=== PATIENT | female | born 1950 | race Caucasian/White ===

== ENCOUNTER 2022-05-30 14:46 | Emergency (ER) | payer MEDICARE, SELFPAY ==
--- NOTE | ~2022-05-30 | CT_ITS ---
EXAMINATION: CTA chest DATE: 05/30/2022 16:32 INDICATION: Chest pain radiating to the back. Epigastric pain, nausea and vomiting. TECHNIQUE: Computed tomographic angiography (CTA) of the chest was performed without and with 100 mL Omnipaque-350 intravenous contrast. Volume-rendered 3D-reconstructions of the aorta and large arterie s were constructed by the technologist on a separate workstation. Automated exposure control and iter ative reconstruction technique were employed. The dose-length product was 719.97 mGy-cm. COMPARISON: None. FINDINGS: Mild dependent atelectasis in the bilateral lower lobes along with additional left basilar atelectasi s at the left lower lobe and lingula. No pneumonia, pulmonary edema, pleural effusion or pneumothorax . Heart size is normal. No pericardial effusion. Minimal atherosclerotic calcifications at the origin s of the coronary arteries. Additional atherosclerotic calcification without hemodynamically signific ant stenosis at the aortic arch. Thoracic aorta is normal in caliber with no dissection. No pathologi carly enlarged thoracic lymphadenopathy. Diffuse hepatic steatosis. There is slight increased attenua tion along the gallbladder fossa which could represent either focal fatty sparing or hyperemia such a s in the setting of acute cholecystitis. There is a prominent calcified gallstone within the partiall y visualized gallbladder. There is suggestion of some mild stranding in the fat along the fundus of t he gallbladder again raising some suspicion for acute appendicitis. There are few small low-attenuati on cysts at the visualized upper pole of the left kidney. Moderate thoracic spondylosis. IMPRESSION: 1. No aortic aneurysm, dissection or other acute cardiopulmonary disease. 2. Cholelithiasis with suggestion of mild pericholecystic fat stranding and possible hyperemia along the gallbladder fossa which raises some suspicion for acute cholecystitis. Correlate for Stahl sign and if equivocal could consider HIDA scan for further evaluation. Reviewed, dictated and finalized at location A. IMPRESSION: 1. No aortic aneurysm, dissection or other acute cardiopulmonary disease. 2. Cholelithiasis with suggestion of mild pericholecystic fat stranding and pos sible hyperemia along the gallbladder fossa which raises some suspicion for acu te cholecystitis. Correlate for Stahl sign and if equivocal could consider HID A scan for further evaluation.
--- NOTE | 2022-05-30 15:04 | ECG_ITS ---
Measurements Intervals [place] Rate: 56 P: 60 LA: 150 QRS: -7 QRSD: 90 T: 34 QT: 363 QTc: 352 Interpretive Statements SINUS BRADYCARDIA WITH MARKED SINUS ARRHYTHMIA CONSIDER INFERIOR INFARCT, AGE INDETERMINATE BASELINE ARTIFACT- I, II, III, AVR, AVL, AVF, V4-V6 ABNORMAL ECG NO PREVIOUS ECG AVAILABLE FOR COMPARISON Electronically Signed On 05-30-2022 16:52:30 CDT by Angus Bermeo D.O.
[2022-05-30 15:13] VITALS: BP 172/80; PULSE 73; RESP 20; TEMP 36.7; O2SAT 97
[2022-05-30 15:31] LABS: Hematocrit 49.1 % (35.0-42.0); Hemoglobin 16.1 g/dL (11.7-13.8); Mean Corpuscular HGB Conc 32.8 g/dL (32.0-36.0); Mean Corpuscular Hemoglobin 30.1 pg (27.0-31.0); Mean Corpuscular Volume 91.9 fL (78.0-102.0); Mean Platelet Volume 11.9 fl (9.2-11.8); Platelet Count Result 274 K/mm3 (150-420); Red Blood Count 5.34 M/mm3 (4.20-5.40); Red Cell Distribution Width 13.7 % (11.6-14.4); White Blood Count 12.5 K/mm3 (4.8-10.8)
--- NOTE | 2022-05-30 15:35 | ED.GENADULT ---
HPI - General Adult General Chief complaint: Nausea/Vomiting/Diarrhea Stated complaint: vomiting, chest and back pain History of Present Illness HPI narrative: Flory is a 72F with a PMH of HTN, HLD and chronic back pain that presented to the ED with back and chest pain. It started with an aching pain in her upper back but now it is a ripping pain from her upper back to her left chest with nausea, a few episodes of non-bloody vomiting, and is lightheaded. She has not passed out. There is no hematemesis, diarrhea or abdominal pain. Related Data Home Medications Medication Instructions Recorded Confirmed amlodipine 10 mg tablet 10 mg PO DAILY 05/30/22 05/30/22 metoprolol tartrate 50 mg tablet 50 mg PO DAILY 05/30/22 05/30/22 oxybutynin chloride 5 mg tablet 5 mg PO DAILY 05/30/22 05/30/22 rosuvastatin 20 mg tablet 20 mg PO DAILY 05/30/22 05/30/22 Allergies Allergy/AdvReac Type Severity Reaction Status Date / Time No Known Allergies Allergy Verified 05/30/22 15:05 Review of Systems Review of Systems: ROS unobtainable: Yes unobtainable due to medical condition [facility] Past Medical History Medical History (Updated 05/31/22 @ 08:16 by Henry Woodson DO) Hyperlipidemia Hypertension Overactive bladder Surgical History Surgical History (Updated 05/30/22 @ 22:59 by Grace Jefferson PA-C) History of hysterectomy Family History Family History (Updated 05/30/22 @ 23:00 by Grace Jefferson PA-C) Father Heart disease Other Brain cancer Mother No problems noted. Social History Social History (Updated 05/30/22 @ 23:01 by Grace Jefferson PA-C) Social History: Surrogate medical decision maker: Joce Khoury, spouse. Code status: Full code. Smoking status: Never smoker Alcohol intake: current Alcohol use details: Social alcohol use in moderation. Substance use: never Substance use type: does not use Additional living arrangements comments: The patient lives with her in [place]. Additional occupation/education comments: Retired. She is very involved in local [employer] including the [employer]. Spiritual care concerns: No Exam Const: General: alert; No confusion Other: In mild to moderate distress. HENMT: Head: normal to inspection Other: atrauamtic Eyes: Conjunctivae: conjunctivae normal Pupils: Equal, round and reactive pupils present Neck: Neck: normal visual inspection Chest: Chest palpation & inspection: normal inspection of the chest Resp: Other: Increased respiratory effort but lungs clear to auscultation bilaterally. Cardio: Rate: regular rate Rhythm: regular rhythm Other: No murmur GI: Other: Not tender to palpation Skin: General skin exam: normal color Neuro: General: patient oriented x3, moves all extremities and no meningeal signs Extrem: General: normal to inspection Psych: Mental Status: mental status grossly normal Course Course Emergency Course: Flory was evaluated. Ordered EKG, labs and CT as well as morphine for pain EXAMINATION: CTA chest DATE: 05/30/2022 16:32 INDICATION: Chest pain radiating to the back. Epigastric pain, nausea and vomiting. TECHNIQUE: Computed tomographic angiography (CTA) of the chest was performed without and with 100 mL Omnipaque-350 intravenous contrast. Volume-rendered 3D-reconstructions of the aorta and large arteries were constructed by the technologist on a separate workstation. Automated exposure control and iterative reconstruction technique were employed. The dose-length product was 719.97 mGy-cm. COMPARISON: None. FINDINGS: Mild dependent atelectasis in the bilateral lower lobes along with additional left basilar atelectasis at the left lower lobe and lingula. No pneumonia, pulmonary edema, pleural effusion or pneumothorax. Heart size is normal. No pericardial effusion. Minimal atherosclerotic calcifications at the origins of the coronary arteries.
[2022-05-30 15:42] LABS: Basophils Absolute Auto 0.08 K/mm3 (0.00-0.10); Basophils Percent Auto 0.6 % (0.0-1.0); Eosinophils Absolute Auto 0.08 K/mm3 (0.02-0.50); Eosinophils Percent Auto 0.6 % (1.0-6.0); Hematocrit 48.8 % (35.0-42.0); Hemoglobin 16.3 g/dL (11.7-13.8); Immature Granulocyte Absolute 0.07 K/mm3 (0.00-0.00); Immature Granulocyte Percent A 0.6 % (0.0-0.0); Lymphocytes Absolute Auto 2.09 K/mm3 (1.10-4.50); Mean Corpuscular HGB Conc 33.4 g/dL (32.0-36.0); Mean Corpuscular Hemoglobin 30.7 pg (27.0-31.0); Mean Corpuscular Volume 91.9 fL (78.0-102.0); Mean Platelet Volume 11.9 fl (9.2-11.8); Monocytes Absolute Auto 0.48 K/mm3 (0.10-0.90); Monocytes Percent Auto 3.9 % (2.0-11.0); Neutrophils Absolute Auto 9.5 K/mm3 (1.7-7.2); Neutrophils Percent Auto 77.3 % (50.0-70.0); Platelet Count Result 272 K/mm3 (150-420); Red Blood Count 5.31 M/mm3 (4.20-5.40); Red Cell Distribution Width 13.9 % (11.6-14.4); White Blood Count 12.3 K/mm3 (4.8-10.8)
[2022-05-30 15:55] LABS: Lipase 216 U/L (73-393)
[2022-05-30 15:57] LABS: Alanine Aminotransferase 32 U/L (14-59); Albumin Level 4.3 g/dL (3.4-5.0); Alkaline Phosphatase 90 U/L (46-116); Anion Gap 9 mmol/L (8-16); Aspartate Amino Transferase 24 U/L (15-37); Bilirubin,Total 0.4 mg/dL (0.00-1.00); Blood Urea Nitrogen 17 mg/dL (7-18); Calcium 10.2 mg/dL (8.5-10.1); Carbon Dioxide 29 mmol/L (21-32); Chloride 99 mmol/L (98-108); Estimated CRCL calculation 69 ml/min; Estimated Glomerular Filt Rate > 60; Glucose 193 mg/dL (70-99); Osmolality Calculated 290 mOsm/kg (285-295); Potassium 3.7 mmol/L (3.5-5.1); Sodium 137 mmol/L (136-145); Total Protein 8.1 g/dL (6.4-8.2); Troponin I 11.9 ng/L (0.00-60.4)
[2022-05-30 15:58] LABS: NT Pro B Type Natriuretic Pept 93 pg/mL (0-125)
[2022-05-30] MEDS: ONDANSETRON INJ 4 MG/2 ML VIAL IV PUSH ×2 (16:01→17:40)
[2022-05-30] MEDS: MORPHINE SULFATE (*CRX) 4 MG/ML INJ IV PUSH ×2 (16:02→17:40)
[2022-05-30 16:14] LABS: Prothrombin Time 10.5 Seconds (9.50-12.10)
--- NOTE | 2022-05-30 17:19 | PC.NURSE ---
Pt assisted to restroom via wheelchair. PCT reports that pt started vomiting again. ERP aware. Will give second dose of zofran.
== END 2022-05-30 18:49 | disposition short-term general hospital (02) ==
PROVIDERS: Emergency Provider Family Medicine; PCP Nurse Practitioner Family
DX: K81.9 Cholecystitis, unspecified (principal); E78.5 Hyperlipidemia, unspecified; I10 Essential (primary) hypertension
CPT/HCPCS: 36415; 71275; 80053; 83690; 83880; 84484; 85025; 85027; 85610; 93005; 96365; 96375; 96376; 99285; J2270; J2405; J2543; Q9967

== ENCOUNTER 2022-05-30 20:35 | Inpatient (IN) | payer MEDICARE, SELFPAY ==
--- NOTE | ~2022-05-30 | XR_ITS ---
EXAMINATION: XR cholangiogram surg 1st inj DATE: 05/31/2022 15:25 INDICATION: Intraoperative evaluation during laparoscopic cholecystectomy TECHNIQUE: Multiple fluoroscopic images of the right upper quadrant were obtained during intraoperati ve cholangiography. A total of 110 fluoroscopic images were obtained during procedure performed by Dr Danny Connelly . Radiologist was not present for the procedure or imaging. The amount of fluoroscopy time used during this procedure was 0.3 minutes. COMPARISON: None. FINDINGS: Cannulation of the cystic duct demonstrates filling of a mildly dilated common bile duct wh ich tapers smoothly distally with no intraluminal filling defects or stricture. Contrast extends int o the duodenum and central intrahepatic biliary tree which appears normal, also without evident filli ng defects or strictures. IMPRESSION: 1. No filling defects or strictures within the mildly dilated common bile duct or contrast opacified central biliary tree. Reviewed, dictated and finalized at location A.
--- NOTE | ~2022-05-30 | US_ITS ---
US abdomen limited INDICATION: Abnormal CT. PROCEDURE: Realtime right upper abdominal ultrasound. COMPARISON: No prior studies for comparison. FINDINGS: The pancreas is normal without focal mass or pancreatic ductal dilation. Liver echotexture is increased, consistent with fatty infiltration. There is normal directional flow in the portal vein. There are gallstones with gallbladder wall thickening and pericholecystic fluid. Common bile duct me asures 8.5 mm. No sonographic Stahl's sign, although patient is on pain medications. IMPRESSION: 1: Cholelithiasis with gallbladder wall thickening, pericholecystic fluid and biliary dilatation. Fin dings compatible with acute cholecystitis. 2: Hepatic steatosis. Reviewed, dictated and finalized at location B. IMPRESSION: 1: Cholelithiasis with gallbladder wall thickening, pericholecystic fluid and b iliary dilatation. Findings compatible with acute cholecystitis. 2: Hepatic steatosis.
--- NOTE | 2022-05-30 19:37 | PC.NURSE ---
This patient, Flory Khoury, was admitted to [facility] Surg Room 330-01 on 05/30/22 @ 1925. Patient/family oriented to hospital policies and general routines including ID bracelet, bed and alarms, visiting hours, pain management, procedures, bathroom and other care routines, personal items, smoking policy, room service/diet, and visiting hours. Information on how to activate the Rapid Response Team has been discussed. Patient/Family are encouraged to report perceived risks to care and to ask questions if they do not understand what they are told or what they should do.
--- NOTE | 2022-05-30 21:30 | PM.IMHP ---
H&P: HPI History of Present Illness Date/Time: 05/30/22 21:30 Chief Complaint: Cholecystitis. Narrative: This is a very pleasant 72-year-old female with hypertension and hyperlipidemia who is being directly admitted to the medical floor from the emergency department at the [facility] for cholecystitis. she felt fine when she got up this morning and not long after eating sausage patties and eggs for breakfast she developed an aching pain in the chest (she points more so to the epigastrium) radiating through to the back which intensified quite quickly to a ripping pain. She also had nausea and several episodes of nonbloody, nonbilious emesis after the pain began. A CTA of the chest was done immediately on arrival to the ED to rule out dissection. no acute cardiopulmonary disease, aortic aneurysm, or dissection was noted however cholelithiasis with suggestions of mild pericholecystic fat stranding and Other findings which raise suspicion for acute cholecystitis. her WBC count was elevated 12.3 with unremarkable LFTs. With further questioning she admits that she has had similar, intermittent symptoms over the years which seemed to be related to food. She has never been evaluated for this pain before today as it had never been this severe. At the time my evaluation she continues to have the pain and nausea as well as dry heaves. Review of Systems Review of Systems: Twelve systems were reviewed. She was a bit lightheaded when the pain was severe earlier. No syncope or near syncope. She denies exertional chest pain shortness of breath. No history of cardiac disease. She denies diarrhea and in fact she is typically constipated And usually has a bowel movement 1 time a week despite taking stool softeners. Except as documented, all other systems were reviewed and are negative. [facility] Past Medical History Medical History (Updated 05/30/22 @ 23:08 by Grace Jefferson PA-C) Hyperlipidemia Hypertension Overactive bladder Surgical History Surgical History (Updated 05/30/22 @ 22:59 by Grace Jefferson PA-C) History of hysterectomy Family History Family History (Updated 05/30/22 @ 23:00 by Grace Jefferson PA-C) Father Heart disease Other Brain cancer Mother No problems noted. Social History Social History (Updated 05/30/22 @ 23:01 by Grace Jefferson PA-C) Social History: Surrogate medical decision maker: Joce Khoury, spouse. Code status: Full code. Smoking status: Never smoker Alcohol intake: current Alcohol use details: Social alcohol use in moderation. Substance use: never Substance use type: does not use Additional living arrangements comments: The patient lives with her in [place]. Additional occupation/education comments: Retired. She is very involved in local [employer] including the [employer]. Spiritual care concerns: No Meds Home Medications and Allergies Home Medications Medication Instructions Recorded Confirmed Type amlodipine 10 mg tablet 10 mg PO DAILY 05/30/22 05/30/22 History metoprolol tartrate 50 mg tablet 50 mg PO DAILY 05/30/22 05/30/22 History oxybutynin chloride 5 mg tablet 5 mg PO DAILY 05/30/22 05/30/22 History rosuvastatin 20 mg tablet 20 mg PO DAILY 05/30/22 05/30/22 History Allergies Allergy/AdvReac Type Severity Reaction Status Date / Time No Known Allergies Allergy Verified 05/30/22 15:05 Vital Signs Vital Signs - 24 hr 05/30/22 20:00 Oxygen Delivery Room Air Exam Narrative: General: Moderately ill-appearing female lying in the semi-Vicente position in bed. She has frequent dry heaves. Weight: 92 kilograms. BMI: 36.5. HEENT: PERRL, EOMI. Sclera anicteric. Tacky mucous membranes. Neck: Supple. Respiratory: Lungs are clear to auscultation bilaterally. Cardiovascular: Regular rate and rhythm with S1-S2. 2/6 systolic murmur heard at the upper sternal border. Gastrointestinal
[2022-05-30] MEDS: SODIUM CHLORIDE 0.9% IV 1,000 ML 100 ML IV CONT (21:42)
[2022-05-30] MEDS: MORPHINE SULFATE (*CRX) 2 MG/ML INJ IV PUSH (21:43)
[2022-05-30 21:46] VITALS: BMI 36.5
[2022-05-30 22:00] VITALS: BP 156/103; PULSE 80; RESP 15; TEMP 36.6; O2SAT 96
--- NOTE | 2022-05-30 22:01 | ADMGEN ---
This patient, Flory Khoury, was admitted to [facility] Surg Room 330-01. Patient/family oriented to hospital policies and general routines including ID bracelet, bed and alarms, visiting hours, pain management, procedures, bathroom and other care routines, personal items, smoking policy, room service/diet, and visiting hours. Information on how to activate the Rapid Response Team has been discussed. Patient/Family are encouraged to report perceived risks to care and to ask questions if they do not understand what they are told or what they should do.
[2022-05-30] MEDS: ONDANSETRON INJ 4 MG/2 ML VIAL IV PUSH (22:10)
[2022-05-31] VITALS (14 sets, daily range): BP systolic 104–152; BP diastolic 48–79; PULSE 69–82; RESP 14–26; TEMP 36.3–37; O2SAT 92–99; BMI 36.5
--- NOTE | 2022-05-31 | ECHO_ITS ---
Patient Info Name: Flory Khoury Age: 72 years : 1950 Gender: Female Ht: 62 in Wt: 202 lbs BSA: 2.05 m2 HR: 82 bpm BP: 118 / 61 mmHg Heart Rhythm: Sinus Rhythm Technical Quality: Fair Exam Date: 05/31/2022 10:00 AM Exam Location: [facility] Patient Status: Inpatient Admit Date: 05/30/2022 Staff Ordering Physician: Grace Jefferson PA-C Estate Planner: Kym Marquez RDCS Attending Provider: Ildefonso Stovall MD Referring Physician: Li COLE; Exam Type: CA echo dop color flow w con Study Info Indications R01.1 - Cardiac murmur, unspecified Complete two-dimensional, color flow and Doppler transthoracic echocardiogram is performed with contrast to opacify the left ventricle and to improve the deliniation of the left ventricle endocardial borders. Contrast/Agitated Saline Contrast/Ag. Saline: Definity Amount: 3.00 ml Administered By: Kym Marquez RDCS Existing IV Access: Yes IV Access Condition: patent with no signs of infiltration Summary 1. Left ventricular chamber dimension is normal. 2. Definity contrast administered improved wall motion interpretation. 3. Left ventricular systolic function is normal, estimated at 60-65%. 4. The left ventricular diastolic function is grade I diastolic dysfunction. 5. E/e' 18 is elevated. 6. Left atrial chamber dimension is mildly enlarged. 7. There is trace mitral valve regurgitation. 8. There is trace tricuspid valve regurgitation. 9. No pulmonary hypertension, estimated pulmonary arterial systolic pressure is 24 mmHg. Left Ventricle E/e' 18 is elevated. Definity contrast administered improved wall motion interpretation. Left ventricular chamber dimension is normal. Left ventricular systolic function is normal, estimated at 60-65%. The left ventricular diastolic function is grade I diastolic dysfunction. Right Ventricle Right ventricular systolic function is normal and with normal TAPSE 2.5 cm. Right ventricular chamber dimension is normal. Left Atria Left atrial chamber dimension is mildly enlarged. Right Atria Right atrial chamber dimension is normal. Aortic Valve The aortic valve is trileaflet. There is no aortic valve stenosis. There is no aortic valve regurgitation. Pulmonic Valve There is no pulmonic regurgitation. Mitral Valve There is no mitral valve stenosis. There is trace mitral valve regurgitation. Tricuspid Valve There is trace tricuspid valve regurgitation. No pulmonary hypertension, estimated pulmonary arterial systolic pressure is 24 mmHg. Pericardium/Pleural There is no pericardial effusion. Inferior Vena Cava Normal inferior vena cava with >50% collapse upon inspiration consistent with normal right atrial pressure, 5 mmHg. Aorta The aortic root size at the sinus of Valsalva is normal. Left Ventricular Outflow Tract Name Value Normal LVOT 2D LVOT Diameter 1.98 cm LVOT Doppler LVOT Peak Gradient 6 mmHg LVOT Mean Gradient 3 mmHg LVOT VTI 20.97
[2022-05-31] MEDS: MORPHINE SULFATE (*CRX) 2 MG/ML INJ IV PUSH ×2 (02:41→23:13)
[2022-05-31] MEDS: HYDROcodone/acetaminophen (*CRX) 5-325 MG TABLET 1 TAB PO (05:27)
[2022-05-31 05:56] LABS: Hematocrit 43.3 % (37.0-47.0); Hemoglobin 14.2 g/dL (12.0-15.0); Mean Corpuscular HGB Conc 32.8 g/dl (32-36); Mean Corpuscular Hemoglobin 30.3 pg (26-34); Mean Corpuscular Volume 92.3 fl (80-100); Mean Platelet Volume 11.8 fl (7.4-10.4); Platelet Count Result 254 k/mm3 (150-375); Red Blood Count 4.69 M/mm3 (4.2-5.4); Red Cell Distribution Width 14.3 % (11.5-14.5); White Blood Count 20.1 K/mm3 (4.5-10.0)
[2022-05-31 06:33] LABS: Alanine Aminotransferase 48 U/L (6-35); Albumin Level 3.7 g/dL (3.5-5.1); Alkaline Phosphatase 94 U/L (38-126); Anion Gap 10 mmol/L (8-16); Aspartate Amino Transferase 51 U/L (14-36); Bilirubin,Total 0.7 mg/dL (0.2-1.3); Blood Urea Nitrogen 15 mg/dL (7-17); Calcium 8.9 mg/dL (8.4-10.2); Carbon Dioxide 26 mmol/L (22-30); Chloride 102 mmol/L (98-107); Estimated CRCL calculation 77 ml/min; Estimated Glomerular Filt Rate > 60; Glucose 150 mg/dL (65-110); Magnesium 1.8 mg/dL (1.6-2.3); Potassium 3.2 mmol/L (3.4-5.0); Sodium 138 mmol/L (137-145)
[2022-05-31 07:25] LABS: Hemoglobin A1C 7.2 % (<5.7)
[2022-05-31] MEDS: SODIUM CHLORIDE 0.9% IV 1,000 ML 100 ML IV CONT (09:12)
[2022-05-31 09:52] LABS: Hepatitis B Surface Antigen Negative (Negative)
[2022-05-31 09:57] LABS: HAV RESULT Negative (Negative); Hepatitis B Core IgM Result Negative (Negative)
--- NOTE | 2022-05-31 10:00 | PM.IMPN ---
Progress Note: A&P Assessment and Plan (1) Acute cholecystitis: Code(s): K81.0 - Acute cholecystitis Status: Acute Assessment and Plan: CTA indicated cholelithiasis with suggestion of mild pericholecystic fat stranding and possible hyperemia along with the gallbladder fossa which raises suspicion for acute cholecystitis Abdominal ultrasound: cholelithiasis with gallbladder wall thickening, pericholecystic fluid and biliary dilatation GS consulted thank you WBC elevated at 2.1 AST/ALT 51/48 NPO for now Zofran for nausea Possible surgical intervention for today IV fluids NS 100ml/hr for (2) Dehydration: Code(s): E86.0 - Dehydration Status: Acute Assessment and Plan: Possible dehydration due to nausea and vomiting IV fluids Renal function is normal continue to trend labs (3) Hyperglycemia: Code(s): R73.9 - Hyperglycemia, unspecified Status: Acute Assessment and Plan: Glucose is 150 A1c 7.2 Does not appear to be on any medications Finishing Department Supervisor and senior health educator consult ISS Accu Chek Q6H while NPO Trend glucose Adjust therapy as indicated (4) Hypertension: Code(s): I10 - Essential (primary) hypertension Status: Acute Assessment and Plan: BP 118/61 Continue home amlodipine and metoprolol Trend BP adjust therapy as indicated (5) Hyperlipidemia: Code(s): E78.5 - Hyperlipidemia, unspecified Status: Acute Assessment and Plan: LFT slightly elevated hold statin for now (6) Heart murmur: Code(s): R01.1 - Cardiac murmur, unspecified Status: Acute Assessment and Plan: no history to suggest current issues denies syncope, presyncope, exertional chest pain, shortness of breath, orthopnea, etc. EKG did not show acute findings but possible old inferior infarct. echocardiogram ordered Will need some out patient follow up (7) Transaminitis: Code(s): R74.01 - Elevation of levels of liver transaminase levels Status: Acute Assessment and Plan: AST/ALT elevated at 51/48 Hep panel negative Ultrasound does not indicate liver evolvement Continue to trend labs Adjust therapy as indicated Time Spent With Patient Time with patient: Greater than 35 minutes Subjective Date/time seen: 05/31/22 1000 Interval history: 05/31/22 1000 patient is a bit nervous this morning. It seems that she thinks she might thinking that this might be her liver. Reinforce that this was not a liver issue is more of a gallbladder issue. She has not had any vomiting this morning however she has been nauseated. She denies any chest pain, shortness of breath, diarrhea. She also stated that she had chills yesterday however today she is hot and has a fan. For breakfast yesterday she had 2 sausage patties and in a egg. Discussed with her more detail about the plan. It also appears that surgery is going to try to fit her in today. On a side note patient stated that all of her pain started in her epigastric area and radiated to her back between her shoulder blades. Currently her pain is in the right upper quadrant and is reproducible with Palpation. WBCs elevated at 20.1 continue current Zosyn. 05/30/22? 21:30 This is a very pleasant 72-year-old female with hypertension and hyperlipidemia who is being directly admitted to the medical floor from the emergency department at the [facility] for cholecystitis. she felt fine when she got up this morning and not long after eating sausage patties and eggs for breakfast she developed an aching pain in the chest (she points more so to the epigastrium) radiating through to the back which intensified quite quickly to a ripping pain. She also had nausea and several episodes of nonbloody, nonbilious emesis after the pain began. A CTA of the
--- NOTE | 2022-05-31 10:00 | P.PNIM_ITS ---
Progress Note: A&P Assessment and Plan (1) Acute cholecystitis: Code(s): K81.0 - Acute cholecystitis Status: Acute Assessment and Plan: * CTA indicated cholelithiasis with suggestion of mild pericholecystic fat stranding and possible hyperemia along with the gallbladder fossa which raises suspicion for acute cholecystitis * Abdominal ultrasound: cholelithiasis with gallbladder wall thickening, pericholecystic fluid and biliary dilatation * GS consulted thank you * WBC elevated at 2.1 * AST/ALT 51/48 * NPO for now * Zofran for nausea * Possible surgical intervention for today * IV fluids NS 100ml/hr for (2) Dehydration: Code(s): E86.0 - Dehydration Status: Acute Assessment and Plan: * Possible dehydration due to nausea and vomiting * IV fluids * Renal function is normal * continue to trend labs (3) Hyperglycemia: Code(s): R73.9 - Hyperglycemia, unspecified Status: Acute Assessment and Plan: * Glucose is 150 * A1c 7.2 * Does not appear to be on any medications * Weight Reducing Technician and chemical educator consult * ISS * Accu Chek Q6H while NPO * Trend glucose * Adjust therapy as indicated (4) Hypertension: Code(s): I10 - Essential (primary) hypertension Status: Acute Assessment and Plan: * BP 118/61 * Continue home amlodipine and metoprolol * Trend BP * adjust therapy as indicated (5) Hyperlipidemia: Code(s): E78.5 - Hyperlipidemia, unspecified Status: Acute Assessment and Plan: * LFT slightly elevated * hold statin for now (6) Heart murmur: Code(s): R01.1 - Cardiac murmur, unspecified Status: Acute Assessment and Plan: * no history to suggest current issues * denies syncope, presyncope, exertional chest pain, shortness of breath, orthopnea, etc. * EKG did not show acute findings but possible old inferior infarct. * echocardiogram ordered * Will need some out patient follow up (7) Transaminitis: Code(s): R74.01 - Elevation of levels of liver transaminase levels Status: Acute Assessment and Plan: * AST/ALT elevated at 51/48 * Hep panel negative * Ultrasound does not indicate liver evolvement * Continue to trend labs * Adjust therapy as indicated Time Spent With Patient Time with patient: Greater than 35 minutes Subjective Date/time seen: 05/31/22 1000 Interval history: 05/31/22 1000 patient is a bit nervous this morning. It seems that she thinks she might thinking that this might be her liver. Reinforce that this was not a liver issu e is more of a gallbladder issue. She has not had any vomiting this morning however she has been nauseated. She denies any chest pain, shortness of breath, diarrhea. She also stated that she had chills yesterday however today she is hot and has a fan. For breakfast yesterday she had 2 sausage patties and in a egg. Discussed with her more detail about the plan. It also appears that surgery is going to try to fit her in today. On a side note patient stated that all of her pain started in her epigastric area and radiated to her back between her shoulder blades. Currently her pain is in the right upper quadrant and is reproducible with Palpation. WBCs elevated at 20.1 continue current Zosyn. 05/30/22? 21:30
[2022-05-31 10:12] LABS: Hepatitis C Virus Antibody Negative (Negative)
[2022-05-31] MEDS: PERFLUTREN LIPID MICROSPHERES 1.5 ML VIAL DILUTED TO 10 ML TOTAL VOLUME IV PUSH (10:23)
--- NOTE | 2022-05-31 10:23 | IVDEFINITY ---
Prior to administration of IV Definity the patient was educated on the risks and benefits of the imaging enhancing agent including potential adverse side effects. The patient verbalized understanding. Allergies were verified. No exclusion criteria were identified and at least one of the following inclusion criteria were met: 1) physician request, 2) patient technically difficult to image (per the [place] [employer] guidelines of two or more segments not discernable within the apical view), or 3) questionable left ventricular function. ?
--- NOTE | 2022-05-31 10:34 | PM.CNGS ---
Assessment and Plan Assessment and plan (1) Acute cholecystitis: Code(s): K81.0 - Acute cholecystitis Status: Acute Assessment and Plan: CTA and RUQ US suggesting acute calculous cholecystitis. WBC up to 20,000 today. Given her history, she likely has acute and chronic cholecystitis. She is still having epigastric and RUQ abdominal pain this morning. Discussed treatment options with the patient. We would recommend proceeding with a laparoscopic cholecystectomy, possible open, with IOC by Dr. Connelly under general anesthesia. Description of the procedure, risks, benefits, alternatives, and expected recovery were discussed in detail. She agrees to proceed. Will keep her NPO and continue IV fluids, IV antibiotics, and analgesics as needed. (2) Transaminitis: Code(s): R74.01 - Elevation of levels of liver transaminase levels Status: Acute Assessment and Plan: AST and ALT slightly elevated, but total bilirubin and alk phos normal. RUQ US showed dilatation of the common bile duct. Will plan for IOC during surgery to evaluate for common duct stone. Discussed this with patient and that she would need GI consultation post-op if found to have a filling defect in the common duct during surgery. (3) Heart murmur: Code(s): R01.1 - Cardiac murmur, unspecified Status: Acute Assessment and Plan: Echo pending this morning, will monitor for results. (4) HTN (hypertension): Code(s): I10 - Essential (primary) hypertension Status: Acute (5) Obesity (BMI 30-39.9): Code(s): E66.9 - Obesity, unspecified Status: Acute (6) Hyperlipidemia: Code(s): E78.5 - Hyperlipidemia, unspecified Status: Acute (7) Hyperglycemia: Code(s): R73.9 - Hyperglycemia, unspecified Status: Acute Assessment and Plan: Glucose 193 on admission. No known history of diabetes. Hgb A1C checked and 7.2, consistent with diabetes mellitus. Management per primary service, will need f/u with PCP. She was scheduled to have an appointment with her PCP on and will plan on following up closely after admission. Plan I have discussed the patient's case and plan of care with Dr. Connelly. Thank you for allowing us to see the patient in consultation and we will continue to follow along with you. History of Present Illness Consult details Consult date: 05/31/22 Reason for consult: other (Acute cholecystitis) Requesting physician: Grace Jefferson PA-C Narrative: This is a 72-year-old woman with a history of hypertension and hyperlipidemia, who presented to [facility] yesterday with complaints of epigastric abdominal pain and vomiting x1 day. She had eaten sausage and eggs for breakfast, and shortly after noticed an onset of mid upper back pain. She began vomiting and developed substernal chest pain and epigastric abdominal pain. She reports this as chest pain but is pointing to the epigastric area. The pain continued to intensify and she had multiple episodes of emesis. She then presented to the ER for evaluation. CTA of the chest showed cholelithiasis with suggestion of mild pericholecystic fat stranding and possible hyperemia along the gallbladder fossa, suspicious for acute cholecystitis. Labs showed a white blood cell count of 12,500, normal LFTs, and normal lipase. Glucose was 193. Troponin negative. EKG with sinus bradycardia with marked sinus arrhythmia and possible inferior infarct. She was directly transferred to [facility] for surgical evaluation of acute cholecystitis. Labs this morning with WBC up to 20,000 and AST and ALT were slightly elevated. Total bilirubin and alk phos remained normal. She was started on IV Zosyn. RUQ US ordered this morning and showed cholelithiasis with gallbladder wall thickening, pericholecystic fluid, and biliary dilatation, suggesting acute cholecystitis. Our service has been consulted and she is now seen on the medical floor. Her epiga
[2022-05-31] MEDS: ACETAMINOPHEN 325 MG TABLET 650 MG PO (11:25)
[2022-05-31] MEDS: METOPROLOL TARTRATE 50 MG TAB PO (11:25)
--- NOTE | 2022-05-31 11:52 | PC.NURSE ---
To OR per bed @ 1130. Spouse and daughter at bedside. Patient's wedding ring & band locked in safe.
[2022-05-31 12:50] LABS: Glucose Point of Care 174 mg/dl (65-105)
[2022-05-31] MEDS: LACTATED RINGERS 1,000 ML 30 ML IV CONT ×2 (13:00→15:53)
--- NOTE | 2022-05-31 13:15 | WPDHPUPDATE1 ---
History and Physical Update Update Date/Time: 05/31/22 13:15 History and Physical has been reviewed, including an updated exam of the patient. There are NO changes in the patient's condition. Risks, benefits, and alternatives have been discussed and questions answered. Patient agrees to proceed with procedure.
--- NOTE | 2022-05-31 13:24 | WPDANESEPPF ---
Anes - Initial Pre Proc Eval Procedure: Operation Date: 05/31/22 13:30 Proposed Procedures p Laparoscopic Cholecystectomy with Intraoperative Cholangiogram, Possible Open - Homer Connelly DO Date/Time: 05/31/22 13:24 Surgeon: Ildefonso Stovall MD Pre Op Diagnosis: cholecystitis Patient Data Age: 72 Gender: F Height: 1.59 m Weight: 92 kg Last Vital Signs Temp 36.4 C 05/31/22 12:45 Pulse 73 05/31/22 12:45 Resp 14 05/31/22 12:45 BP 132/51 L 05/31/22 12:45 Pulse Ox 94 05/31/22 12:45 O2 Del Method Room Air 05/31/22 12:45 Allergies Allergy/AdvReac Type Severity Reaction Status Date / Time No Known Allergies Allergy Verified 05/31/22 11:23 Home Medications Medication Instructions Recorded Confirmed Type amlodipine 10 mg tablet 10 mg PO DAILY 05/30/22 05/30/22 History metoprolol tartrate 50 mg tablet 50 mg PO DAILY 05/30/22 05/30/22 History oxybutynin chloride 5 mg tablet 5 mg PO DAILY 05/30/22 05/30/22 History rosuvastatin 20 mg tablet 20 mg PO DAILY 05/30/22 05/30/22 History Laboratory Tests 05/31/22 05/31/22 05/31/22 05:34 05:36 05:36 WBC 20.1 K/mm3 H K/mm3 (4.5-10.0) RBC 4.69 M/mm3 M/mm3 (4.2-5.4) Hgb 14.2 g/dL g/dL (12.0-15.0) Hct 43.3 % % (37.0-47.0) MCV 92.3 fl fl (80-100) MCH 30.3 pg pg (26-34) MCHC 32.8 g/dl g/dl (32-36) RDW 14.3 % % (11.5-14.5) Plt Count 254 k/mm3 k/mm3 (150-375) MPV 11.8 fl H fl (7.4-10.4) Sodium Potassium Chloride Carbon Dioxide Anion Gap BUN Creatinine Estim Creat Clear Calc Estimated GFR Glucose POC Capillary Glucose Hemoglobin A1c 7.2 % H % (<5.7) Calcium Magnesium Total Bilirubin AST ALT Alkaline Phosphatase Total Protein Albumin Hepatitis A IgM Ab Negative (Negative) Hep Bs Antigen Negative (Negative) Hep B Core IgM Ab Negative (Negative) Hepatitis C Ab Screen Negative (Negative) Blood Type Antibody Screen 05/31/22 05/31/22 05/31/22 05:36 10:52 12:48 WBC RBC Hgb Hct MCV MCH MCHC RDW Plt Count MPV Sodium 138 mmol/L mmol/L (137-145) Potassium 3.2 mmol/L L mmol/L (3.4-5.0) Chloride 102 mmol/L mmol/L (98-107) Carbon Dioxide 26 mmol/L mmol/L (22-30) Anion Gap 10 mmol/L mmol/L (8-16) BUN 15 mg/dL mg/dL (7-17) Creatinine 0.60 mg/dL L mg/dL (0.7-1.0) Estim Creat Clear Calc 77 ml/min ml/min Estimated GFR > 60 (59 - ) Glucose 150 mg/dL H mg/dL (65-110) POC Capillary Glucose 174 mg/dl H mg/dl (65-105) Hemoglobin A1c Calcium 8.9 mg/dL mg/dL (8.4-10.2) Magnesium 1.8 mg/dL mg/dL (1.6-2.3) Total Bilirubin 0.7 mg/dL mg/dL (0.2-1.3) AST 51 U/L H U/L (14-36) ALT 48 U/L H U/L (6-35) Alkaline Phosphatase 94 U/L U/L (38-126) Total Protein 6.0 g/dL L g/dL (6.3-8.2) Albumin 3.7 g/dL g/dL (3.5-5.1) Hepatitis A IgM Ab Hep Bs Antigen Hep B Core IgM Ab Hepatitis C Ab Screen Blood Type A Negative Antibody Screen Negative Other studies: Admit Date: ? ? 05/30/2022 Staff Ordering Physician: ? ? Grace Jefferson PA-C Surveying Technician: ? ? Kym Marquez RDCS Attending Provider: ? ? Ildefonso Stovall MD Referring Physician: ? ? Li COLE; Exam Type: ? ? CA echo dop color fl
[2022-05-31] MEDS: BUPIVACAINE/EPINEPHRINE 0.25% 50 ML VIAL INFILTRATE (14:21)
--- NOTE | 2022-05-31 15:41 | W.PM.PROC2 ---
Procedure Note - Detailed Date of Procedure 05/31/22 Pre-op Diagnosis Acute calculous cholecystitis, incarcerated umbilical hernia Post-op Diagnosis Same Procedure Performed Laparoscopic Cholecystectomy with intraoperative cholangiogram Surgeon Homer Connelly, DO Anesthesia General and Local (0.5% bupivacaine) Indications This is a 72-year-old woman who presented to [facility] yesterday with complaints of abdominal pain that started yesterday morning. She was continuing to have constant severe pain therefore decided to go to the emergency department. She has had pains like this every several weeks for the past 2 years. She has not gotten this evaluated before. In the emergency department she was worked up for chest pain but most of her pain seemed to be more epigastric. CT angiogram of her chest showed no evidence of PE or aortic dissection. It did however show gallbladder wall thickening and cholelithiasis. She was then transferred to [facility] for further treatment. A gallbladder ultrasound was obtained this morning and this showed evidence of acute calculous cholecystitis and dilated common bile duct. Her AST and ALT were only mildly elevated but bilirubin was normal. Discussions were made with the patient about treatment options and decision was made to proceed with laparoscopic cholecystectomy with intraoperative cholangiogram, possible open. Findings Laparoscopic cholecystectomy with cholangiogram was performed. Upon entering the abdomen laparoscopically there were severe adhesions up around the right lobe of the liver. The gallbladder was not even able to be identified at 1st and there was omentum covering the entire area. With careful dissection I was able to eventually identify the body of the gallbladder. The gallbladder was very tense and dilated and difficult to grasp. I attempted to aspirate the gallbladder but only was able to aspirate about 5 mL of clear white fluid. Dissection was very difficult due to the significant pericholecystic adhesions. Eventually I was able to identify the neck of the gallbladder and this was then traced to the cystic duct. Intraoperative cholangiogram was obtained using Omnipaque contrast and fluoroscopy. There was no evidence of filling defects within the common bile duct and contrast was visualized entering into the duodenum. The images were sent to the radiologist for interpretation. The gallbladder was removed and sent to the lab for pathology. There was significant bleeding from the adhesiolysis and dissection of the gallbladder off of the liver bed. Total blood loss was 150 mL which is about 10 times more than a normal straight for laparoscopic cholecystectomy. The gallbladder was opened after it was removed and there were 2 large stones within the gallbladder. The gallbladder was sent to the lab for pathology. I then irrigated the gallbladder fossa with 1 L of sterile saline. The decision was made to place a 19 round Alvaro drain into the gallbladder fossa to monitor for any bleeding infection. Patient was also noted to have an incarcerated umbilical hernia containing omentum. This was left alone due to the emergent need for the cholecystectomy. Description of Procedure Procedure as well as risks, benefits, and alternatives were discussed with patient. Written consent was obtained and placed in chart prior to procedure. The patient was brought back to surgical suite. Patient was placed in supine position on operating table. Time-out was done to confirm patient and procedure. Patient was then intubated by the anesthesia department. Abdomen was prepped and draped in sterile fashion using chlorhexidine prep. 0.5% bupivacaine with epinephrine was infiltrated at each site of incision. A 5 millimeter incision was made near the umbilicus, and a 5 millimeter Optiview trocar was advanced through the abdominal layers under direct visualization. Once inside the abdominal ca
[2022-05-31 16:13] LABS: Glucose Point of Care 186 mg/dl (65-105)
[2022-05-31] MEDS: fentaNYL CITRATE INJ (*CRX) 100 MCG/2 ML VIAL 25 MCG IV PUSH ×4 (16:20→16:52)
[2022-05-31] MEDS: ONDANSETRON INJ 4 MG/2 ML VIAL IV PUSH ×2 (16:23→23:10)
--- NOTE | 2022-05-31 17:22 | PC.NURSE ---
Patient return from OR per bed around 1715. Spouse at bedside. Wedding ring & band returned.
[2022-05-31] MEDS: HYDROcodone/acetaminophen (*CRX) 10-325 MG TABLET 1 TAB PO (20:53)
[2022-05-31] MEDS: OXYBUTYNIN CHLORIDE 5 MG TABLET PO (20:53)
[2022-05-31 21:47] LABS: Glucose Point of Care 204 mg/dl (65-105)
[2022-06-01 02:50] VITALS: BP 103/38; PULSE 85; RESP 18; TEMP 36.3; O2SAT 90
[2022-06-01 06:00] VITALS: BP 151/57; PULSE 89; RESP 18; TEMP 36.6; O2SAT 90
[2022-06-01 06:13] VITALS: BP 151/57; PULSE 89; RESP 18; TEMP 36.6; O2SAT 90
[2022-06-01 06:14] LABS: Basophils Percent Auto 0.1 % (0.2-1.2); Hematocrit 37.2 % (37.0-47.0); Hemoglobin 11.8 g/dL (12.0-15.0); Immature Granulocyte Absolute 0.07 K/mm3 (0.00-0.031); Immature Granulocyte Percent A 0.4 % (0-0.5); Lymphocytes Absolute Auto 1.08 K/mm3 (0.9-3.2); Lymphocytes Percent Auto 6.7 % (18.3-44.2); Mean Corpuscular HGB Conc 31.7 g/dl (32-36); Mean Corpuscular Hemoglobin 30.9 pg (26-34); Mean Corpuscular Volume 97.4 fl (80-100); Mean Platelet Volume 12.1 fl (7.4-10.4); Monocytes Percent Auto 6.1 % (2.6-8.5); Neutrophils Absolute Auto 13.9 K/mm3 (1.3-6.7); Neutrophils Percent Auto 86.7 % (45.5-73.1); Platelet Count Result 230 k/mm3 (150-375); Red Blood Count 3.82 M/mm3 (4.2-5.4); Red Cell Distribution Width 15.3 % (11.5-14.5); White Blood Count 16.1 K/mm3 (4.5-10.0)
[2022-06-01 06:20] LABS: Alanine Aminotransferase 44 U/L (6-35); Albumin Level 3.4 g/dL (3.5-5.1); Alkaline Phosphatase 74 U/L (38-126); Anion Gap 12 mmol/L (8-16); Aspartate Amino Transferase 40 U/L (14-36); Bilirubin,Total 0.7 mg/dL (0.2-1.3); Blood Urea Nitrogen 17 mg/dL (7-17); Calcium 8.3 mg/dL (8.4-10.2); Carbon Dioxide 27 mmol/L (22-30); Chloride 101 mmol/L (98-107); Estimated CRCL calculation 59 ml/min; Estimated Glomerular Filt Rate > 60; Glucose 224 mg/dL (65-110); Magnesium 1.9 mg/dL (1.6-2.3); Potassium 3.4 mmol/L (3.4-5.0); Sodium 140 mmol/L (137-145)
[2022-06-01 08:00] VITALS: BP 140/56; PULSE 88; RESP 28; TEMP 36.3; O2SAT 93
[2022-06-01] MEDS: ONDANSETRON INJ 4 MG/2 ML VIAL IV PUSH ×3 (08:40→23:49)
[2022-06-01] MEDS: ENOXAPARIN 40 MG/0.4 ML SYRINGE SUB-Q (08:40)
[2022-06-01] MEDS: HYDROcodone/acetaminophen (*CRX) 5-325 MG TABLET 1 TAB PO (08:40)
[2022-06-01] MEDS: amLODIPine BESYLATE 5 MG TABLET 10 MG PO (08:41)
[2022-06-01] MEDS: METOPROLOL TARTRATE 50 MG TAB PO (08:41)
[2022-06-01 08:42] LABS: Glucose Point of Care 191 mg/dl (65-105)
--- NOTE | 2022-06-01 09:09 | WPDANESPN ---
Anes - Prog Note Post-Op Date/Time: 06/01/22 09:09 Cardiovascular status: normal Respiratory status: normal Airway patency: baseline Mental status: baseline Post-Op hydration status: normal Vital Signs: Last Vital Signs Temp 97.4 F L 06/01/22 08:00 Pulse 88 06/01/22 08:00 Resp 28 H 06/01/22 08:00 BP 140/56 L 06/01/22 08:00 Pulse Ox 93 06/01/22 08:00 O2 Del Method Room Air 05/31/22 20:00 O2 Flow Rate 2 05/31/22 17:00 Pain Score (VAS): 0/10 I/O: Intake & Output 05/31/22 06/01/22 06/01/22 23:59 07:59 15:59 Intake Total 300 410 Output Total 150 240 30 Balance 150 170 -30 Laboratory Tests 06/01/22 05:39 06/01/22 05:39 05/31/22 05/31/22 05/31/22 05:34 10:52 12:48 WBC RBC Hgb Hct MCV MCH MCHC RDW Plt Count MPV Immature Gran % (Auto) Neut % (Auto) Lymph % (Auto) [place] % (Auto) Eos % (Auto) Baso % (Auto) Lymph # (Auto) [place] # (Auto) Eos # (Auto) Baso # (Auto) Abs Immat Gran (auto) Absolute Neuts (auto) Absolute Nucleated RBC Nucleated RBC % Sodium Potassium Chloride Carbon Dioxide Anion Gap BUN Creatinine Estim Creat Clear Calc Estimated GFR Glucose POC Capillary Glucose 174 H Calcium Magnesium Total Bilirubin AST ALT Alkaline Phosphatase Total Protein Albumin Hepatitis A IgM Ab Negative Hep Bs Antigen Negative Hep B Core IgM Ab Negative Hepatitis C Ab Screen Negative Blood Type A Negative Antibody Screen Negative 05/31/22 05/31/22 06/01/22 16:11 20:49 05:39 WBC 16.1 H RBC 3.82 L Hgb 11.8 L Hct 37.2 MCV 97.4 D MCH 30.9 MCHC 31.7 L RDW 15.3 H Plt Count 230 MPV 12.1 H Immature Gran % (Auto) 0.4 Neut % (Auto) 86.7 H Lymph % (Auto) 6.7 L [place] % (Auto) 6.1 Eos % (Auto) 0.0 Baso % (Auto) 0.1 L Lymph # (Auto) 1.08 [place] # (Auto) 1.0 H Eos # (Auto) 0.0 Baso # (Auto) 0.0 Abs Immat Gran (auto) 0.07 H Absolute Neuts (auto) 13.9 H Absolute Nucleated RBC 0.0 Nucleated RBC % 0.0 Sodium Potassium Chloride Carbon Dioxide Anion Gap BUN Creatinine Estim Creat Clear Calc Estimated GFR Glucose POC Capillary Glucose 186 H 204 H Calcium Magnesium Total Bilirubin AST ALT Alkaline Phosphatase Total Protein Albumin Hepatitis A IgM Ab Hep Bs Antigen Hep B Core IgM Ab Hepatitis C Ab Screen Blood Type Antibody Screen 06/01/22 06/01/22 05:39 08:39 WBC RBC Hgb Hct MCV MCH MCHC RDW Plt Count MPV Immature Gran % (Auto) Neut % (Auto) Lymph % (Auto) [place] % (Auto) Eos % (Auto) Baso % (Auto) Lymph # (Auto) [place] # (Auto) Eos # (Auto) Baso # (Auto) Abs Immat Gran (auto) Absolute Neuts (auto) Absolute Nucleated RBC Nucleated RBC % Sodium 140 Potassium 3.4 Chloride 101 Carbon Dioxide 27 Anion Gap 12 BUN 17 Creatinine 0.80 Estim Creat Clear Calc 59 Estimated GFR > 60 Glucose 224 H POC Capillary Glucose 191 H Calcium 8.3 L Magnesium 1.9 Total Bilirubin 0.7 AST 40 H ALT 44 H Alkaline Phosphatase 74 Total Protein 6.0 L Albumin 3.4 L Hepatitis A IgM Ab Hep Bs Antigen Hep B Core IgM Ab Hepatitis C Ab Screen Blood Type Antibody Screen Post-procedural complaints: none Patient Feedback: Patient satisfied with anesthetic care.
[2022-06-01 11:33] LABS: Glucose Point of Care 187 mg/dl (65-105)
[2022-06-01] MEDS: HYDROcodone/acetaminophen (*CRX) 10-325 MG TABLET 1 TAB PO ×2 (12:38→20:39)
--- NOTE | 2022-06-01 13:05 | PM.PNGS ---
Progress Note: A&P Assessment and Plan (1) Acute cholecystitis: Code(s): K81.0 - Acute cholecystitis Status: Acute Assessment and Plan: POD#1 lap elise and doing fair. Her surgery was difficult with a significant amount of inflammation, adhesions, and more blood loss than typical with a lap elise. She is doing well this morning. Will advance her diet to full liquids. Encouraged increasing activity and try sitting in the chair today. Continue to monitor MARTHA drain. Repeat labs tomorrow. May be able to discharge tomorrow if she continues to improve. (2) Transaminitis: Code(s): R74.01 - Elevation of levels of liver transaminase levels Status: Acute Assessment and Plan: LFTs down slightly. IOC showed no filling defects. Continue to monitor. (3) Heart murmur: Code(s): R01.1 - Cardiac murmur, unspecified Status: Acute (4) HTN (hypertension): Code(s): I10 - Essential (primary) hypertension Status: Acute (5) Obesity (BMI 30-39.9): Code(s): E66.9 - Obesity, unspecified Status: Acute (6) Hyperlipidemia: Code(s): E78.5 - Hyperlipidemia, unspecified Status: Acute (7) Hyperglycemia: Code(s): R73.9 - Hyperglycemia, unspecified Status: Acute Plan I have discussed the patient's case and plan of care with Dr. Connelly. Subjective Subjective Date/Time Seen: 06/01/22 11:05 Post Op day: 1 (lap elise) Patient reports: tolerating liquids well, no flatus, no bowel movement and afebrile Interval history: Patient seen and examined. She reports having incisional pain today, but this is being controlled with [place] this morning. She is tolerating clear liquids. No nausea or vomiting. She has gotten up to the commode, but is currently laying in bed. Has not ambulated much. No other complaints at this time. MARTHA drain with 70 cc output overnight. Review of Systems Review of Systems: All systems reviewed & are unremarkable except as noted in HPI and below Exam Const: General: comfortable, no acute distress and awake Orientation/consciousness: patient oriented x3 Resp: Effort & Inspection: normal respiratory effort Auscultation: clear to auscultation bilaterally Cardio: Rate: regular rate Rhythm: regular rhythm GI: Inspection: non-distended and incision (incisions dry and intact, min ecchymosis near epigastric and periumb. inc.) GI Palp: Yes Soft to palpation, Yes Tenderness to palpation present (GI) (incisional), No Guarding due to palpation present (GI) and Yes Hernia present (umbilical hernia) Auscultation: normal bowel sounds Extrem: General: no calf tenderness and no edema Psych: Mental Status: mental status grossly normal Insight: Good insight present (Psych) Objective Data Vital Signs Vital Signs: Vital Signs - 24 hr 05/31/22 15:53 05/31/22 16:05 05/31/22 16:20 Temperature 98.6 F Pulse Rate 69 72 75 Respiratory Rate 26 H 20 20 Blood Pressure 131/62 128/65 146/69 H Pulse Oximetry 99 95 94 Oxygen Delivery Simple Face Mask Nasal Cannula Nasal Cannula Oxygen Flow Rate 8 2 2 05/31/22 16:35 05/31/22 16:50 05/31/22 17:00 Temperature Pulse Rate 71 74 78 Respiratory Rate 20 20 20 Blood Pressure 140/63 136/79 134/72 Pulse Oximetry 95 96 97 Oxygen Delivery Nasal Cannula Room Air Nasal Cannula Oxygen Flow Rate 2 2 05/31/22 17:20 05/31/22 17:50 05/31/22 21:55 Temperature 98.5 F 98.5 F 97.4 F L Pulse Rate 79 75 74 Respiratory Rate 14 16 18 Blood Pressure 152/78 H 140/66 129/48 L Pulse Oximetry 96 94 92 Oxygen Delivery Oxygen Flow Rate 05/31/22 21:56 05/31/22 20:00 06/01/22 02:50 Temperature 97.4 F L 97.3 F L Pulse Rate 74 85 Respiratory Rate 18 18 Blood Pressure 129/48 L 103/38 L Pulse Oximetry 92 90 Oxygen Delivery Room Air Oxygen Flow Rate 06/01/22 06:00 06/01/22 06:13 06/01/22 08:00 Temperature 97.8 F 97.8 F 97.4 F L Pulse Rate 89 89 88 Respiratory Rate 18
[2022-06-01 13:23] VITALS: BP 117/48; PULSE 68; RESP 18; TEMP 36.8; O2SAT 91
--- NOTE | 2022-06-01 15:48 | P.PNIM_ITS ---
Progress Note: A&P Assessment and Plan (1) Acute cholecystitis: Code(s): K81.0 - Acute cholecystitis Status: Acute Assessment and Plan: * CTA indicated cholelithiasis with suggestion of mild pericholecystic fat stranding and possible hyperemia along with the gallbladder fossa which raises suspicion for acute cholecystitis * Abdominal ultrasound: cholelithiasis with gallbladder wall thickening, pericholecystic fluid and biliary dilatation * general surgery consulted and appreciate recommendations * Patient is postop day 1 lap choly with cholangiogram. Patient is noted to have a difficult surgery with EBL 150 and significant gallbladder inflammation and adhesions. * Cholangiogram negative * management per General surgery - patient is on clear liquid diet, pain control, IV fluids per surgery * Continue MARTHA drain and monitor output * Zofran for nausea * patient is continued on Zosyn 3.375 mg IV q.6 hours, antibiotic day 2 (2) Dehydration: Code(s): E86.0 - Dehydration Status: Acute Assessment and Plan: * dehydration due to nausea and vomiting * continue IV fluids as above * monitor Renal function, which is stable (3) Hypertension: Qualifiers: Hypertension type: primary hypertension Qualified Code(s): I10 - Essential (primary) hypertension Code(s): I10 - Essential (primary) hypertension Status: Chronic Assessment and Plan: chronic, stable, Continue home amlodipine and metoprolol * Trend BP * adjust therapy as indicated (4) Hyperlipidemia: Qualifiers: Hyperlipidemia type: mixed hyperlipidemia Qualified Code(s): E78.2 - Mixed hyperlipidemia Code(s): E78.5 - Hyperlipidemia, unspecified Status: Chronic Assessment and Plan: chronic, stable * LFT slightly elevated secondary hepatic steatosis * holding statin for now (5) Heart murmur: Code(s): R01.1 - Cardiac murmur, unspecified Status: Acute Assessment and Plan: * no history to suggest current issues, denies syncope, presyncope, exertional chest pain, shortness of breath, orthopnea, etc. * EKG did not show acute findings but possible old inferior infarct. * echocardiogram shows normal left ventricular systolic function, EF 60-65%, grade 1 diastolic dysfunction, trace MR, trace TR * continue to monitor outpatient * optimize BP control (6) Transaminitis: Code(s): R74.01 - Elevation of levels of liver transaminase levels Status: Chronic Assessment and Plan: likely chronic as demonstrated by ultrasound findings of hepatic steatosis * AST/ALT elevated at 40/44, alk-phos 74, T bili 0.7 * Hep panel negative * Ultrasound right upper quadrant demonstrates hepatic steatosis/ non alcoholic fatty liver disease. * Recommend weight loss and continue monitoring labs * avoid hepatotoxic medications and alcohol ingestion (7) Type 2 diabetes mellitus: Qualifiers: Diabetes mellitus custodial insulin use: without custodial use Diabetes mellitus complication status: without complication Qualified Code(s): E11.9 - Type 2 diabetes mellitus without complications Code(s): E11.9 - Type 2 diabetes mellitus without complications Status: Acute Assessment and Plan: new diagnosis, patient noted to have hyperglycemia upon admission with random glucose 193, fasting glucose 150 this admission * A1c 7
--- NOTE | 2022-06-01 15:48 | PM.IMPN ---
Progress Note: A&P Assessment and Plan (1) Acute cholecystitis: Code(s): K81.0 - Acute cholecystitis Status: Acute Assessment and Plan: CTA indicated cholelithiasis with suggestion of mild pericholecystic fat stranding and possible hyperemia along with the gallbladder fossa which raises suspicion for acute cholecystitis Abdominal ultrasound: cholelithiasis with gallbladder wall thickening, pericholecystic fluid and biliary dilatation general surgery consulted and appreciate recommendations Patient is postop day 1 lap choly with cholangiogram. Patient is noted to have a difficult surgery with EBL 150 and significant gallbladder inflammation and adhesions. Cholangiogram negative management per General surgery - patient is on clear liquid diet, pain control, IV fluids per surgery Continue MARTHA drain and monitor output Zofran for nausea patient is continued on Zosyn 3.375 mg IV q.6 hours, antibiotic day 2 (2) Dehydration: Code(s): E86.0 - Dehydration Status: Acute Assessment and Plan: dehydration due to nausea and vomiting continue IV fluids as above monitor Renal function, which is stable (3) Hypertension: Qualifiers: Hypertension type: primary hypertension Qualified Code(s): I10 - Essential (primary) hypertension Code(s): I10 - Essential (primary) hypertension Status: Chronic Assessment and Plan: chronic, stable, Continue home amlodipine and metoprolol Trend BP adjust therapy as indicated (4) Hyperlipidemia: Qualifiers: Hyperlipidemia type: mixed hyperlipidemia Qualified Code(s): E78.2 - Mixed hyperlipidemia Code(s): E78.5 - Hyperlipidemia, unspecified Status: Chronic Assessment and Plan: chronic, stable LFT slightly elevated secondary hepatic steatosis holding statin for now (5) Heart murmur: Code(s): R01.1 - Cardiac murmur, unspecified Status: Acute Assessment and Plan: no history to suggest current issues, denies syncope, presyncope, exertional chest pain, shortness of breath, orthopnea, etc. EKG did not show acute findings but possible old inferior infarct. echocardiogram shows normal left ventricular systolic function, EF 60-65%, grade 1 diastolic dysfunction, trace MR, trace TR continue to monitor outpatient optimize BP control (6) Transaminitis: Code(s): R74.01 - Elevation of levels of liver transaminase levels Status: Chronic Assessment and Plan: likely chronic as demonstrated by ultrasound findings of hepatic steatosis AST/ALT elevated at 40/44, alk-phos 74, T bili 0.7 Hep panel negative Ultrasound right upper quadrant demonstrates hepatic steatosis/ non alcoholic fatty liver disease. Recommend weight loss and continue monitoring labs avoid hepatotoxic medications and alcohol ingestion (7) Type 2 diabetes mellitus: Qualifiers: Diabetes mellitus nursing home insulin use: without comparison shopper use Diabetes mellitus complication status: without complication Qualified Code(s): E11.9 - Type 2 diabetes mellitus without complications Code(s): E11.9 - Type 2 diabetes mellitus without complications Status: Acute Assessment and Plan: new diagnosis, patient noted to have hyperglycemia upon admission with random glucose 193, fasting glucose 150 this admission A1c 7.2% Will place certified diabetes educator consult for agitation prior to discharge Plan to discharge patient on metformin with follow-up with PCP outpatient [place]-Dejon a.cDanny HS with aspart sliding scale meal correction and hypoglycemic protocol Plan code status: Full code Disposition: Plans to discharge home when medically stable Time Spent With Patient Time with patient: 15 - 25 minutes Subjective Date/time seen: 06/01/22 15:48 Interval history: patient found lying in the bed. She
[2022-06-01 16:01] LABS: Glucose Point of Care 167 mg/dl (65-105)
[2022-06-01] MEDS: ACETAMINOPHEN 325 MG TABLET 650 MG PO (17:37)
[2022-06-01] MEDS: SENNA/DOCUSATE SODIUM TABLET 1 TAB PO (20:39)
[2022-06-01] MEDS: OXYBUTYNIN CHLORIDE 5 MG TABLET PO (20:39)
[2022-06-01 21:14] LABS: Glucose Point of Care 154 mg/dl (65-105)
[2022-06-01 22:00] VITALS: BP 121/62; PULSE 60; RESP 16; TEMP 37; O2SAT 93
[2022-06-02] MEDS: HYDROcodone/acetaminophen (*CRX) 5-325 MG TABLET 1 TAB PO ×2 (05:08→20:45)
[2022-06-02] MEDS: ONDANSETRON INJ 4 MG/2 ML VIAL IV PUSH ×3 (05:38→20:47)
[2022-06-02 06:00] VITALS: BP 122/64; PULSE 60; RESP 16; TEMP 36.9; O2SAT 94
[2022-06-02 06:06] LABS: Hematocrit 33.4 % (37.0-47.0); Hemoglobin 10.6 g/dL (12.0-15.0); Mean Corpuscular HGB Conc 31.7 g/dl (32-36); Mean Corpuscular Hemoglobin 30.5 pg (26-34); Mean Corpuscular Volume 96.3 fl (80-100); Mean Platelet Volume 12.2 fl (7.4-10.4); Platelet Count Result 170 k/mm3 (150-375); Red Blood Count 3.47 M/mm3 (4.2-5.4); Red Cell Distribution Width 14.8 % (11.5-14.5); White Blood Count 12.3 K/mm3 (4.5-10.0)
[2022-06-02 06:18] LABS: Alanine Aminotransferase 36 U/L (6-35); Albumin Level 3.4 g/dL (3.5-5.1); Alkaline Phosphatase 138 U/L (38-126); Anion Gap 11 mmol/L (8-16); Aspartate Amino Transferase 31 U/L (14-36); Bilirubin,Total 0.8 mg/dL (0.2-1.3); Blood Urea Nitrogen 20 mg/dL (7-17); Calcium 8.5 mg/dL (8.4-10.2); Carbon Dioxide 30 mmol/L (22-30); Chloride 100 mmol/L (98-107); Estimated CRCL calculation 67 ml/min; Estimated Glomerular Filt Rate > 60; Glucose 152 mg/dL (65-110); Potassium 3.5 mmol/L (3.4-5.0); Sodium 141 mmol/L (137-145)
[2022-06-02 07:30] LABS: Glucose Point of Care 182 mg/dl (65-105)
[2022-06-02 08:26] VITALS: PULSE 68
[2022-06-02] MEDS: METOPROLOL TARTRATE 50 MG TAB PO (08:26)
[2022-06-02] MEDS: amLODIPine BESYLATE 5 MG TABLET 10 MG PO (08:26)
[2022-06-02] MEDS: ACETAMINOPHEN 325 MG TABLET 650 MG PO (08:33)
--- NOTE | 2022-06-02 10:01 | P.PNIM_ITS ---
Progress Note: A&P Assessment and Plan (1) Acute cholecystitis: Code(s): K81.0 - Acute cholecystitis Status: Acute Assessment and Plan: * CTA indicated cholelithiasis with suggestion of mild pericholecystic fat stranding and possible hyperemia along with the gallbladder fossa which raises suspicion for acute cholecystitis * Abdominal ultrasound: cholelithiasis with gallbladder wall thickening, pericholecystic fluid and biliary dilatation * general surgery consulted and appreciate recommendations * Patient is postop day 1 lap choly with cholangiogram. Patient is noted to have a difficult surgery with EBL 150 and significant gallbladder inflammation and adhesions. * Cholangiogram negative * management per General surgery - patient is on clear liquid diet, pain control, IV fluids per surgery * Continue MARTHA drain and monitor output * Zofran for nausea * 06/01/22 patient is continued on Zosyn 3.375 mg IV q.6 hours, antibiotic day 2 * 06/02/22 WBC trending down. Transition to PO ciprofloxacin 500 mg PO BID and metronidazole 500 mg TID x 5-10 days. One of two blood cultures with gram positive cocci growth, likely contaminated. Will repeat CBC and await culture organism ID and sensitivities. 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 owner operator truck driver insulin use: without intermodal owner operator truck driver use Qualified Code(s): E11.9 - Type 2 diabetes mellitus without complications Code(s): E11.9 - Type 2 diabetes mellitus without complications Status: Acute Assessment and Plan: new diagnosis, patient noted to have hyperglycemia upon admission with random glucose 193, fasting glucose 150 this admission * A1c 7.2% * Consult software educator consult for education prior to discharge * Plan to discharge patient on metformin with follow-up with PCP outpatient; can start 06/03/22 which is 72 hours after IV contrast. * Accu-Cheks a.c. HS with aspart sliding scale meal correction and hypoglycemic protocol * Patient was notified of elevated a1c and new diabetes diagnosis. Discussed lifestyle modifications and medications. (4) Hepatic steatosis: Code(s): K76.0 - Fatty (change of) liver, not elsewhere classified Status: Chronic Assessment and Plan: Patient noted to have elevated LFTs on admission, may be acute secondary to acute cholecystitis, but is most likely chronic as ultrasound shows findings of hepatic steatosis * AST/ALT trending down * Hep panel negative * avoid hepatotoxic medications and alcohol ingestion * Discussed with the patient and recommended weight loss through diet and exercise. (5) Hypertension: Qualifiers: Hypertension type: primary hypertension Qualified Code(s): I10 - Essential (primary) hypertension Code(s): I10 - Essential (primary) hypertension Status: Chronic Assessment and Plan: chronic, stable, Continue home amlodipine and metoprolol * Trend BP * adjust therapy as indicated (6) Hyperlipidemia: Qualifiers: Hyperlipidemia type: mixed hyperlipidemia Qualified Code(s): E78.2 - Mixed hyperlipidemia Code(s): E78.5 - Hyperlipidemia, unspecified Status: Chronic Assessment and Plan: chronic, stable * LFT s
--- NOTE | 2022-06-02 10:01 | PM.IMPN ---
Progress Note: A&P Assessment and Plan (1) Acute cholecystitis: Code(s): K81.0 - Acute cholecystitis Status: Acute Assessment and Plan: CTA indicated cholelithiasis with suggestion of mild pericholecystic fat stranding and possible hyperemia along with the gallbladder fossa which raises suspicion for acute cholecystitis Abdominal ultrasound: cholelithiasis with gallbladder wall thickening, pericholecystic fluid and biliary dilatation general surgery consulted and appreciate recommendations Patient is postop day 1 lap choly with cholangiogram. Patient is noted to have a difficult surgery with EBL 150 and significant gallbladder inflammation and adhesions. Cholangiogram negative management per General surgery - patient is on clear liquid diet, pain control, IV fluids per surgery Continue MARTHA drain and monitor output Zofran for nausea 06/01/22 patient is continued on Zosyn 3.375 mg IV q.6 hours, antibiotic day 2 06/02/22 WBC trending down. Transition to PO ciprofloxacin 500 mg PO BID and metronidazole 500 mg TID x 5-10 days. One of two blood cultures with gram positive cocci growth, likely contaminated. Will repeat CBC and await culture organism ID and sensitivities. (2) Dehydration: Code(s): E86.0 - Dehydration Status: Acute Assessment and Plan: dehydration due to nausea and vomiting continue IV fluids as above monitor Renal function stable (3) Type 2 diabetes mellitus: Qualifiers: Diabetes mellitus complication status: without complication Diabetes mellitus snf insulin use: without terminal press operator use Qualified Code(s): E11.9 - Type 2 diabetes mellitus without complications Code(s): E11.9 - Type 2 diabetes mellitus without complications Status: Acute Assessment and Plan: new diagnosis, patient noted to have hyperglycemia upon admission with random glucose 193, fasting glucose 150 this admission A1c 7.2% Consult adult educator consult for education prior to discharge Plan to discharge patient on metformin with follow-up with PCP outpatient; can start 06/03/22 which is 72 hours after IV contrast. Accu-Cheks a.c. HS with aspart sliding scale meal correction and hypoglycemic protocol Patient was notified of elevated a1c and new diabetes diagnosis. Discussed lifestyle modifications and medications. (4) Hepatic steatosis: Code(s): K76.0 - Fatty (change of) liver, not elsewhere classified Status: Chronic Assessment and Plan: Patient noted to have elevated LFTs on admission, may be acute secondary to acute cholecystitis, but is most likely chronic as ultrasound shows findings of hepatic steatosis AST/ALT trending down Hep panel negative avoid hepatotoxic medications and alcohol ingestion Discussed with the patient and recommended weight loss through diet and exercise. (5) Hypertension: Qualifiers: Hypertension type: primary hypertension Qualified Code(s): I10 - Essential (primary) hypertension Code(s): I10 - Essential (primary) hypertension Status: Chronic Assessment and Plan: chronic, stable, Continue home amlodipine and metoprolol Trend BP adjust therapy as indicated (6) Hyperlipidemia: Qualifiers: Hyperlipidemia type: mixed hyperlipidemia Qualified Code(s): E78.2 - Mixed hyperlipidemia Code(s): E78.5 - Hyperlipidemia, unspecified Status: Chronic Assessment and Plan: chronic, stable LFT slightly elevated likely secondary hepatic steatosis holding statin for now (7) Heart murmur: Code(s): R01.1 - Cardiac murmur, unspecified Status: Acute Assessment and Plan: no history to suggest current issues, denies syncope, presyncope, exertional chest pain, shortness of breath, orthopnea, etc. EKG did not show acute findings but possible old inferior infarct. echocardiogram shows normal left ventricular
[2022-06-02 11:23] LABS: Glucose Point of Care 165 mg/dl (65-105)
--- NOTE | 2022-06-02 12:10 | PM.PNGS ---
Progress Note: A&P Assessment and Plan (1) Acute cholecystitis: Code(s): K81.0 - Acute cholecystitis Status: Acute Assessment and Plan: Continues to slowly improve. Will advance to a low fat diet. Remove MARTHA drain today. Increase activity, will order PT/OT to evaluate the patient. 1/2 blood cx showing gram positive cocci, likely contaminate, await final results. Repeat labs tomorrow. (2) Transaminitis: Code(s): R74.01 - Elevation of levels of liver transaminase levels Status: Chronic Assessment and Plan: LFTs trending down. IOC showed no filling defects. Continue to monitor. (3) Type 2 diabetes mellitus: Qualifiers: Diabetes mellitus assisted insulin use: without termite exterminator use Diabetes mellitus complication status: without complication Qualified Code(s): E11.9 - Type 2 diabetes mellitus without complications Code(s): E11.9 - Type 2 diabetes mellitus without complications Status: Acute Assessment and Plan: New diagnosis. museum educator consulted. Management per primary service. (4) HTN (hypertension): Code(s): I10 - Essential (primary) hypertension Status: Acute (5) Obesity (BMI 30-39.9): Code(s): E66.9 - Obesity, unspecified Status: Acute Plan I have discussed the patient's case and plan of care with Dr. Duran. Subjective Subjective Date/Time Seen: 06/02/22 10:10 Post Op day: 2 (Laparoscopic cholecystectomy) Patient reports: voiding w/o difficulty, no flatus, no bowel movement and afebrile Interval history: Patient seen and examined with family at the bedside. She is still complaining of pain in the right upper quadrant, but feels it is mostly in the location of the MARTHA drain. She is requesting to have this removed. She feels very uncomfortable with the MARTHA drain and overall feels fatigued. She has not been getting up much and has only walked into the bathroom a few times during the day. She has not been sitting in the chair or ambulating in the halls yet. She is tolerating full liquids. Review of Systems Review of Systems: All systems reviewed & are unremarkable except as noted in HPI and below Exam Const: General: no acute distress and alert Orientation/consciousness: patient oriented x3 GI: Inspection: non-distended, incision (Abdominal incisions clean and dry, glue intact.) and other (MARTHA drain with serosanguineous output) GI Palp: Yes Soft to palpation and Yes Tenderness to palpation present (GI) (incisional) Auscultation: normal bowel sounds Neuro: General: moves all extremities and no focal motor deficits Extrem: General: no calf tenderness and no edema Psych: Mental Status: mental status grossly normal Insight: Good insight present (Psych) Objective Data Vital Signs Vital Signs: Vital Signs - 24 hr 06/01/22 13:23 06/01/22 20:00 06/01/22 22:00 Temperature 98.3 F 98.6 F Pulse Rate 68 60 Respiratory Rate 18 16 Blood Pressure 117/48 L 121/62 Pulse Oximetry 91 93 Oxygen Delivery Room Air 06/02/22 06:00 06/02/22 08:26 06/02/22 08:35 Temperature 98.5 F Pulse Rate 60 68 Respiratory Rate 16 Blood Pressure 122/64 Pulse Oximetry 94 Oxygen Delivery Room Air Intake/Output Intake/Output: Intake & Output 05/30/22 05/31/22 06/01/22 06/02/22 23:59 23:59 23:59 23:59 Intake Total 50 1400 1960 250 Output Total 750 515 465 Balance 50 650 1445 -215 Meds/Results Medications: Active Medications Generic Name Dose Route Start Last Admin Trade Name Freq PRN Reason Stop Dose Admin Acetaminophen 650 mg 05/30/22 21:17 06/02/22 08:33 Acetaminophen 325 Mg Tablet PO 650 mg Q4H PRN Administration Mild Pain (1-3) or Fever Hydrocodone Bitart/Acetaminophen 1 tab 05/31/22 17:05 06/02/22 05:08 Hydrocodone/Acetaminophen (*Crx) 5-325 Mg Tablet PO 1 tab Q4H PRN Administration Pain Rated 4-6 Hydrocodone Bitart/Acetaminophen 1 tab 09
[2022-06-02 13:45] VITALS: BP 120/52; PULSE 61; RESP 18; TEMP 36.6; O2SAT 90
[2022-06-02 16:53] LABS: Glucose Point of Care 144 mg/dl (65-105)
[2022-06-02] MEDS: metroNIDAZOLE 250 MG TABLET 500 MG PO ×2 (17:36→20:45)
[2022-06-02] MEDS: CIPROFLOXACIN 500 MG TAB PO (20:45)
[2022-06-02] MEDS: OXYBUTYNIN CHLORIDE 5 MG TABLET PO (20:46)
[2022-06-02] MEDS: SENNA/DOCUSATE SODIUM TABLET 1 TAB PO (20:46)
[2022-06-02 20:54] LABS: Glucose Point of Care 142 mg/dl (65-105)
[2022-06-02 21:53] VITALS: BP 132/57; PULSE 77; RESP 18; TEMP 36.4; O2SAT 90
[2022-06-03] MEDS: HYDROcodone/acetaminophen (*CRX) 5-325 MG TABLET 1 TAB PO (03:23)
[2022-06-03] MEDS: metroNIDAZOLE 250 MG TABLET 500 MG PO ×2 (05:11→13:36)
[2022-06-03] MEDS: ACETAMINOPHEN 325 MG TABLET 650 MG PO (05:20)
[2022-06-03] MEDS: ONDANSETRON INJ 4 MG/2 ML VIAL IV PUSH ×2 (05:23→11:39)
[2022-06-03 06:00] VITALS: BP 110/73; PULSE 67; RESP 18; TEMP 36.2; O2SAT 94
[2022-06-03 07:10] LABS: Basophils Absolute Auto 0.1 K/mm3 (0.0-0.1); Basophils Percent Auto 0.6 % (0.2-1.2); Eosinophils Absolute Auto 0.2 K/mm3 (0-0.3); Eosinophils Percent Auto 1.9 % (0-4.4); Hematocrit 32.7 % (37.0-47.0); Hemoglobin 10.3 g/dL (12.0-15.0); Immature Granulocyte Absolute 0.05 K/mm3 (0.00-0.031); Immature Granulocyte Percent A 0.5 % (0-0.5); Lymphocytes Absolute Auto 1.48 K/mm3 (0.9-3.2); Lymphocytes Percent Auto 14.7 % (18.3-44.2); Mean Corpuscular HGB Conc 31.5 g/dl (32-36); Mean Corpuscular Hemoglobin 29.8 pg (26-34); Mean Corpuscular Volume 94.5 fl (80-100); Mean Platelet Volume 12.6 fl (7.4-10.4); Monocytes Absolute Auto 0.7 K/mm3 (0.1-0.6); Monocytes Percent Auto 7.1 % (2.6-8.5); Neutrophils Absolute Auto 7.6 K/mm3 (1.3-6.7); Neutrophils Percent Auto 75.2 % (45.5-73.1); Platelet Count Result 178 k/mm3 (150-375); Red Blood Count 3.46 M/mm3 (4.2-5.4); Red Cell Distribution Width 14.6 % (11.5-14.5); White Blood Count 10.1 K/mm3 (4.5-10.0)
[2022-06-03 07:20] LABS: Alanine Aminotransferase 28 U/L (6-35); Albumin Level 3.2 g/dL (3.5-5.1); Alkaline Phosphatase 147 U/L (38-126); Anion Gap 10 mmol/L (8-16); Aspartate Amino Transferase 22 U/L (14-36); Bilirubin,Total 0.6 mg/dL (0.2-1.3); Blood Urea Nitrogen 13 mg/dL (7-17); Calcium 8.4 mg/dL (8.4-10.2); Carbon Dioxide 31 mmol/L (22-30); Chloride 99 mmol/L (98-107); Estimated CRCL calculation 77 ml/min; Estimated Glomerular Filt Rate > 60; Glucose 144 mg/dL (65-110); Potassium 3.1 mmol/L (3.4-5.0); Sodium 140 mmol/L (137-145)
[2022-06-03 07:42] LABS: Glucose Point of Care 130 mg/dl (65-105)
[2022-06-03 08:16] VITALS: PULSE 68
[2022-06-03] MEDS: amLODIPine BESYLATE 5 MG TABLET 10 MG PO (08:16)
[2022-06-03] MEDS: CIPROFLOXACIN 500 MG TAB PO (08:16)
[2022-06-03] MEDS: METOPROLOL TARTRATE 50 MG TAB PO (08:16)
[2022-06-03] MEDS: HYDROcodone/acetaminophen (*CRX) 10-325 MG TABLET 1 TAB PO (08:18)
[2022-06-03] MEDS: POTASSIUM CHLORIDE 20 MEQ PACKET (FOR LIQUID) 40 MEQ PO (10:12)
[2022-06-03 10:46] LABS: Magnesium 2.1 mg/dL (1.6-2.3)
--- NOTE | 2022-06-03 11:16 | PM.PNGS ---
Progress Note: A&P Assessment and Plan (1) Acute cholecystitis: Code(s): K81.0 - Acute cholecystitis Status: Acute Assessment and Plan: doing well, ok to dc home, no further abx needed from surgical standpoint, f/u in [address] Connelly Subjective Subjective Date/Time Seen: 06/03/22 11:16 feels much better, no acute issues, pedro diet Review of Systems Review of Systems: All systems reviewed & are unremarkable except as noted in HPI and below Exam Const: General: cooperative, comfortable and no acute distress Resp: Auscultation: clear to auscultation bilaterally Cardio: Rate: regular rate Rhythm: regular rhythm GI: Inspection: normal to inspection, non-distended and incision GI Palp: Yes abdominal tenderness, Yes Soft to palpation, Yes Tenderness to palpation present (GI), No Guarding due to palpation present (GI) and No Rigid due to palpation Objective Data Vital Signs Vital Signs: Vital Signs - 24 hr 06/02/22 13:45 06/02/22 20:00 06/02/22 21:53 Temperature 36.6 C 36.4 C L Pulse Rate 61 77 Respiratory Rate 18 18 Blood Pressure 120/52 L 132/57 L Pulse Oximetry 90 90 Oxygen Delivery Room Air 06/03/22 06:00 06/03/22 08:14 06/03/22 08:16 Temperature 36.2 C L Pulse Rate 67 68 Respiratory Rate 18 Blood Pressure 110/73 Pulse Oximetry 94 Oxygen Delivery Room Air 06/03/22 08:25 Temperature Pulse Rate Respiratory Rate Blood Pressure Pulse Oximetry Oxygen Delivery Room Air Intake/Output Intake/Output: Intake & Output 05/31/22 06/01/22 06/02/22 06/03/22 23:59 23:59 23:59 23:59 Intake Total 1400 1960 1090 650 Output Total 750 515 480 200 Balance 650 1445 610 450 Meds/Results Medications: Active Medications Generic Name Dose Route Start Last Admin Trade Name Freq PRN Reason Stop Dose Admin Acetaminophen 650 mg 05/30/22 21:17 06/03/22 05:20 Acetaminophen 325 Mg Tablet PO 650 mg Q4H PRN Administration Mild Pain (1-3) or Fever Hydrocodone Bitart/Acetaminophen 1 tab 05/31/22 17:05 06/03/22 03:23 Hydrocodone/Acetaminophen (*Crx) 5-325 Mg Tablet PO 1 tab Q4H PRN Administration Pain Rated 4-6 Hydrocodone Bitart/Acetaminophen 1 tab 05/31/22 17:05 06/03/22 08:18 Hydrocodone/Acetaminophen (*Crx) 10-325 Mg Tablet PO 1 tab Q6H PRN Administration Pain Rated 7-10 Amlodipine Besylate 10 mg 05/31/22 09:00 06/03/22 08:16 Amlodipine Besylate 5 Mg Tablet PO 10 mg DAILY ANSELMO Administration Ciprofloxacin 500 mg 06/02/22 21:00 06/03/22 08:16 Ciprofloxacin 500 Mg Tab PO 500 mg Q12HR ANSELMO Administration Dextrose 12.5 gm 05/31/22 08:41 Dextrose 50% 25 Gm/50 Ml Syringe IV PUSH PRN PRN Hypoglycemia Protocol Enoxaparin Sodium 40 mg 06/01/22 09:00 06/03/22 08:20 Enoxaparin 40 Mg/0.4 Ml Syringe SUB-Q Not Given DAILY ANSELMO Glucagon 1 mg 05/31/22 08:41 Glucagon For Inj 1 Mg Vial IM PRN PRN Hypoglycemia Protocol Glucose 15 gm 05/31/22 08:41 Glucose Oral Gel 15 Gm Of Glucse In 37.5 Gm Tube PO PRN PRN Hypoglycemia Protocol Dextrose 1,000 mls @ 100 mls/hr 05/31/22 08:41 Dextrose 5% 1,000 Ml IVPB PRN PRN Hypoglycemia Protocol Insulin Aspart 2 - 5 units 05/31/22 12:00 06/03/22 08:15 Insulin Aspart (*Bkc) 100 Units/Ml SUB-Q Not Given TIDWM [facility] Protocol Metoprolol Tartrate 50 mg 05/31/22 09:00 06/03/22 08:16 Metoprolol Tartrate 50 Mg Tab PO 50 mg DAILY ANSELMO Administration Metronidazole 500 mg 06/02/22 14:00 06/03/22 05:11 Metronidazole 250 Mg Tablet PO 500 mg Q8HR ANSELMO Administration Morphine Sulfate 2 mg 05/31/22 17:05 05/31/22 23:13 Morphine Sulfate (*Crx) 2 Mg/Ml Inj IV PUSH 2 mg Q2H PRN Administration Pain Rated 4-6 Morphine Sulfate 4 mg 05/31/22 17:05 Morphine Sulfate (*Crx) 4 Mg/Ml Inj IV PUSH Q2H PRN Pain Rated 7-10 Ondansetron HCl
[2022-06-03 11:18] LABS: Glucose Point of Care 151 mg/dl (65-105)
--- NOTE | 2022-06-03 12:19 | PCOTNOTE ---
Attempted to see patient this pm, however patient refused stating, I get to go home today. Pt had no concerns as pertains to OT prior to discharge.
--- NOTE | 2022-06-03 13:27 | P.DS_ITS ---
DS: Admitting Diagnosis Discharge Date 06/03/2022 1331 Admitting Diagnosis Acute cholecystitis: Dehydration: Hyperglycemia: Hypertension, chronic? Hyperlipidemia, chronic? Heart murmur,?unspecified DS: Discharge Diagnosis Discharge Diagnosis (1) Acute cholecystitis: Code(s): K81.0 - Acute cholecystitis Status: Acute Assessment and Plan: * CTA indicated cholelithiasis with suggestion of mild pericholecystic fat stranding and possible hyperemia along with the gallbladder fossa which raises suspicion for acute cholecystitis * Abdominal ultrasound: cholelithiasis with gallbladder wall thickening, pericholecystic fluid and biliary dilatation * general surgery consulted and appreciate recommendations * Patient is postop day 1 lap choly with cholangiogram. Patient is noted to have a difficult surgery with EBL 150 and significant gallbladder inflammation and adhesions. * Cholangiogram negative * management per General surgery - patient is on clear liquid diet, pain control, IV fluids per surgery * Continue MARTHA drain and monitor output * Zofran for nausea * 06/01/22 patient is continued on Zosyn 3.375 mg IV q.6 hours, antibiotic day 2 * 06/02/22 WBC trending down. Transition to PO ciprofloxacin 500 mg PO BID and metronidazole 500 mg TID x 5-10 days. One of two blood cultures with gram positive cocci growth, likely contaminated. Will repeat CBC and await culture organism ID and sensitivities. 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 mellitus retirement insulin use: without technician chemical cleaning use Qualified Code(s): E11.9 - Type 2 diabetes mellitus without complications Code(s): E11.9 - Type 2 diabetes mellitus without complications Status: Acute Assessment and Plan: new diagnosis, patient noted to have hyperglycemia upon admission with random glucose 193, fasting glucose 150 this admission * A1c 7.2% * Consult coding educator consult for education prior to discharge * Plan to discharge patient on metformin with follow-up with PCP outpatient; can start 06/03/22 which is 72 hours after IV contrast. * Accu-Cheks a.c. HS with aspart sliding scale meal correction and hypoglycemic protocol * Patient was notified of elevated a1c and new diabetes diagnosis. Discussed lifestyle modifications and medications. (4) Hepatic steatosis: Code(s): K76.0 - Fatty (change of) liver, not elsewhere classified Status: Chronic Assessment and Plan: Patient noted to have elevated LFTs on admission, may be acute secondary to acute cholecystitis, but is most likely chronic as ultrasound shows findings of hepatic steatosis * AST/ALT trending down * Hep panel negative * avoid hepatotoxic medications and alcohol ingestion * Discussed with the patient and recommended weight loss through diet and exercise. (5) Hypertension: Qualifiers: Hypertension type: primary hypertension Qualified Code(s): I10 - Essential (primary) hypertension Code(s): I10 - Essential (primary) hypertension Status: Chronic Assessment and Plan: chronic, stable, Continue home amlodipine and metoprolol * Trend BP * adjust therapy as indicated (6) Hyperlipidemia:
--- NOTE | 2022-06-03 13:27 | PM.DS ---
DS: Admitting Diagnosis Discharge Date 06/03/2022 1331 Admitting Diagnosis Acute cholecystitis: Dehydration: Hyperglycemia: Hypertension, chronic? Hyperlipidemia, chronic? Heart murmur,?unspecified DS: Discharge Diagnosis Discharge Diagnosis (1) Acute cholecystitis: Code(s): K81.0 - Acute cholecystitis Status: Acute Assessment and Plan: CTA indicated cholelithiasis with suggestion of mild pericholecystic fat stranding and possible hyperemia along with the gallbladder fossa which raises suspicion for acute cholecystitis Abdominal ultrasound: cholelithiasis with gallbladder wall thickening, pericholecystic fluid and biliary dilatation general surgery consulted and appreciate recommendations Patient is postop day 1 lap choly with cholangiogram. Patient is noted to have a difficult surgery with EBL 150 and significant gallbladder inflammation and adhesions. Cholangiogram negative management per General surgery - patient is on clear liquid diet, pain control, IV fluids per surgery Continue MARTHA drain and monitor output Zofran for nausea 06/01/22 patient is continued on Zosyn 3.375 mg IV q.6 hours, antibiotic day 2 06/02/22 WBC trending down. Transition to PO ciprofloxacin 500 mg PO BID and metronidazole 500 mg TID x 5-10 days. One of two blood cultures with gram positive cocci growth, likely contaminated. Will repeat CBC and await culture organism ID and sensitivities. (2) Dehydration: Code(s): E86.0 - Dehydration Status: Acute Assessment and Plan: dehydration due to nausea and vomiting continue IV fluids as above monitor Renal function stable (3) Type 2 diabetes mellitus: Qualifiers: Diabetes mellitus complication status: without complication Diabetes mellitus exterminator termite insulin use: without mcc use Qualified Code(s): E11.9 - Type 2 diabetes mellitus without complications Code(s): E11.9 - Type 2 diabetes mellitus without complications Status: Acute Assessment and Plan: new diagnosis, patient noted to have hyperglycemia upon admission with random glucose 193, fasting glucose 150 this admission A1c 7.2% Consult development educator consult for education prior to discharge Plan to discharge patient on metformin with follow-up with PCP outpatient; can start 06/03/22 which is 72 hours after IV contrast. Accu-Cheks a.c. HS with aspart sliding scale meal correction and hypoglycemic protocol Patient was notified of elevated a1c and new diabetes diagnosis. Discussed lifestyle modifications and medications. (4) Hepatic steatosis: Code(s): K76.0 - Fatty (change of) liver, not elsewhere classified Status: Chronic Assessment and Plan: Patient noted to have elevated LFTs on admission, may be acute secondary to acute cholecystitis, but is most likely chronic as ultrasound shows findings of hepatic steatosis AST/ALT trending down Hep panel negative avoid hepatotoxic medications and alcohol ingestion Discussed with the patient and recommended weight loss through diet and exercise. (5) Hypertension: Qualifiers: Hypertension type: primary hypertension Qualified Code(s): I10 - Essential (primary) hypertension Code(s): I10 - Essential (primary) hypertension Status: Chronic Assessment and Plan: chronic, stable, Continue home amlodipine and metoprolol Trend BP adjust therapy as indicated (6) Hyperlipidemia: Qualifiers: Hyperlipidemia type: mixed hyperlipidemia Qualified Code(s): E78.2 - Mixed hyperlipidemia Code(s): E78.5 - Hyperlipidemia, unspecified Status: Chronic Assessment and Plan: chronic, stable LFT slightly elevated likely secondary hepatic steatosis holding statin for now (7) Heart murmur: Code(s): R01.1 - Cardiac murmur, unspecified Status: Acute Assessment and Plan: no history to suggest cur
[2022-06-03 13:34] VITALS: BP 130/60; PULSE 61; RESP 16; TEMP 36.6; O2SAT 93
== END 2022-06-03 14:05 | disposition home or self-care (01) | DRG 419 ==
PROVIDERS: Nurse Practitioner; Nurse Practitioner Family; Physician Assistant; Surgery; Admitting Provider Chiropractor; PCP Nurse Practitioner Family; Visit Provider Nurse Practitioner Family
PROC: 0FT44ZZ Resection of Gallbladder, Percutaneous Endoscopic Approach (ICD-10-PCS; CPT 47562; principal; 2022-05-31 13:30)
DX: K80.12 Calculus of gallbladder with acute and chronic cholecystitis without obstruction (principal); K66.0 Peritoneal adhesions (postprocedural) (postinfection); I10 Essential (primary) hypertension; E86.0 Dehydration; E11.9 Type 2 diabetes mellitus without complications; E78.5 Hyperlipidemia, unspecified; K76.0 Fatty (change of) liver, not elsewhere classified; N32.81 Overactive bladder; R01.1 Cardiac murmur, unspecified; K82.8 Other specified diseases of gallbladder
CPT/HCPCS: 36415; 74300; 76705; 80053; 80074; 82948; 83036; 83735; 85025; 85027; 86850; 86900; 86901; 87040; 87077; 88304; 97161; 97165; A9270; C8929; J0330; J1650; J2270; J2405; J2543; J2704; J2710; J3010; J7030; J7120; Q9957

== ENCOUNTER 2022-06-10 10:57 | Outpatient (CLI) | payer MEDICARE, SELFPAY ==
[2022-06-10 11:08] LABS: Hematocrit 39.4 % (35.0-42.0); Hemoglobin 12.3 g/dL (11.7-13.8); Mean Corpuscular HGB Conc 31.2 g/dL (32.0-36.0); Mean Corpuscular Hemoglobin 29.6 pg (27.0-31.0); Mean Corpuscular Volume 94.9 fL (78.0-102.0); Mean Platelet Volume 11.3 fl (9.2-11.8); Platelet Count Result 428 K/mm3 (150-420); Red Blood Count 4.15 M/mm3 (4.20-5.40)
[2022-06-10 11:57] LABS: Alanine Aminotransferase 17 U/L (14-59); Albumin Level 3.2 g/dL (3.4-5.0); Alkaline Phosphatase 137 U/L (46-116); Anion Gap 7 mmol/L (8-16); Aspartate Amino Transferase 18 U/L (15-37); Bilirubin,Total 0.6 mg/dL (0.00-1.00); Blood Urea Nitrogen 13 mg/dL (7-18); Calcium 9.4 mg/dL (8.5-10.1); Carbon Dioxide 30 mmol/L (21-32); Chloride 105 mmol/L (98-108); Estimated Glomerular Filt Rate > 60; Glucose 152 mg/dL (70-99); Osmolality Calculated 297 mOsm/kg (285-295); Sodium 142 mmol/L (136-145); Total Protein 6.7 g/dL (6.4-8.2)
== END 2022-06-10 10:58 | disposition home or self-care (01) ==
LOC: CHSLAB 10:59
PROVIDERS: PCP Family Medicine; Visit Provider Family Medicine
DX: K81.0 Acute cholecystitis (principal); E11.9 Type 2 diabetes mellitus without complications
CPT/HCPCS: 36415; 80053; 85027

== ENCOUNTER 2024-07-19 15:28 | Outpatient (CLI) | payer MEDICARE, SELFPAY ==
[2024-07-19 15:58] LABS: Basophils Absolute Auto 0.08 K/mm3 (0.00-0.10); Basophils Percent Auto 1.2 % (0.0-1.0); Eosinophils Absolute Auto 0.15 K/mm3 (0.02-0.50); Eosinophils Percent Auto 2.2 % (1.0-6.0); Hematocrit 44.5 % (35.0-42.0); Hemoglobin 15.2 g/dL (11.7-13.8); Immature Granulocyte Absolute 0.02 K/mm3 (0.00-0.00); Immature Granulocyte Percent A 0.3 % (0.0-0.0); Immature Platelet Fraction Pct 8.7 % (1.0-7.0); Lymphocytes Absolute Auto 1.97 K/mm3 (1.10-4.50); Lymphocytes Percent Auto 28.6 % (18.0-42.0); Mean Corpuscular HGB Conc 34.2 g/dL (32-36); Mean Corpuscular Hemoglobin 31.8 pg (27.0-31.0); Mean Corpuscular Volume 93.1 fL (78.0-102.0); Monocytes Absolute Auto 0.58 K/mm3 (0.10-0.90); Monocytes Percent Auto 8.4 % (2.0-11.0); Neutrophils Absolute Auto 4.09 K/mm3 (1.70-7.20); Neutrophils Percent Auto 59.3 % (50.0-70.0); Platelet Count Result 195 K/mm3 (150-420); Red Blood Count 4.78 M/mm3 (4.20-5.40); Red Cell Distribution Width 18.2 % (11.6-14.4); White Blood Count 6.9 K/mm3 (4.8-10.8)
[2024-07-19 16:00] LABS: Bilirubin Urine 2+ (Negative); Blood Urine Trace-intact (Negative); Glucose Urine UA 3+ (Negative); Ketones Urine Trace (Negative); Leukocyte Esterase Ur Trace LEU/UL (Negative); Nitrate Urine Negative (Negative); Protein Urine 1+ (Negative); Specific Grav Ur 1.025 (1.010-1.020)
[2024-07-19 16:07] LABS: Add Urine Microscopic? YES; Color Urine Dark Orange (Yellow); Hemoglobin A1C 11.2 % (<5.7)
[2024-07-19 16:08] LABS: Appearance Urine Cloudy (Clear); Bacteria Urine 2+ /hpf; RBC Urine 0-2 /hpf (0-2); Squamous Epithelial Cell Urine Few /hpf (Few); WBC Clumps Urine Present /hpf; WBC Urine 16-20 /hpf (0-3)
[2024-07-19 16:13] LABS: Alanine Aminotransferase 762 U/L (14-59); Albumin Level 2.7 g/dL (3.4-5.0); Alkaline Phosphatase 320 U/L (46-116); Anion Gap 9 mmol/L (4-12); Aspartate Amino Transferase 660 U/L (15-37); Bilirubin,Total 3.2 mg/dL (0.00-1.00); Blood Urea Nitrogen 12 mg/dL (7-18); Calcium 9.8 mg/dL (8.5-10.1); Carbon Dioxide 27 mmol/L (21-32); Chloride 98 mmol/L (98-108); Cholesterol 183 mg/dL (0-200); Estimated Glomerular Filt Rate > 60; HDL Direct 14 mg/dL (40-60); LDL Cholesterol Calculated 137 mg/dL (<130); Magnesium 1.7 mg/dL (1.8-2.4); Osmolality Calculated 295 mOsm/kg (285-295); Potassium 4.3 mmol/L (3.5-5.1); Sodium 134 mmol/L (136-145); Total Protein 8.6 g/dL (6.4-8.2); Triglycerides 161 mg/dL (0-150)
[2024-07-19 16:16] LABS: Glucose 414 mg/dL (70-99)
[2024-07-19 16:45] LABS: Thyroid Stimulating Hormone Reflex 3.23 u/IU/mL (0.36-3.74)
[2024-07-20 10:54] LABS: Vitamin D 25 Hydroxy 46 ng/mL (30-100)
== END 2024-07-19 15:29 | disposition home or self-care (01) ==
PROVIDERS: PCP Nurse Practitioner Family; Visit Provider Nurse Practitioner Family
DX: R53.83 Other fatigue (principal); R32 Unspecified urinary incontinence; E11.9 Type 2 diabetes mellitus without complications; E66.9 Obesity, unspecified; I10 Essential (primary) hypertension; Z68.30 Body mass index [BMI] 30.0-30.9, adult
CPT/HCPCS: 36415; 80053; 80061; 81001; 82306; 83036; 83735; 84443; 85025; 85055; 87086

== ENCOUNTER 2024-07-19 16:24 | Emergency (ER) | payer OTHER, SELFPAY ==
--- NOTE | ~2024-07-19 | CT_ITS ---
CLINICAL INDICATION: Elevated liver enzymes COMPARISON: Reference is made to an ultrasound examination of the abdomen dated 05/31/2022 prior to ch olecystectomy. TECHNIQUE: Multiple contiguous axial images of the abdomen and pelvis were performed following the ad ministration of with 100 mL Omnipaque-350 intravenous contrast The dose-length product (DLP) was 727.13 mGy-cm. Automated exposure control and iterative reconstruction technique were employed. FINDINGS/OBSERVATIONS: Visualized lower thorax: The bilateral lung bases are clear. The heart is within the upper limits of normal for size, without pericardial effusion. Small hiatal hernia is present. Liver: A well-circumscribed 13 mm focus of decreased attenuation is identified within segment 2 of the liver , unchanged from 2021 and likely a cyst. Within the caudal-most portion of the liver adjacent to the ascending colon is a rim-enhancing fluid collection measuring 6.6 x 7.3 x 7.2 cm (anterior to posterior x medial to lateral x cranial to cauda l dimension). This focus was not present on any of the prior examinations from 2021. Gallbladder and biliary system: The gallbladder is surgically absent. Pancreas: The pancreas enhances homogeneously without ductal dilatation. Spleen: The spleen enhances homogeneously and is not enlarged measuring 8 cm in longitudinal dimension. Kidneys: Scattered subcentimeter foci of decreased attenuation within the bilateral kidneys, too small to killian acterize on the current study. A single larger focus of solid attenuation is identified within the upper pole of the left kidney, me asuring 15 mm on today's study compared with 10 mm in 2021. The bilateral kidneys otherwise enhance symmetrically without hydronephrosis or renal calculi. Adrenal glands: Unremarkable. Gastrointestinal tract: Fecal stasis within the colon Appendix: The air-filled appendix is of normal caliber (axial series, images 90 through 110) Vasculature: Unremarkable. No aneurysmal dilatation or significant stenosis. Lymph nodes: No pathologically enlarged or morphologically suspicious lymph nodes within the retroperitoneum or at the root of the mesentery. Pelvic structures: The bladder is decompressed, and otherwise unremarkable. The uterus is either atrophic or surgically absent. Body wall and musculoskeletal: Fat and fluid containing left lower quadrant ventral hernia. This contains a bulky calcification suzette g its medialmost border and measures 4.6 x 8.2 x 8.0 cm (anterior to posterior x medial to lateral x cranial to caudal dimension). Significant degenerative disease is identified within the lumbosacral spine, with osteophyte formatio n, disc space narrowing, endplate changes and vacuum phenomena. IMPRESSION: Rim-enhancing fluid collection which appears associated with the gallbladder fossa, and extends cauda lly and laterally from the base of the liver. Ultrasound may be performed for further characterizatio n. Indeterminate focus within the upper pole of the left kidney for which focused ultrasound is suggeste d for further characterization. Reviewed, dictated and finalized at location A. RESPIRATORY IMPRESSION: Rim-enhancing fluid collection which appears associated with the gallbladder fo ssa, and extends caudally and laterally from the base of the liver. Ultrasound may be performed for further characterization. Indeterminate focus within the upper pole of the left kidney for which focused ultrasound is suggested for further characterization.
[2024-07-19 16:24] VITALS: BP 164/82; PULSE 88; RESP 20; TEMP 36.7; O2SAT 97
--- NOTE | 2024-07-19 16:38 | ED_ITS ---
HPI - General Adult General Chief complaint: Recheck/Abnormal Lab/Rx Stated complaint: abnormal labs Source: patient and family Mode of arrival: ambulatory Limitations: no limitations History of Present Illness HPI narrative: 74 years old white female came to the ED by private car complaining of feeling tired and weak for over 2 months, increased urination and thirst feeling most of the time. History of hysterectomy secondary to endometriosis and cholecystectomy, hypertension, hyperlipidemia, patient does not smoke or drink or use drugs. Related Data Home Medications Medication Instructions Recorded Confirmed Citracal Calcium 2 cap PO DAILY 07/19/24 Lactobacillus acidophilus 25 cell PO DAILY 07/19/24 million cell capsule Natrol JuiceFestiv Daily Fruit PO DAILY 07/19/24 Natrol JuiceFestiv Daily Veggie PO DAILY 07/19/24 URO Bladder Support PO DAILY 07/19/24 biotin 10,000 mcg capsule mcg PO DAILY 07/19/24 docusate sodium 100 mg capsule 100 mg PO DAILY PRN Constipation 07/19/24 07/19/24 (Stool Softener) ferrous sulfate 143 mg (45 mg 143 mg PO DAILY 07/19/24 07/19/24 iron) tablet,extended release (Slow Release Iron) glucosamine chondroitin 3 cap PO DAILY 07/19/24 magnesium glycinate mg PO DAILY 07/19/24 mecobalamin (vitamin B12) 1,000 1,000 mcg PO DAILY 07/19/24 mcg chewable tablet senna leaf extract 8.7 mg chewable mg PO DAILY 07/19/24 tablet (Senokot) Allergies Allergy/AdvReac Type Severity Reaction Status Date / Time No Known Allergies Allergy Verified 07/19/24 14:06 Review of Systems Review of Systems: All systems reviewed & are unremarkable except as noted in HPI and below PMFSH Past Medical History Medical History Acute cholecystitis Hyperlipidemia Hypertension Nausea & vomiting Overactive bladder Surgical History Surgical History History of hysterectomy total abdominal hysterectomy Hx laparoscopic cholecystectomy 05/31/22 Family History Family History Father Heart disease Other Brain cancer Mother No problems noted. Social History Social History Social History: Surrogate medical decision maker: Joce Khoury, spouse. Code status: Full code. Smoking status: Never smoker Alcohol intake: current Alcohol use details: Social alcohol use in moderation. Substance use: never Substance use type: does not use Living arrangements: with family Additional living arrangements comments: The patient lives with her in [place]. Occupation/Education: retired Additional occupation/education comments: Retired. She is very involved in local [employer] including the [employer]. Spiritual care concerns: No Exam Narrative: General appearance: Well-developed, well-nourished Skin: Normal color Head: Normocephalic, nontraumatic Eyes: Clear conjunctiva ENT: Oropharynx normal, ears normal, nose normal Neck: Supple, nontender Chest and respiratory: Airway patent, no respiratory distress, no accessory muscle use Heart: Regular rate/rhythm Abdomen: Soft, nontender, no organomegaly, quiet bowel sounds Vascular: Normal peripheral pulses, normal capillary refill. Musculoskeletal: Normal range of motion, nontender back Neurologic: Alert and oriented ?3, CARPENTRY SUPERVISOR is normal as tested, no gross motor deficit Course Vital Signs Vital signs: Vital Signs Temperature 36.7 C 07/19/24 16:24 Pulse Rate 88 07/19/24 16:24 Respiratory Rate 20 07/19/24 16:24 Blood Pressure 164/82 H 07/19/24 16:24 Pulse Oximetry 97 07/19/24 16:24 Oxygen Delivery Room Air 07/19/24 16:24 Temperature 36.7 C 07/19/24 16:24 Pulse Rate 74 07/19/24 18:15 Respiratory Rate 18 07/19/24 18:15 Blood Pressure 148/88 H 07/19/24 18:15 Pulse Oximetry 95 07/19/24 18:15 Oxygen Delivery Room Air 07/19/24 18:15 Medical Decision Making MDM Narrative Medical decision making narrative: patient came to the ED by private car with general weakness and tiredness for over 2 months Vital signs showing blood pressure 164/82 Physical exam showing Scleral icterus Differential diagnosis urinary tract infection, pneumonia, electrolyte imbalance, dehydration, viral infection, biliary ductal obstruction, pancreatic mass, liver mass. Blood workup today include CBC, CMP , lactic acid, blood culture showed WBC of 6.9, sodium of 134, glucose 414, hemoglobin A1c 1.2, magnesium of 1.7, total protein 3.2, AST 660, ALT 762, alkaline phosphatase 320 urinalysis showed evidence of infection, Zosyn started CT abdomen and pelvis with IV contrast showed fluid collection at the gallbladder fossa. Ultrasound may be performed for further characterization, indeterminate focus within the upper pole of the left kidney for which focused ultrasound is suggested for further characterization. The CT scan finding likely causing blockage in bile flow. Further evaluation include right upper quadrant ultrasound, left kidney ultrasound, possible MRCP, GI consult, surgical consult is recommended. Patient was accepted for transfer to [facility], Dr. Fisher Differential Diagnosis Differential Diagnosis: as above Medical Records Medical records reviewed: Yes I reviewed the external patient's medical records. Vital Signs Vital Signs: Vital Signs Temperature 36.7 C 07/19/24 16:24 Pulse Rate 88 07/19/24 16:24 Respiratory Rate 20 07/19/24 16:24 Blood Pressure 164/82 H 07/19/24 16:24 Pulse Oximetry 97 07/19/24 16:24 Oxygen Delivery Room Air 07/19/24 16:24 Temperature 36.7 C 07/19/24 16:24 Pulse Rate 74 07/19/24 18:15 Respiratory Rate 18 07/19/24 18:15 Blood Pressure 148/88 H 07/19/24 18:15 Pulse Oximetry 95 07/19/24 18:15 Oxygen Delivery Room Air 07/19/24 18:15 Lab Data Labs: Lab Results 07/19/24 07/19/24 07/19/24 Range/Units 16:38 16:44 17:04 PT 12.6 H (9.50-12.1) Seconds INR 1.2 APTT 29.3 (23.9-30.70) Sec POC Capillary Glucose (65-105) mg/dl Lactic Acid 1.2 (0.4-2.0) mmol/L Phosphorus 3.3 (2.6-4.7) mg/dL Magnesium 1.7 L (1.8-2.4) mg/dL Troponin I 4.5 (0.00-60.4) ng/L Lipase 34 (16-77) U/L Beta-Hydroxybutyrate/Acetoacetate Pending 07/19/24 07/19/24 07/19/24 Range/Units 17:27 18:20 19:27 PT (9.50-12.1) Seconds INR APTT (23.9-30.70) Sec POC Capillary Glucose 389 H 318 H 256 H (65-105) mg/dl Lactic Acid (0.4-2.0) mmol/L Phosphorus (2.6-4.7) mg/dL Magnesium (1.8-2.4) mg/dL Troponin I (0.00-60.4) ng/L Lipase (16-77) U/L Beta-Hydroxybutyrate/Acetoacetate 07/19/24 07/19/24 Range/Units 20:27 21:43 PT (9.50-12.1) Seconds INR APTT (23.9-30.70) Sec POC Capillary Glucose 239 H 309 H (65-105) mg/dl Lactic Acid (0.4-2.0) mmol/L Phosphorus (2.6-4.7) mg/dL Magnesium (1.8-2.4) mg/dL Troponin I (0.00-60.4) ng/L Lipase (16-77) U/L Beta-Hydroxybutyrate/Acetoacetate ABG Data ABG results: 07/19/24 18:01 Puncture Site Right radial ABG pH 7.43 ABG pCO2 32.7 L ABG pO2 75.8 ABG PO2/FiO2 Ratio Not Reportable ABG HCO3 21.1 L ABG O2 Saturation 95.7 ABG O2 Content 18.4 ABG Base Excess -2.4 L A-a Gradient Not Reportable Oxyhemoglobin 94.8 O2 Delivery Device Room air O2 Liters/Min Not Reportable Imaging Data Radiologist's impression: Impressions Abdomen/Pelvis CT 07/19/24 17:23 IMPRESSION: Rim-enhancing fluid collection which appears associated with the gallbladder fossa, and extends caudally and laterally from the base of the liver. Ultrasound may be performed for further characterization. Indeterminate focus within the upper pole of the left kidney for which focused ultrasound is suggested for further characterization. ECG Data EKG #1: Attestation: I personally reviewed and interpreted this ECG as follows: ECG completion date: 07/19/24 Interpretation: normal sinus rhythm at 80 beats per minute, low QRS voltage in precordial leads, anterolateral myocardial infarction, of indeterminate age, baseline artifact abnormal EKG Critical Care Time Critical Care Time Critical Care Time: Yes Total Critical Care Time: 30 Discharge Plan Discharge Clinical Impression: Acute hyperglycemia, Hyperbilirubinemia, Urinary tract infection, Elevated liver enzymes Patient Disposition: Acute Care Hospital Condition: Stable Prescriptions: No Action amlodipine 10 mg tablet See Rx Instructions .ROUTE .COMPLEX Qty: 90 3RF Dose Instruction: TAKE 1 TABLET BY MOUTH DAILY Rx Instructions: TAKE 1 TABLET BY MOUTH DAILY oxybutynin chloride 15 mg tablet extended release 24hr 15 mg PO DAILY Qty: 90 2RF biotin 10,000 mcg capsule PO DAILY Senokot 8.7 mg tablet,chewable PO DAILY docusate sodium [Stool Softener] 100 mg capsule 100 mg PO DAILY PRN (Reason: Constipation) Slow Release Iron 143 mg (45 mg iron) tablet extended release 143 mg PO DAILY Lactobacillus acidophilus 25 million cell capsule PO DAILY mecobalamin (vitamin B12) 1,000 mcg tablet,chewable 1,000 mcg PO DAILY magnesium glycinate 118 mg magnesium capsule PO DAILY glucosamine chondroitin 2,100 mg capsule 3 cap PO DAILY Citracal Calcium 1,200 mg capsule 2 cap PO DAILY URO Bladder Support capsule PO DAILY Natrol JuiceFestiv Daily Veggie capsule PO DAILY Natrol JuiceFestiv Daily Fruit capsule PO DAILY rosuvastatin 20 mg tablet See Rx Instructions .ROUTE .COMPLEX Qty: 90 3RF Dose Instruction: TAKE 1 TABLET BY MOUTH DAILY Rx Instructions: TAKE 1 TABLET BY MOUTH DAILY metoprolol tartrate 50 mg tablet See Rx Instructions .ROUTE .COMPLEX Qty: 90 3RF Dose Instruction: TAKE 1 TABLET BY MOUTH DAILY Rx Instructions: TAKE 1 TABLET BY MOUTH DAILY Follow-up/Referrals: Betzy Garibay APRN [Primary Care Provider] -
--- NOTE | 2024-07-19 16:38 | ECG_ITS ---
Test Date: 2024-07-19 17:00:53 Measurements Intervals [place] Rate: 80 P: 45 HI: 166 QRS: -19 QRSD: 80 T: -11 QT: 354 QTc: 409 Interpretive Statements SINUS RHYTHM LOW QRS VOLTAGE IN PRECORDIAL LEADS ANTEROSEPTAL MYOCARDIAL INFARCTION , OF INDETERMINATE AGE BASELINE ARTIFACT- II, III, AVR, AVL, AVF, V1, V4-V6 ABNORMAL ECG No previous ECG available for comparison Electronically Signed On 07-19-2024 19:00:47 GLAZE MAKER by Angus Bermeo D.O.
[2024-07-19 17:13] LABS: Magnesium 1.7 mg/dL (1.8-2.4); Phosphorus 3.3 mg/dL (2.6-4.7)
[2024-07-19 17:17] LABS: Lipase 34 U/L (16-77); Troponin I 4.5 ng/L (0.00-60.4)
[2024-07-19] MEDS: SODIUM CHLORIDE 0.9% IV 1,000 ML 999 ML IV CONT ×2 (17:23)
[2024-07-19 17:24] LABS: INR 1.2; Partial Thromboplastin Time 29.3 Sec (23.9-30.70); Prothrombin Time 12.6 Seconds (9.50-12.1)
[2024-07-19 17:27] LABS: Lactic Acid Reflex 1.2 mmol/L (0.4-2.0)
[2024-07-19 17:34] LABS: Glucose Point of Care 389 mg/dl (65-105)
[2024-07-19 17:47] VITALS: PULSE 76; RESP 18; O2SAT 95
[2024-07-19 18:00] VITALS: O2SAT 99
[2024-07-19 18:03] LABS: Base Excess ABG -2.4 mmol/L (0-2); HCO3 ABG 21.1 mmol/L (23-29); Oxygen Content ABG 18.4 %vol (16.0-22.0); Oxygen Saturation ABG 95.7 % (95-97); Oxyhemoglobin 94.8 % (94-100); PCO2 ABG 32.7 mmHg (35-45); PO2 ABG 75.8 mmHg (75-85); pH ABG 7.43 (7.35-7.45)
[2024-07-19 18:04] LABS: Site Drawn RIGHT RADIAL
[2024-07-19 18:05] LABS: Device ROOM AIR; Modified Allen's Test Pass
[2024-07-19 18:15] VITALS: BP 148/88; PULSE 74; RESP 18; O2SAT 95
[2024-07-19] MEDS: PIPERACILLN/TAZ 3.375GM/NS50ML 3.375 GM/50 ML BAG IVPB (18:44)
[2024-07-19] MEDS: INSULIN HUMAN REGULAR (*BKC) 1,000 UNITS/10 ML VIAL 4 UNITS IV PUSH ×2 (18:45→22:17)
--- NOTE | 2024-07-19 19:18 | PC.NURSE ---
report to shannon vogt
[2024-07-19 19:19] LABS: Glucose Point of Care 318 mg/dl (65-105)
--- NOTE | 2024-07-19 19:20 | PC.NURSE ---
blood sugar 319 1824
[2024-07-19 19:30] LABS: Glucose Point of Care 256 mg/dl (65-105)
[2024-07-19 20:29] LABS: Glucose Point of Care 239 mg/dl (65-105)
--- NOTE | 2024-07-19 20:32 | PC.NURSE ---
given turkey sandwhich and clear soda. advised family of looking for bed aqssignment
[2024-07-19 21:49] LABS: Glucose Point of Care 309 mg/dl (65-105)
--- NOTE | 2024-07-19 22:11 | PC.NURSE ---
patient sitting up in chiar for comfort. patient and informed of acceptence to [facility]. to go home for night. transfer papers signed
[2024-07-19 22:30] VITALS: BP 132/74; PULSE 86; RESP 18; TEMP 36.8; O2SAT 96
--- NOTE | 2024-07-19 23:07 | PC.NURSE ---
updated pt on room assingment and EMS being called. voiced understanding
[2024-07-20 02:22] LABS: Glucose Point of Care 287 mg/dl (65-105)
== END 2024-07-19 23:38 | disposition short-term general hospital (02) ==
PROVIDERS: Emergency Provider Emergency Medicine; PCP Nurse Practitioner Family
DX: R73.9 Hyperglycemia, unspecified (principal); N39.0 Urinary tract infection, site not specified; E80.6 Other disorders of bilirubin metabolism; R74.01 Elevation of levels of liver transaminase levels; I10 Essential (primary) hypertension; E78.5 Hyperlipidemia, unspecified; Z79.899 Other long term (current) drug therapy; Z90.710 Acquired absence of both cervix and uterus
CPT/HCPCS: 36415; 36600; 74177; 82010; 82805; 82948; 83605; 83690; 83735; 84100; 84484; 85018; 85610; 85730; 87040; 93005; 96361; 96365; 96375; 96376; 99285; J1815; J2543; J7030; Q9967

== ENCOUNTER 2024-07-19 22:10 | Inpatient (IN) | payer MEDICARE, SELFPAY ==
--- NOTE | ~2024-07-19 | US_ITS ---
EXAMINATION: US guide abscess drainage DATE: 07/20/2024 13:40 INDICATION: Right upper quadrant abdominal abscess. TECHNIQUE: The procedure and its risks, benefits, and alternatives were discussed with the patient. P otential risks discussed included bleeding and infection. The skin was prepped and draped in sterile fashion. 1% lidocaine was used for local anesthesia. Under ultrasound guidance, a 5 Fr catheter with trochar was advanced into the fluid collection in the right upper quadrant. Fluid was aspirated. The catheter was removed, and a dressing was applied. There were no immediate complications. FINDINGS: Ultrasound images demonstrate ascites and the catheter within the fluid. IMPRESSION: 1. Successful ultrasound-guided right upper quadrant abdominal abscess drainage yielding 200 mL of a mber-colored fluid. Reviewed, dictated and finalized at location A. LT OPERATOR IMPRESSION: 1. Successful ultrasound-guided right upper quadrant abdominal abscess drainag e yielding 200 mL of jacquie-colored fluid.
--- NOTE | ~2024-07-19 | US_ITS ---
EXAMINATION: US abdomen limited DATE: 07/20/2024 08:58 INDICATION: Right upper quadrant fluid collection. TECHNIQUE: Multiple grayscale and Doppler ultrasound images of the abdomen were obtained. COMPARISON: Chest CT 05/30/2022, CT abdomen and pelvis 07/19/2024 FINDINGS: The visualized portions of the head and body of the pancreas are normal. The liver is shabana l without focal lesion. There is normal flow in main portal vein. The gallbladder is absent. The comm on duct is normal and measures 8 mm. There is a 9.8 x 4.2 x 7.6 cm cyst in the gallbladder fossa. IMPRESSION: 1. 9.8 cm cyst in the gallbladder fossa. The differential diagnosis includes biloma, abscess, and per itoneal inclusion cyst. Consider hepatobiliary scintigraphy. Reviewed, dictated and finalized at location A. RPLANT OPERATOR IMPRESSION: 1. 9.8 cm cyst in the gallbladder fossa. The differential diagnosis includes bi alaina, abscess, and peritoneal inclusion cyst. Consider hepatobiliary scintigrap hy.
--- NOTE | ~2024-07-19 | US_ITS ---
EXAMINATION: US renal BI DATE: 07/20/2024 08:58 INDICATION: Left kidney mass. TECHNIQUE: Multiple ultrasound grayscale images of the kidneys were obtained. COMPARISON: CT abdomen and pelvis 07/19/2024 FINDINGS: The right kidney measures 11.1 x 5.7 x 5.2 cm. The left kidney measures 13.2 x 6.1 x 5.1 cm. The kidn eys demonstrate normal parenchymal echogenicity. There is a 3.0 cm cyst in left kidney upper pole. Th ere is no hydronephrosis. The bladder is normal. IMPRESSION: 1. Benign cyst in left kidney upper pole. Reviewed, dictated and finalized at location A. ER COUNSELOR
--- NOTE | ~2024-07-19 | NM_ITS ---
Nuclear Medicine Procedure: Hepatobiliary Scan CLINICAL HISTORY: Assess for bile leak. Status post prior cholecystectomy. Interpretation: Following intravenous administration of 5.038 mCi. of technetium 99m Choletec, serial images obtained reveal prompt concentration by the liver which is normal in size and without any foc al abnormalities. There is normal excretion from the liver, with prompt visualization of small bowel . Impression: Status post cholecystectomy, otherwise normal HIDA scan. No evidence of bile leak. Reviewed, dictated and finalized at location M. RVISOR COMPUTER OPERATIONS Impression: Status post cholecystectomy, otherwise normal HIDA scan. No evidence of bile le ak.
--- NOTE | ~2024-07-19 | US_ITS ---
EXAMINATION: US biopsy liver DATE: 07/23/2024 16:16 INDICATION: Suspected autoimmune hepatitis TECHNIQUE: The procedure including the risks and benefits was discussed with the patient. Risks discu ssed included bleeding and infection. The patient understood the risks and agreed to proceed. The sk in overlying the left hepatic lobe was prepped and draped in usual sterile fashion. Anesthetic was a dministered with 1% lidocaine subcutaneously. An 18 gauge core biopsy needle was advanced under cont inuous ultrasound observation to the lesion of interest. 3 core biopsy specimens were obtained. The needle was removed and the entry site was cleaned and dressed. Post procedure ultrasound demonstrat ed no hemorrhage. FINDINGS: Ultrasound images demonstrate biopsy needle advanced into the lateral segment of the left h epatic lobe. IMPRESSION: 1. Successful Ultrasound-guided random liver biopsy. Reviewed, dictated and finalized at location B. DRYER MAINTAINER
[2024-07-20 00:33] VITALS: BMI 31.5
[2024-07-20] MEDS: INSULIN GLARGINE (*BKC) 100 UNITS/ML 10 UNITS SUB-Q (01:01)
--- NOTE | 2024-07-20 01:05 | P.HP_ITS ---
H&P: HPI History of Present Illness Date/Time: 07/20/24 00:45 Chief Complaint: Elevated LFTs. Narrative: This is a 74-year-old female with type 2 diabetes mellitus, hypertension, and hyperlipidemia who is being directly admitted to the medical floor from the emergency department at the [facility] for evaluation of transaminitis. The patient provides the following history. She has not been feeling well for nearly 2 months with generalized weakness, increasing fatigue, polyuria, and polydipsia. She saw the nurse practitioner at her doctor's office today, had lab work drawn, and was referred to the ED after she was found to have elevated liver enzymes (total bilirubin 3.2, AST 660, ALT 762, alkaline phosphatase 320). CT of the abdomen and pelvis showed a rim enhancing fluid collection which appears to be associated with the gallbladder fossa measuring 4.6 x 8.2 x 8.0 cm. She was given a dose of Zosyn and transfer was initiated to [facility] for GI and surgery consultations. At the time my evaluation she is resting comfortably and has no complaints. With further questioning she reports that she has lost about 20 lb in the last couple of months but states that she has cut back on the amount of food that she is eating and her soda intake. More recently she has had polyuria and polydipsia and today her glucose was found to be over 400. She tells me that she is not a diabetic however 2 years ago when she was hospitalized with cholecystitis she was found to have an A1c of 7.2% and was discharged home on metformin with reports to follow-up with her primary care provider for new onset diagnosis of diabetes. She is otherwise feeling okay and denies fever, chills, sweats, abdominal pain, nausea, vomiting, diarrhea, and dysuria. She has not noticed a change in the color or consistency of her stools and denies jaundice and pruritus. Review of Systems Review of Systems: 12 systems were reviewed and are negativ e except for as per HPI. [facility] Past Medical History Medical History Hyperlipidemia Hypertension Overactive bladder Type 2 diabetes mellitus Surgical History Surgical History History of laparoscopic cholecystectomy (05/31/22) History of total abdominal hysterectomy Family History Family History Father Heart disease Other Brain cancer Mother No problems noted. Social History Social History Social History: Surrogate medical decision maker: Joce Khoury, spouse. Code status: Full code. Smoking status: Never smoker Alcohol intake: current Drinks per week: 1 Alcohol use details: Social alcohol use in moderation. Substance use: never Substance use type: does not use Do You Feel Safe in your Home?: Yes Lack of Transportation: No Lack of Food: Never True Current Housing: I Have Housing Concerned About Future Housing: No Difficulty Paying Gas/Electric Bills: No Difficulty Paying for Meds: No Currently Unemployed: No Education: High School Diploma/GED Difficulty w/ Childcare or Family Care: No Living arrangements: with family Additional living arrangements comments: The patient lives with her in [place]. Occupation/Education: retired Additional occupation/education comments: Retired. She is very involved in local [employer] including the [employer]. Spiritual care concerns: Yes (Mormon) Meds Home Medications and Allergies Home Medications Medication Instructions Recorded Confirmed Type Citracal Calcium 2 cap PO DAILY 07/19/24 07/20/24 History Lactobacillus acidophilus 25 25,000,000 cell PO DAILY 07/19/24 07/20/24 History million cell capsule biotin 10,000 mcg capsule 10,000 mcg PO DAILY 07/19/24 07/20/24 History ferrous sulfate 143 mg (45 mg 143 mg PO DAILY 07/19/24 07/20/24 History iron) tablet,extended release (Slow Release Iron) glucosamine chondroitin 3 cap PO DAILY 07/19/24 07/20/24 History magnesium glycinate 118 mg PO DAILY 07/19/24 07/20/24 History mecobalamin (vitamin B12) 1,000 1,000 mcg PO DAILY 07/19/24 07/20/24 History mcg chewable tablet oxybutynin chloride 15 mg 15 mg PO DAILY #90 tabs 07/19/24 07/20/24 Rx tablet,extended release 24 hr senna leaf extract 8.7 mg chewable 8.7 mg PO DAILY PRN Constipation 07/19/24 07/20/24 History tablet (Senokot) acetaminophen 325 mg capsule 1,000 mg PO Q8H PRN Pain 07/20/24 07/20/24 History amlodipine 10 mg tablet 10 mg PO DAILY 07/20/24 07/20/24 History ibuprofen 200 mg tablet 400 mg PO Q6H PRN Pain 07/20/24 07/20/24 History metoprolol tartrate 50 mg tablet 50 mg PO DAILY 07/20/24 07/20/24 History rosuvastatin 20 mg tablet 20 mg PO DAILY 07/20/24 07/20/24 History Allergies Allergy/AdvReac Type Severity Reaction Status Date / Time No Known Allergies Allergy Verified 07/19/24 14:06 Exam Narrative: General: Nontoxic-appearing female sitting up acute distress. Weight: 78.2 kg. BMI: 31.5. HEENT: PERRL, EOMI. Sclera anicteric. Oral mucosa moist. Neck: Supple. Respiratory: Lungs are clear to auscultation bilaterally. Cardiovascular: Regular rate and rhythm with S1-S2. Gastrointestinal: Abdomen is soft, nontender, and nondistended with positive bowel sounds. Skin: Warm and dry. Extremities: No cyanosis, clubbing, or edema. Radial and pedal pulses intact. Neurological: Alert. Cranial nerves 2-12 are grossly intact. No gross focal deficits to casual conversation. Psychiatric: Pleasant and cooperative with normal mood and affect. Judgment and insight intact. H&P: Results Labs Labs: 07/19/24 07/19/24 07/19/24 Range/Units 16:38 16:44 17:04 PT 12.6 H (9.50-12.1) Seconds INR 1.2 APTT 29.3 (23.9-30.70) Sec POC Capillary Glucose (65-105) mg/dl Lactic Acid 1.2 (0.4-2.0) mmol/L Phosphorus 3.3 (2.6-4.7) mg/dL Magnesium 1.7 L (1.8-2.4) mg/dL Troponin I 4.5 (0.00-60.4) ng/L Lipase 34 (16-77) U/L Beta-Hydroxybutyrate/Acetoacetate Pending 07/19/24 07/19/24 07/19/24 Range/Units 17:27 18:20 19:27 PT (9.50-12.1) Seconds INR APTT (23.9-30.70) Sec POC Capillary Glucose 389 H 318 H 256 H (65-105) mg/dl Lactic Acid (0.4-2.0) mmol/L Phosphorus (2.6-4.7) mg/dL Magnesium (1.8-2.4) mg/dL Troponin I (0.00-60.4) ng/L Lipase (16-77) U/L Beta-Hydroxybutyrate/Acetoacetate 07/19/24 07/19/24 Range/Units 20:27 21:43 PT (9.50-12.1) Seconds INR APTT (23.9-30.70) Sec POC Capillary Glucose 239 H 309 H (65-105) mg/dl Lactic Acid (0.4-2.0) mmol/L Phosphorus (2.6-4.7) mg/dL Magnesium (1.8-2.4) mg/dL Troponin I (0.00-60.4) ng/L Lipase (16-77) U/L Beta-Hydroxybutyrate/Acetoacetate Imaging CT scan - abdomen: Radiologist's impression: 1. Rim-enhancing fluid collection which appears associated with the gallbladder fossa, and extends caudally and laterally from the base of the liver. 2. Indeterminate focus within the upper pole of the left kidney for which focused ultrasound is suggested for further characterization. Assessment and Plan Assessment and plan (1) Transaminitis: Code(s): R74.01 - Elevation of levels of liver transaminase levels Status: Chronic (2) Intraabdominal fluid collection: Code(s): R18.8 - Other ascites Status: Acute (3) Abnormal finding of kidney: Code(s): R39.9 - Unspecified symptoms and signs involving the genitourinary system Status: Acute (4) Type 2 diabetes mellitus with hyperglycemia: Code(s): E11.65 - Type 2 diabetes mellitus with hyperglycemia Status: Acute (5) Hypertension: Qualifiers: Hypertension type: primary hypertension Qualified Code(s): I10 - Essential (primary) hypertension Code(s): I10 - Essential (primary) hypertension Status: Chronic (6) Hyperlipidemia: Qualifiers: Hyperlipidemia type: mixed hyperlipidemia Qualified Code(s): E78.2 - Mixed hyperlipidemia Code(s): E78.5 - Hyperlipidemia, unspecified Status: Chronic (7) Overactive bladder: Code(s): N32.81 - Overactive bladder Status: Acute Plan The patient presented to the outside facility for evaluation after she was found to have elevated LFTs on labs today as detailed in HPI. Labs, imaging, EKG, and all reports were personally reviewed. Etiology of the transaminitis is not entirely clear but may very well be related to a fluid collection near the gallbladder fossa. For now we will continue with empiric Zosyn. Surgery and GI specialists have been consulted for their opinion. Right upper quadrant ultrasound has been ordered to further assess. Renal ultrasound ordered as well to assess left upper pole changes on CT. Her diabetes is very poorly controlled an A1c of 11.2% today. Start long-acting insulin. Initiate sliding scale insulin, Accu-Cheks, and hypoglycemic protocol. Dietitian and educator senior clinical consulted. Vital signs were reviewed and they are stable. Her home medications will be reviewed and resumed as appropriate. Findings and treatment plan were discussed with the patient. Questions were solicited and answered to satisfaction. The patient's medical management will be taken over by the hospitalist team in a.m. Quality VTE Prophylaxis VTE prophylaxis: mechanical ordered If No VTE Prophylaxis Answer both mechanical and pharmacologic: Reason no pharmacologic proph: medical contraindication (may need procedure) Hospitalist MIPS Advance Care Plan I have confirmed that the patient's Advanced Care Plan is present, code status is documented, or surrogate decision maker is listed in patient medical record.: Yes Medication Reconciliation I have utilized all available resources to obtain, update and review the patients current medications (includes all prescriptions, OTC, herbals, cannabis, and nutritional supplements).: Yes
[2024-07-20] MEDS: PIPERACILLN/TAZ 3.375GM/NS50ML 3.375 GM/50 ML BAG IVPB ×4 (01:07→18:55)
[2024-07-20 01:21] VITALS: BP 173/78; PULSE 78; RESP 20; TEMP 36.7; O2SAT 98
[2024-07-20 05:48] LABS: Basophils Absolute Auto 0.1 K/mm3 (0.0-0.1); Basophils Percent Auto 1.4 % (0.2-1.2); Eosinophils Absolute Auto 0.2 K/mm3 (0-0.3); Eosinophils Percent Auto 3.2 % (0-4.4); Hematocrit 42.5 % (37.0-47.0); Hemoglobin 14.1 g/dL (12.0-15.0); Immature Granulocyte Absolute 0.02 K/mm3 (0.00-0.031); Immature Granulocyte Percent A 0.4 % (0-0.5); Lymphocytes Absolute Auto 1.37 K/mm3 (0.9-3.2); Lymphocytes Percent Auto 27.1 % (18.3-44.2); Mean Corpuscular HGB Conc 33.2 g/dl (32-36); Mean Corpuscular Hemoglobin 31.8 pg (26-34); Mean Corpuscular Volume 95.7 fl (80-100); Monocytes Absolute Auto 0.5 K/mm3 (0.1-0.6); Monocytes Percent Auto 8.9 % (2.6-8.5); Platelet Count Result 159 k/mm3 (150-375); Red Blood Count 4.44 M/mm3 (4.2-5.4); Red Cell Distribution Width 18.7 % (11.5-14.5); White Blood Count 5.1 K/mm3 (4.5-10.0)
[2024-07-20 05:58] LABS: INR 1.3; Partial Thromboplastin Time 29.8 Seconds (22.3-36.8); Prothrombin Time 16.7 Seconds (11.1-14.7)
[2024-07-20 06:00] LABS: Acetaminophen < 10 ug/mL (10-30)
[2024-07-20 06:02] LABS: Alanine Aminotransferase 685 U/L (6-35); Albumin Level 3.3 g/dL (3.5-5.1); Alkaline Phosphatase 295 U/L (38-126); Anion Gap 10 mmol/L (4-12); Bilirubin,Total 3.3 mg/dL (0.2-1.3); Blood Urea Nitrogen 9 mg/dL (7-17); CRP 1.4 mg/dL (<1.0); Calcium 8.7 mg/dL (8.4-10.2); Carbon Dioxide 25 mmol/L (22-30); Chloride 102 mmol/L (98-107); Estimated CRCL calculation 97 ml/min; Estimated Glomerular Filt Rate > 60; Glucose 290 mg/dL (65-110); Magnesium 1.7 mg/dL (1.6-2.3); Potassium 3.6 mmol/L (3.4-5.0); Sodium 137 mmol/L (137-145)
[2024-07-20 06:18] LABS: Procalcitonin 0.5 ng/mL
[2024-07-20 06:25] LABS: Aspartate Amino Transferase 760 U/L (14-36)
[2024-07-20 06:31] LABS: Hepatitis B Surface Antigen Negative (Negative)
[2024-07-20 06:36] LABS: HAV RESULT Negative (Negative); Hepatitis B Core IgM Result Negative (Negative)
[2024-07-20 06:48] LABS: Hepatitis C Virus Antibody Negative (Negative)
[2024-07-20 09:09] LABS: Glucose Point of Care 277 mg/dl (65-105)
--- NOTE | 2024-07-20 10:40 | PC.NURSE ---
Consulted bathhouse attendant and left a message for this pt.
--- NOTE | 2024-07-20 11:20 | P.CONGI_ITS ---
Assessment and Plan Assessment and plan (1) Intraabdominal fluid collection: Code(s): R18.8 - Other ascites Status: Acute (2) Elevated alkaline phosphatase level: Code(s): R74.8 - Abnormal levels of other serum enzymes Status: Acute (3) Elevated alanine aminotransferase (ALT) level: Code(s): R74.01 - Elevation of levels of liver transaminase levels Status: Acute Assessment and Plan: The significant elevations in AST and ALT, combined with moderate increases in alkaline phosphatase and bilirubin (3.2), are concerning. Additionally, the abnormal albumin level raises further concern. While there's no evidence of biliary obstruction, the findings suggest a potential intrahepatic issue. Differential diagnoses include autoimmune hepatitis, overlap syndrome with primary biliary cholangitis, or occult viral hepatitis B or C. Further inve stigation is necessary to pinpoint the underlying cause. The incidentally found fluid collection should be evaluated. An abdominal ultrasound with potential percutaneous fluid sampling is recommended. A Doppler ultrasound may also be beneficial to assess for portal hypertension and vessel patency. Plan HBsAg, anti HCV, ZEE, anti actin antibody, AMA, quantitative immunoglobulins will be obtained. Right upper quadrant sonogram with Doppler study. GI Consult Note Consult date/time: 07/20/24 11:20 Reason for consult: Elevated liver function tests. HPI: Flory Khoury is a 74 year old female with a significant past medical history for uncomplicated cholecystectomy for gallstones in 2021, intraoperative cholangiogram showing no stones in the common bile duct. She has been recently diagnosed as diabetic and was in her usual state of health until approximately 3 months ago when she started complaining of extreme fatigue, unable to complete her usual daily tasks. Her primary care physician obtained routine laboratory tests and transaminases, bilirubin and alkaline phosphatase were found to be significantly elevated in the 600, 700 range for transaminases and alkaline phosphatase is about twice the upper limit of normal. There is also mild elevation of bilirubin. She denies abdominal pain, fever, chills, increased abdominal girth, lower extremity edema or altered mental status. Of note, there is also a well-defined fluid collection in the area of the gallbladder fossa. There is no history of viral hepatitis, and she denies alcohol abuse or illicit drugs. She is taking her usual medication and some vitamin supplements but no recent NSAIDs, antibiotics or herbal products. Review of Systems Review of Systems: All systems reviewed & are unremarkable except as noted in HPI and below PMFSH Past Medical History Medical History Hyperlipidemia Hypertension Overactive bladder Type 2 diabetes mellitus Surgical History Surgical History History of laparoscopic cholecystectomy (05/31/22) History of total abdominal hysterectomy Family History Family History Father Heart disease Other Brain cancer Mother No problems noted. Social History Social History Social History: Surrogate medical decision maker: Joce Khoury, spouse. Code status: Full code. Smoking status: Never smoker Alcohol intake: current Drinks per week: 1 Alcohol use details: Social alcohol use in moderation. Substance use: never Substance use type: does not use Do You Feel Safe in your Home?: Yes Lack of Transportation: No Lack of Food: Never True Current Housing: I Have Housing Concerned About Future Housing: No Difficulty Paying Gas/Electric Bills: No Difficulty Paying for Meds: No Currently Unemployed: No Education: High School Diploma/GED Difficulty w/ Childcare or Family Care: No Living arrangements: with family Additional living arrangements comments: The patient lives with her in [place]. Occupation/Education: retired Additional occupation/education comments: Retired. She is very involved in local [employer] including the [employer]. Spiritual care concerns: Yes (Pentecostalism) Meds Home Medications and Allergies Home Medications Medication Instructions Recorded Confirmed Type Citracal Calcium 2 cap PO DAILY 07/19/24 07/20/24 History Lactobacillus acidophilus 25 25,000,000 cell PO DAILY 07/19/24 07/20/24 History million cell capsule biotin 10,000 mcg capsule 10,000 mcg PO DAILY 07/19/24 07/20/24 History ferrous sulfate 143 mg (45 mg 143 mg PO DAILY 07/19/24 07/20/24 History iron) tablet,extended release (Slow Release Iron) glucosamine chondroitin 3 cap PO DAILY 07/19/24 07/20/24 History magnesium glycinate 118 mg PO DAILY 07/19/24 07/20/24 History mecobalamin (vitamin B12) 1,000 1,000 mcg PO DAILY 07/19/24 07/20/24 History mcg chewable tablet oxybutynin chloride 15 mg 15 mg PO DAILY #90 tabs 07/19/24 07/20/24 Rx tablet,extended release 24 hr senna leaf extract 8.7 mg chewable 8.7 mg PO DAILY PRN Constipation 07/19/24 07/20/24 History tablet (Senokot) acetaminophen 325 mg capsule 1,000 mg PO Q8H PRN Pain 07/20/24 07/20/24 History amlodipine 10 mg tablet 10 mg PO DAILY 07/20/24 07/20/24 History ibuprofen 200 mg tablet 400 mg PO Q6H PRN Pain 07/20/24 07/20/24 History metoprolol tartrate 50 mg tablet 50 mg PO DAILY 07/20/24 07/20/24 History rosuvastatin 20 mg tablet 20 mg PO DAILY 07/20/24 07/20/24 History Allergies Allergy/AdvReac Type Severity Reaction Status Date / Time No Known Allergies Allergy Verified 07/19/24 14:06 Vital Signs Vital Signs - 24 hr 07/20/24 01:29 07/20/24 01:21 07/20/24 08:00 Temperature 98.1 F Pulse Rate 78 Respiratory Rate 20 Blood Pressure 173/78 H Pulse Oximetry 98 Oxygen Delivery Room Air Room Air Exam Const: General: comfortable and no acute distress Eyes: Sclera: sclerae normal Resp: Effort & Inspection: normal respiratory effort Auscultation: clear to auscultation bilaterally Cardio: Rate: regular rate Rhythm: regular rhythm GI: Inspection: non-distended GI Palp: Yes Soft to palpation, No Tenderness to palpation present (GI) and No Guarding due to palpation present (GI) Other: no hepatomegaly Skin: General skin exam: normal color Extrem: General: no edema and no pedal edema Psych: Mental Status: mental status grossly normal Results Labs 07/20/24 05:39 07/20/24 05:39 Labs: Short CBC 07/20/24 Range/Units 05:39 WBC 5.1 (4.5-10.0) K/mm3 Hgb 14.1 D (12.0-15.0) g/dL Hct 42.5 (37.0-47.0) % Plt Count 159 (150-375) k/mm3 BMP 07/20/24 05:39 Sodium 137 Potassium 3.6 Chloride 102 Carbon Dioxide 25 BUN 9 Creatinine 0.40 L Glucose 290 H Calcium 8.7 Liver Function 07/20/24 Range/Units 05:39 Total Bilirubin 3.3 H (0.2-1.3) mg/dL AST 760 H (14-36) U/L ALT 685 H (6-35) U/L Alkaline Phosphatase 295 H (38-126) U/L Albumin 3.3 L (3.5-5.1) g/dL
[2024-07-20 12:01] LABS: Glucose Point of Care 269 mg/dl (65-105)
[2024-07-20 12:14] LABS: Immunoglobulin A 423 mg/dL (70-400); Immunoglobulin M 159 mg/dL (40-230)
[2024-07-20 12:23] LABS: Immunoglobulin G 3031 mg/dL (700-1600)
[2024-07-20 14:01] LABS: Hepatitis B Surface Anti Res Negative
[2024-07-20 14:09] LABS: Source Peritoneal Fluid Peritoneal Fluid
[2024-07-20 14:10] LABS: Appearance Peritoneal Fluid Clear (Clear); Color Peritoneal Fluid Yellow (Colorless)
[2024-07-20 14:15] LABS: Nucleated Cells Peritoneal Flu 477 /uL (0-500); RBC Peritoneal Fluid < 2000 /uL (0-10000)
[2024-07-20 14:16] LABS: Lymphocytes Peritoneal Fluid 76 %; Macrophages Peritoneal Fluid 5 %; Mesothelial Cells Peritoneal Fluid 12 %; Monocytes Peritoneal Fluid 4 %; Neutrophils Peritoneal Fluid 3 % (0-25)
--- NOTE | 2024-07-20 14:27 | P.CONGS_ITS ---
Assessment and Plan Assessment and plan (1) Intraabdominal fluid collection: Code(s): R18.8 - Other ascites Status: Acute Assessment and Plan: This may have been a chronic collection. After the aspiration, it seems unlikely to be a biloma or an abscess. Peritoneal inclusion cyst seems most likely especially considering there were extensive adhesions at the time of surgery and, in this setting, an inclusion cyst is likely. HIDA scan has been ordered but has not yet been done today. Patient can go ahead with diabetic diet and my estimation. The fluid collection seems to be more of a imaging abnormality, incidentally found and not symptomatic. If HIDA scan is negative for a bile leak, other causes of the abnormal liver enzymes will need to be evaluated. I think her Zosyn can be discontinued. (2) Abnormal LFTs: Code(s): R79.89 - Other specified abnormal findings of blood chemistry Status: Acute Assessment and Plan: I spoke with Dr. Roe, information services consultant, who is also seeing the patient. He thinks these may be elevated due to an autoimmune hepatitis. (3) Type 2 diabetes mellitus with hyperglycemia: Qualifiers: Diabetes mellitus buttermaker continuous churn insulin use: without buttermaker continuous churn use Qualified Code(s): E11.65 - Type 2 diabetes mellitus with hyperglycemia Code(s): E11.65 - Type 2 diabetes mellitus with hyperglycemia Status: Acute Assessment and Plan: New onset diabetic. Management per hospitalist and outpatient care. History of Present Illness Consult details Consult date: 07/20/24 Reason for consult: other (Right upper quadrant fluid collection) Requesting physician: Grace Jefferson PA-C Narrative: Patient is a 74-year-old woman who came to the emergency room yesterday with a 2 month history of being tired weak with increased urination and very thirsty. Not surprisingly, she was found to be in new onset diabetic with blood sugar of 414 and hemoglobin A1c of over 12. During the routine testing, it was noted that her liver enzymes were elevated. She had a CT scan and this showed a fluid collection in the gallbladder fossa and right colic gutter. Ultrasound was then done and showed a 9.8 cm cyst in the gallbladder fossa. This collection was aspirated under ultrasound guidance and 200 cc were extracted of clear yellow fluid. Patient is seen in consultation regarding this fluid collection. She had a laparoscopic cholecystectomy in May of 2022. After reading the operative report, this was a very difficult cholecystectomy with a lot of gallbladder inflammation and many adhesions around the gallbladder. An intraoperative cholangiogram was done during the surgery which showed no bile duct stones. Pathology on the gallbladder showed chronic cholecystitis with cholelithiasis. Patient denies any abdominal pain or specifically any right upper quadrant abdominal pain. She feels the same after the ultrasound-guided aspiration of this fluid collection. There was no pain there before and is none present now. She is hungry a would like to eat. Review of Systems Review of Systems: All systems reviewed & are unremarkable except as noted in HPI and below (HPI) [facility] Past Medical History Medical History Hyperlipidemia Hypertension Overactive bladder Type 2 diabetes mellitus Surgical History Surgical History History of laparoscopic cholecystectomy (05/31/22) History of total abdominal hysterectomy Family History Family History Father Heart disease Other Brain cancer Mother No problems noted. Social History Social History Social History: Surrogate medical decision maker: Joce Khoury, spouse. Code status: Full code. Smoking status: Never smoker Alcohol intake: current Drinks per week: 1 Alcohol use details: Social alcohol use in moderation. Substance use: never Substance use type: does not use Do You Feel Safe in your Home?: Yes Lack of Transportation: No Lack of Food: Never True Current Housing: I Have Housing Concerned About Future Housing: No Difficulty Paying Gas/Electric Bills: No Difficulty Paying for Meds: No Currently Unemployed: No Education: High School Diploma/GED Difficulty w/ Childcare or Family Care: No Living arrangements: with family Additional living arrangements comments: The patient lives with her in [place]. Occupation/Education: retired Additional occupation/education comments: Retired. She is very involved in local charities including the [employer]. Spiritual care concerns: Yes (Yazdanism) Meds Home Medications and Allergies Home Medications Medication Instructions Recorded Confirmed Type Citracal Calcium 2 cap PO DAILY 07/19/24 07/20/24 History Lactobacillus acidophilus 25 25,000,000 cell PO DAILY 07/19/24 07/20/24 History million cell capsule biotin 10,000 mcg capsule 10,000 mcg PO DAILY 07/19/24 07/20/24 History ferrous sulfate 143 mg (45 mg 143 mg PO DAILY 07/19/24 07/20/24 History iron) tablet,extended release (Slow Release Iron) glucosamine chondroitin 3 cap PO DAILY 07/19/24 07/20/24 History magnesium glycinate 118 mg PO DAILY 07/19/24 07/20/24 History mecobalamin (vitamin B12) 1,000 1,000 mcg PO DAILY 07/19/24 07/20/24 History mcg chewable tablet oxybutynin chloride 15 mg 15 mg PO DAILY #90 tabs 07/19/24 07/20/24 Rx tablet,extended release 24 hr senna leaf extract 8.7 mg chewable 8.7 mg PO DAILY PRN Constipation 07/19/24 07/20/24 History tablet (Senokot) acetaminophen 325 mg capsule 1,000 mg PO Q8H PRN Pain 07/20/24 07/20/24 History amlodipine 10 mg tablet 10 mg PO DAILY 07/20/24 07/20/24 History ibuprofen 200 mg tablet 400 mg PO Q6H PRN Pain 07/20/24 07/20/24 History metoprolol tartrate 50 mg tablet 50 mg PO DAILY 07/20/24 07/20/24 History rosuvastatin 20 mg tablet 20 mg PO DAILY 07/20/24 07/20/24 History Allergies Allergy/AdvReac Type Severity Reaction Status Date / Time No Known Allergies Allergy Verified 07/19/24 14:06 Vital Signs Vital Signs - 24 hr 07/20/24 01:29 07/20/24 01:21 07/20/24 08:00 Temperature 36.7 C Pulse Rate 78 Respiratory Rate 20 Blood Pressure 173/78 H Pulse Oximetry 98 Oxygen Delivery Room Air Room Air Exam Const: General: comfortable, no acute distress, alert and awake HENMT: Head: normocephalic and atraumatic Mouth: Yes Normal oral and palat al mucosa present Eyes: Conjunctivae: conjunctivae normal Pupils: Equal, round and reactive pupils present EOM: EOMs intact bilaterally Neck: Neck: normal visual inspection, no lymphadenopathy and nontender Resp: Effort & Inspection: normal respiratory effort Auscultation: clear to auscultation bilaterally Cardio: Rate: regular rate Rhythm: regular rhythm Heart sounds: no gallops, no murmurs and no rubs GI: Inspection: normal to inspection, no abdominal wall ecchymosis, non- distended and no visible herniation GI Palp: Yes Soft to palpation, No Tenderness to palpation present (GI), No Hepatomegaly present, No Splenomegaly present, No Hernia present and No Palpable mass present Skin: General skin exam: jaundice (Slightly jaundiced) Lesions: no lesions Rashes: no rashes Neuro: General: no focal motor deficits and CN's II-XI intact bilaterally Cranial nerves: Yes Equal, round and reactive pupils present, Yes Bilaterally intact EOM present, Yes facial symmetry and Yes Midline tongue present Speech: normal speech Motor exam (neuro): 5/5 motor strength present throughout and Motor abnormalities not present Extrem: General: no clubbing, cyanosis or edema and edema Psych: Affect: normal affect Thought process: Normal thought process present Insight: Good insight present (Psych) Results Labs 07/20/24 05:39 07/20/24 05:39 Labs: Abnormal lab results 07/20/24 07/20/24 07/20/24 Range/Units 05:36 05:39 09:00 RDW 18.7 H (11.5-14.5) % MPV 13.0 H (7.4-10.4) fl [place] % (Auto) 8.9 H (2.6-8.5) % Baso % (Auto) 1.4 H (0.2-1.2) % PT 16.7 H (11.1-14.7) Seconds Creatinine 0.40 L (0.7-1.0) mg/dL Glucose 290 H (65-110) mg/dL POC Capillary Glucose 277 H (65-105) mg/dl Total Bilirubin 3.3 H (0.2-1.3) mg/dL AST 760 H (14-36) U/L ALT 685 H (6-35) U/L Alkaline Phosphatase 295 H (38-126) U/L C-Reactive Protein 1.4 H (<1.0) mg/dL Albumin 3.3 L (3.5-5.1) g/dL Acetaminophen < 10 L (10-30) ug/mL IgG 3031 H (700-1600) mg/dL IgA 423 H (70-400) mg/dL 07/20/24 Range/Units 11:59 RDW (11.5-14.5) % MPV (7.4-10.4) fl [place] % (Auto) (2.6-8.5) % Baso % (Auto) (0.2-1.2) % PT (11.1-14.7) Seconds Creatinine (0.7-1.0) mg/dL Glucose (65-110) mg/dL POC Capillary Glucose 269 H (65-105) mg/dl Total Bilirubin (0.2-1.3) mg/dL AST (14-36) U/L ALT (6-35) U/L Alkaline Phosphatase (38-126) U/L C-Reactive Protein (<1.0) mg/dL Albumin (3.5-5.1) g/dL Acetaminophen (10-30) ug/mL IgG (700-1600) mg/dL IgA (70-400) mg/dL Diabetes panel 07/20/24 Range/Units 05:39 Sodium 137 (137-145) mmol/L Potassium 3.6 (3.4-5.0) mmol/L Chloride 102 (98-107) mmol/L Carbon Dioxide 25 (22-30) mmol/L BUN 9 (7-17) mg/dL Creatinine 0.40 L (0.7-1.0) mg/dL Glucose 290 H (65-110) mg/dL Calcium 8.7 (8.4-10.2) mg/dL AST 760 H (14-36) U/L ALT 685 H (6-35) U/L Alkaline Phosphatase 295 H (38-126) U/L Total Protein 8.0 (6.3-8.2) g/dL Albumin 3.3 L (3.5-5.1) g/dL Calcium panel 07/20/24 Range/Units 05:39 Calcium 8.7 (8.4-10.2) mg/dL Albumin 3.3 L (3.5-5.1) g/dL Pituitary panel 07/20/24 Range/Units 05:39 Sodium 137 (137-145) mmol/L Potassium 3.6 (3.4-5.0) mmol/L Chloride 102 (98-107) mmol/L Carbon Dioxide 25 (22-30) mmol/L BUN 9 (7-17) mg/dL Creatinine 0.40 L (0.7-1.0) mg/dL Glucose 290 H (65-110) mg/dL Calcium 8.7 (8.4-10.2) mg/dL Adrenal panel 07/20/24 Range/Units 05:39 Sodium 137 (137-145) mmol/L Potassium 3.6 (3.4-5.0) mmol/L Chloride 102 (98-107) mmol/L Carbon Dioxide 25 (22-30) mmol/L BUN 9 (7-17) mg/dL Creatinine 0.40 L (0.7-1.0) mg/dL Glucose 290 H (65-110) mg/dL Calcium 8.7 (8.4-10.2) mg/dL Total Bilirubin 3.3 H (0.2-1.3) mg/dL AST 760 H (14-36) U/L ALT 685 H (6-35) U/L Alkaline Phosphatase 295 H (38-126) U/L Total Protein 8.0 (6.3-8.2) g/dL Albumin 3.3 L (3.5-5.1) g/dL All other labs normal.
--- NOTE | 2024-07-20 14:45 | PC.NURSE ---
Yury from [place] contacted regarding STAT HIDA scan ordered per Dr. Guerrero. Given hx of cholecystectomy 05/[address] Guerrero is requesting scan to check for bile leaking. Yury states he will be in to do the scan later this afternoon and that the patient can have pain meds as needed and it is not needed to be PO. FER Oneil made aware.
--- NOTE | 2024-07-20 15:17 | P.PNIM_ITS ---
Progress Note: A&P Assessment and Plan (1) Transaminitis: Code(s): R74.01 - Elevation of levels of liver transaminase levels Status: Chronic Assessment and Plan: * Liver enzymes show an AST of 760, ALT 685, alk-phos 295, total bilirubin 3.3 * Likely secondary to to intra-abdominal abscess * Continue to trend * CT of the abdomen pelvis showed a rim enhancing fluid collection which appears associated with the gallbladder fossa and extends call Sangeeta and laterally from the base of the liver * GI general surgery consulted (2) Intraabdominal fluid collection: Code(s): R18.8 - Other ascites Status: Acute Assessment and Plan: * CT of the abdomen pelvis showed a rim enhancing fluid collection which appears associated with the gallbladder fossa and extends call Sangeeta and laterally from the base of the liver * GI suggesting ultrasound guided abscess drainage right upper quadrant abdominal ultrasound * Ultrasound-guided right upper quadrant abdominal abscess drainage evening 200 mL of jacquie colored fluid * Peritoneal fluid was sent for culture and is pending * Peritoneal fluid labs were all within normal limits * CRP 1.4 * NM HIDA scan ordered * Procalcitonin 0.5 * Continue Zosyn * Will add Flagyl (3) Abnormal finding of kidney: Code(s): R39.9 - Unspecified symptoms and signs involving the genitourinary system Status: Acute Assessment and Plan: * CT shown an indeterminate focus within the upper pole of the left kidney requiring ultrasound for further evaluation * Renal ultrasound shown benign cyst in the left kidney upper pole (4) Type 2 diabetes mellitus with hyperglycemia: Qualifiers: Diabetes mellitus supervisor intermediates insulin use: without prison use Qualified Code(s): E11.65 - Type 2 diabetes mellitus with hyperglycemia Code(s): E11.65 - Type 2 diabetes mellitus with hyperglycemia Status: Acute Assessment and Plan: * Blood sugars ranging 269-309 * Hgb A1C 11.2 * Accu checks AC/HS * High-dose SSI ordered * Lantus 18 units ordered for bedtime * hypoglycemic protocol in place * Diabetic diet ordered * childbirth educator consulted * Dietitian consulted (5) Hypertension: Qualifiers: Hypertension type: primary hypertension Qualified Code(s): I10 - Essential (primary) hypertension Code(s): I10 - Essential (primary) hypertension Status: Chronic Assessment and Plan: * Blood pressure ranging 125/78 to 173/78 * Continue amlodipine and metoprolol (6) Hyperlipidemia: Qualifiers: Hyperlipidemia type: mixed hyperlipidemia Qualified Code(s): E78.2 - Mixed hyperlipidemia Code(s): E78.5 - Hyperlipidemia, unspecified Status: Chronic Assessment and Plan: * Continue rosuvastatin Time Spent With Patient Time with patient: 25 - 35 minutes Subjective Date/time seen: 07/20/24 15:17 Interval history: Interval history: This is a 74-year-old female who presented to the hospital on 07/20/2024 as a direct admit from [facility] for evaluation of transaminitis. Workup in the hospital included an abdomen/pelvis CT which was done on [facility] and showed a rim enhancing fluid collection which appears associated with the gallbladder fossa and extends caudally and laterally from the base of the liver, indeterminate focus within the upper pole of the left kidney was also suggested for an ultrasound for further evaluation. Renal ultrasound shown benign cyst in the left kidney upper pole. Abdomen ultrasound shows a 9.8 cm cyst in the gallbladder fossa with concerns for either of them biloma, abscess, peritoneal inclusion cyst. Initial labs showed a normal white blood cell count of 5.1, blood sugar ranging 269-290, total bili 3.3, AST 760, ALT 685, alk phos 295, C reactive protein 1.4, procalcitonin 0.5. Blood and urine cultures were obtained and are pending. EKG showed normal sinus rhythm with a rate of 80, QTC 409. Patient was started on Zosyn. GI and General surgery were consulted. Subjective: Patient denies any fever, chills, nausea, vomiting, diarrhea, abdominal pain, chest pain, shortness a breath. Labs and imaging reviewed. Review of Systems Review of Systems: All systems reviewed & are unremarkable except as noted in HPI and below Constitutional: Constitutional: Reports as per HPI and Reports no additional constitutional complaints Eyes: Eyes: Reports as per HPI and Reports no additional eye complaints ENT: Reports system reviewed and no additional complaints, except as documented and Reports as per HPI Cardiovascular: Cardiovascular: Reports as per HPI and Reports no additional cardiovascular complaints Respiratory: Respiratory: Reports as per HPI and Reports no additional respiratory complaints Gastrointestinal: Gastrointestinal: Reports as per HPI and Reports no additional gastrointestinal complaints Genitourinary: Genitourinary: Reports no additional female genitourinary complaints and Reports as per HPI Musculoskeletal: Musculoskeletal: Reports no additional musculoskeletal complaints and Reports as per HPI Integumentary/Breasts: Skin/Breast: Reports system reviewed and no additional complaints, except as docu and Reports as per HPI Neurologic: Reports system reviewed and no additional complaints, except as documented and Reports as per HPI Psychiatric: Psychiatric: Reports no additional psychiatric complaints and Reports as per HPI Exam Narrative: General: In no acute distress, well nourished Head: atraumatic, no encephalopathy Eyes: EOMI, PERRLA, sclera clear ENT: moist mucous membranes, nasal passages clear Neck: supple, no JVD, no adenopathy, trachea midline Cardiac: Normal S1 and S2. No murmur, gallops or friction rubs, peripheral pulses intact. Respiratory: Lungs clear to auscultation, no adventitious lung sounds, currently on room Gastrointestinal: soft, non-distended, non-tender, normoactive bowel sounds. : voiding without difficulty. Extremities: moves all extremities well, no edema, good ROM, strength 5/5 Skin: clean, dry, intact. No wounds or lesions. Neuro: Alert and oriented x4, cranial nerves intact, no neuro deficits. Psych: normal mood, normal affect, interactive Objective Data Vital Signs Vital Signs: Vital Signs - 24 hr 07/20/24 01:29 07/20/24 01:21 07/20/24 08:00 Temperature 98.1 F Pulse Rate 78 Respiratory Rate 20 Blood Pressure 173/78 H Pulse Oximetry 98 Oxygen Delivery Room Air Room Air Intake/Output Intake/Output: Intake & Output 07/17/24 07/18/24 07/19/24 07/20/24 23:59 23:59 23:59 23:59 Intake Total 150 Output Total 1000 Balance -850 Meds/Results Medications: Active Medications Generic Name Dose Route Start Last Admin Trade Name Freq PRN Reason Stop Dose Admin Dextrose 12.5 gm 07/20/24 00:19 Dextrose 50% 25 Gm/50 Ml Syringe IV PUSH PRN PRN Hypoglycemia Protocol Glucagon 1 mg 07/20/24 00:19 Glucagon For Inj 1 Mg Vial IM PRN PRN Hypoglycemia Protocol Glucose 15 gm 07/20/24 00:19 Glucose Oral Gel 15 Gm Of Glucse In 37.5 Gm Tube PO PRN PRN Hypoglycemia Protocol Dextrose 1,000 mls @ 100 mls/hr 07/20/24 00:19 Dextrose 5% 1,000 Ml IVPB PRN PRN Hypoglycemia Protocol Piperacillin/Tazobactam/Dextrose 3.375 gm in 50 mls @ 100 mls/hr 07/20/24 00:55 07/20/24 14:14 Zosyn 3.375 Gm/Ns 50 Ml IVPB Infused Q6HR ANSELMO Infusion Insulin Aspart 3 - 6 units 07/20/24 08:00 07/20/24 13:44 Insulin Aspart (*Bkc) 100 Units/Ml SUB-Q Not Given TIDWM ANSELMO Protocol Insulin Aspart 1 - 3 units 07/20/24 21:00 Insulin Aspart (*Bkc) 100 Units/Ml SUB-Q HS ANSELMO Protocol Insulin Glargine 10 units 07/20/24 00:30 07/20/24 01:01 Insulin Glargine (*Bkc) 100 Units/Ml SUB-Q 10 units HS ANSELMO Administration Radiology Results: ITS Impressions Renal Ultrasound 07/20/24 09:01 IMPRESSION: 1. Benign cyst in left kidney upper pole. Abdomen Ultrasound 07/20/24 09:04 IMPRESSION: 1. 9.8 cm cyst in the gallbladder fossa. The differential diagnosis includes biloma, abscess, and peritoneal inclusion cyst. Consider hepatobiliary scintigraphy. Abscess Drainage Ultrasound 07/20/24 13:41 IMPRESSION: 1. Successful ultrasound-guided right upper quadrant abdominal abscess drainage yielding 200 mL of jacquie-colored fluid. Labs Labs: Laboratory Results - last 24 hr 07/20/24 07/20/24 07/20/24 05:36 05:36 05:39 WBC 5.1 RBC 4.44 Hgb 14.1 D Hct 42.5 MCV 95.7 MCH 31.8 MCHC 33.2 RDW 18.7 H Plt Count 159 MPV 13.0 H Immature Gran % (Auto) 0.4 Neut % (Auto) 59.0 Lymph % (Auto) 27.1 [place] % (Auto) 8.9 H Eos % (Auto) 3.2 Baso % (Auto) 1.4 H Lymph # (Auto) 1.37 [place] # (Auto) 0.5 Eos # (Auto) 0.2 Baso # (Auto) 0.1 Abs Immat Gran (auto) 0.02 Absolute Neuts (auto) 3.0 Absolute Nucleated RBC 0.000 Nucleated RBC % 0.0 PT 16.7 H INR 1.3 APTT 29.8 Sodium 137 Potassium 3.6 Chloride 102 Carbon Dioxide 25 Anion Gap 10 BUN 9 Creatinine 0.40 L Estim Creat Clear Calc 97 Estimated GFR > 60 Glucose 290 H POC Capillary Glucose Calcium 8.7 Magnesium 1.7 Total Bilirubin 3.3 H AST 760 H ALT 685 H Alkaline Phosphatase 295 H C-Reactive Protein 1.4 H Total Protein 8.0 Albumin 3.3 L Procalcitonin 0.5 Peritoneal Source Peritoneal Color Peritoneal Appearance Peritoneal RBC Periton Nuc Cells Periton Neutrophils Periton Lymphocytes Peritoneal Monocytes Periton Mesothelial Periton Macrophages Acetaminophen < 10 L IgG 3031 H IgA 423 H IgM 159 Hepatitis A IgM Ab Negative Hep Bs Antigen Cancelled Negative Hep Bs Antibody Negative Hep B Core IgM Ab Cancelled Cancelled Negative Hepatitis C Ab Screen Negative 07/20/24 07/20/24 07/20/24 09:00 11:59 13:10 WBC RBC Hgb Hct MCV MCH MCHC RDW Plt Count MPV Immature Gran % (Auto) Neut % (Auto) Lymph % (Auto) [place] % (Auto) Eos % (Auto) Baso % (Auto) Lymph # (Auto) [place] # (Auto) Eos # (Auto) Baso # (Auto) Abs Immat Gran (auto) Absolute Neuts (auto) Absolute Nucleated RBC Nucleated RBC % PT INR APTT Sodium Potassium Chloride Carbon Dioxide Anion Gap BUN Creatinine Estim Creat Clear Calc Estimated GFR Glucose POC Capillary Glucose 277 H 269 H Calcium Magnesium Total Bilirubin AST ALT Alkaline Phosphatase C-Reactive Protein Total Protein Albumin Procalcitonin Peritoneal Source Peritoneal fluid Peritoneal Color Yellow Peritoneal Appearance Clear Peritoneal RBC < 2000 Periton Nuc Cells 477 [place] Neutrophils 3 [place] Lymphocytes 76 Peritoneal Monocytes 4 [place] Mesothelial 12 [place] Macrophages 5 Acetaminophen IgG IgA IgM Hepatitis A IgM Ab Hep Bs Antigen Hep Bs Antibody Hep B Core IgM Ab Hepatitis C Ab Screen Quality VTE Prophylaxis VTE prophylaxis: mechanical ordered
[2024-07-20 15:41] VITALS: BP 170/80; PULSE 81; RESP 18; TEMP 36.8; O2SAT 98
[2024-07-20 18:21] VITALS: PULSE 100
[2024-07-20] MEDS: METOPROLOL TARTRATE 50 MG TAB PO (18:21)
[2024-07-20] MEDS: amLODIPine BESYLATE 10 MG TABLET PO (18:21)
[2024-07-20] MEDS: INSULIN ASPART (*BKC) 100 UNITS/ML SUB-Q ×2 (18:22→21:07)
[2024-07-20 18:34] LABS: Glucose Point of Care 280 mg/dl (65-105)
[2024-07-20] MEDS: INSULIN GLARGINE (*BKC) 100 UNITS/ML 18 UNITS SUB-Q (21:06)
[2024-07-20] MEDS: metroNIDAZOLE 500 MG TABLET PO (21:13)
[2024-07-20 21:27] VITALS: BP 152/77; PULSE 61; RESP 18; TEMP 36.7; O2SAT 96
[2024-07-21] MEDS: PIPERACILLN/TAZ 3.375GM/NS50ML 3.375 GM/50 ML BAG IVPB ×3 (00:11→12:53)
[2024-07-21] MEDS: metroNIDAZOLE 500 MG TABLET PO ×2 (05:23→13:18)
[2024-07-21 05:47] LABS: Hematocrit 42.4 % (37.0-47.0); Hemoglobin 14.3 g/dL (12.0-15.0); Mean Corpuscular HGB Conc 33.7 g/dl (32-36); Mean Corpuscular Hemoglobin 32.1 pg (26-34); Mean Corpuscular Volume 95.1 fl (80-100); Mean Platelet Volume 12.5 fl (7.4-10.4); Platelet Count Result 138 k/mm3 (150-375); Red Blood Count 4.46 M/mm3 (4.2-5.4); Red Cell Distribution Width 18.6 % (11.5-14.5); White Blood Count 5.2 K/mm3 (4.5-10.0)
[2024-07-21 05:58] LABS: Alanine Aminotransferase 730 U/L (6-35); Albumin Level 3.2 g/dL (3.5-5.1); Alkaline Phosphatase 292 U/L (38-126); Anion Gap 7 mmol/L (4-12); Bilirubin,Total 3.5 mg/dL (0.2-1.3); Blood Urea Nitrogen 9 mg/dL (7-17); Calcium 8.8 mg/dL (8.4-10.2); Carbon Dioxide 27 mmol/L (22-30); Chloride 104 mmol/L (98-107); Estimated CRCL calculation 80 ml/min; Estimated Glomerular Filt Rate > 60; Glucose 256 mg/dL (65-110); Potassium 3.7 mmol/L (3.4-5.0); Sodium 138 mmol/L (137-145)
[2024-07-21 06:00] VITALS: BP 160/66; PULSE 66; RESP 18; TEMP 36.6; O2SAT 96
[2024-07-21 06:03] LABS: Aspartate Amino Transferase 811 U/L (14-36)
[2024-07-21 06:24] LABS: Glucose Point of Care 354 mg/dl (65-105)
[2024-07-21 08:22] LABS: Glucose Point of Care 260 mg/dl (65-105)
[2024-07-21] MEDS: amLODIPine BESYLATE 10 MG TABLET PO (09:24)
[2024-07-21] MEDS: oxyBUTYnin CHLORIDE XL 5 MG TAB.ER.24 15 MG PO (09:24)
[2024-07-21 09:25] VITALS: PULSE 72
[2024-07-21] MEDS: METOPROLOL TARTRATE 50 MG TAB PO (09:25)
[2024-07-21] MEDS: ROSUVASTATIN 20 MG TABLET PO (09:25)
[2024-07-21] MEDS: INSULIN ASPART (*BKC) 100 UNITS/ML SUB-Q ×4 (09:32→23:34)
--- NOTE | 2024-07-21 10:29 | WPDGIPROGNO ---
Progress Note: A&P Assessment and Plan (1) Abnormal LFTs: Code(s): R79.89 - Other specified abnormal findings of blood chemistry Status: Acute Assessment and Plan: This patient has markedly elevated liver transaminases which is very suspicious for autoimmune hepatitis. Hepatitis B and C have been ruled out and autoimmune markers, ZEE, anti smooth muscle antibody and AMA are pending. However, her IgG level is above 3000, very suggestive of autoimmune hepatitis. Therefore, I will wait for the autoimmune markers, and will arrange for a percutaneous liver biopsy to be done sometime this week, probably Monday. Patient is aware and a thorough explanation about the procedure, therapy and prognosis were provided to the patient and her this morning. Plan CBC, CMP, INR and TPMT levels for tomorrow Subjective Date/time seen: 07/21/24 10:29 Interval history: The patient's fluid collection in the gallbladder fossa was tapped yesterday, showing a clear yellowish liquid, not consistent with abscess. She is currently asymptomatic except for her chronic tiredness. Exam Narrative: General: In no acute distress, well nourished Head: atraumatic, no encephalopathy Eyes: EOMI, PERRLA, sclera clear ENT: moist mucous membranes, nasal passages clear Neck: supple, no JVD, no adenopathy, trachea midline Cardiac: Normal S1 and S2. No murmur, gallops or friction rubs, peripheral pulses intact. Respiratory: Lungs clear to auscultation, no adventitious lung sounds, currently on room Gastrointestinal: soft, non-distended, non-tender, normoactive bowel sounds. : voiding without difficulty. Extremities: moves all extremities well, no edema, good ROM, strength 5/5 Skin: clean, dry, intact. No wounds or lesions. Neuro: Alert and oriented x4, cranial nerves intact, no neuro deficits. Psych: normal mood, normal affect, interactive Objective Data Vital Signs Vital Signs: Vital Signs - 24 hr 07/20/24 15:41 07/20/24 18:21 07/20/24 21:27 Temperature 98.2 F 98.1 F Pulse Rate 81 100 61 Respiratory Rate 18 18 Blood Pressure 170/80 H 152/77 H Pulse Oximetry 98 96 07/21/24 06:00 07/21/24 09:25 Temperature 97.8 F Pulse Rate 66 72 Respiratory Rate 18 Blood Pressure 160/66 H Pulse Oximetry 96 Intake/Output Intake/Output: Intake & Output 07/18/24 07/19/24 07/20/24 07/21/24 23:59 23:59 23:59 23:59 Intake Total 640 400 Output Total 1000 1900 Balance -360 -1500 Meds/Results Medications: Active Medications Generic Name Dose Route Start Last Admin Trade Name Freq PRN Reason Stop Dose Admin Amlodipine Besylate 10 mg 07/20/24 15:40 07/21/24 09:24 Amlodipine Besylate 10 Mg Tablet PO 10 mg DAILY ANSELMO Administration Dextrose 12.5 gm 07/20/24 00:19 Dextrose 50% 25 Gm/50 Ml Syringe IV PUSH PRN PRN Hypoglycemia Protocol Glucagon 1 mg 07/20/24 00:19 Glucagon For Inj 1 Mg Vial IM PRN PRN Hypoglycemia Protocol Glucose 15 gm 07/20/24 00:19 Glucose Oral Gel 15 Gm Of Glucse In 37.5 Gm Tube PO PRN PRN Hypoglycemia Protocol Dextrose 1,000 mls @ 100 mls/hr 07/20/24 00:19 Dextrose 5% 1,000 Ml IVPB PRN PRN Hypoglycemia Protocol Piperacillin/Tazobactam/Dextrose 3.375 gm in 50 mls @ 100 mls/hr 07/20/24 00:55 07/21/24 05:53 Zosyn 3.375 Gm/Ns 50 Ml IVPB Infused Q6HR ANSELMO Infusion Insulin Aspart 4 - 8 units 07/20/24 17:00 07/21/24 09:32 Insulin Aspart (*Bkc) 100 Units/Ml SUB-Q 5 units TIDWM ANSELMO Administration Protocol Insulin Aspart 2 - 4 units 07/20/24 21:00 07/20/24 21:07 Insulin Aspart (*Bkc) 100 Units/Ml SUB-Q 4 units HS ANSELMO Administration Protocol Insulin Glargine 18 units 07/20/24 21:00 07/20/24 21:06 Insulin Glargine (*Bkc) 100 Units/Ml SUB-Q 18 units HS ANSELMO Administration Metoprolol Tartrate 50 mg 07/20/24 15:40 07/21/24 09:25 Metoprolol Tartrate 50 Mg Tab PO 50 mg DAILY ANSELMO Administration Metronidazole 500 mg 07/20/24 22:00 07/21/24 05:23 Metronidazole 500 Mg Tablet PO 500 mg Q8HR ANSELMO Administration Oxybutynin Chloride 15 mg 07/21/24 09:00 07/21/24 09:24 Oxybutynin Chloride Xl 5 Mg Tab.Er.24 PO 15 mg DAILY ANSELMO Administration Rosuvastatin Calcium 20 mg 07/21/24 09:00 07/21/24 09:25 Rosuvastatin 20 Mg Tablet PO 20 mg DAILY ANSELMO Administration Radiology Results: ITS Impressions Renal Ultrasound 07/20/24 09:01 IMPRESSION: 1. Benign cyst in left kidney upper pole. Abdomen Ultrasound 07/20/24 09:04 IMPRESSION: 1. 9.8 cm cyst in the gallbladder fossa. The differential diagnosis includes biloma, abscess, and peritoneal inclusion cyst. Consider hepatobiliary scintigraphy. Abscess Drainage Ultrasound 07/20/24 13:41 IMPRESSION: 1. Successful ultrasound-guided right upper quadrant abdominal abscess drainage yielding 200 mL of jacquie-colored fluid. Hepatobiliary Scan Nuclear Medicine 07/21/24 08:53 Impression: Status post cholecystectomy, otherwise normal HIDA scan. No evidence of bile leak. Labs Labs: Laboratory Results - last 24 hr 07/20/24 07/20/24 07/20/24 05:36 05:36 11:59 WBC RBC Hgb Hct MCV MCH MCHC RDW Plt Count MPV Sodium Potassium Chloride Carbon Dioxide Anion Gap BUN Creatinine Estim Creat Clear Calc Estimated GFR Glucose POC Capillary Glucose 269 H Calcium Total Bilirubin AST ALT Alkaline Phosphatase Total Protein Albumin Peritoneal Source Peritoneal Color Peritoneal Appearance Peritoneal RBC Periton Nuc Cells Periton Neutrophils Periton Lymphocytes Peritoneal Monocytes Periton Mesothelial Periton Macrophages IgG 3031 H IgA 423 H IgM 159 Hep Bs Antigen Cancelled Hep Bs Antibody Negative Hep B Core IgM Ab Cancelled Cancelled 07/20/24 07/20/24 07/20/24 13:10 18:22 19:56 WBC RBC Hgb Hct MCV MCH MCHC RDW Plt Count MPV Sodium Potassium Chloride Carbon Dioxide Anion Gap BUN Creatinine Estim Creat Clear Calc Estimated GFR Glucose POC Capillary Glucose 280 H 354 H Calcium Total Bilirubin AST ALT Alkaline Phosphatase Total Protein Albumin Peritoneal Source Peritoneal fluid Peritoneal Color Yellow Peritoneal Appearance Clear Peritoneal RBC < 2000 Periton Nuc Cells 477 Periton Neutrophils 3 Periton Lymphocytes 76 Peritoneal Monocytes 4 Periton Mesothelial 12 Periton Macrophages 5 IgG IgA IgM Hep Bs Antigen Hep Bs Antibody Hep B Core IgM Ab 07/21/24 07/21/24 05:15 08:20 WBC 5.2 RBC 4.46 Hgb 14.3 Hct 42.4 MCV 95.1 MCH 32.1 MCHC 33.7 RDW 18.6 H Plt Count 138 L MPV 12.5 H Sodium 138 Potassium 3.7 Chloride 104 Carbon Dioxide 27 Anion Gap 7 BUN 9 Creatinine 0.50 L Estim Creat Clear Calc 80 Estimated GFR > 60 Glucose 256 H POC Capillary Glucose 260 H Calcium 8.8 Total Bilirubin 3.5 H AST 811 H ALT 730 H Alkaline Phosphatase 292 H Total Protein 8.0 Albumin 3.2 L Peritoneal Source Peritoneal Color Peritoneal Appearance Peritoneal RBC Periton Nuc Cells Periton Neutrophils Periton Lymphocytes Peritoneal Monocytes Periton Mesothelial Periton Macrophages IgG IgA IgM Hep Bs Antigen Hep Bs Antibody Hep B Core IgM Ab
[2024-07-21 12:28] LABS: Glucose Point of Care 333 mg/dl (65-105)
[2024-07-21] MEDS: IBUPROFEN 400 MG TABLET PO (13:18)
--- NOTE | 2024-07-21 14:24 | PM.PNGS ---
Progress Note: A&P Assessment and Plan (1) Intraabdominal fluid collection: Code(s): R18.8 - Other ascites Status: Acute Assessment and Plan: appears to be had an incidentally found peritoneal inclusion cyst. Has been drained. If recurs, no treatment needed. Etiology of LFT elevation will probably require liver biopsy. Nothing more for surgery to do. Will sign off. Subjective Subjective Date/Time Seen: 07/21/24 14:24 Patient reports: no new complaints Review of Systems Review of Systems: All systems reviewed & are unremarkable except as noted in HPI and below ( HPI) Exam Const: General: healthy appearing, comfortable, alert and awake GI: GI Palp: Yes Soft to palpation and No Tenderness to palpation present (GI) Objective Data Vital Signs Vital Signs: Vital Signs - 24 hr 07/20/24 15:41 07/20/24 18:21 07/20/24 21:27 Temperature 36.8 C 36.7 C Pulse Rate 81 100 61 Respiratory Rate 18 18 Blood Pressure 170/80 H 152/77 H Pulse Oximetry 98 96 07/21/24 06:00 07/21/24 09:25 Temperature 36.6 C Pulse Rate 66 72 Respiratory Rate 18 Blood Pressure 160/66 H Pulse Oximetry 96 Intake/Output Intake/Output: Intake & Output 07/18/24 07/19/24 07/20/24 07/21/24 23:59 23:59 23:59 23:59 Intake Total 640 880 Output Total 1000 1900 Balance -360 -1020 Meds/Results Medications: Active Medications Generic Name Dose Route Start Last Admin Trade Name Freq PRN Reason Stop Dose Admin Amlodipine Besylate 10 mg 07/20/24 15:40 07/21/24 09:24 Amlodipine Besylate 10 Mg Tablet PO 10 mg DAILY ANSELMO Administration Dextrose 12.5 gm 07/20/24 00:19 Dextrose 50% 25 Gm/50 Ml Syringe IV PUSH PRN PRN Hypoglycemia Protocol Glucagon 1 mg 07/20/24 00:19 Glucagon For Inj 1 Mg Vial IM PRN PRN Hypoglycemia Protocol Glucose 15 gm 07/20/24 00:19 Glucose Oral Gel 15 Gm Of Glucse In 37.5 Gm Tube PO PRN PRN Hypoglycemia Protocol Dextrose 1,000 mls @ 100 mls/hr 07/20/24 00:19 Dextrose 5% 1,000 Ml IVPB PRN PRN Hypoglycemia Protocol Piperacillin/Tazobactam/Dextrose 3.375 gm in 50 mls @ 100 mls/hr 07/20/24 00:55 07/21/24 12:53 Zosyn 3.375 Gm/Ns 50 Ml IVPB 100 mls/hr Q6HR ANSELMO Administration Ibuprofen 400 mg 07/21/24 13:11 07/21/24 13:18 Ibuprofen 400 Mg Tablet PO 400 mg Q6H PRN Administration Pain Rated 1-3 Insulin Aspart 4 - 8 units 07/20/24 17:00 07/21/24 12:52 Insulin Aspart (*Bkc) 100 Units/Ml SUB-Q 6 units TIDWM ANSELMO Administration Protocol Insulin Aspart 2 - 4 units 07/20/24 21:00 07/20/24 21:07 Insulin Aspart (*Bkc) 100 Units/Ml SUB-Q 4 units HS ANSELMO Administration Protocol Insulin Glargine 18 units 07/20/24 21:00 07/20/24 21:06 Insulin Glargine (*Bkc) 100 Units/Ml SUB-Q 18 units HS ANSELMO Administration Metoprolol Tartrate 50 mg 07/20/24 15:40 07/21/24 09:25 Metoprolol Tartrate 50 Mg Tab PO 50 mg DAILY ANSELMO Administration Metronidazole 500 mg 07/20/24 22:00 07/21/24 13:18 Metronidazole 500 Mg Tablet PO 500 mg Q8HR ANSELMO Administration Oxybutynin Chloride 15 mg 07/21/24 09:00 07/21/24 09:24 Oxybutynin Chloride Xl 5 Mg Tab.Er.24 PO 15 mg DAILY ANSELMO Administration Rosuvastatin Calcium 20 mg 07/21/24 09:00 07/21/24 09:25 Rosuvastatin 20 Mg Tablet PO 20 mg DAILY ANSELMO Administration Radiology Results: ITS Impressions Renal Ultrasound 07/20/24 09:01 IMPRESSION: 1. Benign cyst in left kidney upper pole. Abdomen Ultrasound 07/20/24 09:04 IMPRESSION: 1. 9.8 cm cyst in the gallbladder fossa. The differential diagnosis includes biloma, abscess, and peritoneal inclusion cyst. Consider hepatobiliary scintigraphy. Abscess Drainage Ultrasound 07/20/24 13:41 IMPRESSION: 1. Successful ultrasound-guided right upper quadrant abdominal abscess drainage yielding 200 mL of jacquie-colored fluid. Hepatobiliary Scan Nuclear Medicine 07/21/24 08:53 Impression: Status post cholecystectomy, otherwise normal HIDA scan. No evidence of bile leak. Labs Labs: Laboratory Results - last 24 hr 07/20/24 07/20/24 07/21/24 18:22 19:56 05:15 WBC 5.2 RBC 4.46 Hgb 14.3 Hct 42.4 MCV 95.1 MCH 32.1 MCHC 33.7 RDW 18.6 H Plt Count 138 L MPV 12.5 H Sodium 138 Potassium 3.7 Chloride 104 Carbon Dioxide 27 Anion Gap 7 BUN 9 Creatinine 0.50 L Estim Creat Clear Calc 80 Estimated GFR > 60 Glucose 256 H POC Capillary Glucose 280 H 354 H Calcium 8.8 Total Bilirubin 3.5 H AST 811 H ALT 730 H Alkaline Phosphatase 292 H Total Protein 8.0 Albumin 3.2 L 07/21/24 07/21/24 08:20 12:22 WBC RBC Hgb Hct MCV MCH MCHC RDW Plt Count MPV Sodium Potassium Chloride Carbon Dioxide Anion Gap BUN Creatinine Estim Creat Clear Calc Estimated GFR Glucose POC Capillary Glucose 260 H 333 H Calcium Total Bilirubin AST ALT Alkaline Phosphatase Total Protein Albumin
--- NOTE | 2024-07-21 14:29 | P.PNIM_ITS ---
Progress Note: A&P Assessment and Plan (1) Transaminitis: Code(s): R74.01 - Elevation of levels of liver transaminase levels Status: Chronic Assessment and Plan: * Initial Liver enzymes show an AST of 760, ALT 685, alk-phos 295, total bilirubin 3.3 * Likely secondary to to intra-abdominal abscess * Continue to trend * CT of the abdomen pelvis showed a rim enhancing fluid collection which appears associated with the gallbladder fossa and extends call Sangeeta and laterally from the base of the liver * GI general surgery consulted (2) Intraabdominal fluid collection: Code(s): R18.8 - Other ascites Status: Acute Assessment and Plan: * CT of the abdomen pelvis showed a rim enhancing fluid collection which appears associated with the gallbladder fossa and extends call Sangeeta and laterally from the base of the liver * GI suggesting ultrasound guided abscess drainage right upper quadrant abdominal ultrasound * Ultrasound-guided right upper quadrant abdominal abscess drainage evening 200 mL of jacquie colored fluid * Peritoneal fluid was sent for culture and is pending * Peritoneal fluid labs were all within normal limits * CRP 1.4 * NM HIDA scan normal, showed some status post cholecystectomy, no evidence of bile leak * Procalcitonin 0.5 * Continue Zosyn and Flagyl (3) Abnormal finding of kidney: Code(s): R39.9 - Unspecified symptoms and signs involving the genitourinary system Status: Acute Assessment and Plan: * CT shown an indeterminate focus within the upper pole of the left kidney requiring ultrasound for further evaluation * Renal ultrasound shown benign cyst in the left kidney upper pole (4) Type 2 diabetes mellitus with hyperglycemia: Qualifiers: Diabetes mellitus roasterman insulin use: without custodial use Qualified Code(s): E11.65 - Type 2 diabetes mellitus with hyperglycemia Code(s): E11.65 - Type 2 diabetes mellitus with hyperglycemia Status: Acute Assessment and Plan: * Blood sugars ranging 260-333 * Hgb A1C 11.2 * Accu checks AC/HS * High-dose SSI ordered * Increased Lantus 28 units ordered for bedtime * hypoglycemic protocol in place * Diabetic diet ordered * pressure tester operator consulted * Dietitian consulted * Will need metformin, Lantus, and possibly GLP1 upon discharge (5) Hypertension: Qualifiers: Hypertension type: primary hypertension Qualified Code(s): I10 - Essential (primary) hypertension Code(s): I10 - Essential (primary) hypertension Status: Chronic Assessment and Plan: * Blood pressure ranging 125/78 to 173/78 * Continue amlodipine and metoprolol (6) Hyperlipidemia: Qualifiers: Hyperlipidemia type: mixed hyperlipidemia Qualified Code(s): E78.2 - Mixed hyperlipidemia Code(s): E78.5 - Hyperlipidemia, unspecified Status: Chronic Assessment and Plan: * Continue rosuvastatin Time Spent With Patient Time with patient: Greater than 35 minutes Subjective Date/time seen: 07/21/24 14:29 Interval history: Interval history: This is a 74-year-old female who presented to the hospital on 07/20/2024 as a direct admit from [facility] for evaluation of transaminitis. Workup in the hospital included an abdomen/pelvis CT which was done on [facility] and showed a rim enhancing fluid collection which appears associated with the gallbladder fossa and extends caudally and laterally from the base of the liver, indeterminate focus within the upper pole of the left kid geovanna was also suggested for an ultrasound for further evaluation. Renal ultrasound shown benign cyst in the left kidney upper pole. Abdomen ultrasound shows a 9.8 cm cyst in the gallbladder fossa with concerns for either of them biloma, abscess, peritoneal inclusion cyst. Initial labs showed a normal white blood cell count of 5.1, blood sugar ranging 269-290, total bili 3.3, AST 760, ALT 685, alk phos 295, C reactive protein 1.4, procalcitonin 0.5. Blood and urine cultures were obtained and are pending. EKG showed normal sinus rhythm with a rate of 80, QTC 409. Patient was started on Zosyn. GI and General surgery were consulted. Subjective: Patient denies any new complaints today. Labs reviewed. Review of Systems Review of Systems: 12 systems were reviewed and are negativ e except for as per HPI. All systems reviewed & are unremarkable except as noted in HPI and below Constitutional: Constitutional: Reports as per HPI and Reports no additional constitutional complaints Eyes: Eyes: Reports as per HPI and Reports no additional eye complaints ENT: Reports system reviewed and no additional complaints, except as documented and Reports as per HPI Cardiovascular: Cardiovascular: Reports as per HPI and Reports no additional cardiovascular complaints Respiratory: Respiratory: Reports as per HPI and Reports no additional respiratory complaints Gastrointestinal: Gastrointestinal: Reports as per HPI and Reports no additional gastrointestinal complaints Genitourinary: Genitourinary: Reports no additional female genitourinary complaints and Reports as per HPI Musculoskeletal: Musculoskeletal: Reports no additional musculoskeletal compl aints and Reports as per HPI Integumentary/Breasts: Skin/Breast: Reports system reviewed and no additional complaints, except as docu and Reports as per HPI Neurologic: Reports system reviewed and no additional complaints, except as documented and Reports as per HPI Psychiatric: Psychiatric: Reports no additional psychiatric complaints and Reports as per HPI Exam Narrative: General: In no acute distress, well nourished Cardiac: Normal S1 and S2. No murmur, gallops or friction rubs, peripheral pulses intact. Respiratory: Lungs clear to auscultation, no adventitious lung sounds, currently on room Gastrointestinal: soft, non-distended, non-tender, normoactive bowel sounds. : voiding without difficulty. Skin: Right upper quadrant puncture site with Band-Aid in place Neuro: Alert and oriented x4 Objective Data Vital Signs Vital Signs: Vital Signs - 24 hr 07/20/24 15:41 07/20/24 18:21 07/20/24 21:27 Temperature 98.2 F 98.1 F Pulse Rate 81 100 61 Respiratory Rate 18 18 Blood Pressure 170/80 H 152/77 H Pulse Oximetry 98 96 07/21/24 06:00 07/21/24 09:25 Temperature 97.8 F Pulse Rate 66 72 Respiratory Rate 18 Blood Pressure 160/66 H Pulse Oximetry 96 Intake/Output Intake/Output: Intake & Output 07/18/24 07/19/24 07/20/24 07/21/24 23:59 23:59 23:59 23:59 Intake Total 640 880 Output Total 1000 1900 Balance -360 -1020 Meds/Results Medications: Active Medications Generic Name Dose Route Start Last Admin Trade Name Freq PRN Reason Stop Dose Admin Amlodipine Besylate 10 mg 07/20/24 15:40 07/21/24 09:24 Amlodipine Besylate 10 Mg Tablet PO 10 mg DAILY ANSELMO Administration Dextrose 12.5 gm 07/20/24 00:19 Dextrose 50% 25 Gm/50 Ml Syringe IV PUSH PRN PRN Hypoglycemia Protocol Glucagon 1 mg 07/20/24 00:19 Glucagon For Inj 1 Mg Vial IM PRN PRN Hypoglycemia Protocol Glucose 15 gm 07/20/24 00:19 Glucose Oral Gel 15 Gm Of Glucse In 37.5 Gm Tube PO PRN PRN Hypoglycemia Protocol Dextrose 1,000 mls @ 100 mls/hr 07/20/24 00:19 Dextrose 5% 1,000 Ml IVPB PRN PRN Hypoglycemia Protocol Piperacillin/Tazobactam/Dextrose 3.375 gm in 50 mls @ 100 mls/hr 07/20/24 00:55 07/21/24 12:53 Zosyn 3.375 Gm/Ns 50 Ml IVPB 100 mls/hr Q6HR ANSELMO Administration Ibuprofen 400 mg 07/21/24 13:11 07/21/24 13:18 Ibuprofen 400 Mg Tablet PO 400 mg Q6H PRN Administration Pain Rated 1-3 Insulin Aspart 4 - 8 units 07/20/24 17:00 07/21/24 12:52 Insulin Aspart (*Bkc) 100 Units/Ml SUB-Q 6 units TIDWM ANSELMO Administration Protocol Insulin Aspart 2 - 4 units 07/20/24 21:00 07/20/24 21:07 Insulin Aspart (*Bkc) 100 Units/Ml SUB-Q 4 units HS ANSELMO Administration Protocol Insulin Glargine 18 units 07/20/24 21:00 07/20/24 21:06 Insulin Glargine (*Bkc) 100 Units/Ml SUB-Q 18 units HS ANSELMO Administration Metoprolol Tartrate 50 mg 07/20/24 15:40 07/21/24 09:25 Metoprolol Tartrate 50 Mg Tab PO 50 mg DAILY ANSELMO Administration Metronidazole 500 mg 07/20/24 22:00 07/21/24 13:18 Metronidazole 500 Mg Tablet PO 500 mg Q8HR ANSELMO Administration Oxybutynin Chloride 15 mg 07/21/24 09:00 07/21/24 09:24 Oxybutynin Chloride Xl 5 Mg Tab.Er.24 PO 15 mg DAILY ANSELMO Administration Rosuvastatin Calcium 20 mg 07/21/24 09:00 07/21/24 09:25 Rosuvastatin 20 Mg Tablet PO 20 mg DAILY ANSELMO Administration Radiology Results: ITS Impressions Renal Ultrasound 07/20/24 09:01 IMPRESSION: 1. Benign cyst in left kidney upper pole. Abdomen Ultrasound 07/20/24 09:04 IMPRESSION: 1. 9.8 cm cyst in the gallbladder fossa. The differential diagnosis includes biloma, abscess, and peritoneal inclusion cyst. Consider hepatobiliary scintigraphy. Abscess Drainage Ultrasound 07/20/24 13:41 IMPRESSION: 1. Successful ultrasound-guided right upper quadrant abdominal abscess drainage yielding 200 mL of jacquie-colored fluid. Hepatobiliary Scan Nuclear Medicine 07/21/24 08:53 Impression: Status post cholecystectomy, otherwise normal HIDA scan. No evidence of bile leak. Labs Labs: Laboratory Results - last 24 hr 07/20/24 07/20/24 07/21/24 18:22 19:56 05:15 WBC 5.2 RBC 4.46 Hgb 14.3 Hct 42.4 MCV 95.1 MCH 32.1 MCHC 33.7 RDW 18.6 H Plt Count 138 L MPV 12.5 H Sodium 138 Potassium 3.7 Chloride 104 Carbon Dioxide 27 Anion Gap 7 BUN 9 Creatinine 0.50 L Estim Creat Clear Calc 80 Estimated GFR > 60 Glucose 256 H POC Capillary Glucose 280 H 354 H Calcium 8.8 Total Bilirubin 3.5 H AST 811 H ALT 730 H Alkaline Phosphatase 292 H Total Protein 8.0 Albumin 3.2 L 07/21/24 07/21/24 08:20 12:22 WBC RBC Hgb Hct MCV MCH MCHC RDW Plt Count MPV Sodium Potassium Chloride Carbon Dioxide Anion Gap BUN Creatinine Estim Creat Clear Calc Estimated GFR Glucose POC Capillary Glucose 260 H 333 H Calcium Total Bilirubin AST ALT Alkaline Phosphatase Total Protein Albumin Quality VTE Prophylaxis VTE prophylaxis: mechanical ordered
--- NOTE | 2024-07-21 15:25 | WPDGIPROGNO ---
Progress Note: A&P Assessment and Plan (1) Abnormal LFTs: Code(s): R79.89 - Other specified abnormal findings of blood chemistry Status: Acute Assessment and Plan: Antibiotics discontinued. Fluid collection drained yesterday is not an abscess, just a residual incidental fluid collection from previous cholecystectomy. 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 Will wait for autoimmune markers and plan on liver biopsy early this week. Subjective Date/time seen: 07/21/24 15:25 Objective Data Vital Signs Vital Signs: Vital Signs - 24 hr 07/20/24 15:41 07/20/24 18:21 07/20/24 21:27 Temperature 98.2 F 98.1 F Pulse Rate 81 100 61 Respiratory Rate 18 18 Blood Pressure 170/80 H 152/77 H Pulse Oximetry 98 96 07/21/24 06:00 07/21/24 09:25 Temperature 97.8 F Pulse Rate 66 72 Respiratory Rate 18 Blood Pressure 160/66 H Pulse Oximetry 96 Intake/Output Intake/Output: Intake & Output 07/18/24 07/19/24 07/20/24 07/21/24 23:59 23:59 23:59 23:59 Intake Total 640 880 Output Total 1000 1900 Balance -360 -1020 Meds/Results Medications: Active Medications Generic Name Dose Route Start Last Admin Trade Name Freq PRN Reason Stop Dose Admin Amlodipine Besylate 10 mg 07/20/24 15:40 07/21/24 09:24 Amlodipine Besylate 10 Mg Tablet PO 10 mg DAILY ANSELMO Administration Dextrose 12.5 gm 07/20/24 00:19 Dextrose 50% 25 Gm/50 Ml Syringe IV PUSH PRN PRN Hypoglycemia Protocol Glucagon 1 mg 07/20/24 00:19 Glucagon For Inj 1 Mg Vial IM PRN PRN Hypoglycemia Protocol Glucose 15 gm 07/20/24 00:19 Glucose Oral Gel 15 Gm Of Glucse In 37.5 Gm Tube PO PRN PRN Hypoglycemia Protocol Dextrose 1,000 mls @ 100 mls/hr 07/20/24 00:19 Dextrose 5% 1,000 Ml IVPB PRN PRN Hypoglycemia Protocol Ibuprofen 400 mg 07/21/24 13:11 07/21/24 13:18 Ibuprofen 400 Mg Tablet PO 400 mg Q6H PRN Administration Pain Rated 1-3 Insulin Aspart 4 - 8 units 07/20/24 17:00 07/21/24 12:52 Insulin Aspart (*Bkc) 100 Units/Ml SUB-Q 6 units TIDWM [facility] Administration Protocol Insulin Aspart 2 - 4 units 07/20/24 21:00 07/20/24 21:07 Insulin Aspart (*Bkc) 100 Units/Ml SUB-Q 4 units HS ANSELMO Administration Protocol Insulin Glargine 28 units 07/21/24 21:00 Insulin Glargine (*Bkc) 100 Units/Ml SUB-Q HS ANSELMO Metoprolol Tartrate 50 mg 07/20/24 15:40 07/21/24 09:25 Metoprolol Tartrate 50 Mg Tab PO 50 mg DAILY ANSELMO Administration Oxybutynin Chloride 15 mg 07/21/24 09:00 07/21/24 09:24 Oxybutynin Chloride Xl 5 Mg Tab.Er.24 PO 15 mg DAILY ANSELMO Administration Rosuvastatin Calcium 20 mg 07/21/24 09:00 07/21/24 09:25 Rosuvastatin 20 Mg Tablet PO 20 mg DAILY ANSELMO Administration Radiology Results: ITS Impressions Renal Ultrasound 07/20/24 09:01 IMPRESSION: 1. Benign cyst in left kidney upper pole. Abdomen Ultrasound 07/20/24 09:04 IMPRESSION: 1. 9.8 cm cyst in the gallbladder fossa. The differential diagnosis includes biloma, abscess, and peritoneal inclusion cyst. Consider hepatobiliary scintigraphy. Abscess Drainage Ultrasound 07/20/24 13:41 IMPRESSION: 1. Successful ultrasound-guided right upper quadrant abdominal abscess drainage yielding 200 mL of jacquie-colored fluid. Hepatobiliary Scan Nuclear Medicine 07/21/24 08:53 Impression: Status post cholecystectomy, otherwise normal HIDA scan. No evidence of bile leak. Labs Labs: Laboratory Results - last 24 hr 07/20/24 07/20/24 07/21/24 18:22 19:56 05:15 WBC 5.2 RBC 4.46 Hgb 14.3 Hct 42.4 MCV 95.1 MCH 32.1 MCHC 33.7 RDW 18.6 H Plt Count 138 L MPV 12.5 H Sodium 138 Potassium 3.7 Chloride 104 Carbon Dioxide 27 Anion Gap 7 BUN 9 Creatinine 0.50 L Estim Creat Clear Calc 80 Estimated GFR > 60 Glucose 256 H POC Capillary Glucose 280 H 354 H Calcium 8.8 Total Bilirubin 3.5 H AST 811 H ALT 730 H Alkaline Phosphatase 292 H Total Protein 8.0 Albumin 3.2 L 07/21/24 07/21/24 08:20 12:22 WBC RBC Hgb Hct MCV MCH MCHC RDW Plt Count MPV Sodium Potassium Chloride Carbon Dioxide Anion Gap BUN Creatinine Estim Creat Clear Calc Estimated GFR Glucose POC Capillary Glucose 260 H 333 H Calcium Total Bilirubin AST ALT Alkaline Phosphatase Total Protein Albumin
[2024-07-21 16:03] VITALS: BP 137/93; PULSE 67; RESP 16; TEMP 36.8; O2SAT 97
[2024-07-21 17:02] LABS: Glucose Point of Care 329 mg/dl (65-105)
[2024-07-21 22:54] VITALS: BP 147/74; PULSE 71; RESP 20; TEMP 36.6; O2SAT 98
[2024-07-21] MEDS: INSULIN GLARGINE (*BKC) 100 UNITS/ML 28 UNITS SUB-Q (23:34)
[2024-07-22 04:55] LABS: Glucose Point of Care 323 mg/dl (65-105)
[2024-07-22 06:00] VITALS: BP 131/89; PULSE 65; RESP 18; TEMP 36.4; O2SAT 97
[2024-07-22 06:43] LABS: Hemoglobin 14.7 g/dL (12.0-15.0); Immature Platelet Fraction Pct 13.7 % (0.9-11.2); Mean Corpuscular HGB Conc 33.4 g/dl (32-36); Mean Corpuscular Hemoglobin 31.8 pg (26-34); Mean Corpuscular Volume 95.2 fl (80-100); Mean Platelet Volume 13.9 fl (7.4-10.4); Platelet Count Result 158 k/mm3 (150-375); Red Blood Count 4.62 M/mm3 (4.2-5.4); White Blood Count 5.7 K/mm3 (4.5-10.0)
[2024-07-22 06:50] LABS: INR 1.2; Prothrombin Time 15.7 Seconds (11.1-14.7)
[2024-07-22 07:13] LABS: Alanine Aminotransferase 729 U/L (6-35); Albumin Level 3.5 g/dL (3.5-5.1); Alkaline Phosphatase 328 U/L (38-126); Anion Gap 10 mmol/L (4-12); Bilirubin,Total 4.7 mg/dL (0.2-1.3); Blood Urea Nitrogen 10 mg/dL (7-17); Calcium 8.8 mg/dL (8.4-10.2); Carbon Dioxide 28 mmol/L (22-30); Chloride 102 mmol/L (98-107); Estimated CRCL calculation 97 ml/min; Estimated Glomerular Filt Rate > 60; Glucose 266 mg/dL (65-110); Potassium 3.6 mmol/L (3.4-5.0); Sodium 140 mmol/L (137-145)
[2024-07-22 07:25] LABS: Aspartate Amino Transferase 893 U/L (14-36)
[2024-07-22 08:21] LABS: Glucose Point of Care 272 mg/dl (65-105)
[2024-07-22 09:15] VITALS: PULSE 64; O2SAT 96
[2024-07-22] MEDS: oxyBUTYnin CHLORIDE XL 5 MG TAB.ER.24 15 MG PO (09:16)
[2024-07-22] MEDS: ROSUVASTATIN 20 MG TABLET PO (09:17)
[2024-07-22] MEDS: amLODIPine BESYLATE 10 MG TABLET PO (09:17)
[2024-07-22 09:24] VITALS: PULSE 78
[2024-07-22] MEDS: METOPROLOL TARTRATE 50 MG TAB PO (09:24)
[2024-07-22] MEDS: INSULIN ASPART (*BKC) 100 UNITS/ML SUB-Q ×5 (09:25→20:35)
[2024-07-22 10:50] VITALS: BMI 31.4
[2024-07-22 11:56] LABS: Glucose Point of Care 274 mg/dl (65-105)
[2024-07-22 13:18] LABS: Lipase 57 U/L (23-300)
[2024-07-22 14:00] VITALS: BP 127/67; PULSE 64; RESP 18; TEMP 36.7; O2SAT 96
[2024-07-22] MEDS: IBUPROFEN 400 MG TABLET PO (14:05)
--- NOTE | 2024-07-22 14:52 | P.PNIM_ITS ---
Progress Note: A&P Assessment and Plan (1) Transaminitis: Code(s): R74.01 - Elevation of levels of liver transaminase levels Status: Chronic Assessment and Plan: * Initial Liver enzymes show an AST of 760, ALT 685, alk-phos 295, total bilirubin 3.3 * Total bili 4.7, AST 893, ALT 729, alk phos 328 today * Autoimmune panel pending * Continue to trend * CT of the abdomen pelvis showed a rim enhancing fluid collection which appears associated with the gallbladder fossa and extends call Sangeeta and laterally from the base of the liver * GI and general surgery consulted * Will check triglycerides for possible glycogenic hepatopathy, if this is the culprit then glycemic control is treatment plan. * Plan for liver biopsy tomorrow * NPO after midnight * Hold Lovenox (2) Intraabdominal fluid collection: Code(s): R18.8 - Other ascites Status: Acute Assessment and Plan: * CT of the abdomen pelvis showed a rim enhancing fluid collection which appears associated with the gallbladder fossa and extends call Sangeeta and laterally from the base of the liver * GI suggesting ultrasound guided abscess drainage right upper quadrant abdominal ultrasound * Ultrasound-guided right upper quadrant abdominal abscess drainage evening 200 mL of jacquie colored fluid * Peritoneal fluid was sent for culture and is pending * Peritoneal fluid labs were all within normal limits * CRP 1.4 * NM HIDA scan normal, showed some status post cholecystectomy, no evidence of bile leak * Procalcitonin 0.5 * Antibiotics discontinued (3) Abnormal finding of kidney: Code(s): R39.9 - Unspecified symptoms and signs involving the genitourinary system Status: Acute Assessment and Plan: * CT shown an indeterminate focus within the upper pole of the left kidney requiring ultrasound for further evaluation * Renal ultrasound shown benign cyst in the left kidney upper pole (4) Type 2 diabetes mellitus with hyperglycemia: Qualifiers: Diabetes mellitus core cleaner insulin use: without core cleaner use Qualified Code(s): E11.65 - Type 2 diabetes mellitus with hyperglycemia Code(s): E11.65 - Type 2 diabetes mellitus with hyperglycemia Status: Acute Assessment and Plan: * Blood sugars ranging 260-333 * Hgb A1C 11.2 * Accu checks AC/HS * High-dose SSI ordered * Increased Lantus 30 units ordered for bedtime * Start mealtime dosing of 5 units with meals * Metformin started * hypoglycemic protocol in place * Diabetic diet ordered * assistant health educator consulted * Dietitian consulted * Will need metformin, Lantus, glucometer and kit, and possibly GLP1 upon discharge for control (5) Hypertension: Qualifiers: Hypertension type: primary hypertension Qualified Code(s): I10 - Essential (primary) hypertension Code(s): I10 - Essential (primary) hypertension Status: Chronic Assessment and Plan: * Blood pressure ranging 125/78 to 173/78 * Continue amlodipine and metoprolol (6) Hyperlipidemia: Qualifiers: Hyperlipidemia type: mixed hyperlipidemia Qualified Code(s): E78.2 - Mixed hyperlipidemia Code(s): E78.5 - Hyperlipidemia, unspecified Status: Chronic Assessment and Plan: * Continue rosuvastatin Time Spent With Patient Time with patient: Greater than 35 minutes Subjective Date/time seen: 07/22/24 14:52 Interval history: Interval history: This is a 74-year-old female who presented to the hospital on 07/20/2024 as a direct admit from [facility] for evaluation of transaminitis. Workup in the hospital included an abdomen/pelvis CT which was done on [facility] and showed a rim enhancing fluid collection which appears associated with the gallbladder fossa and extends caudally and laterally from the base of the liver, indeterminate focus within the upper pole of the left kidney was also suggested for an ultrasound for further evaluation. Renal ul trasound shown benign cyst in the left kidney upper pole. Abdomen ultrasound shows a 9.8 cm cyst in the gallbladder fossa with concerns for either of them biloma, abscess, peritoneal inclusion cyst. Initial labs showed a normal white blood cell count of 5.1, blood sugar ranging 269-290, total bili 3.3, AST 760, ALT 685, alk phos 295, C reactive protein 1.4, procalcitonin 0.5. Blood and urine cultures were obtained and are pending. EKG showed normal sinus rhythm with a rate of 80, QTC 409. Patient was started on Zosyn. GI and General surgery were consulted. Subjective: Patient denies any new complaints today. Labs reviewed. Review of Systems Review of Systems: 12 systems were reviewed and are negativ e except for as per HPI. All systems reviewed & are unremarkable except as noted in HPI and below Constitutional: Constitutional: Reports as per HPI and Reports no additional constitutional complaints Eyes: Eyes: Reports as per HPI and Reports no additional eye complaints ENT: Reports system reviewed and no additional complaints, except as documented and Reports as per HPI Cardiovascular: Cardiovascular: Reports as per HPI and Reports no additional cardiovascular complaints Respiratory: Respiratory: Reports as per HPI and Reports no additional respiratory complaints Gastrointestinal: Gastrointestinal: Reports as per HPI and Reports no addit ional gastrointestinal complaints Genitourinary: Genitourinary: Reports no additional female genitourinary complaints and Reports as per HPI Musculoskeletal: Musculoskeletal: Reports no additional musculoskeletal complaints and Reports as per HPI Integumentary/Breasts: Skin/Breast: Reports system reviewed and no additional complaints, except as docu and Reports as per HPI Neurologic: Reports system reviewed and no additional complaints, except as documented and Reports as per HPI Psychiatric: Psychiatric: Reports no additional psychiatric complaints and Reports as per HPI Exam Narrative: General: In no acute distress, well nourished Cardiac: Normal S1 and S2. No murmur, gallops or friction rubs, peripheral pulses intact. Respiratory: Lungs clear to auscultation, no adventitious lung sounds, currently on room Gastrointestinal: soft, non-distended, non-tender, normoactive bowel sounds. : voiding without difficulty. Skin: Right upper quadrant puncture site with Band-Aid in place Neuro: Alert and oriented x4 Objective Data Vital Signs Vital Signs: Vital Signs - 24 hr 07/21/24 16:03 07/21/24 22:54 07/21/24 20:00 Temperature 98.2 F 97.9 F Pulse Rate 67 71 Respiratory Rate 16 20 Blood Pressure 137/93 H 147/74 H Pulse Oximetry 97 98 Oxygen Delivery Room Air 07/22/24 06:00 07/22/24 09:24 Temperature 97.5 F L Pulse Rate 65 78 Respiratory Rate 18 Blood Pressure 131/89 Pulse Oximetry 97 Oxygen Delivery Intake/Output Intake/Output: Intake & Output 07/19/24 07/20/24 07/21/24 07/22/24 23:59 23:59 23:59 23:59 Intake Total 878 746 9234 Output Total 1000 2500 1400 Balance -286 -1520 -220 Meds/Results Medications: Active Medications Generic Name Dose Route Start Last Admin Trade Name Freq PRN Reason Stop Dose Admin Amlodipine Besylate 10 mg 07/20/24 15:40 07/22/24 09:17 Amlodipine Besylate 10 Mg Tablet PO 10 mg DAILY ANSELMO Administration Dextrose 12.5 gm 07/20/24 00:19 Dextrose 50% 25 Gm/50 Ml Syringe IV PUSH PRN PRN Hypoglycemia Protocol Glucagon 1 mg 07/20/24 00:19 Glucagon For Inj 1 Mg Vial IM PRN PRN Hypoglycemia Protocol Glucose 15 gm 07/20/24 00:19 Glucose Oral Gel 15 Gm Of Glucse In 37.5 Gm Tube PO PRN PRN Hypoglycemia Protocol Dextrose 1,000 mls @ 100 mls/hr 07/20/24 00:19 Dextrose 5% 1,000 Ml IVPB PRN PRN Hypoglycemia Protocol Ibuprofen 400 mg 07/21/24 13:11 07/22/24 14:05 Ibuprofen 400 Mg Tablet PO 400 mg Q6H PRN Administration Pain Rated 1-3 Insulin Aspart 4 - 8 units 07/20/24 17:00 07/22/24 12:55 Insulin Aspart (*Bkc) 100 Units/Ml SUB-Q 5 units TIDWM ANSELMO Administration Protocol Insulin Aspart 2 - 4 units 07/20/24 21:00 07/21/24 23:34 Insulin Aspart (*Bkc) 100 Units/Ml SUB-Q 3 units HS ANSELMO Administration Protocol Insulin Glargine 40 units 07/22/24 21:00 Insulin Glargine (*Bkc) 100 Units/Ml SUB-Q HS ANSELMO Metformin HCl 500 mg 07/22/24 17:00 Metformin Hcl 500 Mg Tablet PO BIDWM ANSELMO Metoprolol Tartrate 50 mg 07/20/24 15:40 07/22/24 09:24 Metoprolol Tartrate 50 Mg Tab PO 50 mg DAILY ANSELMO Administration Oxybutynin Chloride 15 mg 07/21/24 09:00 07/22/24 09:16 Oxybutynin Chloride Xl 5 Mg Tab.Er.24 PO 15 mg DAILY ANSELMO Administration Rosuvastatin Calcium 20 mg 07/21/24 09:00 07/22/24 09:17 Rosuvastatin 20 Mg Tablet PO 20 mg DAILY ANSELMO Administration Radiology Results: ITS Impressions Renal Ultrasound 07/20/24 09:01 IMPRESSION: 1. Benign cyst in left kidney upper pole. Abdomen Ultrasound 07/20/24 09:04 IMPRESSION: 1. 9.8 cm cyst in the gallbladder fossa. The differential diagnosis includes biloma, abscess, and peritoneal inclusion cyst. Consider hepatobiliary scintigraphy. Abscess Drainage Ultrasound 07/20/24 13:41 IMPRESSION: 1. Successful ultrasound-guided right upper quadrant abdominal abscess drainage yielding 200 mL of jacquie-colored fluid. Hepatobiliary Scan Nuclear Medicine 07/21/24 08:53 Impression: Status post cholecystectomy, otherwise normal HIDA scan. No evidence of bile leak. Labs Labs: Laboratory Results - last 24 hr 07/21/24 07/21/24 07/22/24 16:55 21:16 05:53 WBC 5.7 RBC 4.62 Hgb 14.7 Hct 44.0 MCV 95.2 MCH 31.8 MCHC 33.4 RDW 19.0 H Plt Count 158 MPV 13.9 H % Immature Plt Fraction 13.7 H PT 15.7 H INR 1.2 Sodium 140 Potassium 3.6 Chloride 102 Carbon Dioxide 28 Anion Gap 10 BUN 10 Creatinine 0.40 L Estim Creat Clear Calc 97 Estimated GFR > 60 Glucose 266 H POC Capillary Glucose 329 H 323 H Calcium 8.8 Total Bilirubin 4.7 H AST 893 H ALT 729 H Alkaline Phosphatase 328 H Total Protein 9.0 H Albumin 3.5 Lipase 57 07/22/24 07/22/24 08:18 11:36 WBC RBC Hgb Hct MCV MCH MCHC RDW Plt Count MPV % Immature Plt Fraction PT INR Sodium Potassium Chloride Carbon Dioxide Anion Gap BUN Creatinine Estim Creat Clear Calc Estimated GFR Glucose POC Capillary Glucose 272 H 274 H Calcium Total Bilirubin AST ALT Alkaline Phosphatase Total Protein Albumin Lipase Quality VTE Prophylaxis VTE prophylaxis: mechanical ordered
[2024-07-22 15:39] LABS: Triglycerides 124 mg/dL (<150)
--- NOTE | 2024-07-22 16:19 | WPDGIPROGNO ---
Progress Note: A&P Assessment and Plan (1) Abnormal LFTs: Code(s): R79.89 - Other specified abnormal findings of blood chemistry Status: Acute Assessment and Plan: The patient's severe elevation of AST and ALT is very suggestive of autoimmune hepatitis. Her alkaline phosphatase is also elevated, and only a liver biopsy will determine if there is a component of primary biliary cholangitis or if this is all pure autoimmune disease affecting hepatocytes. On the other hand, her diabetes is still being controlled with insulin and metformin. She received a visit from the diabetes instructor today. Tight control of her glucose prior to a potential start of corticosteroid therapy is critical. The case was discussed with the hospitalist, and she will be kept for approximately 2 more days after the liver biopsy, (which is scheduled for tomorrow) to achieve optimal glucose control. Ideally, she should be followed by an fan installer as an outpatient before and during corticosteroid therapy. 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 Otherwise there are no other signs of systemic disease. Exam Narrative: General: In no acute distress, well nourished Cardiac: Normal S1 and S2. No murmur, gallops or friction rubs, peripheral pulses intact. Respiratory: Lungs clear to auscultation, no adventitious lung sounds, currently on room Gastrointestinal: soft, non-distended, non-tender, normoactive bowel sounds. : voiding without difficulty. Skin: Right upper quadrant puncture site with Band-Aid in place Neuro: Alert and oriented x4 Objective Data Vital Signs Vital Signs: Vital Signs - 24 hr 07/21/24 22:54 07/21/24 20:00 07/22/24 06:00 Temperature 97.9 F 97.5 F L Pulse Rate 71 65 Respiratory Rate 20 18 Blood Pressure 147/74 H 131/89 Pulse Oximetry 98 97 Oxygen Delivery Room Air 07/22/24 09:24 07/22/24 14:00 07/22/24 09:15 Temperature 98.0 F Pulse Rate 78 64 64 Respiratory Rate 18 Blood Pressure 127/67 Pulse Oximetry 96 96 Oxygen Delivery Room Air Intake/Output Intake/Output: Intake & Output 07/19/24 07/20/24 07/21/24 07/22/24 23:59 23:59 23:59 23:59 Intake Total 267 425 1704 Output Total 1000 2500 1400 Balance -360 -8370 -220 Meds/Results Medications: Active Medications Generic Name Dose Route Start Last Admin Trade Name Freq PRN Reason Stop Dose Admin Amlodipine Besylate 10 mg 07/20/24 15:40 07/22/24 09:17 Amlodipine Besylate 10 Mg Tablet PO 10 mg DAILY ANSELMO Administration Dextrose 12.5 gm 07/20/24 00:19 Dextrose 50% 25 Gm/50 Ml Syringe IV PUSH PRN PRN Hypoglycemia Protocol Glucagon 1 mg 07/20/24 00:19 Glucagon For Inj 1 Mg Vial IM PRN PRN Hypoglycemia Protocol Glucose 15 gm 07/20/24 00:19 Glucose Oral Gel 15 Gm Of Glucse In 37.5 Gm Tube PO PRN PRN Hypoglycemia Protocol Dextrose 1,000 mls @ 100 mls/hr 07/20/24 00:19 Dextrose 5% 1,000 Ml IVPB PRN PRN Hypoglycemia Protocol Ibuprofen 400 mg 07/21/24 13:11 07/22/24 14:05 Ibuprofen 400 Mg Tablet PO 400 mg Q6H PRN Administration Pain Rated 1-3 Insulin Aspart 4 - 8 units 07/20/24 17:00 07/22/24 12:55 Insulin Aspart (*Bkc) 100 Units/Ml SUB-Q 5 units TIDWM ANSELMO Administration Protocol Insulin Aspart 2 - 4 units 07/20/24 21:00 07/21/24 23:34 Insulin Aspart (*Bkc) 100 Units/Ml SUB-Q 3 units HS ANSELMO Administration Protocol Insulin Aspart 5 units 07/22/24 17:00 Insulin Aspart (*Bkc) 100 Units/Ml 0.067 units/kg (5 units) SUB-Q TIDWM ANSELMO Insulin Glargine 30 units 07/22/24 21:00 Insulin Glargine (*Bkc) 100 Units/Ml SUB-Q HS [facility] Metformin HCl 500 mg 07/22/24 17:00 Metformin Hcl 500 Mg Tablet PO BIDWM [facility] Metoprolol Tartrate 50 mg 07/20/24 15:40 07/22/24 09:24 Metoprolol Tartrate 50 Mg Tab PO 50 mg DAILY ANSELMO Administration Oxybutynin Chloride 15 mg 07/21/24 09:00 07/22/24 09:16 Oxybutynin Chloride Xl 5 Mg Tab.Er.24 PO 15 mg DAILY ANSELMO Administration Rosuvastatin Calcium 20 mg 07/21/24 09:00 07/22/24 09:17 Rosuvastatin 20 Mg Tablet PO 20 mg DAILY ANSELMO Administration Radiology Results: ITS Impressions Renal Ultrasound 07/20/24 09:01 IMPRESSION: 1. Benign cyst in left kidney upper pole. Abdomen Ultrasound 07/20/24 09:04 IMPRESSION: 1. 9.8 cm cyst in the gallbladder fossa. The differential diagnosis includes biloma, abscess, and peritoneal inclusion cyst. Consider hepatobiliary scintigraphy. Abscess Drainage Ultrasound 07/20/24 13:41 IMPRESSION: 1. Successful ultrasound-guided right upper quadrant abdominal abscess drainage yielding 200 mL of jacquie-colored fluid. Hepatobiliary Scan Nuclear Medicine 07/21/24 08:53 Impression: Status post cholecystectomy, otherwise normal HIDA scan. No evidence of bile leak. Labs Labs: Laboratory Results - last 24 hr 07/21/24 07/21/24 07/22/24 16:55 21:16 05:53 WBC 5.7 RBC 4.62 Hgb 14.7 Hct 44.0 MCV 95.2 MCH 31.8 MCHC 33.4 RDW 19.0 H Plt Count 158 MPV 13.9 H % Immature Plt Fraction 13.7 H PT 15.7 H INR 1.2 Sodium 140 Potassium 3.6 Chloride 102 Carbon Dioxide 28 Anion Gap 10 BUN 10 Creatinine 0.40 L Estim Creat Clear Calc 97 Estimated GFR > 60 Glucose 266 H POC Capillary Glucose 329 H 323 H Calcium 8.8 Total Bilirubin 4.7 H AST 893 H ALT 729 H Alkaline Phosphatase 328 H Total Protein 9.0 H Albumin 3.5 Triglycerides 124 Lipase 57 07/22/24 07/22/24 08:18 11:36 WBC RBC Hgb Hct MCV MCH MCHC RDW Plt Count MPV % Immature Plt Fraction PT INR Sodium Potassium Chloride Carbon Dioxide Anion Gap BUN Creatinine Estim Creat Clear Calc Estimated GFR Glucose POC Capillary Glucose 272 H 274 H Calcium Total Bilirubin AST ALT Alkaline Phosphatase Total Protein Albumin Triglycerides Lipase
[2024-07-22 17:04] LABS: Ceruloplasmin 32 mg/dL (14-48)
[2024-07-22 17:31] LABS: Glucose Point of Care 205 mg/dl (65-105)
[2024-07-22] MEDS: metFORMIN HCL 500 MG TABLET PO (17:38)
[2024-07-22] MEDS: INSULIN GLARGINE (*BKC) 100 UNITS/ML 30 UNITS SUB-Q (20:34)
[2024-07-22 20:35] LABS: Glucose Point of Care 213 mg/dl (65-105)
[2024-07-22 21:10] VITALS: BP 131/66; PULSE 68; RESP 16; TEMP 36.8; O2SAT 97
[2024-07-23 04:03] LABS: Hepatitis B Core Ab Total NON-REACTIVE (NON-REACTIVE)
[2024-07-23 05:23] VITALS: BP 136/80; PULSE 79; RESP 18; TEMP 36.4; O2SAT 97
[2024-07-23 06:30] LABS: Basophils Absolute Auto 0.1 K/mm3 (0.0-0.1); Eosinophils Absolute Auto 0.1 K/mm3 (0-0.3); Eosinophils Percent Auto 1.8 % (0-4.4); Hematocrit 47.5 % (37.0-47.0); Hemoglobin 15.7 g/dL (12.0-15.0); Immature Granulocyte Absolute 0.02 K/mm3 (0.00-0.031); Immature Granulocyte Percent A 0.3 % (0-0.5); Immature Platelet Fraction Pct 13.2 % (0.9-11.2); Lymphocytes Absolute Auto 2.88 K/mm3 (0.9-3.2); Lymphocytes Percent Auto 37.6 % (18.3-44.2); Mean Corpuscular HGB Conc 33.1 g/dl (32-36); Mean Corpuscular Hemoglobin 31.8 pg (26-34); Mean Corpuscular Volume 96.2 fl (80-100); Mean Platelet Volume 13.9 fl (7.4-10.4); Monocytes Absolute Auto 0.6 K/mm3 (0.1-0.6); Monocytes Percent Auto 7.6 % (2.6-8.5); Neutrophils Percent Auto 51.7 % (45.5-73.1); Platelet Count Result 178 k/mm3 (150-375); Red Blood Count 4.94 M/mm3 (4.2-5.4); Red Cell Distribution Width 19.8 % (11.5-14.5); White Blood Count 7.7 K/mm3 (4.5-10.0)
[2024-07-23 06:46] LABS: Albumin Level 3.7 g/dL (3.5-5.1); Alkaline Phosphatase 335 U/L (38-126); Anion Gap 10 mmol/L (4-12); Bilirubin,Total 6.1 mg/dL (0.2-1.3); Blood Urea Nitrogen 12 mg/dL (7-17); Carbon Dioxide 28 mmol/L (22-30); Chloride 103 mmol/L (98-107); Estimated CRCL calculation 97 ml/min; Estimated Glomerular Filt Rate > 60; Glucose 148 mg/dL (65-110); Potassium 3.3 mmol/L (3.4-5.0); Sodium 141 mmol/L (137-145)
[2024-07-23 06:52] LABS: Alanine Aminotransferase 742 U/L (6-35)
[2024-07-23 07:03] LABS: Aspartate Amino Transferase 1020 U/L (14-36)
--- NOTE | 2024-07-23 07:55 | P.PNIM_ITS ---
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 * Initial Liver enzymes show an AST of 760, ALT 685, alk-phos 295, total bilirubin 3.3 * Total bili 4.7, AST 893, ALT 729, alk phos 328 today * IgG 3031, IgA 423, ZEE positive, ZEE Titer 1:1280, ZEE pattern Cytoplasmic A, Mitochondria M2 IgG and Actin IgG antibody are still pending * Autoimmune panel pending * Continue to trend * CT of the abdomen pelvis showed a rim enhancing fluid collection which appears associated with the gallbladder fossa and extends call Sangeeta and laterally from the base of the liver * GI and general surgery consulted * Will check triglycerides for possible glycogenic hepatopathy, if this is the culprit then glycemic control is treatment plan. * Plan for liver biopsy today * Will need steroids after achieving tight glycemic control per GI recommendations * NPO after midnight * Hold Lovenox (2) Intraabdominal fluid collection: Code(s): R18.8 - Other ascites Status: Acute Assessment and Plan: * CT of the abdomen pelvis showed a rim enhancing fluid collection which appears associated with the gallbladder fossa and extends call Sangeeta and laterally from the base of the liver * GI suggesting ultrasound guided abscess drainage right upper quadrant abdominal ultrasound * Ultrasound-guided right upper quadrant abdominal abscess drainage evening 200 mL of jacquie colored fluid * Peritoneal fluid was sent for culture and is pending * Peritoneal fluid labs were all within normal limits * CRP 1.4 * NM HIDA scan normal, showed some status post cholecystectomy, no evidence of bile leak * Procalcitonin 0.5 * Antibiotics discontinued (3) Abnormal finding of kidney: Code(s): R39.9 - Unspecified symptoms and signs involving the genitourinary system Status: Acute Assessment and Plan: * CT shown an indeterminate focus within the upper pole of the left kidney requiring ultrasound for further evaluation * Renal ultrasound shown benign cyst in the left kidney upper pole (4) Type 2 diabetes mellitus with hyperglycemia: Qualifiers: Diabetes mellitus long term care phlebotomist insulin use: without senior living use Qualified Code(s): E11.65 - Type 2 diabetes mellitus with hyperglycemia Code(s): E11.65 - Type 2 diabetes mellitus with hyperglycemia Status: Acute Assessment and Plan: * Blood sugars ranging 148-213 * Hgb A1C 11.2 * Accu checks AC/HS * High-dose SSI ordered * Increased Lantus 30 units ordered for bedtime * Start mealtime dosing of 7 units with meals * Metformin started * hypoglycemic protocol in place * Diabetic diet ordered * industrial therapist consulted, see their note * Dietitian consulted * Will need metformin, Lantus, glucometer and kit, and possibly GLP1 upon discharge for control * Will also need referral to label cutter as well for her diabetes diagnosis. (5) Hypertension: Qualifiers: Hypertension type: primary hypertension Qualified Code(s): I10 - Essential (primary) hypertension Code(s): I10 - Essential (primary) hypertension Status: Chronic Assessment and Plan: * Blood pressure ranging 125/78 to 173/78 * Continue amlodipine and metoprolol (6) Hyperlipidemia: Qualifiers: Hyperlipidemia type: mixed hyperlipidemia Qualified Code(s): E78.2 - Mixed hyperlipidemia Code(s): E78.5 - Hyperlipidemia, unspecified Status: Chronic Assessment and Plan: * Continue rosuvastatin Time Spent With Patient Time with patient: Greater than 35 minutes Subjective Date/time seen: 07/23/24 07:55 Interval history: Interval history: This is a 74-year-old female who presented to the hospital on 07/20/2024 as a direct admit from [facility] for evaluation of transaminitis. Workup in the hospital included an abdomen/pelvis CT which was done on [facility] and showed a rim enhancing fluid collection which appears associated with the gallbladder fossa and extends caudally and laterally from the base of the liver, indeterminate focus within the upper pole of the left kidney was also suggested for an ultrasound for further evaluation. Renal ultrasound shown benign cyst in the left kidney upper pole. Abdomen ultrasound shows a 9.8 cm cyst in the gallbladder fossa with concerns for either of them biloma, abscess, peritoneal inclusion cyst. Initial labs showed a normal white blood cell count of 5.1, blood sugar ranging 269-290, total bili 3.3, AST 760, ALT 685, alk phos 295, C reactive protein 1.4, procalcitonin 0.5. Blood and urine cultures were obtained and are pending. EKG showed normal sinus rhythm with a rate of 80, QTC 409. Patient was started on Zosyn. GI and General surgery were consulted. Subjective: Patient denies any new complaints today. She is nervous about her liver biopsy today. Labs reviewed. Review of Systems Review of Systems: 12 systems were reviewed and are negativ e except for as per HPI. All systems reviewed & are unremarkable except as noted in HPI and below Constitutional: Constitutional: Reports as per HPI and Reports no additional constitutional complaints Eyes: Eyes: Reports as per HPI and Reports no additional eye complaints ENT: Reports system reviewed and no additional complaints, except as documented and Reports as per HPI Cardiovascular: Cardiovascular: Reports as per HPI and Reports no additional cardiovascular complaints Respiratory: Respiratory: Reports as per HPI and Reports no additional respiratory complaints Gastrointestinal: Gastrointestinal: Reports as per HPI and Reports no add itional gastrointestinal complaints Genitourinary: Genitourinary: Reports no additional female genitourinary complaints and Reports as per HPI Musculoskeletal: Musculoskeletal: Reports no additional musculoskeletal complaints and Reports as per HPI Integumentary/Breasts: Skin/Breast: Reports system reviewed and no additional complaints, except as docu and Reports as per HPI Neurologic: Reports system reviewed and no additional complaints, except as documented and Reports as per HPI Psychiatric: Psychiatric: Reports no additional psychiatric complaints and Reports as per HPI Exam Narrative: General: In no acute distress, well nourished Cardiac: Normal S1 and S2. No murmur, gallops or friction rubs, peripheral pulses intact. Respiratory: Lungs clear to auscultation, no adventitious lung sounds, currently on room Gastrointestinal: soft, non-distended, non-tender, normoactive bowel sounds. : voiding without difficulty. Neuro: Alert and oriented x4 Objective Data Vital Signs Vital Signs: Vital Signs - 24 hr 07/22/24 09:24 07/22/24 14:00 07/22/24 09:15 Temperature 98.0 F Pulse Rate 78 64 64 Respiratory Rate 18 Blood Pressure 127/67 Pulse Oximetry 96 96 Oxygen Delivery Room Air 07/22/24 21:10 07/22/24 20:00 07/23/24 05:23 Temperature 98.2 F 97.6 F Pulse Rate 68 79 Respiratory Rate 16 18 Blood Pressure 131/66 136/80 Pulse Oximetry 97 97 Oxygen Delivery Room Air Intake/Output Intake/Output: Intake & Output 07/20/24 07/21/24 07/22/24 07/23/24 23:59 23:59 23:59 23:59 Intake Total 940 900 0380 200 Output Total 1000 2500 1800 Balance -360 -1520 170 200 Meds/Results Medications: Active Medications Generic Name Dose Route Start Last Admin Trade Name Freq PRN Reason Stop Dose Admin Amlodipine Besylate 10 mg 07/20/24 15:40 07/22/24 09:17 Amlodipine Besylate 10 Mg Tablet PO 10 mg DAILY ANSELMO Administration Dextrose 12.5 gm 07/20/24 00:19 Dextrose 50% 25 Gm/50 Ml Syringe IV PUSH PRN PRN Hypoglycemia Protocol Glucagon 1 mg 07/20/24 00:19 Glucagon For Inj 1 Mg Vial IM PRN PRN Hypoglycemia Protocol Glucose 15 gm 07/20/24 00:19 Glucose Oral Gel 15 Gm Of Glucse In 37.5 Gm Tube PO PRN PRN Hypoglycemia Protocol Dextrose 1,000 mls @ 100 mls/hr 07/20/24 00:19 Dextrose 5% 1,000 Ml IVPB PRN PRN Hypoglycemia Protocol Ibuprofen 400 mg 07/21/24 13:11 07/22/24 14:05 Ibuprofen 400 Mg Tablet PO 400 mg Q6H PRN Administration Pain Rated 1-3 Insulin Aspart 4 - 8 units 07/20/24 17:00 07/22/24 17:39 Insulin Aspart (*Bkc) 100 Units/Ml SUB-Q 4 units TIDWM ANSELMO Administration Protocol Insulin Aspart 2 - 4 units 07/20/24 21:00 07/22/24 20:35 Insulin Aspart (*Bkc) 100 Units/Ml SUB-Q 2 units HS ANSELMO Administration Protocol Insulin Aspart 7 units 07/23/24 08:00 Insulin Aspart (*Bkc) 100 Units/Ml SUB-Q TIDWM ANSELMO Insulin Glargine 30 units 07/22/24 21:00 07/22/24 20:34 Insulin Glargine (*Bkc) 100 Units/Ml SUB-Q 30 units HS ANSELMO Administration Metformin HCl 500 mg 07/22/24 17:00 07/22/24 17:38 Metformin Hcl 500 Mg Tablet PO 500 mg BIDWM ANSELMO Administration Metoprolol Tartrate 50 mg 07/20/24 15:40 07/22/24 09:24 Metoprolol Tartrate 50 Mg Tab PO 50 mg DAILY ANSELMO Administration Oxybutynin Chloride 15 mg 07/21/24 09:00 07/22/24 09:16 Oxybutynin Chloride Xl 5 Mg Tab.Er.24 PO 15 mg DAILY ANSELMO Administration Rosuvastatin Calcium 20 mg 07/21/24 09:00 07/22/24 09:17 Rosuvastatin 20 Mg Tablet PO 20 mg DAILY ANSELMO Administration Radiology Results: ITS Impressions Renal Ultrasound 07/20/24 09:01 IMPRESSION: 1. Benign cyst in left kidney upper pole. Abdomen Ultrasound 07/20/24 09:04 IMPRESSION: 1. 9.8 cm cyst in the gallbladder fossa. The differential diagnosis includes biloma, abscess, and peritoneal inclusion cyst. Consider hepatobiliary scintigraphy. Abscess Drainage Ultrasound 07/20/24 13:41 IMPRESSION: 1. Successful ultrasound-guided right upper quadrant abdominal abscess drainage yielding 200 mL of jacquie-colored fluid. Hepatobiliary Scan Nuclear Medicine 07/21/24 08:53 Impression: Status post cholecystectomy, otherwise normal HIDA scan. No evidence of bile leak. Labs Labs: Laboratory Results - last 24 hr 07/20/24 07/20/24 07/22/24 05:36 12:10 05:53 WBC RBC Hgb Hct MCV MCH MCHC RDW Plt Count MPV Immature Gran % (Auto) Neut % (Auto) Lymph % (Auto) [place] % (Auto) Eos % (Auto) Baso % (Auto) Lymph # (Auto) [place] # (Auto) Eos # (Auto) Baso # (Auto) Abs Immat Gran (auto) Absolute Neuts (auto) Absolute Nucleated RBC Nucleated RBC % % Immature Plt Fraction Sodium Potassium Chloride Carbon Dioxide Anion Gap BUN Creatinine Estim Creat Clear Calc Estimated GFR Glucose POC Capillary Glucose Calcium Total Bilirubin AST ALT Alkaline Phosphatase Total Protein Albumin Ceruloplasmin 32 Triglycerides 124 Lipase 57 Hep B Core Total Ab Non-reactive 07/22/24 07/22/24 07/22/24 08:18 11:36 17:27 WBC RBC Hgb Hct MCV MCH MCHC RDW Plt Count MPV Immature Gran % (Auto) Neut % (Auto) Lymph % (Auto) [place] % (Auto) Eos % (Auto) Baso % (Auto) Lymph # (Auto) [place] # (Auto) Eos # (Auto) Baso # (Auto) Abs Immat Gran (auto) Absolute Neuts (auto) Absolute Nucleated RBC Nucleated RBC % % Immature Plt Fraction Sodium Potassium Chloride Carbon Dioxide Anion Gap BUN Creatinine Estim Creat Clear Calc Estimated GFR Glucose POC Capillary Glucose 272 H 274 H 205 H Calcium Total Bilirubin AST ALT Alkaline Phosphatase Total Protein Albumin Ceruloplasmin Triglycerides Lipase Hep B Core Total Ab 07/22/24 07/23/24 19:47 05:50 WBC 7.7 RBC 4.94 Hgb 15.7 H Hct 47.5 H MCV 96.2 MCH 31.8 MCHC 33.1 RDW 19.8 H Plt Count 178 MPV 13.9 H Immature Gran % (Auto) 0.3 Neut % (Auto) 51.7 Lymph % (Auto) 37.6 [place] % (Auto) 7.6 Eos % (Auto) 1.8 Baso % (Auto) 1.0 Lymph # (Auto) 2.88 [place] # (Auto) 0.6 Eos # (Auto) 0.1 Baso # (Auto) 0.1 Abs Immat Gran (auto) 0.02 Absolute Neuts (auto) 4.0 Absolute Nucleated RBC 0.000 Nucleated RBC % 0.0 % Immature Plt Fraction 13.2 H Sodium 141 Potassium 3.3 L Chloride 103 Carbon Dioxide 28 Anion Gap 10 BUN 12 Creatinine 0.40 L Estim Creat Clear Calc 97 Estimated GFR > 60 Glucose 148 H POC Capillary Glucose 213 H Calcium 9.0 Total Bilirubin 6.1 H AST 1020 H ALT 742 H Alkaline Phosphatase 335 H Total Protein 10.0 H Albumin 3.7 Ceruloplasmin Triglycerides Lipase Hep B Core Total Ab Quality VTE Prophylaxis VTE prophylaxis: mechanical ordered
[2024-07-23 08:27] LABS: Anti Nuclear Antibody Pattern Cytoplasmic
[2024-07-23 09:39] LABS: Glucose Point of Care 167 mg/dl (65-105)
[2024-07-23 10:34] LABS: INR 1.2; Prothrombin Time 15.7 Seconds (11.1-14.7)
[2024-07-23 11:49] LABS: Glucose Point of Care 156 mg/dl (65-105)
[2024-07-23 14:00] VITALS: BP 128/70; PULSE 76; RESP 18; TEMP 37; O2SAT 99
[2024-07-23 17:05] LABS: Glucose Point of Care 155 mg/dl (65-105)
[2024-07-23] MEDS: ONDANSETRON HCL ODT 4 MG TABLET PO (17:18)
[2024-07-23 17:59] VITALS: PULSE 76
[2024-07-23] MEDS: oxyBUTYnin CHLORIDE XL 5 MG TAB.ER.24 15 MG PO (17:59)
[2024-07-23] MEDS: METOPROLOL TARTRATE 50 MG TAB PO (17:59)
[2024-07-23] MEDS: metFORMIN HCL 500 MG TABLET PO (17:59)
[2024-07-23] MEDS: amLODIPine BESYLATE 10 MG TABLET PO (18:00)
[2024-07-23] MEDS: INSULIN ASPART (*BKC) 100 UNITS/ML 7 UNITS SUB-Q (18:00)
[2024-07-23] MEDS: ROSUVASTATIN 20 MG TABLET PO (18:00)
--- NOTE | 2024-07-23 18:01 | P.PNGI_ITS ---
Progress Note: A&P Assessment and Plan (1) Abnormal LFTs: Code(s): R79.89 - Other specified abnormal findings of blood chemistry Status: Acute Assessment and Plan: The patient has a very high titer of antinuclear antibodies which along with markedly increased IgG levels and severely increased transaminases points to a diagnosis of autoimmune hepatitis. Will wait for the official liver biopsy reading, and in the meantime her glucose is being controlled with current measures. Ideally, she should be discharged with a definitive diagnosis confirmed histologically and an optimal control of her glucose prior to initiating prednisone therapy. I will continue to monitor her and coordinate plan to control diabetes while on steroids as an outpatient. Subjective Date/time seen: 07/23/24 18:01 Interval history: Patient reports no new symptoms. She had a percutaneous ultrasound-guided liver biopsy this afternoon. She is currently hemodynamically stable with no abdominal pain. Objective Data Vital Signs Vital Signs: Vital Signs - 24 hr 07/22/24 21:10 07/22/24 20:00 07/23/24 05:23 Temperature 98.2 F 97.6 F Pulse Rate 68 79 Respiratory Rate 16 18 Blood Pressure 131/66 136/80 Pulse Oximetry 97 97 Oxygen Delivery Room Air 07/23/24 08:48 07/23/24 14:00 Temperature 98.6 F Pulse Rate 76 Respiratory Rate 18 Blood Pressure 128/70 Pulse Oximetry 99 Oxygen Delivery Room Air Intake/Output Intake/Output: Intake & Output 07/20/24 07/21/24 07/22/24 07/23/24 23:59 23:59 23:59 23:59 Intake Total 371 136 0053 200 Output Total 1000 2500 1800 Balance -360 -1520 170 200 Meds/Results Medications: Active Medications Generic Name Dose Route Start Last Admin Trade Name Freq PRN Reason Stop Dose Admin Amlodipine Besylate 10 mg 07/20/24 15:40 07/22/24 09:17 Amlodipine Besylate 10 Mg Tablet PO 10 mg DAILY ANSELMO Administration Dextrose 12.5 gm 07/20/24 00:19 Dextrose 50% 25 Gm/50 Ml Syringe IV PUSH PRN PRN Hypoglycemia Protocol Glucagon 1 mg 07/20/24 00:19 Glucagon For Inj 1 Mg Vial IM PRN PRN Hypoglycemia Protocol Glucose 15 gm 07/20/24 00:19 Glucose Oral Gel 15 Gm Of Glucse In 37.5 Gm Tube PO PRN PRN Hypoglycemia Protocol Dextrose 1,000 mls @ 100 mls/hr 07/20/24 00:19 Dextrose 5% 1,000 Ml IVPB PRN PRN Hypoglycemia Protocol Ibuprofen 400 mg 07/21/24 13:11 07/22/24 14:05 Ibuprofen 400 Mg Tablet PO 400 mg Q6H PRN Administration Pain Rated 1-3 Insulin Aspart 4 - 8 units 07/20/24 17:00 07/23/24 11:52 Insulin Aspart (*Bkc) 100 Units/Ml SUB-Q Not Given [facility] Protocol Insulin Aspart 2 - 4 units 07/20/24 21:00 07/22/24 20:35 Insulin Aspart (*Bkc) 100 Units/Ml SUB-Q 2 units HS ANSELMO Administration Protocol Insulin Aspart 7 units 07/23/24 08:00 07/23/24 11:51 Insulin Aspart (*Bkc) 100 Units/Ml SUB-Q Not Given TIDWM ANSELMO Insulin Glargine 30 units 07/22/24 21:00 07/22/24 20:34 Insulin Glargine (*Bkc) 100 Units/Ml SUB-Q 30 units HS ANSELMO Administration Metformin HCl 500 mg 07/22/24 17:00 07/23/24 15:46 Metformin Hcl 500 Mg Tablet PO Not Given BIDWM ANSELMO Metoprolol Tartrate 50 mg 07/20/24 15:40 07/22/24 09:24 Metoprolol Tartrate 50 Mg Tab PO 50 mg DAILY ANSELMO Administration Ondansetron HCl 4 mg 07/23/24 17:02 07/23/24 17:18 Ondansetron Hcl Odt 4 Mg Tablet PO 4 mg Q4HR PRN Administration Nausea Oxybutynin Chloride 15 mg 07/21/24 09:00 07/22/24 09:16 Oxybutynin Chloride Xl 5 Mg Tab.Er.24 PO 15 mg DAILY ANSELMO Administration Rosuvastatin Calcium 20 mg 07/21/24 09:00 07/22/24 09:17 Rosuvastatin 20 Mg Tablet PO 20 mg DAILY ANSELMO Administration Radiology Results: ITS Impressions Renal Ultrasound 07/20/24 09:01 IMPRESSION: 1. Benign cyst in left kidney upper pole. Abdomen Ultrasound 07/20/24 09:04 IMPRESSION: 1. 9.8 cm cyst in the gallbladder fossa. The differential diagnosis includes biloma, abscess, and peritoneal inclusion cyst. Consider hepatobiliary scintigraphy. Abscess Drainage Ultrasound 07/20/24 13:41 IMPRESSION: 1. Successful ultrasound-guided right upper quadrant abdominal abscess drainage yielding 200 mL of jacquie-colored fluid. Hepatobiliary Scan Nuclear Medicine 07/21/24 08:53 Impression: Status post cholecystectomy, otherwise normal HIDA scan. No evidence of bile leak. Liver Biopsy Ultrasound 07/23/24 16:26 IMPRESSION: 1. Successful Ultrasound-guided random liver biopsy. Labs Labs: Laboratory Results - last 24 hr 07/20/24 07/20/24 07/22/24 05:36 12:10 19:47 WBC RBC Hgb Hct MCV MCH MCHC RDW Plt Count MPV Immature Gran % (Auto) Neut % (Auto) Lymph % (Auto) [place] % (Auto) Eos % (Auto) Baso % (Auto) Lymph # (Auto) [place] # (Auto) Eos # (Auto) Baso # (Auto) Abs Immat Gran (auto) Absolute Neuts (auto) Absolute Nucleated RBC Nucleated RBC % % Immature Plt Fraction PT INR APTT Sodium Potassium Chloride Carbon Dioxide Anion Gap BUN Creatinine Estim Creat Clear Calc Estimated GFR Glucose POC Capillary Glucose 213 H Calcium Total Bilirubin AST ALT Alkaline Phosphatase Total Protein Albumin ZEE Screen Positive A ZEE Titer 1:1280 H ZEE Pattern Cytoplasmic A Hep B Core Total Ab Non-reactive 07/23/24 07/23/24 07/23/24 05:50 09:35 10:14 WBC 7.7 RBC 4.94 Hgb 15.7 H Hct 47.5 H MCV 96.2 MCH 31.8 MCHC 33.1 RDW 19.8 H Plt Count 178 MPV 13.9 H Immature Gran % (Auto) 0.3 Neut % (Auto) 51.7 Lymph % (Auto) 37.6 [place] % (Auto) 7.6 Eos % (Auto) 1.8 Baso % (Auto) 1.0 Lymph # (Auto) 2.88 [place] # (Auto) 0.6 Eos # (Auto) 0.1 Baso # (Auto) 0.1 Abs Immat Gran (auto) 0.02 Absolute Neuts (auto) 4.0 Absolute Nucleated RBC 0.000 Nucleated RBC % 0.0 % Immature Plt Fraction 13.2 H PT 15.7 H INR 1.2 APTT 31.0 Sodium 141 Potassium 3.3 L Chloride 103 Carbon Dioxide 28 Anion Gap 10 BUN 12 Creatinine 0.40 L Estim Creat Clear Calc 97 Estimated GFR > 60 Glucose 148 H POC Capillary Glucose 167 H Calcium 9.0 Total Bilirubin 6.1 H AST 1020 H ALT 742 H Alkaline Phosphatase 335 H Total Protein 10.0 H Albumin 3.7 ZEE Screen ZEE Titer ZEE Pattern Hep B Core Total Ab 07/23/24 07/23/24 11:40 16:58 WBC RBC Hgb Hct MCV MCH MCHC RDW Plt Count MPV Immature Gran % (Auto) Neut % (Auto) Lymph % (Auto) [place] % (Auto) Eos % (Auto) Baso % (Auto) Lymph # (Auto) [place] # (Auto) Eos # (Auto) Baso # (Auto) Abs Immat Gran (auto) Absolute Neuts (auto) Absolute Nucleated RBC Nucleated RBC % % Immature Plt Fraction PT INR APTT Sodium Potassium Chloride Carbon Dioxide Anion Gap BUN Creatinine Estim Creat Clear Calc Estimated GFR Glucose POC Capillary Glucose 156 H 155 H Calcium Total Bilirubin AST ALT Alkaline Phosphatase Total Protein Albumin ZEE Screen ZEE Titer ZEE Pattern Hep B Core Total Ab
[2024-07-23] MEDS: INSULIN GLARGINE (*BKC) 100 UNITS/ML 30 UNITS SUB-Q (20:23)
[2024-07-23] MEDS: INSULIN ASPART (*BKC) 100 UNITS/ML SUB-Q (20:23)
[2024-07-23 20:33] VITALS: BP 132/70; PULSE 60; RESP 20; TEMP 36.9; O2SAT 98
[2024-07-24 05:44] LABS: Basophils Absolute Auto 0.1 K/mm3 (0.0-0.1); Basophils Percent Auto 1.1 % (0.2-1.2); Eosinophils Absolute Auto 0.1 K/mm3 (0-0.3); Eosinophils Percent Auto 2.5 % (0-4.4); Hemoglobin 14.5 g/dL (12.0-15.0); Immature Granulocyte Absolute 0.02 K/mm3 (0.00-0.031); Immature Granulocyte Percent A 0.4 % (0-0.5); Immature Platelet Fraction Pct 11.8 % (0.9-11.2); Lymphocytes Absolute Auto 1.59 K/mm3 (0.9-3.2); Lymphocytes Percent Auto 28.3 % (18.3-44.2); Mean Corpuscular HGB Conc 33.7 g/dl (32-36); Mean Corpuscular Hemoglobin 32.3 pg (26-34); Mean Corpuscular Volume 95.8 fl (80-100); Mean Platelet Volume 13.4 fl (7.4-10.4); Monocytes Absolute Auto 0.6 K/mm3 (0.1-0.6); Monocytes Percent Auto 11.4 % (2.6-8.5); Neutrophils Absolute Auto 3.2 K/mm3 (1.3-6.7); Neutrophils Percent Auto 56.3 % (45.5-73.1); Platelet Count Result 151 k/mm3 (150-375); Red Blood Count 4.49 M/mm3 (4.2-5.4); Red Cell Distribution Width 19.4 % (11.5-14.5); White Blood Count 5.6 K/mm3 (4.5-10.0)
[2024-07-24 06:00] VITALS: BP 136/80; PULSE 64; RESP 20; TEMP 37; O2SAT 98
[2024-07-24 06:17] LABS: Alanine Aminotransferase 643 U/L (6-35); Albumin Level 3.2 g/dL (3.5-5.1); Alkaline Phosphatase 330 U/L (38-126); Anion Gap 3 mmol/L (4-12); Bilirubin,Total 5.5 mg/dL (0.2-1.3); Blood Urea Nitrogen 12 mg/dL (7-17); Calcium 8.7 mg/dL (8.4-10.2); Carbon Dioxide 30 mmol/L (22-30); Chloride 104 mmol/L (98-107); Estimated CRCL calculation 68 ml/min; Estimated Glomerular Filt Rate > 60; Glucose 183 mg/dL (65-110); Potassium 3.6 mmol/L (3.4-5.0); Sodium 137 mmol/L (137-145)
[2024-07-24 06:18] LABS: Aspartate Amino Transferase 880 U/L (14-36)
[2024-07-24 06:36] LABS: Glucose Point of Care 252 mg/dl (65-105)
[2024-07-24 08:29] LABS: Glucose Point of Care 162 mg/dl (65-105)
[2024-07-24] MEDS: metFORMIN HCL 500 MG TABLET PO (08:40)
[2024-07-24] MEDS: oxyBUTYnin CHLORIDE XL 5 MG TAB.ER.24 15 MG PO (08:40)
[2024-07-24] MEDS: ROSUVASTATIN 20 MG TABLET PO (08:40)
[2024-07-24] MEDS: amLODIPine BESYLATE 10 MG TABLET PO (08:40)
[2024-07-24] MEDS: METOPROLOL TARTRATE 50 MG TAB PO (08:40)
[2024-07-24] MEDS: INSULIN ASPART (*BKC) 100 UNITS/ML 7 UNITS SUB-Q ×2 (09:24→12:29)
[2024-07-24 11:40] LABS: Glucose Point of Care 190 mg/dl (65-105)
--- NOTE | 2024-07-24 13:53 | P.DS_ITS ---
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 * Initial Liver enzymes show an AST of 760, ALT 685, alk-phos 295, total bilirubin 3.3 * Total bili 4.7, AST 893, ALT 729, alk phos 328 today * IgG 3031, IgA 423, ZEE positive, ZEE Titer 1:1280, ZEE pattern Cytoplasmic A, Mitochondria M2 IgG and Actin IgG antibody are still pending * Autoimmune panel pending * Continue to trend * CT of the abdomen pelvis showed a rim enhancing fluid collection which appears associated with the gallbladder fossa and extends call Sangeeta and laterally from the base of the liver * GI and general surgery consulted * Will check triglycerides for possible glycogenic hepatopathy, if this is the culprit then glycemic control is treatment plan. * Plan for liver biopsy today * Will need steroids after achieving tight glycemic control per GI recommendations * NPO after midnight * Hold Lovenox (2) Intraabdominal fluid collection: Code(s): R18.8 - Other ascites Status: Acute Assessment and Plan: * CT of the abdomen pelvis showed a rim enhancing fluid collection which appears associated with the gallbladder fossa and extends call Sangeeta and laterally from the base of the liver * GI suggesting ultrasound guided abscess drainage right upper quadrant abdominal ultrasound * Ultrasound-guided right upper quadrant abdominal abscess drainage evening 200 mL of jacquie colored fluid * Peritoneal fluid was sent for culture and is pending * Peritoneal fluid labs were all within normal limits * CRP 1.4 * NM HIDA scan normal, showed some status post cholecystectomy, no evidence of bile leak * Procalcitonin 0.5 * Antibiotics discontinued (3) Abnormal finding of kidney: Code(s): R39.9 - Unspecified symptoms and signs involving the genitourinary system Status: Acute Assessment and Plan: * CT shown an indeterminate focus within the upper pole of the left kidney requiring ultrasound for further evaluation * Renal ultrasound shown benign cyst in the left kidney upper pole (4) Type 2 diabetes mellitus with hyperglycemia: Qualifiers: Diabetes mellitus care home insulin use: without terminal make up operator use Qualified Code(s): E11.65 - Type 2 diabetes mellitus with hyperglycemia Code(s): E11.65 - Type 2 diabetes mellitus with hyperglycemia Status: Acute Assessment and Plan: * Blood sugars ranging 148-213 * Hgb A1C 11.2 * Accu checks AC/HS * High-dose SSI ordered * Increased Lantus 30 units ordered for bedtime * Start mealtime dosing of 7 units with meals * Metformin started * hypoglycemic protocol in place * Diabetic diet ordered * educator senior clinical consulted, see their note * Dietitian consulted * Will need metformin, Lantus, glucometer and kit, and possibly GLP1 upon discharge for control * Will also need referral to pest control service technician as well for her diabetes diagnosis. (5) Hypertension: Qualifiers: Hypertension type: primary hypertension Qualified Code(s): I10 - Essential (primary) hypertension Code(s): I10 - Essential (primary) hypertension Status: Chronic Assessment and Plan: * Blood pressure ranging 125/78 to 173/78 * Continue amlodipine and metoprolol (6) Hyperlipidemia: Qualifiers: Hyperlipidemia type: mixed hyperlipidemia Qualified Code(s): E78.2 - Mixed hyperlipidemia Code(s): E78.5 - Hyperlipidemia, unspecified Status: Chronic Assessment and Plan: * Continue rosuvastatin DS: Summary Hospital Course Hospital Course: This is a 74-year-old female who presented to the hospital on 07/20/2024 as a direct admit from [facility] for evaluation of transaminitis. Workup in the hospital included an abdomen/pelvis CT which was done on [facility] and showed a rim enhancing fluid collection which appears associated with the gallbladder fossa and extends caudally and laterally from the base of the liver, indeterminate focus within the upper pole of the left kidney was also suggested for an ultrasound for further evaluation. Renal ultrasound shown benign cyst in the left kidney upper pole. Abdomen ultrasound shows a 9.8 cm cyst in the gallbladder fossa with concerns for either of them biloma, abscess, peritoneal inclusion cyst. Initial labs showed a normal white blood cell count of 5.1, blood sugar ranging 269-290, total bili 3.3, AST 760, ALT 685, alk phos 295, C reactive protein 1.4, procalcitonin 0.5. Several issues were addressed: # Type 2 diabetes mellitus with hyperglycemia: * Blood sugars ranging 148-213 * Hgb A1C 11.2 * High-dose SSI ordered * Lantus 30 units ordered for bedtime- continue * Metformin started- continue 500 mg BID * Diabetic education completed * Started on GLP-1= ozempic- 0.25 mg weekly x4 weeks, then 0.5 mg weekly x 4 weeks, then 1 mg weekly. Needs to f/u with PCP right at starting 1 mg dose for hgA1C recheck and kidney function recheck * endocrinology outpt f/u is needed * # ascites - * CT of the abdomen pelvis showed a rim enhancing fluid collection which appears associated with the gallbladder fossa and extends call Sangeeta and laterally from the base of the liver * GI suggesting ultrasound guided abscess drainage right upper quadrant abdominal ultrasound * Ultrasound-guided right upper quadrant abdominal abscess drainage evening 200 mL of jacquie colored fluid * Peritoneal fluid was sent for culture and is pending * Peritoneal fluid labs were all within normal limits * CRP 1.4 * NM HIDA scan normal, showed some status post cholecystectomy, no evidence of bile leak * Procalcitonin 0.5 * Antibiotics discontinued * # Transaminitis: 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 * Initial Liver enzymes show an AST of 760, ALT 685, alk-phos 295, total bilirubin 3.3 * liver enzymes trending down * IgG 3031, IgA 423, ZEE positive, ZEE Titer 1:1280, ZEE pattern Cytoplasmic A, Mitochondria M2 IgG and Actin IgG antibody are still pending * Autoimmune panel pending * CT of the abdomen pelvis showed a rim enhancing fluid collection which appears associated with the gallbladder fossa and extends * GI and general surgery consulted * liver biopsy completed- awaiting results- holding steroids until liver biopsy results are back and BS control is established Status at Discharge Functional status at discharge: independent ambulation Overall status at discharge: patient is progressing back to baseline Time Spent with Patient Time attestation: Total time spent providing and/or coordinating discharge services: Time spent: Greater than 30 minutes Exam Narrative: General: In no acute distress, well nourished Cardiac: Normal S1 and S2. No murmur, gallops or friction rubs, peripheral pulses intact. Respiratory: Lungs clear to auscultation, no adventitious lung sounds, currently on room Gastrointestinal: soft, non-distended, non-tender, normoactive bowel sounds. : voiding without difficulty. Neuro: Alert and oriented x4 DS: Data Data Completed and Pending Pending studies at discharge: Pending at discharge 07/23/24 16:14 Surgical [PTH] Routine Labs on day of discharge: Labs from last 24 hours 07/24/24 07/24/24 07/24/24 11:38 08:21 05:17 WBC 5.6 RBC 4.49 Hgb 14.5 Hct 43.0 MCV 95.8 MCH 32.3 MCHC 33.7 RDW 19.4 H Plt Count 151 MPV 13.4 H Immature Gran % (Auto) 0.4 Neut % (Auto) 56.3 Lymph % (Auto) 28.3 [place] % (Auto) 11.4 H Eos % (Auto) 2.5 Baso % (Auto) 1.1 Lymph # (Auto) 1.59 [place] # (Auto) 0.6 Eos # (Auto) 0.1 Baso # (Auto) 0.1 Abs Immat Gran (auto) 0.02 Absolute Neuts (auto) 3.2 Absolute Nucleated RBC 0.000 Nucleated RBC % 0.0 % Immature Plt Fraction 11.8 H Sodium 137 Potassium 3.6 Chloride 104 Carbon Dioxide 30 Anion Gap 3 L BUN 12 Creatinine 0.60 L Estim Creat Clear Calc 68 Estimated GFR > 60 Glucose 183 H POC Capillary Glucose 190 H 162 H Calcium 8.7 Total Bilirubin 5.5 H AST 880 H ALT 643 H Alkaline Phosphatase 330 H Total Protein 8.0 Albumin 3.2 L 07/23/24 07/23/24 20:19 16:58 WBC RBC Hgb Hct MCV MCH MCHC RDW Plt Count MPV Immature Gran % (Auto) Neut % (Auto) Lymph % (Auto) [place] % (Auto) Eos % (Auto) Baso % (Auto) Lymph # (Auto) [place] # (Auto) Eos # (Auto) Baso # (Auto) Abs Immat Gran (auto) Absolute Neuts (auto) Absolute Nucleated RBC Nucleated RBC % % Immature Plt Fraction Sodium Potassium Chloride Carbon Dioxide Anion Gap BUN Creatinine Estim Creat Clear Calc Estimated GFR Glucose POC Capillary Glucose 252 H 155 H Calcium Total Bilirubin AST ALT Alkaline Phosphatase Total Protein Albumin Preliminary micro results at discharge 07/20/24 13:17 Anaerobic Culture - Preliminary Peritoneal Fluid Aerobic Culture - Preliminary Discharge Plan Discharge Attending physician on discharge: Yayo Brown Consulting providers: Cristiano Roe Discharging Clinician: Lupis Pleitez Patient Disposition: Home, Self-Care Activity: may shower Diet: as tolerated and diabetic Discharge Instructions: -You were admitted for elevated liver enzymes. We will wait to start steroids until your liver biopsy results are back and we achieve a better sugar control. WE started you on 3 following regime: - metformin 500 gm twice a day- continue that - lantus-30 units at bed time. As we discussed- we will start Ozempic weekly injection. Start with 0.25 mg weekly (any day, any time- but stick to the same day once started) for 4 weeks. Once 4 weeks are done, increase dose to 0.5 mg weekly and take it for 4 more weeks. AT that time, ideally you should follow up with PCP for kidney recheck and hgA1C and dose adjustment. You will need to establish with pest control service technician and follow with them until you do, please make sure your PCP is aware of your BS reading and he or she will manage your diabetic regimen. Your fasting blood sugar goals (first thing in am, before you drink or eat anything is 70-130). You might notice your morning sugars be in a normal range and if tehy are consistently at normal range, that would be a good time to reach out to pcp to see if Lantus dose can be decreased. Ultimate goal would be to stop insulin all together if possible. However, if you do start taking steroids, anticipate increase in blood sugars. Please,follow the diet recommendations from dietitian. Eat small meals, avoid greasy, fried, heavy foods to avoid side effects from ozempic which are nausea, vomiting, bloating, diarrhea or constipation. we discussed, I will order continuous glucose monitoring device for you. Wear it as discussed. If insurance, doensot approve it, let us or pCP kn ow and we will order glucometer- One touch Verio flex, strips and one touch Delica lancets. Patient Instructions: Antibiotic Form, Type 2 Diabetes in the Older Adult (DC) Stand Alone Forms: General Discharge Information Follow-up/Referrals: [facility] [Provider Group] - 2 Weeks Cristiano Roe MD [Physician] - 2 Weeks Betzy Garibay APRN [Primary Care Provider] - 4 Weeks Discharge Medications: New metformin 500 mg tablet extended release 24 hr 500 mg PO BID Qty: 90 0RF insulin glargine [Lantus Solostar U-100 Insulin] 100 unit/mL (3 mL) insulin pen 30 unit subcut QPM Qty: 15 0RF Ozempic 0.25 mg or 0.5 mg (2 mg/3 mL) pen injector 0.25 mg subcut WEEKLY Qty: 3 0RF Rx Instructions: for 4 weeks, then increase dose to 0.5 mg Ozempic 0.25 mg or 0.5 mg (2 mg/3 mL) pen injector 0.5 mg subcut WEEKLY Qty: 3 0RF Rx Instructions: please fill when pt is done with 0.25 mg weekly for 4 weeks (DME) Dexcom G6 Sensor Device See Rx Instructions .Route Qty: 3 0RF Rx Instructions: As directed (DME) Dexcom G6 Wharf Attendant Misc See Rx Instructions .Route Qty: 1 0RF Rx Instructions: As directed (DME) Dexcom G6 Transmitter Device See Rx Instructions .Route Qty: 1 0RF Rx Instructions: As directed Continued oxybutynin chloride 15 mg tablet extended release 24hr 15 mg PO DAILY Qty: 90 2RF biotin 10,000 mcg capsule 10,000 mcg PO DAILY Senokot 8.7 mg tablet,chewable 8.7 mg PO DAILY PRN (Reason: Constipation) Slow Release Iron 143 mg (45 mg iron) tablet extended release 143 mg PO DAILY Lactobacillus acidophilus 25 million cell capsule 25,000,000 cell PO DAILY mecobalamin (vitamin B12) 1,000 mcg tablet,chewable 1,000 mcg PO DAILY magnesium glycinate 118 mg magnesium capsule 118 mg PO DAILY glucosamine chondroitin 2,100 mg capsule 3 cap PO DAILY Citracal Calcium 1,200 mg capsule 2 cap PO DAILY ibuprofen 200 mg Tablet 400 mg PO Q6H PRN (Reason: Pain) acetaminophen [Tylenol] 325 mg Capsule 1,000 mg PO Q8H PRN (Reason: Pain) amlodipine 10 mg tablet 10 mg PO DAILY metoprolol tartrate 50 mg tablet 50 mg PO DAILY rosuvastatin 20 mg tablet 20 mg PO DAILY Other Ambulatory Orders: Diabetes Education Referral (Routine) Timeframe: 1 Day Location: Determined by Patient Ordered By: Paulette Douglas Date of admission: 07/21/24 11:48 Primary Care Provider: Betzy Garibay Admitting Provider: Eliecer White Attending physician on admission: Paulette Douglas Condition: Stable Quality VTE Prophylaxis VTE prophylaxis: mechanical ordered Hospitalist MIPS Heart Failure (Exclusion) Patient has history of Heart Transplant or Left Ventricular Assistive Device?: No IF YES, STOP HERE Heart Failure (Qualifier) Patient has current or prior documentation of LVEF less than or equal to 40%, or mod/servere depressed LVSF?: No IF NO, STOP HERE
[2024-07-24 14:00] VITALS: BP 132/74; PULSE 72; RESP 16; TEMP 36.8; O2SAT 99
[2024-07-26 12:24] LABS: Actin Antibody (IgG) 71 U (<20)
[2024-07-27 20:18] LABS: Mitochondrial (M2) Ab (IgG) <20.0 U
== END 2024-07-24 16:03 | disposition home or self-care (01) | DRG 421 ==
PROVIDERS: Internal Medicine Gastroenterology; Nurse Practitioner Acute Care; Physician Assistant; Surgery; Admitting Provider Internal Medicine; PCP Nurse Practitioner Family; Visit Provider Nurse Practitioner
DX: K75.4 Autoimmune hepatitis (principal); R18.8 Other ascites; R74.01 Elevation of levels of liver transaminase levels; E11.65 Type 2 diabetes mellitus with hyperglycemia; E78.5 Hyperlipidemia, unspecified; I10 Essential (primary) hypertension; N28.1 Cyst of kidney, acquired; K82.8 Other specified diseases of gallbladder; N32.81 Overactive bladder; Z90.49 Acquired absence of other specified parts of digestive tract
CPT/HCPCS: 10160; 36415; 47000; 76705; 76775; 76942; 78226; 80053; 80074; 80143; 82390; 82657; 82784; 82948; 83520; 83690; 83735; 84145; 84478; 85025; 85027; 85055; 85610; 85730; 86038; 86039; 86140; 86364; 86704; 86705; 86706; 86803; 87070; 87075; 87205; 87340; 88307; 88312; 88313; 89051; A9270; A9537; G0378; J1815; J2543

== ENCOUNTER 2024-07-31 10:39 | Outpatient (CLI) | payer MEDICARE, SELFPAY ==
[2024-07-31 10:58] LABS: Eosinophils Absolute Auto 0.13 K/mm3 (0.02-0.50); Eosinophils Percent Auto 1.3 % (1.0-6.0); Hematocrit 45.3 % (35.0-42.0); Hemoglobin 15.4 g/dL (11.7-13.8); Immature Granulocyte Absolute 0.03 K/mm3 (0.00-0.00); Immature Granulocyte Percent A 0.3 % (0.0-0.0); Lymphocytes Absolute Auto 2.12 K/mm3 (1.10-4.50); Lymphocytes Percent Auto 21.9 % (18.0-42.0); Mean Corpuscular Hemoglobin 31.9 pg (27.0-31.0); Mean Corpuscular Volume 93.8 fL (78.0-102.0); Mean Platelet Volume 12.1 fl (9.2-11.8); Monocytes Absolute Auto 0.94 K/mm3 (0.10-0.90); Monocytes Percent Auto 9.7 % (2.0-11.0); Neutrophils Absolute Auto 6.35 K/mm3 (1.70-7.20); Neutrophils Percent Auto 65.8 % (50.0-70.0); Platelet Count Result 219 K/mm3 (150-420); Red Blood Count 4.83 M/mm3 (4.20-5.40); Red Cell Distribution Width 18.2 % (11.6-14.4); White Blood Count 9.7 K/mm3 (4.8-10.8)
[2024-07-31 11:33] LABS: Alanine Aminotransferase 518 U/L (14-59); Albumin Level 2.3 g/dL (3.4-5.0); Alkaline Phosphatase 431 U/L (46-116); Ammonia 24 umol/L (11-32); Anion Gap 7 mmol/L (4-12); Bilirubin,Total 6.5 mg/dL (0.00-1.00); Blood Urea Nitrogen 11 mg/dL (7-18); Calcium 9.2 mg/dL (8.5-10.1); Carbon Dioxide 29 mmol/L (21-32); Chloride 98 mmol/L (98-108); Estimated Glomerular Filt Rate > 60; Glucose 105 mg/dL (70-99); Osmolality Calculated 277 mOsm/kg (285-295); Potassium 2.9 mmol/L (3.5-5.1); Sodium 134 mmol/L (136-145)
[2024-07-31 11:35] LABS: Aspartate Amino Transferase 733 U/L (15-37)
== END 2024-07-31 10:40 | disposition home or self-care (01) ==
LOC: CHSLAB 10:40
PROVIDERS: PCP Family Medicine; Visit Provider Family Medicine
DX: K75.4 Autoimmune hepatitis (principal)
CPT/HCPCS: 36415; 80053; 82140; 85025

== ENCOUNTER 2024-08-15 09:12 | Outpatient (RCR) | payer MEDICARE, SELFPAY ==
[2024-08-15 09:16] VITALS: BMI 30.2
[2024-08-15 10:19] VITALS: BMI 30.2
== END 2024-11-04 09:28 | disposition home or self-care (01) ==
LOC: ANHDMC 09:12
PROVIDERS: PCP Family Medicine; Visit Provider Internal Medicine Endocrinology, Diabetes & Metabolism
DX: E11.65 Type 2 diabetes mellitus with hyperglycemia (principal); Z79.4 Long term (current) use of insulin; Z71.3 Dietary counseling and surveillance
CPT/HCPCS: 97802

== ENCOUNTER 2024-09-17 12:03 | Outpatient (CLI) | payer MEDICARE, SELFPAY ==
[2024-09-17 13:07] LABS: INR 1.1; Partial Thromboplastin Time 26.1 Sec (23.9-30.70); Prothrombin Time 11.9 Seconds (9.64-11.0)
[2024-09-17 13:08] LABS: Basophils Absolute Auto 0.02 K/mm3 (0.00-0.10); Basophils Percent Auto 0.2 % (0.0-1.0); Eosinophils Absolute Auto 0.01 K/mm3 (0.02-0.50); Eosinophils Percent Auto 0.1 % (1.0-6.0); Hematocrit 49.1 % (35.0-42.0); Hemoglobin 16.5 g/dL (11.7-13.8); Immature Granulocyte Absolute 0.04 K/mm3 (0.00-0.00); Immature Granulocyte Percent A 0.4 % (0.0-0.0); Lymphocytes Absolute Auto 0.82 K/mm3 (1.10-4.50); Mean Corpuscular HGB Conc 33.6 g/dL (32-36); Mean Corpuscular Hemoglobin 33.5 pg (27.0-31.0); Mean Corpuscular Volume 99.8 fL (78.0-102.0); Mean Platelet Volume 12.4 fl (9.2-11.8); Monocytes Absolute Auto 0.27 K/mm3 (0.10-0.90); Monocytes Percent Auto 2.6 % (2.0-11.0); Neutrophils Absolute Auto 9.13 K/mm3 (1.70-7.20); Neutrophils Percent Auto 88.7 % (50.0-70.0); Platelet Count Result 178 K/mm3 (150-420); Red Blood Count 4.92 M/mm3 (4.20-5.40); Red Cell Distribution Width 16.6 % (11.6-14.4); White Blood Count 10.3 K/mm3 (4.8-10.8)
[2024-09-17 13:14] LABS: MALB Creatinine Ratio 59.9 mg/g (0-30); Microalbumin Urine Random 18.7 mg/L
[2024-09-17 13:15] LABS: Alanine Aminotransferase 151 U/L (14-59); Albumin Level 3.5 g/dL (3.4-5.0); Alkaline Phosphatase 113 U/L (46-116); Anion Gap 10 mmol/L (4-12); Aspartate Amino Transferase 64 U/L (15-37); Bilirubin,Total 1.9 mg/dL (0.00-1.00); Blood Urea Nitrogen 22 mg/dL (7-18); Calcium 9.5 mg/dL (8.5-10.1); Carbon Dioxide 28 mmol/L (21-32); Chloride 102 mmol/L (98-108); Estimated Glomerular Filt Rate > 60; Glucose 152 mg/dL (70-99); Osmolality Calculated 296 mOsm/kg (285-295); Potassium 4.5 mmol/L (3.5-5.1); Sodium 140 mmol/L (136-145); Total Protein 7.5 g/dL (6.4-8.2)
== END 2024-09-17 12:04 | disposition home or self-care (01) ==
LOC: CHSLAB 12:06
PROVIDERS: Internal Medicine Endocrinology, Diabetes & Metabolism; PCP Family Medicine; Visit Provider Internal Medicine Gastroenterology
DX: E11.65 Type 2 diabetes mellitus with hyperglycemia (principal); Z79.4 Long term (current) use of insulin; K75.4 Autoimmune hepatitis
CPT/HCPCS: 36415; 80053; 82043; 85025; 85610; 85730

== ENCOUNTER 2024-09-24 12:40 | Outpatient (CLI) | payer MEDICARE, SELFPAY ==
[2024-09-24 12:54] LABS: Hematocrit 49.4 % (35.0-42.0); Hemoglobin 16.4 g/dL (11.7-13.8); Mean Corpuscular HGB Conc 33.2 g/dL (32-36); Mean Corpuscular Hemoglobin 33.6 pg (27.0-31.0); Mean Corpuscular Volume 101.2 fL (78.0-102.0); Mean Platelet Volume 11.7 fl (9.2-11.8); Platelet Count Result 181 K/mm3 (150-420); Red Blood Count 4.88 M/mm3 (4.20-5.40); Red Cell Distribution Width 15.9 % (11.6-14.4); White Blood Count 9.2 K/mm3 (4.8-10.8)
[2024-09-24 13:57] LABS: Alanine Aminotransferase 108 U/L (14-59); Albumin Level 3.6 g/dL (3.4-5.0); Alkaline Phosphatase 90 U/L (46-116); Anion Gap 6 mmol/L (4-12); Aspartate Amino Transferase 44 U/L (15-37); Bilirubin,Total 1.5 mg/dL (0.00-1.00); Blood Urea Nitrogen 26 mg/dL (7-18); Calcium 10.1 mg/dL (8.5-10.1); Carbon Dioxide 31 mmol/L (21-32); Chloride 102 mmol/L (98-108); Estimated Glomerular Filt Rate > 60; Glucose 143 mg/dL (70-99); Osmolality Calculated 294 mOsm/kg (285-295); Potassium 4.5 mmol/L (3.5-5.1); Sodium 139 mmol/L (136-145); Total Protein 7.2 g/dL (6.4-8.2)
== END 2024-09-24 12:41 | disposition home or self-care (01) ==
PROVIDERS: PCP Family Medicine; Visit Provider Internal Medicine Gastroenterology
DX: K75.4 Autoimmune hepatitis (principal)
CPT/HCPCS: 36415; 80053; 82657; 85027

== ENCOUNTER 2024-12-03 10:53 | Outpatient (CLI) | payer MEDICARE, SELFPAY ==
[2024-12-03 11:18] LABS: Hematocrit 51.7 % (35.0-42.0); Hemoglobin 17.1 g/dL (11.7-13.8); Mean Corpuscular HGB Conc 33.1 g/dL (32-36); Mean Corpuscular Volume 102.8 fL (78.0-102.0); Platelet Count Result 164 K/mm3 (150-420); Red Blood Count 5.03 M/mm3 (4.20-5.40); Red Cell Distribution Width 13.2 % (11.6-14.4); White Blood Count 7.5 K/mm3 (4.8-10.8)
--- OUTSIDE RECORDS SUMMARY | 2024-12-03 12:06 | XMS_ITS | Clinical Summary ---
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 Gender Identity Not on file Sexual Orientation Not on file Plan of Treatment Health Maintenance Due Date Last Done Comments Colorectal Cancer Screening Colonoscopy (10 Years) 1950 Hepatitis C 01/12/1968 Mammogram Screening 1990 Zoster Vaccines (1 of 2) 01/12/2000 Annual Medicare Wellness Visit 2015 Dexa Scan (General) 2015 Pneumococcal Vaccine: 65+ Years (1 of 1 - PCV) 2015 DTaP, Tdap and Td Vaccines ( 2 - Td or Tdap) 05/25/2020 05/25/2010 COVID-19 Vaccine (4 - 2023-2 5 season) 2024 07/15/2021, 11/26/2020, 11/01/2020 RSV Immunization or 60+ Years (1 - 1-dose 75+ series) 2025 Meningococcal B Vaccine Aged Out No l onger eligible based on patient's age to complete this topic Meningococcal Vaccine Aged Out No josh richy eligible based on patient's age to complete this topic RSV Immunizations Under 20 Months Aged Out No longer eligible b ased on patient's age to complete this topic Insurance MED REPLACE [facility] MEDICARE Care Teams Sound Truck Operator Relationship Specialty Start Date End Date Henry Woodson DO [address] [place] [address] PCP - General FAMILY PRACTICE 06/14/22
[2024-12-03 12:17] LABS: Alanine Aminotransferase 58 U/L (14-59); Albumin Level 3.6 g/dL (3.4-5.0); Alkaline Phosphatase 86 U/L (46-116); Anion Gap 11 mmol/L (4-12); Aspartate Amino Transferase 38 U/L (15-37); Bilirubin,Total 0.9 mg/dL (0.00-1.00); Blood Urea Nitrogen 21 mg/dL (7-18); Calcium 9.9 mg/dL (8.5-10.1); Carbon Dioxide 26 mmol/L (21-32); Chloride 104 mmol/L (98-108); Estimated Glomerular Filt Rate > 60; Glucose 111 mg/dL (70-99); Osmolality Calculated 296 mOsm/kg (285-295); Potassium 3.8 mmol/L (3.5-5.1); Sodium 141 mmol/L (136-145); Total Protein 6.7 g/dL (6.4-8.2)
== END 2024-12-03 10:54 | disposition home or self-care (01) ==
LOC: CHSLAB 10:53
PROVIDERS: PCP Family Medicine; Visit Provider Internal Medicine Gastroenterology
DX: R74.01 Elevation of levels of liver transaminase levels (principal); K75.4 Autoimmune hepatitis
CPT/HCPCS: 36415; 80053; 85027

== ENCOUNTER 2024-12-04 08:30 | Outpatient (CLI) | payer MEDICARE, SELFPAY ==
--- OUTSIDE RECORDS SUMMARY | 2024-12-04 08:43 | XMS_ITS | Clinical Summary ---
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
[2024-12-04 09:29] LABS: Cholesterol 129 mg/dL (0-200); HDL Direct 54 mg/dL (40-60); LDL Cholesterol Calculated 52 mg/dL (<130); Triglycerides 117 mg/dL (0-150)
== END 2024-12-04 08:31 | disposition home or self-care (01) ==
LOC: CHSLAB 08:31
PROVIDERS: PCP Family Medicine; Visit Provider Internal Medicine Endocrinology, Diabetes & Metabolism
DX: E78.5 Hyperlipidemia, unspecified (principal)
CPT/HCPCS: 36415; 80061

== ENCOUNTER 2025-02-04 08:24 | Outpatient (CLI) | payer MEDICARE, SELFPAY ==
[2025-02-04 09:05] LABS: Hematocrit 49.7 % (35.0-42.0); Mean Corpuscular HGB Conc 32.2 g/dL (32-36); Mean Corpuscular Volume 105.5 fL (78.0-102.0); Mean Platelet Volume 12.3 fl (9.2-11.8); Platelet Count Result 154 K/mm3 (150-420); Red Blood Count 4.71 M/mm3 (4.20-5.40); Red Cell Distribution Width 13.2 % (11.6-14.4); White Blood Count 6.6 K/mm3 (4.8-10.8)
[2025-02-04 09:23] LABS: Alanine Aminotransferase 27 U/L (6-35); Albumin Level 4.2 g/dL (3.5-5.1); Alkaline Phosphatase 52 U/L (38-126); Anion Gap 6 mmol/L (4-12); Aspartate Amino Transferase 35 U/L (14-36); Bilirubin,Total 0.5 mg/dL (0.2-1.3); Blood Urea Nitrogen 21 mg/dL (7-17); Calcium 9.5 mg/dL (8.4-10.2); Carbon Dioxide 29 mmol/L (22-30); Chloride 109 mmol/L (98-107); Estimated Glomerular Filt Rate > 60; Glucose 111 mg/dL (65-110); Osmolality Calculated 302 mOsm/kg (285-295); Potassium 4.1 mmol/L (3.4-5.0); Sodium 144 mmol/L (137-145); Total Protein 6.8 g/dL (6.3-8.2)
== END 2025-02-04 08:25 | disposition home or self-care (01) ==
LOC: CHSLAB 08:25
PROVIDERS: PCP Family Medicine; Visit Provider Internal Medicine Gastroenterology
DX: K75.4 Autoimmune hepatitis (principal); E11.9 Type 2 diabetes mellitus without complications
CPT/HCPCS: 36415; 80053; 85027

== ENCOUNTER 2025-03-03 13:49 | Outpatient (CLI) | payer MEDICARE, SELFPAY ==
--- OUTSIDE RECORDS SUMMARY | 2025-03-03 14:06 | XMS_ITS | Clinical Summary ---
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
[2025-03-03 14:26] LABS: Alanine Aminotransferase 21 U/L (6-35); Albumin Level 4.6 g/dL (3.5-5.1); Alkaline Phosphatase 60 U/L (38-126); Anion Gap 18 mmol/L (4-12); Aspartate Amino Transferase 28 U/L (14-36); Blood Urea Nitrogen 46 mg/dL (7-17); Calcium 10.6 mg/dL (8.4-10.2); Carbon Dioxide 18 mmol/L (22-30); Chloride 103 mmol/L (98-107); Estimated Glomerular Filt Rate > 60; Glucose 171 mg/dL (65-110); Lipase 68 U/L (23-300); Osmolality Calculated 303 mOsm/kg (285-295); Sodium 139 mmol/L (137-145); Total Protein 7.4 g/dL (6.3-8.2)
== END 2025-03-03 13:50 | disposition home or self-care (01) ==
LOC: CHSLAB 13:49
PROVIDERS: PCP Family Medicine; Visit Provider Internal Medicine Endocrinology, Diabetes & Metabolism
DX: R10.9 Unspecified abdominal pain (principal); E11.9 Type 2 diabetes mellitus without complications
CPT/HCPCS: 36415; 80053; 83690

== ENCOUNTER 2025-03-05 08:38 | Emergency (ER) | payer MEDICARE, SELFPAY ==
[2025-03-05] VITALS (30 sets, daily range): BP systolic 100–149; BP diastolic 42–93; PULSE 108–124; RESP 14–16; TEMP 36.8; O2SAT 85–98
--- NOTE | ~2025-03-05 | XR_ITS ---
Exam: Abdomen 1V HISTORY: NG tube placement COMPARISON: 03/05/2025 at 9:00 AM TECHNIQUE: Supine images of the lower chest and upper abdomen FINDINGS: Nasogastric tube extends into the left upper quadrant, presumably within the stomach. IMPRESSION: Nasogastric tube in good position and ready for immediate use. Reviewed, dictated and finalized at location A.
--- NOTE | ~2025-03-05 | XR_ITS ---
Exam: Abdomen 1V HISTORY: extreme abd pain, throwing up brown COMPARISON: Reference is made with a CT examination of the abdomen and pelvis dated 07/19/2024 TECHNIQUE: Supine images of the abdomen FINDINGS: Multiple loops of markedly dilated small bowel are identified within the mid to upper abdomen to a ma ximal caliber of 6.4 cm. There is no free air or deep sulci. Clips within the right upper quadrant consistent with prior cholecystectomy. Scattered air within the deep pelvis, although not within the rectum. No pathologic calcifications are seen. Lung bases are unremarkable. IMPRESSION: High-grade small bowel obstruction, for which cross-sectional imaging (contrast enhanced CT examinati on of the abdomen and pelvis) is recommended for further evaluation. Reviewed, dictated and finalized at location [] IMPRESSION: High-grade small bowel obstruction, for which cross-sectional imaging (contrast enhanced CT examination of the abdomen and pelvis) is recommended for further evaluation.
--- NOTE | ~2025-03-05 | CT_ITS ---
EXAMINATION: CT abdomen pelvis w con DATE: 03/05/2025 10:41 INDICATION: Small bowel obstruction TECHNIQUE: Computed tomography (CT) of the abdomen and pelvis was performed with 100 mL Omnipaque-350 intravenous contrast. Automated exposure control and iterative reconstruction technique were employe d. The dose-length product was 663.15 mGy-cm. COMPARISON: None FINDINGS: Mild bibasilar atelectasis, left greater than right. Heart size is normal. No pericardial or pleural effusion. Small amount of likely refluxed fluid in the distal esophagus. 1.6 cm cyst in the left hepa tic lobe. Cholecystectomy clips at the gallbladder fossa. Spleen, pancreas, bilateral adrenal glands are normal. There several small bilateral renal cysts measuring up to 1.6 cm maximal diameter. Bladde r is normal. The uterus is not identified and has likely been surgically resected. Small bowel obstru ction with mild dilation of the small bowel extending to a likely small closed loop obstruction at th e terminal ileum with the entire loop best appreciated on coronal series 601, image 54-58. There is n o abnormal bowel wall thickening and there is relatively uniform mucosal enhancement throughout the b owel including of the closed loop arguing against secondary ischemia. Normal appendix. Moderate amoun t stool scattered throughout the more distal colon. There is fat and small amount of ascites within a moderate-sized left lower quadrant ventral hernia extending through a 2 cm diameter orifice. Small f at-containing left inguinal hernia. No abscess or free intraperitoneal gas. No pathologically enlarge d abdominal or pelvic lymphadenopathy. Mild lumbar levocurvature with severe spondylosis. Moderate th oracic spondylosis. IMPRESSION: 1. Closed loop small bowel obstruction the right lower quadrant without evidence secondary ischemia. 2. Fat and small amount of ascites within a moderate-sized left lower quadrant ventral hernia. 3. Small fat-containing left inguinal hernia. Reviewed, dictated and finalized at location A. IMPRESSION: 1. Closed loop small bowel obstruction the right lower quadrant without evidenc e secondary ischemia. 2. Fat and small amount of ascites within a moderate-sized left lower quadrant ventral hernia. 3. Small fat-containing left inguinal hernia.
--- OUTSIDE RECORDS SUMMARY | 2025-03-05 08:46 | XMS_ITS | Clinical Summary ---
Author Organization 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 MEDICARE Care Teams Jar Filler Relationship Specialty Start Date End Date Henry Woodson DO [address] [place] [address] PCP - General FAMILY PRACTICE 06/14/22
--- NOTE | 2025-03-05 08:48 | ED_ITS ---
HPI - Abdominal Pain General Chief Complaint: Abdominal Pain Stated Complaint: abdominal pain; vomiting Time Seen by Provider: 03/05/25 08:48 Source: patient and family Mode of arrival: ambulatory Limitations: no limitations History of Present Illness HPI narrative: 75-year-old female with a history of hypertension, diabetes mellitus, dyslipidemia, autoimmune hepatitis, status post cholecystectomy, status post hysterectomy presents to the ED with a one-week history of -- diffuse abdominal pain. No radiation of the pain. No exacerbating or relieving factors. -- No bowel movements for the past 1 week. -- Patient has nausea without any vomiting. No fever or chills. No patient is on Ozempic, oxybutynin and Norvasc. Pertinent past history: constipation Onset (ago): day(s) ( Seven days) Pain Consistency: constant Location: diffuse Severity: severe Quality: aching Radiation: none Migration to: no migration Exacerbating factors: nothing Relieving factors: nothing Associated symptoms: nausea and constipation Related Data Home Medications ?Medication ?Instructions ?Recorded ?Confirmed ?Last Taken ?Type biotin 10,000 mcg capsule 10,000 mcg PO DAILY 07/19/24 03/03/25 Unknown History senna leaf extract 8.7 mg chewable 8.7 mg PO DAILY PRN Constipation 07/19/24 03/03/25 Unknown History tablet (Senokot) blood-glucose meter (OneTouch #1 ea 07/29/24 03/03/25 Unknown History Verio Flex Meter) Allergies Allergy/AdvReac Type Severity Reaction Status Date / Time No Known Allergies Allergy Verified 03/05/25 08:47 Review of Systems 2 Review of Systems: All systems reviewed & are unremarkable except as noted in HPI and below Constitutional: Constitutional: Reports as per HPI and Reports no additional constitutional complaints Eyes: Eyes: Reports as per HPI and Reports no additional eye complaints ENT: Reports system reviewed and no additional complaints, except as documented and Reports as per HPI Cardiovascular: Cardiovascular: Reports as per HPI and Reports no additional cardiovascular complaints Respiratory: Respiratory: Reports as per HPI and Reports no additional respiratory complaints Gastrointestinal: Gastrointestinal: Reports as per HPI, Reports no additional gastrointestinal complaints, Reports abdominal pain, Reports nausea and Reports vomiting Genitourinary: Genitourinary: Reports no additional female genitourinary complaints and Reports as per HPI Musculoskeletal: Musculoskeletal: Reports no additional musculoskeletal complaints and Reports as per HPI Integumentary/Breasts: Skin/Breast: Reports system reviewed and no additional complaints, except as docu and Reports as per HPI Neurologic: Reports system reviewed and no additional complaints, except as documented and Reports as per HPI Psychiatric: Psychiatric: Reports no additional psychiatric complaints and Reports as per HPI Endocrine: Endocrine: Reports no additional endocrine complaints and Reports as per HPI Hematologic/Lymphatic: Hematologic/Lymphatic: Reports no additional hematologic/lymphatic complaints and Reports as per HPI Allergic/Immunologic: Allergic/Immunologic: Reports no additional allergic/immunologic complaints and Reports as per HPI [facility] Past Medical History Medical History Type 2 diabetes mellitus Hypertension Overactive bladder Hyperlipidemia Surgical History Surgical History History of total abdominal hysterectomy History of laparoscopic cholecystectomy (05/31/22) Family History Family History Father Heart disease Other Brain cancer Mother No problems noted. Social History Social History Social History: Surrogate medical decision maker: Joec Khoury, spouse. Code status: Full code. Smoking status: Never smoker Alcohol intake: current Drinks per week: 1 Alcohol use details: Social alcohol use in moderation. Substance use: never Substance use type: does not use Do You Feel Safe in your Home?: Yes Lack of Transportation: No Lack of Food: Never True Current Housing: I Have Housing Concerned About Future Housing: No Difficulty Paying Gas/Electric Bills: No Difficulty Paying for Meds: No Currently Unemployed: No Education: High School Diploma/GED Difficulty w/ Childcare or Family Care: No Living arrangements: with family Additional living arrangements comments: The patient lives with her in [place]. Occupation/Education: retired Additional occupation/education comments: Retired. She is very involved in local charities including the [employer]. Spiritual care concerns: No Exam 2 Narrative: blood pressure 118/93 with a heart rate of 124. Oxygen saturation of 97% on room air. Afebrile with a temperature 36.8? Const: General: ill appearing Orientation/consciousness: patient oriented x3 Limitations: no limitations HENMT: Head: normal to inspection Ears: external ears normal F blas/Nose/Sinus: Normal external nose present Face and sinus: normal facial exam Mouth: Yes Normal oral and palatal mucosa present Throat: posterior oropharynx normal Eyes: Conjunctivae: conjunctivae normal Pupils: Equal, round and reactive pupils present EOM: EOMs intact bilaterally Direct Ophthalmoscopy: no photophobia Neck: Neck: normal visual inspection and no lymphadenopathy Chest: Chest palpation & inspection: normal inspection of the chest and abnormal inspection of the chest Resp: Effort & Inspection: normal respiratory effort Auscultation: clear to auscultation bilaterally Cardio: Rate: regular rate Rhythm: regular rhythm GI: GI Palp: Yes Soft to palpation and Yes Tenderness to palpation present (GI) ( diffuse tenderness without any rigidity /rebound) Auscultation: normal bowel sounds : General: Yes no CVA tenderness Back/Spine/Pelvis: Back: no CVA tenderness Skin: General skin exam: normal color Rashes: no rashes Wounds: no wounds Neuro: General: patient oriented x3, moves all extremities, no meningeal signs, no focal motor deficits and CN's II-XI intact bilaterally Cranial nerves: Yes Nystagmus not present Speech: normal speech Gait exam (Neuro): Normal gait present Extrem: General: normal to inspection and no clubbing, cyanosis or edema Psych: Mental Status: mental status grossly normal Affect: normal affect Attitude: cooperative Course Course Emergency Course: diffuse abdominal pain /constipation-- closed loop small-bowel obstruction patient received 1/2 L of IV fluids and has an NG to suction. Vital Signs Vital signs: Vital Signs Temperature 36.8 C 03/05/25 08:38 Pulse Rate 124 H 03/05/25 08:38 Respiratory Rate 16 03/05/25 08:38 Blood Pressure 118/93 H 03/05/25 08:38 Pulse Oximetry 97 03/05/25 08:38 Oxygen Delivery Room Air 03/05/25 08:38 Temperature 36.8 C 03/05/25 08:38 Pulse Rate 108 H 03/05/25 09:02 Respiratory Rate 14 03/05/25 09:02 Blood Pressure 146/79 H 03/05/25 10:16 Pulse Oximetry 98 03/05/25 10:32 Oxygen Delivery Nasal Cannula 03/05/25 10:32 Oxygen Flow Rate 2 03/05/25 10:32 MDM - Abdominal Pain MDM Narrative Medical decision making narrative: small-bowel obstruction Differential Diagnosis Differential diagnosis: Likely constipation Medical Records Attestation: I reviewed the patient's medical records. Lab Data Attestation: I reviewed the patient's lab results. 03/05/25 09:12 03/05/25 09:12 Labs: Lab Results 03/05/25 03/05/25 Range/Units 09:12 11:26 WBC 5.6 (4.8-10.8) K/mm3 RBC 5.51 H (4.20-5.40) M/mm3 Hgb 18.5 H (11.7-13.8) g/dL Hct 55.1 H (35.0-42.0) % MCV 100.0 (78.0-102.0) fL MCH 33.6 H (27.0-31.0) pg MCHC 33.6 (32-36) g/dL RDW 12.9 (11.6-14.4) % Plt Count 192 (150-420) K/mm3 MPV 12.1 H (9.2-11.8) fl Immature Gran % (Auto) Not Reportable Neut % (Auto) Not Reportable Lymph % (Auto) Not Reportable Ross % (Auto) Not Reportable Eos % (Auto) Not Reportable Baso % (Auto) Not Reportable Lymph # (Auto) Not Reportable Ross # (Auto) Not Reportable Eos # (Auto) Not Reportable Baso # (Auto) Not Reportable Abs Immat Gran (auto) Not Reportable Absolute Neuts (auto) Not Reportable Absolute Nucleated RBC Not Reportable Total Counted 100 Neutrophils % (Manual) 54 (46-73) % Band Neutrophils % 11 H (0-6) % Lymphocytes % (Manual) 18 (18-44) % Monocytes % (Manual) 17 H (3-9) % Nucleated RBC % Not Reportable Abs Neuts (Manual) 3.64 (1.3-6.7) K/mm3 Abs Lymphs (Manual) 1.00 L (1.1-4.5) K/mm3 Abs Monocytes (Manual) 0.95 H (0.1-0.90) K/mm3 Platelet Estimate Adequate (Adequate) Schistocytes None seen PT 13.3 H (9.50-12.1) Seconds INR 1.2 APTT 27.8 (23.9-30.70) Sec Sodium 133 L (137-145) mmol/L Potassium 4.5 (3.4-5.0) mmol/L Chloride 91 L (98-107) mmol/L Carbon Dioxide 33 H (22-30) mmol/L Anion Gap 9 (4-12) mmol/L BUN 66 H D (7-17) mg/dL Creatinine 1.07 H (0.7-1.0) mg/dL Estim Creat Clear Calc 32 ml/min Estimated GFR 50 L (59 - ) Glucose 270 H (65-110) mg/dL Calculated Osmolality 305 H (285-295) mOsm/kg Lactic Acid 2.7 H 2.2 H (0.4-2.0) mmol/L Calcium 10.0 (8.4-10.2) mg/dL Total Bilirubin 1.0 (0.2-1.3) mg/dL AST 40 H (14-36) U/L ALT 35 (6-35) U/L Alkaline Phosphatase 68 (38-126) U/L Troponin I 0.024 (0.000-0.034) ng/mL Total Protein 6.6 (6.3-8.2) g/dL Albumin 3.8 (3.5-5.1) g/dL Lipase 35 (23-300) U/L TSH 1.900 (0.465-4.680) uIU/mL Imaging Data Radiologist's impression: ITS Impressions Abdomen/Pelvis CT 03/05/25 11:04 IMPRESSION: 1. Closed loop small bowel obstruction the right lower quadrant without evidence secondary ischemia. 2. Fat and small amount of ascites within a moderate-sized left lower quadrant ventral hernia. 3. Small fat-containing left inguinal hernia. Abdomen X-Ray 03/05/25 11:56 IMPRESSION: Nasogastric tube in good position and ready for immediate use. Discharge Plan Discharge Clinical Impression: Complete small bowel obstruction, Hyperglycemia due to type 2 diabetes mellitus Acute renal failure Qualifiers: Acute renal failure type: unspecified Qualified Code(s): N17.9 - Acute kidney failure, unspecified Patient Disposition: Still a Patient Condition: Stable Additional Instructions: transfer patient to [facility]. Patient has been accepted hospitalist and general surgeon Patient Language: Chinese Prescriptions: No Action (DME) blood-glucose meter [OneTouch Verio Flex meter] Misc See Rx Instructions .ROUTE .MEDSUPPLY Qty: 1 Rx Instructions: As directed rosuvastatin 20 mg tablet 20 mg PO DAILY Qty: 90 3RF Jardiance 10 mg tablet 10 mg PO QAM Qty: 90 3RF amlodipine 10 mg tablet 10 mg PO DAILY Qty: 90 3RF insulin aspart U-100 [Novolog FlexPen U-100 Insulin] 100 unit/mL (3 mL) insulin pen See Rx Instructions subcut TID MDD 15 90 Days Qty: 15 2RF Rx Instructions: Novolog before breakfast, before lunch and before dinner as needed for high sugar blood sugar 150-200 take 1 units blood sugar [id number] 2 units blood sugar more than 250 take 3 units (DME) pen needle, diabetic 32 gauge x 5/32 needle See Rx Instructions .Route Qty: 300 2RF Rx Instructions: use three times daily (DME) FreeStyle Romain 3 Plus Sensor Device See Rx Instructions .Route Qty: 6 3RF Rx Instructions: As directed ondansetron 4 mg tablet,disintegrating 4 mg PO Q8H PRN (Reason: nausea and vomiting) Qty: 30 0RF oxybutynin chloride 15 mg tablet extended release 24hr 15 mg PO DAILY Qty: 90 2RF biotin 10,000 mcg capsule 10,000 mcg PO DAILY Senokot 8.7 mg tablet,chewable 8.7 mg PO DAILY PRN (Reason: Constipation) (DME) blood-glucose meter [OneTouch Verio Flex Start] Kit See Rx Instructions .Route Qty: 1 0RF Rx Instructions: As directed (DME) lancets [OneTouch Delica Plus Lancet] 33 gauge misc See Rx Instructions .Route Qty: 100 0RF Rx Instructions: As directed (DME) OneTouch Verio test strips Strip See Rx Instructions .Route Qty: 100 0RF Rx Instructions: As directed prednisone 5 mg tablet See Rx Instructions .ROUTE .COMPLEX Qty: 60 4RF Dose Instruction: 15 mg (3 x 5 mg) orally daily; see taper instructions - take 3 tablets (all together) every morning for 2 weeks, then drop dose to 10 mg (2 tablets) once a day, and do not modify dose until next visit in 2 months Rx Instructions: 15 mg (3 x 5 mg) orally daily; see taper instructions - take 3 tablets (all together) every morning for 2 weeks, then drop dose to 10 mg (2 tablets) once a day, and do not modify dose until next visit in 2 months azathioprine 50 mg tablet See Rx Instructions .ROUTE .COMPLEX Qty: 30 3RF Dose Instruction: TAKE 1 TABLET BY MOUTH DAILY Rx Instructions: TAKE 1 TABLET BY MOUTH DAILY Follow-up/Referrals: Henry Woodson DO [Primary Care Provider] - Time of Disposition: 12:55
[2025-03-05 09:18] LABS: Hematocrit 55.1 % (35.0-42.0); Hemoglobin 18.5 g/dL (11.7-13.8); Mean Corpuscular HGB Conc 33.6 g/dL (32-36); Mean Corpuscular Hemoglobin 33.6 pg (27.0-31.0); Mean Corpuscular Volume 100.0 fL (78.0-102.0); Platelet Count Result 192 K/mm3 (150-420); Red Blood Count 5.51 M/mm3 (4.20-5.40); White Blood Count 5.6 K/mm3 (4.8-10.8)
[2025-03-05 09:28] LABS: Alanine Aminotransferase 35 U/L (6-35); Albumin Level 3.8 g/dL (3.5-5.1); Alkaline Phosphatase 68 U/L (38-126); Aspartate Amino Transferase 40 U/L (14-36); Bilirubin,Total 1.0 mg/dL (0.2-1.3); Blood Urea Nitrogen 66 mg/dL (7-17); Calcium 10.0 mg/dL (8.4-10.2); Carbon Dioxide 33 mmol/L (22-30); Chloride 91 mmol/L (98-107); Estimated CRCL calculation 32 ml/min; Estimated Glomerular Filt Rate 50; Glucose 270 mg/dL (65-110); Lipase 35 U/L (23-300); Potassium 4.5 mmol/L (3.4-5.0); Total Protein 6.6 g/dL (6.3-8.2)
[2025-03-05 09:31] LABS: Anion Gap 9 mmol/L (4-12); Osmolality Calculated 305 mOsm/kg (285-295); Sodium 133 mmol/L (137-145)
[2025-03-05 09:32] LABS: INR 1.2; Partial Thromboplastin Time 27.8 Sec (23.9-30.70); Prothrombin Time 13.3 Seconds (9.50-12.1)
--- OUTSIDE RECORDS SUMMARY | 2025-03-05 09:32 | XMS_ITS | Clinical Summary ---
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
[2025-03-05 09:36] LABS: Band Neutrophils Percent 11 % (0-6); Lymphocytes Absolute Manual 1.00 K/mm3 (1.1-4.5); Lymphocytes Percent Manual 18 % (18-44); Monocytes Absolute Manual 0.95 K/mm3 (0.1-0.90); Monocytes Percent Manual 17 % (3-9); Neutrophils Absolute Manual 3.64 K/mm3 (1.3-6.7); Neutrophils Percent Manual 54 % (46-73); Schistocytes None Seen; Total Cells Counted 100
[2025-03-05] MEDS: HYDROmorphone HCL INJ (*CRX) 2 MG/ML VIAL 0.5 MG IV PUSH (09:38)
[2025-03-05] MEDS: ONDANSETRON INJ 4 MG/2 ML VIAL IV PUSH ×2 (09:39→15:32)
[2025-03-05] MEDS: LACTATED RINGERS 500 ML 999 ML IV CONT (09:39)
[2025-03-05 09:41] LABS: Troponin I 0.024 ng/mL (0.000-0.034)
[2025-03-05] MEDS: SODIUM CHLORIDE 0.9% IV 1,000 ML 999 ML IV CONT ×2 (09:51→11:29)
[2025-03-05] MEDS: INSULIN HUMAN REGULAR (*BKC) 1,000 UNITS/10 ML VIAL 7 UNITS SUB-Q (09:56)
[2025-03-05 10:00] LABS: Thyroid Stimulating Hormone 1.900 uIU/mL (0.465-4.680)
[2025-03-05] MEDS: LACTATED RINGERS 1,000 ML 150 ML IV CONT (11:58)
[2025-03-05 14:30] LABS: Add Urine Microscopic? YES; Appearance Urine Clear (Clear); Glucose Urine UA 2+ (Negative); Leukocyte Esterase Ur Negative LEU/UL (Negative); Nitrate Urine Negative (Negative); Specific Grav Ur <= 1.005 (1.010-1.020)
--- NOTE | 2025-03-07 16:26 | PC.NURSE ---
URINE CULTURE FINAL NO GROWTH
== END 2025-03-05 15:34 | disposition short-term general hospital (02) ==
PROVIDERS: Emergency Provider Internal Medicine Critical Care Medicine; PCP Family Medicine
DX: K56.601 Complete intestinal obstruction, unspecified as to cause (principal); E11.65 Type 2 diabetes mellitus with hyperglycemia; N17.9 Acute kidney failure, unspecified; I10 Essential (primary) hypertension; E78.5 Hyperlipidemia, unspecified
CPT/HCPCS: 36415; 74018; 74177; 80053; 81001; 83605; 83690; 84443; 84484; 85025; 85610; 85730; 87086; 96361; 96374; 96375; 96376; 99285; J1171; J1815; J2405; J7030; J7120; Q9967

== ENCOUNTER 2025-03-05 16:25 | Inpatient (IN) | payer MEDICARE, SELFPAY ==
--- NOTE | ~2025-03-05 | XR_ITS ---
CHEST RADIOGRAPH CLINICAL HISTORY: PICC line placement verify . COMPARISON: 03/05/2025 TECHNIQUE: Single portable view of the chest. FINDINGS A nasogastric tube identified, with its tip projecting over the left upper quadrant. Small bore catheter (dual lumen PICC line) with its tip projecting over the cavoatrial junction. The remainder of the cardiomediastinal silhouette is enlarged, and otherwise unremarkable. Blunting of the left costophrenic sulcus consistent with a small left-sided pleural effusion. The remainder of the lungs are clear. IMPRESSION: Small left-sided pleural effusion without focal infiltrate. PICC line in good position and ready for immediate use. Reviewed, dictated and finalized at location A.
--- NOTE | ~2025-03-05 | XR_ITS ---
XR chest 1V portable Ordering provider: Cyn Matta History: 75 years Female with . Leukocytosis, cough . Comparison: March 08, 2025 FINDINGS: MEDIASTINUM: The cardiac silhouette is not enlarged. Congestive jhonny. Right PICC line with the tip in the superior vena cava area. LUNGS: No effusions or pneumothorax. Opacification in the left lower lobe suggestive of atelectasis versus pneumonia. Prominent markings i n the right lower lobe. OTHER: No free air under the diaphragm. Degenerative changes of the spine. IMPRESSION: Left basilar atelectasis versus pneumonia. Prominent markings bilaterally which may indicate pneumoni tis. Reviewed, dictated and finalized at location A. IMPRESSION: Left basilar atelectasis versus pneumonia. Prominent markings bilaterally which may indicate pneumonitis.
[2025-03-05 16:31] VITALS: O2SAT 96; BMI 24.2
--- OUTSIDE RECORDS SUMMARY | 2025-03-05 16:31 | XMS_ITS | Clinical Summary ---
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
[2025-03-05 16:32] VITALS: BP 143/64; PULSE 113; RESP 20; TEMP 36.1; O2SAT 96
--- NOTE | 2025-03-05 17:26 | P.HP_ITS ---
H&P: HPI History of Present Illness Date/Time: 03/05/25 17:26 Chief Complaint: Abdominal Pain, Constipation Narrative: 75 y/o F with PMH of diabetes, hypertension, hyperlipidemia, and autoimmune hepatitis presents here with abdominal pain and constipation. The patient presented to [facility] on 03/05 from home for further evaluation of constipation and abdominal pain.? She reports her last bowel movement was 1 week ago.? It is accompanied by severe/diffuse abdominal pain and nausea without vomiting.? She further describes the abdominal pain as dull to sharp, achy/cramping, radiation into her back, constant, (duration), no modifying factors.? She denies accompanying fever, chills, or body aches. ?She was evaluated by her waterproof material folder on 03/03 where she reported mild nausea and constipation.? She was instructed to stop her Ozempic as she believes this may be the cause of her constipation abdominal pain.? Her next dose of Ozempic was due today, 03/05. Initial VS at presentation: ?98.3? F, HR 124, RR 16, 118/93, and 97% on RA. ED workup showed: ?No leukocytosis, hemoglobin 18.5 (16.0 on 02/04), INR 1.2, sodium 133, creatinine 1.07 and GFR 50 (0.85 and GFR >60 on 03/03), glucose 270, osmolality 305, lactic 2.7, initial troponin 0.024 and lipase within normal limits.? Abdominal XR showed a high-grade small bowel obstruction.? CT of the abdomen/pelvis showed a closed loop SBO in the right lower quadrant without evidence of secondary ischemia, fat and small amount of ascites within a moderate sized left lower quadrant ventral hernia, small fat containing left inguinal hernia. Review of Systems Review of Systems: All systems reviewed & are unremarkable except as noted in HPI and below PMFSH Past Medical History Medical History Hypertension Type 2 diabetes mellitus Overactive bladder Hyperlipidemia Surgical History Surgical History History of total abdominal hysterectomy History of laparoscopic cholecystectomy (05/31/22) Family History Family History Father Heart disease Other Brain cancer Mother No problems noted. Social History Social History Social History: Surrogate medical decision maker: Joce Khoury, spouse. Code status: Full code. Smoking status: Never smoker Alcohol intake: never Drinks per week: 1 Alcohol use details: Social alcohol use in moderation. Substance use: never Substance use type: does not use Do You Feel Safe in your Home?: Yes Lack of Transportation: No Lack of Food: Never True Current Housing: I Have Housing Concerned About Future Housing: No Difficulty Paying Gas/Electric Bills: No Difficulty Paying for Meds: No Currently Unemployed: No Education: High School Diploma/GED Difficulty w/ Childcare or Family Care: No Living arrangements: with family Additional living arrangements comments: The patient lives with her in [place]. Occupation/Education: retired Additional occupation/education comments: Retired. She is very involved in local [email or web address] including the [employer]. Spiritual care concerns: No Meds Home Medications and Allergies Home Medications ?Medication ?Instructions ?Recorded ?Confirmed ?Type biotin 10,000 mcg capsule 10,000 mcg PO DAILY 07/19/24 03/05/25 History oxybutynin chloride 15 mg 15 mg PO DAILY #90 tabs 07/19/24 03/05/25 Rx tablet,extended release 24 hr senna leaf extract 8.7 mg chewable 8.7 mg PO DAILY PRN Constipation 07/19/24 03/05/25 History tablet (Senokot) blood-glucose meter (OneTouch #1 ea 07/24/24 03/05/25 Rx Verio Flex Start kit) lancets 33 gauge (OneTouch Delica #100 ea 07/24/24 03/05/25 Rx Plus Lancet) amlodipine 10 mg tablet 10 mg PO DAILY #90 tabs 11/28/24 03/05/25 Rx empagliflozin 10 mg tablet 10 mg PO QAM #90 tabs 11/28/24 03/05/25 Rx (Jardiance) rosuvastatin 20 mg tablet 20 mg PO DAILY #90 tabs 11/28/24 03/05/25 Rx prednisone 5 mg tablet See Rx Instructions .Route 12/17/24 03/05/25 Rx .COMPLEX #60 tabs azathioprine 50 mg tablet See Rx Instructions .Route 01/13/25 03/05/25 Rx .COMPLEX #30 tabs blood-glucose sensor (FreeStyle #6 ea 03/03/25 03/05/25 Rx Romain 3 Plus Sensor device) insulin aspart U-100 100 unit/mL See Rx Instructions subcut TID 3 03/03/25 03/05/25 Rx (3 mL) subcutaneous pen (Novolog months #15 mL FlexPen U-100 Insulin aspart) pen needle, diabetic 32 gauge x #300 ea 03/03/25 03/05/25 Rx ondansetron 4 mg disintegrating 4 mg PO Q8H PRN nausea and 03/04/25 03/05/25 Rx tablet vomiting #30 tabs famotidine 20 mg tablet (Acid 20 mg PO DAILY 03/05/25 03/05/25 History Controller) Allergies Allergy/AdvReac Type Severity Reaction Status Date / Time No Known Allergies Allergy Verified 03/05/25 08:47 Vital Signs Vital Signs - 24 hr 03/05/25 16:31 03/05/25 16:32 Temperature 96.9 F L Pulse Rate 113 H Respiratory Rate 20 Blood Pressure 143/64 H Pulse Oximetry 96 96 Oxygen Delivery Room Air Exam Const: General: comfortable and no acute distress Other: , female, nontoxic appearance, elderly HENMT: Face/Nose/Sinus: Normal nares present Mouth: Yes moist mucous membranes Other: NG in place, on low intermittent suction Eyes: General: appearance normal, both eyes and all related structures Sclera: sclerae normal Pupils: Equal, round and reactive pupils present EOM: EOMs intact bilaterally Resp: Effort & Inspection: normal respiratory effort Auscultation: clear to auscultation bilaterally Cardio: Rate: regular rate Rhythm: regular rhythm Other: S1-S2 present without murmur, rub, ectopy GI: Other: bowel sounds quiet and very hypoactive in all quadrants. Mild /diffuse tenderness in all quadrants. Nondistended , soft. Skin: General skin exam: normal color and no rashes or lesions noted Wounds: no wounds Neuro: Speech: normal speech Motor exam (neuro): 5/5 motor strength present throughout Sensory Exam: normal sensation Other: A&O x4, mild somnolence but awakens easily to voice. Extrem: General: normal to inspection Psych: Mental Status: mental status grossly normal Affect: normal affect Other: Good insight and judgment, pleasant Assessment and Plan Assessment and plan (1) Complete small bowel obstruction: Code(s): K56.601 - Complete intestinal obstruction, unspecified as to cause Status: Acute Assessment and Plan: - CT abdomen/pelvis: 1. Closed loop small bowel obstruction the right lower quadrant without evidence secondary ischemia. 2. Fat and small amount of ascites within a moderate-sized left lower quadrant ventral hernia. 3. Small fat-containing left inguinal hernia. - general surgery consulted, Mao DANIELSON has history of prior hysterectomy raising concerns for adhesions causing chelsea wel obstruction, process likely been ongoing for the past several days and will likely need exploratory laparotomy possibly tomorrow on 03/06 variant upon their exam no acute surgical abdomen and patient is hemodynamically stable with lactate levels only mildly elevated - NPO except ice chips - analgesics and antiemetics p.r.n. - monitor electrolytes and renal function - monitor I&Os - IV fluids: 1.5L -> 100 mL/hr - history of diabetes, glucose checks q.6 with sliding scale q.6 - NG placed at [facility] on 03/05, confirmed via abdominal XR.? Placed on low intermittent suction. 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 Qualified Code(s): E11.9 - Type 2 diabetes mellitus without complications Code(s): E11.9 - Type 2 diabetes mellitus without complications Status: Acute Assessment and Plan: - hypoglycemia protocol - POC blood glucose Q6H - hold home medications: Jardiance, home sliding scale - correct regimen ordered - low dose Q6H while NPO - A1C 5.2% on 03/03/2025 (3) Autoimmune hepatitis: Code(s): K75.4 - Autoimmune hepatitis Status: Acute Assessment and Plan: - continue home medication(s) Prednisone and Azathioprine once no longer NPO (4) HTN (hypertension): Qualifiers: Hypertension type: primary hypertension Qualified Code(s): I10 - Essential (primary) hypertension Code(s): I10 - Essential (primary) hypertension Status: Acute Assessment and Plan: - chronic, currently 146/79 - currently NPO, will hold home medications including amlodipine - monitor Plan Diet: NPO except ice chips GI Prophylaxis: pantoprazole DVT Prophylaxis: SCDs IV fluids: LR 130 mL/hour Lines/Tubes: peripheral IV, NG tube Code Status: full code Quality VTE Prophylaxis VTE prophylaxis: mechanical ordered Hospitalist MIPS Advance Care Plan I have confirmed that the patient's Advanced Care Plan is present, code status is documented, or surrogate decision maker is listed in patient medical record.: Yes Medication Reconciliation I have utilized all available resources to obtain, update and review the patients current medications (includes all prescriptions, OTC, herbals, cannabis, and nutritional supplements).: Yes
[2025-03-05] MEDS: LACTATED RINGERS 1,000 ML 100 ML IV CONT (17:40)
[2025-03-05] MEDS: MORPHINE SULFATE (*CRX) 2 MG/ML INJ IV PUSH (17:47)
[2025-03-05 20:00] VITALS: PULSE 113; RESP 18; O2SAT 93
--- NOTE | 2025-03-05 20:57 | WPDCN ---
Assessment and Plan Assessment and plan (1) Abdominal pain: Code(s): R10.9 - Unspecified abdominal pain Status: Acute Assessment and Plan: Likely secondary to grade small-bowel obstruction. Will give her some morphine overnight for pain. Let her have some ice chips as the which is mild and be aspirated through the NG tube. Continue NG tube to low continuous suction overnight. (2) SBO (small bowel obstruction): Code(s): K56.609 - Unspecified intestinal obstruction, unspecified as to partial versus complete obstruction Status: Acute Assessment and Plan: High-grade distal small-bowel obstruction likely secondary to abdominal adhesions. Patient has had a prior hysterectomy which could be causing adhesions causing the bowel obstruction. No evidence of ischemia the bowel on CT scan. No free air or perforation. The process has been going on for several days and so is likely that she is going to need a exploratory laparotomy with possible bowel resection likely tomorrow. At this point she does not appear to have acute surgical abdomen and hemodynamically stable lactate levels are not particularly high. (3) Autoimmune hepatitis: Code(s): K75.4 - Autoimmune hepatitis Status: Acute Assessment and Plan: Oral steroids have been held. She may need a stress dose of IV steroids prior to any surgery. (4) Type 2 diabetes mellitus: Qualifiers: Diabetes mellitus senior care insulin use: without senior care use Diabetes mellitus complication status: without complication Qualified Code(s): E11.9 - Type 2 diabetes mellitus without complications Code(s): E11.9 - Type 2 diabetes mellitus without complications Status: Acute Assessment and Plan: Management as per the hospitalist service. HPI Data of Consult Date/Time: 03/05/25 20:57 Requesting Physician: Shira Cloud MD Primary Care Provider: Henry Woodson DO Consult Narrative Reason for consult: Small-bowel obstruction, abdominal pain Narrative: Flory Khoury is a 75 year old female transferred from [facility] ER this afternoon after she presented there with almost 1 week long history of abdominal pain and not having any bowel movements. She had nausea vomiting. She appeared to be dehydrated at the outside facility and was started on some IV fluids. Further workup with labs showed a normal white blood cell count. Hemodynamically she was stable. CT scan abdomen pelvis showed multiple dilated loops of small bowel with what appears to be a transition point in the right lower quadrant the abdomen with evidence of a high-grade small-bowel obstruction. There was no evidence of ischemia of the bowel. Lactic acid level was 2.7 initially but decreased down to 2.2 with some hydration. NG tube was placed and she has over L of NG tube output which is bilious. Presently she still has some abdominal pain. She has had a previous hysterectomy and laparoscopic cholecystectomy. She had been taking Ozempic for treatment of her diabetes and this is also noted and some significant weight loss for her. She also takes chronic steroids orally for treatment of autoimmune hepatitis and is followed by Dr. Roe (GI) Review of Systems Review of Systems: The remainder of the review of systems to include constitutional, HEENT, cardiovascular, respiratory, GI, , integumentary, musculoskeletal, endocrine, immunologic, hematologic, psychiatric, and neurologic are all negative except for which is mentioned above in the HPI. [facility] Past Medical History Medical History Hypertension Type 2 diabetes mellitus Overactive bladder Hyperlipidemia Surgical History Surgical History History of total abdominal hysterectomy History of laparoscopic cholecystectomy (05/31/22) Family History Family History Father Heart disease Other Brain cancer Mother No problems noted. Social History Social History Social History: Surrogate medical decision maker: Joce Khoury, spouse. Code status: Full code. Smoking status: Never smoker Alcohol intake: never Drinks per week: 1 Alcohol use details: Social alcohol use in moderation. Substance use: never Substance use type: does not use Do You Feel Safe in your Home?: Yes Lack of Transportation: No Lack of Food: Never True Current Housing: I Have Housing Concerned About Future Housing: No Difficulty Paying Gas/Electric Bills: No Difficulty Paying for Meds: No Currently Unemployed: No Education: High School Diploma/GED Difficulty w/ Childcare or Family Care: No Living arrangements: with family Additional living arrangements comments: The patient lives with her in [place]. Occupation/Education: retired Additional occupation/education comments: Retired. She is very involved in local [email or web address] including the [employer]. Spiritual care concerns: No Meds Home Medications and Allergies Home Medications ?Medication ?Instructions ?Recorded ?Confirmed ?Type biotin 10,000 mcg capsule 10,000 mcg PO DAILY 07/19/24 03/05/25 History oxybutynin chloride 15 mg 15 mg PO DAILY #90 tabs 07/19/24 03/05/25 Rx tablet,extended release 24 hr senna leaf extract 8.7 mg chewable 8.7 mg PO DAILY PRN Constipation 07/19/24 03/05/25 History tablet (Senokot) blood-glucose meter (OneTouch #1 ea 07/24/24 03/05/25 Rx Verio Flex Start kit) lancets 33 gauge (OneTouch Delica #100 ea 07/24/24 03/05/25 Rx Plus Lancet) amlodipine 10 mg tablet 10 mg PO DAILY #90 tabs 11/28/24 03/05/25 Rx empagliflozin 10 mg tablet 10 mg PO QAM #90 tabs 11/28/24 03/05/25 Rx (Jardiance) rosuvastatin 20 mg tablet 20 mg PO DAILY #90 tabs 11/28/24 03/05/25 Rx prednisone 5 mg tablet See Rx Instructions .Route 12/17/24 03/05/25 Rx .COMPLEX #60 tabs azathioprine 50 mg tablet See Rx Instructions .Route 01/13/25 03/05/25 Rx .COMPLEX #30 tabs blood-glucose sensor (FreeStyle #6 ea 03/03/25 03/05/25 Rx Romain 3 Plus Sensor device) insulin aspart U-100 100 unit/mL See Rx Instructions subcut TID 3 03/03/25 03/05/25 Rx (3 mL) subcutaneous pen (Novolog months #15 mL FlexPen U-100 Insulin aspart) pen needle, diabetic 32 gauge x #300 ea 03/03/25 03/05/25 Rx 5/32 ondansetron 4 mg disintegrating 4 mg PO Q8H PRN nausea and 03/04/25 03/05/25 Rx tablet vomiting #30 tabs famotidine 20 mg tablet (Acid 20 mg PO DAILY 03/05/25 03/05/25 History Controller) Allergies Allergy/AdvReac Type Severity Reaction Status Date / Time No Known Allergies Allergy Verified 03/05/25 08:47 Vital Signs Vital Signs - 24 hr 03/05/25 16:31 03/05/25 16:32 Temperature 36.1 C L Pulse Rate 113 H Respiratory Rate 20 Blood Pressure 143/64 H Pulse Oximetry 96 96 Oxygen Delivery Room Air Exam Const: General: in distress mild (Episodic crampy abdominal pain.) HENMT: Ears: TM's normal bilaterally Face/Nose/Sinus: Normal nares present Mouth: Yes dry mucous membranes Eyes: General: appearance normal, both eyes and all related structures Sclera: sclerae normal Pupils: Equal, round and reactive pupils present EOM: EOMs intact bilaterally Neck: Neck: supple and no JVD Resp: Effort & Inspection: normal respiratory effort Auscultation: clear to auscultation bilaterally Cardio: Rate: regular rate Rhythm: regular rhythm GI: Other: Abdomen is soft mildly distended. It is not tense. She has a easily reducible periumbilical ventral hernia. She has some mild diffuse tenderness but no generalized peritoneal signs and no guarding. Skin: General skin exam: normal color and no rashes or lesions noted Neuro: General: gait normal Speech: normal speech Motor exam (neuro): 5/5 motor strength present throughout Sensory Exam: normal sensation Extrem: General: normal to inspection Psych: Mental Status: mental status grossly normal Affect: normal affect Results Imaging Radiologist's impression: CT Scan Report Signed Patient: Flory Khoury : 1950 MR#: [id number] Age: 75 Acct:[id number] [facility] AD[facility] Date: 03/05/25Attending Dr: Ordering Physician: Adrien Branch MD Date of Service: 03/05/25 Procedure(s): CT abdomen pelvis w con Accession Number(s): [id number] cc: Henry Woodson DO; Adrien Branch MD~ EXAMINATION: CT abdomen pelvis w con DATE: 03/05/2025 10:41 INDICATION: Small bowel obstruction TECHNIQUE: Computed tomography (CT) of the abdomen and pelvis was performed with 100 mL Omnipaque-350 intravenous contrast. Automated exposure control and iterative reconstruction technique were employed. The dose-length product was 663.15 mGy-cm. COMPARISON: None FINDINGS: Mild bibasilar atelectasis, left greater than right. Heart size is normal. No pericardial or pleural effusion. Small amount of likely refluxed fluid in the distal esophagus. 1.6 cm cyst in the left hepatic lobe. Cholecystectomy clips at the gallbladder fossa. Spleen, pancreas, bilateral adrenal glands are normal. There several small bilateral renal cysts measuring up to 1.6 cm maximal diameter. Bladder is normal. The uterus is not identified and has likely been surgically resected. Small bowel obstruction with mild dilation of the small bowel extending to a likely small closed loop obstruction at the terminal ileum with the entire loop best appreciated on coronal series 601, image 54-58. There is no abnormal bowel wall thickening and there is relatively uniform mucosal enhancement throughout the bowel including of the closed loop arguing against secondary ischemia. Normal appendix. Moderate amount stool scattered throughout the more distal colon. There is fat and small amount of ascites within a moderate-sized left lower quadrant ventral hernia extending through a 2 cm diameter orifice. Small fat-containing left inguinal hernia. No abscess or free intraperitoneal gas. No pathologically enlarged abdominal or pelvic lymphadenopathy. Mild lumbar levocurvature with severe spondylosis. Moderate thoracic spondylosis. IMPRESSION: 1. Closed loop small bowel obstruction the right lower quadrant without evidence secondary ischemia. 2. Fat and small amount of ascites within a moderate-sized left lower quadrant ventral hernia. 3. Small fat-containing left inguinal hernia. Reviewed, dictated and finalized at location A. Please be advised this is a medical document. It is intended for [id number] communication. It is written in medical language and may contain unfamiliar abbreviations or verbiage. Medical documents are intended to carry relevant information, facts as evident, and the clinical opinion of the practitioner at the time of the encounter. This report may have been done utilizing a voice recognition system. Attempts have been made to correct errors. However, there may be uncorrected grammatical, spelling, and recognition errors present. The file time of this note does not necessarily represent the time of service. Dictated By: Wally Luther MD 03/05/25 1104 Signed By: <Electronically signed by Wally Luther MD in [place]> 03/05/25 1113
[2025-03-05] MEDS: HYDROmorphone HCL INJ (*CRX) 2 MG/ML VIAL 1 MG IV PUSH (21:22)
[2025-03-05] MEDS: MAG HYDROX/AL HYDROX/SIMETH 30 ML UDC PO (21:24)
[2025-03-05] MEDS: PIPERACILLN/TAZ 3.375GM/NS50ML 3.375 GM/50 ML BAG IVPB (21:24)
[2025-03-05 21:29] VITALS: BP 133/79; PULSE 113; RESP 18; TEMP 36.3; O2SAT 93
[2025-03-06] VITALS (12 sets, daily range): BP systolic 95–145; BP diastolic 55–76; PULSE 100–120; RESP 14–25; TEMP 36.2–37.3; O2SAT 91–98; BMI 24.2
[2025-03-06] MEDS: HYDROmorphone HCL INJ (*CRX) 2 MG/ML VIAL 1 MG IV PUSH ×2 (01:30→05:02)
[2025-03-06] MEDS: LACTATED RINGERS 1,000 ML 130 ML IV CONT ×2 (03:49→23:01)
[2025-03-06] MEDS: MAG HYDROX/AL HYDROX/SIMETH 30 ML UDC PO ×2 (05:01→21:41)
[2025-03-06] MEDS: PIPERACILLIN/TAZ 2.25G/NS 50ML 2.25 GM/50 ML BAG IVPB ×4 (05:01→21:43)
[2025-03-06 06:56] LABS: Hematocrit 53.5 % (37.0-47.0); Hemoglobin 17.8 g/dL (12.0-15.0); Immature Granulocyte Percent A 0.6 % (0-0.5); Lymphocytes Absolute Auto 0.36 K/mm3 (0.9-3.2); Mean Corpuscular HGB Conc 33.3 g/dl (32-36); Mean Corpuscular Hemoglobin 34.4 pg (26-34); Mean Corpuscular Volume 103.5 fl (80-100); Nucleated Red Blood Cells Absolute Auto 0.000 K/mm3 (0.0-0.012); Nucleated Red Blood Cells Perc 0.0 % (0.0-0.2); Platelet Count Result 142 k/mm3 (150-375); Red Blood Count 5.17 M/mm3 (4.2-5.4); White Blood Count 3.2 K/mm3 (4.5-10.0)
[2025-03-06 07:04] LABS: Alanine Aminotransferase 24 U/L (6-35); Albumin Level 3.2 g/dL (3.5-5.1); Alkaline Phosphatase 55 U/L (38-126); Anion Gap 9 mmol/L (4-12); Aspartate Amino Transferase 30 U/L (14-36); Bilirubin,Total 0.8 mg/dL (0.2-1.3); Blood Urea Nitrogen 53 mg/dL (7-17); Calcium 10.0 mg/dL (8.4-10.2); Carbon Dioxide 36 mmol/L (22-30); Chloride 96 mmol/L (98-107); Estimated CRCL calculation 42 ml/min; Estimated Glomerular Filt Rate > 60; Glucose 147 mg/dL (65-110); Magnesium 2.7 mg/dL (1.6-2.3); Potassium 3.7 mmol/L (3.4-5.0); Sodium 141 mmol/L (137-145); Total Protein 6.0 g/dL (6.3-8.2)
[2025-03-06] MEDS: SODIUM CHLORIDE 0.9% IV 1,000 ML 999 ML IV CONT (08:19)
[2025-03-06] MEDS: PANTOPRAZOLE SODIUM IV 40 MG VIAL IV PUSH (08:19)
--- NOTE | 2025-03-06 12:16 | PC.NURSE ---
To OR per bed, IV right forearm. Report given to Amber MONROE.
--- NOTE | 2025-03-06 13:30 | SUR.PREOP ---
6069-Spoke with Dr. Vinson re: pt pain, states will see pt before ordering medication.
--- NOTE | 2025-03-06 13:38 | SUR.PREOP ---
1335-Pt requests SCDs be removed, states they are too uncomfortable. Aware of purpose of SCDs and states blood clots couldn't hurt worse than these. SCDs removed at this time.
--- NOTE | 2025-03-06 13:42 | P.PNAN_ITS ---
Anes - Initial Pre Proc Eval Procedure: Operation Date: 03/06/25 13:30 Proposed Procedures p Exploratory Laparotomy, Possible Bowel Resection - Saroj Cavanaugh MD Date/Time: 03/06/25 13:42 Surgeon: Shira Cloud MD Pre Op Diagnosis: gi obstruction Patient Data Age: 75 Gender: F Height: 1.57 m Weight: 60.1 kg Last Vital Signs Temp 37.3 C 03/06/25 12:25 Pulse 103 H 03/06/25 12:25 Resp 22 H 03/06/25 12:25 BP 122/64 03/06/25 12:25 Pulse Ox 92 03/06/25 12:25 O2 Del Method Room Air 03/06/25 12:25 Allergies Allergy/AdvReac Type Severity Reaction Status Date / Time No Known Allergies Allergy Verified 03/05/25 08:47 Home Medications ?Medication ?Instructions ?Recorded ?Confirmed ?Type biotin 10,000 mcg capsule 10,000 mcg PO DAILY 07/19/24 03/05/25 History oxybutynin chloride 15 mg 15 mg PO DAILY #90 tabs 07/19/24 03/05/25 Rx tablet,extended release 24 hr senna leaf extract 8.7 mg chewable 8.7 mg PO DAILY PRN Constipation 07/19/24 03/05/25 History tablet (Senokot) blood-glucose meter (OneTouch #1 ea 07/24/24 03/05/25 Rx Verio Flex Start kit) lancets 33 gauge (OneTouch Delica #100 ea 07/24/24 03/05/25 Rx Plus Lancet) amlodipine 10 mg tablet 10 mg PO DAILY #90 tabs 11/28/24 03/05/25 Rx empagliflozin 10 mg tablet 10 mg PO QAM #90 tabs 11/28/24 03/05/25 Rx (Jardiance) rosuvastatin 20 mg tablet 20 mg PO DAILY #90 tabs 11/28/24 03/05/25 Rx prednisone 5 mg tablet See Rx Instructions .Route 12/17/24 03/05/25 Rx .COMPLEX #60 tabs azathioprine 50 mg tablet See Rx Instructions .Route 01/13/25 03/05/25 Rx .COMPLEX #30 tabs blood-glucose sensor (FreeStyle #6 ea 03/03/25 03/05/25 Rx Romain 3 Plus Sensor device) insulin aspart U-100 100 unit/mL See Rx Instructions subcut TID 3 03/03/25 03/05/25 Rx (3 mL) subcutaneous pen (Novolog months #15 mL FlexPen U-100 Insulin aspart) pen needle, diabetic 32 gauge x #300 ea 03/03/25 03/05/25 Rx ondansetron 4 mg disintegrating 4 mg PO Q8H PRN nausea and 03/04/25 03/05/25 Rx tablet vomiting #30 tabs famotidine 20 mg tablet (Acid 20 mg PO DAILY 03/05/25 03/05/25 History Controller) Laboratory Tests 03/05/25 03/05/25 03/06/25 17:59 23:25 05:46 WBC RBC Hgb Hct MCV MCH MCHC RDW Plt Count MPV Immature Gran % (Auto) Neut % (Auto) Lymph % (Auto) Spencer % (Auto) Eos % (Auto) Baso % (Auto) Lymph # (Auto) Spencer # (Auto) Eos # (Auto) Baso # (Auto) Abs Immat Gran (auto) Absolute Neuts (auto) Absolute Nucleated RBC Nucleated RBC % Sodium Potassium Chloride Carbon Dioxide Anion Gap BUN Creatinine Estim Creat Clear Calc Estimated GFR Glucose POC Capillary Glucose 148 H mg/dl 154 H mg/dl 149 H mg/dl (65-105) (65-105) (65-105) Lactic Acid Calcium Magnesium Total Bilirubin AST ALT Alkaline Phosphatase Total Protein Albumin Blood Type Antibody Screen 03/06/25 03/06/25 03/06/25 06:27 11:48 13:19 WBC 3.2 L K/mm3 (4.5-10.0) RBC 5.17 M/mm3 (4.2-5.4) Hgb 17.8 H D g/dL (12.0-15.0) Hct 53.5 H % (37.0-47.0) MCV 103.5 H fl (80-100) MCH 34.4 H pg (26-34) MCHC 33.3 g/dl (32-36) RDW 13.3 % (11.5-14.5) Plt Count 142 L k/mm3 (150-375) MPV 13.0 H fl (7.4-10.4) Immature Gran % (Auto) 0.6 H % (0-0.5) Neut % (Auto) 67.4 % (45.5-73.1) Lymph % (Auto) 11.2 L % (18.3-44.2) Spencer % (Auto) 19.9 H % (2.6-8.5) Eos % (Auto) 0.6 % (0-4.4) Baso % (Auto) 0.3 % (0.2-1.2) Lymph # (Auto) 0.36 L K/mm3 (0.9-3.2) Spencer # (Auto) 0.6 K/mm3 (0.1-0.6) Eos # (Auto) 0.0 K/mm3 (0-0.3) Baso # (Auto) 0.0 K/mm3 (0.0-0.1) Abs Immat Gran (auto) 0.02 K/mm3 (0.00-0.031) Absolute Neuts (auto) 2.2 K/mm3 (1.3-6.7) Absolute Nucleated RBC 0.000 K/mm3 (0.0-0.012) Nucleated RBC % 0.0 % (0.0-0.2) Sodium 141 mmol/L (137-145) Potassium 3.7 mmol/L (3.4-5.0) Chloride 96 L mmol/L (98-107) Carbon Dioxide 36 H mmol/L (22-30) Anion Gap 9 mmol/L (4-12) BUN 53 H D mg/dL (7-17) Creatinine 0.80 mg/dL (0.7-1.0) Estim Creat Clear Calc 42 ml/min Estimated GFR > 60 (59 - ) Glucose 147 H mg/dL (65-110) POC Capillary Glucose 133 H mg/dl 135 H mg/dl (65-105) (65-105) Lactic Acid 1.5 mmol/L (0.7-2.0) Calcium 10.0 mg/dL (8.4-10.2) Magnesium 2.7 H mg/dL (1.6-2.3) Total Bilirubin 0.8 mg/dL (0.2-1.3) AST 30 U/L (14-36) ALT 24 U/L (6-35) Alkaline Phosphatase 55 U/L (38-126) Total Protein 6.0 L g/dL (6.3-8.2) Albumin 3.2 L g/dL (3.5-5.1) Blood Type A Negative Antibody Screen Negative Patient hx anesthesia problems: none Family hx anesthesia problems: none Results Review: All pre-operative results and documents have been reviewed as part of the pre- operative evaluation. [facility] Past Medical History Medical History Hypertension Type 2 diabetes mellitus Overactive bladder Hyperlipidemia Surgical History Surgical History History of total abdominal hysterectomy History of laparoscopic cholecystectomy (05/31/22) Family History Family History Father Heart disease Other Brain cancer Mother No problems noted. Social History Social History Social History: Surrogate medical decision maker: Joce Khoury, spouse. Code status: Full code. Smoking status: Never smoker Alcohol intake: never Drinks per week: 1 Alcohol use details: Social alcohol use in moderation. Substance use: never Substance use type: does not use Do You Feel Safe in your Home?: Yes Lack of Transportation: No Lack of Food: Never True Current Housing: I Have Housing Concerned About Future Housing: No Difficulty Paying Gas/Electric Bills: No Difficulty Paying for Meds: No Currently Unemployed: No Education: High School Diploma/GED Difficulty w/ Childcare or Family Care: No Living arrangements: with family Additional living arrangements comments: The patient lives with her in [place]. Occupation/Education: retired Additional occupation/education comments: Retired. She is very involved in local [employer] including the [employer]. Spiritual care concerns: No Anes - Eval Final PreProcedure Day of Procedure 03/06/25 13:42 Patient weight: normal Heart: regular rate and rhythm Lungs: decreased breath sounds Airway: Mallampati scale class II Neurological: alert and oriented Last oral intake: >/= 8 hours ASA classification: III Emergent: no Anesthetic plan: proceed Anesthesia type and monitoring: general ETT and standard monitoring Results Review: All pre-operative results and documents have been reviewed as part of the pre- operative evaluation. Informed Consent: The patient's anesthetic plan and its attendant risks and benefits were discussed with the patient/family/POA. Questions were solicited and answers provided to the satisfaction of the patient/family/POA.
--- NOTE | 2025-03-06 13:45 | WPDHPUPDATE1 ---
History and Physical Update Update Date/Time: 03/06/25 13:45 History and Physical has been reviewed, including an updated exam of the patient. There are NO changes in the patient's condition. Risks, benefits, and alternatives have been discussed and questions answered. Patient agrees to proceed with procedure.
--- NOTE | 2025-03-06 14:40 | S_PTH ---
PATIENT: Flory Khoury LOC: [id number] U#:[id number] AGE/SX: 75/F ROOM: 326 RE03/05/[address]: Shira Cloud MD : 1950 BED: 01 DIS: 03/18/2025 SPEC #: [id number] RECD: 03/10/25 07:40 STATUS: KEANU REKiki #: [id number] JENI: 03/06/25 14:[address]: Saroj Cavanaugh DEPT: [facility] Surgical RECD BY: Christina Haynes ENTERED: 03/10/25 07:40 SP TYPE: Surgical OTHR DR: DO Shira Benavides MD Tissues: A - Hernia Sac B - Appendix Procedures: Gross and Microscopic Level 2 Hematoxylin and Eosin Stain Gross and Microscopic Level 3
[2025-03-06] MEDS: LIDO 1%/EPINEPHRINE 1:100,000 20 ML VIAL 30 ML INFILTRATE (15:04)
[2025-03-06] MEDS: LACTATED RINGERS 1,000 ML 30 ML IV CONT ×2 (16:17→16:18)
--- NOTE | 2025-03-06 16:17 | PM.IMPN ---
Progress Note: A&P Assessment and Plan (1) Complete small bowel obstruction: Code(s): K56.601 - Complete intestinal obstruction, unspecified as to cause Status: Inactive Assessment and Plan: - CT abdomen/pelvis: 1. Closed loop small bowel obstruction the right lower quadrant without evidence secondary ischemia. 2. Fat and small amount of ascites within a moderate-sized left lower quadrant ventral hernia. 3. Small fat-containing left inguinal hernia. - general surgery consulted, Mao DANIELSON has history of prior hysterectomy raising concerns for adhesions causing bowel obstruction, process likely been ongoing for the past several days and will likely need exploratory laparotomy possibly tomorrow on 03/06 variant upon their exam no acute surgical abdomen and patient is hemodynamically stable with lactate levels only mildly elevated - NPO except ice chips - analgesics and antiemetics p.r.n. - monitor electrolytes and renal function - monitor I&Os - IV fluids: 1.5L -> 100 mL/hr - history of diabetes, glucose checks q.6 with sliding scale q.6 - NG placed at [facility], [place] on 03/05, confirmed via abdominal XR.? Placed on low intermittent suction. (2) Type 2 diabetes mellitus: Qualifiers: Diabetes mellitus complication status: without complication Diabetes mellitus shelter insulin use: without shelter use Qualified Code(s): E11.9 - Type 2 diabetes mellitus without complications Code(s): E11.9 - Type 2 diabetes mellitus without complications Status: Acute Assessment and Plan: - hypoglycemia protocol - POC blood glucose Q6H - hold home medications: Jardiance, home sliding scale - correct regimen ordered - low dose Q6H while NPO - A1C 5.2% on 03/03/2025 (3) Autoimmune hepatitis: Code(s): K75.4 - Autoimmune hepatitis Status: Acute Assessment and Plan: - continue home medication(s) Prednisone and Azathioprine once no longer NPO (4) HTN (hypertension): Qualifiers: Hypertension type: primary hypertension Qualified Code(s): I10 - Essential (primary) hypertension Code(s): I10 - Essential (primary) hypertension Status: Acute Assessment and Plan: - chronic, currently 146/79 - currently NPO, will hold home medications including amlodipine - monitor Plan patient with abdominal pain, nausea and BM for a week presented to outside hospital and is found to have SBO, seen by general surgery service, will have surgical evaluation today to relieve the obstruction, will follow up and monitor, further recommendation to follow. Diet: NPO except ice chips GI Prophylaxis: pantoprazole DVT Prophylaxis: SCDs IV fluids: LR 130 mL/hour Lines/Tubes: peripheral IV, NG tube Code Status: full code Subjective Date/time seen: 03/06/25 16:17 Interval history: Abdominal Pain, Constipation H&P-Narrative: 75 y/o F with PMH of diabetes, hypertension, hyperlipidemia, and autoimmune hepatitis presents here with abdominal pain and constipation. The patient presented to [facility] on 03/05 from home for further evaluation of constipation and abdominal pain.? She reports her last bowel movement was 1 week ago.? It is accompanied by severe/diffuse abdominal pain and nausea without vomiting.? She further describes the abdominal pain as dull to sharp, achy/cramping, radiation into her back, constant, (duration), no modifying factors.? She denies accompanying fever, chills, or body aches. 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 She was instructed to stop her Ozempic as she believes this may be the cause of her constipation abdominal pain.? Her next dose of Ozempic was due today, 03/05. Initial VS at presentation: ?98.3? F, HR 124, RR 16, 118/93, and 97% on RA. ED workup showed: ?No leukocytosis, hemoglobin 18.5 (16.0 on 02/04), INR 1.2, sodium 133, creatinine 1.07 and GFR 50 (0.85 and GFR >60 on 03/03), glucose 270, osmolality 305, lactic 2.7, initial troponin 0.024 and lipase within normal limits.? Abdominal XR showed a high-grade small bowel obstruction.? CT of the abdomen/pelvis showed a closed loop SBO in the right lower quadrant without evidence of secondary ischemia, fat and small amount of ascites within a moderate sized left lower quadrant ventral hernia, small fat containing left inguinal hernia. patient with abdominal pain, nausea and BM for a week presented to outside hospital and is found to have SBO, seen by general surgery service, will have surgical evaluation today to relieve the obstruction, will follow up and monitor, further recommendation to follow. Review of Systems Review of Systems: All systems reviewed & are unremarkable except as noted in HPI and below Exam Narrative: Appears chronically ill elderly frail Patient is comfortable, NAD HEENT: eyes are clear and none icteric LUNGS:CTA HEART: RR S1S2 ABD: BS+, Soft and nontender Lower extremities: no edema SKIN: nonjaundiced Neuro: grossly intact. Objective Data Vital Signs Vital Signs: Vital Signs - 24 hr 03/05/25 16:31 03/05/25 16:32 03/05/25 20:00 Temperature 36.1 C L Pulse Rate 113 H 113 H Respiratory Rate 20 18 Blood Pressure 143/64 H Pulse Oximetry 96 96 93 Oxygen Delivery Room Air Room Air 03/05/25 21:29 03/06/25 05:53 03/06/25 12:25 Temperature 36.3 C L 36.3 C L 37.3 C Pulse Rate 113 H 100 103 H Respiratory Rate 18 14 22 H Blood Pressure 133/79 133/76 122/64 Pulse Oximetry 93 93 92 Oxygen Delivery Room Air Intake/Output Intake/Output: Intake & Output 03/03/25 03/04/25 03/05/25 03/06/25 23:59 23:59 23:59 23:59 Intake Total 503.3 1223.0 Output Total 900 1450 Balance -396.7 -227.0 Meds/Results Medications: Active Medications Generic Name Dose Route Start Last Admin Trade Name Freq PRN Reason Stop Dose Admin Acetaminophen 650 mg 03/05/25 17:30 Acetaminophen 650 Mg Suppository RECTAL Q6H PRN Mild Pain (1-3) or Fever Al Hydrox/Mg Hydrox/Simethicone 30 ml 03/05/25 21:00 03/06/25 12:43 Mag Hydrox/Al Hydrox/Simeth 30 Ml Udc PO Not Given Q8H ANSELMO Dextrose 12.5 gm 03/05/25 17:30 Dextrose 50% 25 Gm/50 Ml Syringe IV PUSH PRN PRN Hypoglycemia Protocol Glucagon 1 mg 03/05/25 17:30 Glucagon For Inj 1 Mg Vial IM PRN PRN Hypoglycemia Protocol Glucose 15 gm 03/05/25 17:30 Glucose Oral Gel 15 Gm Of Glucse In 37.5 Gm Tube PO PRN PRN Hypoglycemia Protocol Hydromorphone HCl 0.5 mg 03/05/25 20:53 Hydromorphone Hcl Inj (*Crx) 2 Mg/Ml Vial IV PUSH Q3H PRN Pain Rated 4-6 Hydromorphone HCl 1 mg 03/05/25 20:53 03/06/25 05:02 Hydromorphone Hcl Inj (*Crx) 2 Mg/Ml Vial IV PUSH 1 mg Q4H PRN Administration Pain Rated 7-10 Dextrose 1,000 mls @ 100 mls/hr 03/05/25 17:30 Dextrose 5% 1,000 Ml IVPB PRN PRN Hypoglycemia Protocol Lactated Ringer's 1,000 mls @ 130 mls/hr 03/05/25 17:30 03/06/25 11:05 Lr - Lactated Ringers Iv IV CONT 130 mls/hr .Q7H42M ANSELMO Infusion Piperacillin Sod/Tazobactam Sod 2.25 gm in 50 mls @ 100 mls/hr 03/06/25 04:00 03/06/25 15:46 Zosyn 2.25 Gm/Ns 50 Ml IVPB 100 mls/hr Q6H ANSELMO Administration Insulin Aspart 2 - 5 units 03/05/25 18:00 03/06/25 12:00 Insulin Aspart (*Bkc) 100 Units/Ml SUB-Q Not Given Q6HR ANSELMO Protocol Naloxone HCl 0.1 mg 03/05/25 17:30 Naloxone Hcl 0.4 Mg/Ml Vial IV PUSH Q5MIN PRN Sedation Pantoprazole Sodium 40 mg 03/06/25 09:00 03/06/25 08:19 Pantoprazole Sodium Iv 40 Mg Vial IV PUSH 40 mg QAM ANSELMO Administration Labs Labs: Laboratory Results - last 24 hr 03/05/25 03/05/25 03/06/25 17:59 23:25 05:46 WBC RBC Hgb Hct MCV MCH MCHC RDW Plt Count MPV Immature Gran % (Auto) Neut % (Auto) Lymph % (Auto) Republic % (Auto) Eos % (Auto) Baso % (Auto) Lymph # (Auto) Republic # (Auto) Eos # (Auto) Baso # (Auto) Abs Immat Gran (auto) Absolute Neuts (auto) Absolute Nucleated RBC Nucleated RBC % Sodium Potassium Chloride Carbon Dioxide Anion Gap BUN Creatinine Estim Creat Clear Calc Estimated GFR Glucose POC Capillary Glucose 148 H 154 H 149 H Lactic Acid Calcium Magnesium Total Bilirubin AST ALT Alkaline Phosphatase Total Protein Albumin Blood Type Antibody Screen 03/06/25 03/06/25 03/06/25 06:27 11:48 13:19 WBC 3.2 L RBC 5.17 Hgb 17.8 H D Hct 53.5 H MCV 103.5 H MCH 34.4 H MCHC 33.3 RDW 13.3 Plt Count 142 L MPV 13.0 H Immature Gran % (Auto) 0.6 H Neut % (Auto) 67.4 Lymph % (Auto) 11.2 L Republic % (Auto) 19.9 H Eos % (Auto) 0.6 Baso % (Auto) 0.3 Lymph # (Auto) 0.36 L Republic # (Auto) 0.6 Eos # (Auto) 0.0 Baso # (Auto) 0.0 Abs Immat Gran (auto) 0.02 Absolute Neuts (auto) 2.2 Absolute Nucleated RBC 0.000 Nucleated RBC % 0.0 Sodium 141 Potassium 3.7 Chloride 96 L Carbon Dioxide 36 H Anion Gap 9 BUN 53 H D Creatinine 0.80 Estim Creat Clear Calc 42 Estimated GFR > 60 Glucose 147 H POC Capillary Glucose 133 H 135 H Lactic Acid 1.5 Calcium 10.0 Magnesium 2.7 H Total Bilirubin 0.8 AST 30 ALT 24 Alkaline Phosphatase 55 Total Protein 6.0 L Albumin 3.2 L Blood Type A Negative Antibody Screen Negative Quality VTE Prophylaxis VTE prophylaxis: mechanical ordered
--- NOTE | 2025-03-06 16:17 | W.PM.PROC2 ---
Procedure Note - Detailed Date of Procedure 03/06/25 Pre-op Diagnosis High-grade small-bowel obstruction Post-op Diagnosis Other ( High-grade distal closed loop small bowel obstruction secondary to abdominal adhesions) Procedure Performed Exploratory laparotomy with abdominal adhesiolysis and incidental open appendectomy Surgeon Saroj Cavanaugh MD Panel Beater Ara Matta NP, Laurie GUILLORY Anesthesia General Indications Patient is a 75-year-old female who presented to the [facility] Emergency Room yesterday complaining of most one-week history of abdominal pain a not having any bowel movements. She was having nausea vomiting on the day she went to the emergency room. Her prior history of surgery include and open hysterectomy and a laparoscopic cholecystectomy. White blood cell count was normal and a CT scan abdomen pelvis was done showing a distal small bowel closed loop obstruction likely due to adhesions. She is being brought to the operating now for an urgent exploratory laparotomy and an abdominal adhesiolysis. Findings The patient had a single adhesion of Daniel's veil which caused a closed loop distal small bowel obstruction in the terminal ileum. There were other interloop adhesions and some adhesions of the omentum to the abdominal wall which were divided as well but were not involved with the obstruction. She also had incarcerated omentum within a ventral hernia with no bowel within the hernia. All the small bowel and colon appeared to be viable without evidence of any ischemia or necrosis. There was no perforation or abscess. Description of Procedure After informed consent was obtained patient was brought to the operating room she was placed supine position and general endotracheal anesthesia was administered. The patient already had a Bell catheter in place. the nasogastric tube was already in place as well. The abdomen was then prepped and draped usual sterile fashion. A time-out was then performed correctly identifying the patient as well as procedure to be performed. She was already getting scheduled IV antibiotics. I then started by making a midline incision extending from the mid epigastric region all the way down to the lower abdomen between the umbilicus and pubic symphysis. I then dissected down through the subcu tissue electrocautery. I dissected down to the hernia sac in the periumbilical region and then opened the hernia sac to find viable incarcerated omentum within the hernia sac. I then further opened the hernia sac and I found the edge of the fascia and then opened the fascia cephalad and then amputated portion omentum which was incarcerated within the hernia sac. Clamps were placed across the omentum the omentum was divided and then the omentum was ligated with 2-0 silk sutures. I then continued to open the midline incision through the hernia defect until the midline fascia was opened mesh length of the skin incision. I then proceeded to viscera the small bowel. It was moderately dilated. There was no evidence of perforation small bowel. I viscera the small bowel and followed it down to the terminal ileum or I found a single adhesion of Daniel's veil which had become adherent to the mesentery in the area causing a closed loop distal small-bowel obstruction. The bowel was minimally ischemic and there was no perforation and all the small bowel was viable. I proceeded to divide the adhesion of Daniel's veil to release the constriction on loop of small bowel. Once this was done the loop it medially opened up and I examined the area of constriction. It was viable and I was able to be palpate the lumen in the area which was adequate. There was no perforation the area. I then proceeded to run the small bowel from ligament Treitz all the way down to the ileocecal valve. There were acute a few minor interloop adhesions which were not causing any obstructions but they were divided with combination of cautery and scissor dissection. I then proceeded to palpate the nasogastric tube in the stomach. I then milked all the small bowel contents back up into the stomach and was then suctioned out the NG tube. Approximately1.5L of succus was aspirated. I then decided to go ahead and proceed with removing the appendix with an incidental open appendectomy. A defect was made through the mesoappendix just at the base with electrocautery and then a Rakel clamp was placed across the base of the appendix. I then divided the mesoappendix between clamps and ligated off the mesoappendix with 2-0 silk sutures. The appendix was then divided distal to the clamp at the base and the appendix was passed off table sent to pathology for examination. I then ligated the appendiceal stump with a 0 silk suture and treated the mucosa electrocautery. I then imbricated the appendiceal stump by placement of multiple interrupted 3-0 silk sutures placed in Lembert fashion. I then irrigated the abdomen with sterile saline solution. Hemostasis was good. I then pulled the omentum down over the small bowel and proceeded to close the abdomen. A #1 looped PDS suture was started at each end of the incision and around into the med each other just below umbilicus. The 2 sutures were then tied together. I then injected 60cc of 1% lidocaine mixed with 0.5% Marcaine 50 50 mixture with some epinephrine the subcutaneous tissues around the incision. The incision was then closed in the subcutaneous layer by placement of interrupted 3-0 Vicryl sutures and layers of running 3-0 Vicryl sutures. The skin edges were then approximated utilizing a running subcuticular 4-0 Monocryl suture. The incision was then cleaned the skin glue was applied. Abdominal binder was placed. The patient tolerated the procedure well no complications. All sponges, needles, and instrument counts were correct at the end procedure. EBL was __50_cc. The patient was awakened and taken to recovery in stable and satisfactory condition. Implants None Estimated Blood Loss 50 Drains No Packing No Pathology Yes ( hernia sac and appendix sent to pathology) Complications No immediate complications Condition Stable Disposition PACU [facility] Billing Surgery - Charge Forward: Surgery Billing
[2025-03-06] MEDS: fentaNYL CITRATE INJ (*CRX) 100 MCG/2 ML VIAL 25 MCG IV PUSH ×6 (16:28→17:22)
[2025-03-06] MEDS: IBUPROFEN IV 800 MG/200 ML 800 MG/200 ML BAG 400 MG IVPB (18:08)
[2025-03-06] MEDS: METOCLOPRAMIDE HCL INJ 10 MG/2 ML VIAL IV PUSH (18:09)
[2025-03-06 18:52] LABS: Alanine Aminotransferase 20 U/L (6-35); Albumin Level 2.6 g/dL (3.5-5.1); Alkaline Phosphatase 47 U/L (38-126); Anion Gap 9 mmol/L (4-12); Aspartate Amino Transferase 36 U/L (14-36); Bilirubin,Total 0.9 mg/dL (0.2-1.3); Blood Urea Nitrogen 42 mg/dL (7-17); Calcium 8.9 mg/dL (8.4-10.2); Carbon Dioxide 28 mmol/L (22-30); Chloride 102 mmol/L (98-107); Estimated CRCL calculation 47 ml/min; Estimated Glomerular Filt Rate > 60; Glucose 167 mg/dL (65-110); Potassium 3.5 mmol/L (3.4-5.0); Sodium 139 mmol/L (137-145); Total Protein 5.1 g/dL (6.3-8.2)
--- NOTE | 2025-03-07 | CONSULT_PTH ---
PATIENT: Flory Khoury LOC: [id number] U#:[id number] AGE/SX: 75/F ROOM: 326 RE03/05/[address]: Shira Cloud MD : 1950 BED: 01 DIS: 03/18/2025 SPEC #: [id number] RECD: 03/07/25 15:31 STATUS: SOUJerson REQ #: [id number] JENI: 03/07/25 00:[address]: Shira Cloud DEPT: [facility] Consult RECD BY: Greg Colon MLT, ([facility]) ENTERED: 03/07/25 15:33 SP TYPE: Consult OTHR DR: DO Saroj Benavides MD Tissues: A - Smear Procedures: Hematology Consult
[2025-03-07 00:33] VITALS: BP 137/74; PULSE 103; RESP 20; TEMP 36.2; O2SAT 92
[2025-03-07] MEDS: METOCLOPRAMIDE HCL INJ 10 MG/2 ML VIAL IV PUSH ×3 (02:06→17:56)
[2025-03-07] MEDS: IBUPROFEN IV 800 MG/200 ML 800 MG/200 ML BAG 400 MG IVPB ×3 (02:06→17:22)
[2025-03-07] MEDS: PIPERACILLIN/TAZ 2.25G/NS 50ML 2.25 GM/50 ML BAG IVPB ×4 (05:08→22:03)
[2025-03-07] MEDS: MAG HYDROX/AL HYDROX/SIMETH 30 ML UDC PO ×3 (05:08→22:03)
[2025-03-07 06:00] VITALS: BP 128/56; PULSE 102; RESP 28; TEMP 36.4; O2SAT 92
[2025-03-07 06:17] LABS: Hematocrit 52.6 % (37.0-47.0); Hemoglobin 16.8 g/dL (12.0-15.0); Mean Corpuscular HGB Conc 31.9 g/dl (32-36); Mean Corpuscular Hemoglobin 33.7 pg (26-34); Mean Corpuscular Volume 105.4 fl (80-100); Platelet Count Result 161 k/mm3 (150-375); Red Blood Count 4.99 M/mm3 (4.2-5.4); White Blood Count 6.3 K/mm3 (4.5-10.0)
[2025-03-07 08:28] LABS: Alanine Aminotransferase 21 U/L (6-35); Albumin Level 2.7 g/dL (3.5-5.1); Alkaline Phosphatase 51 U/L (38-126); Anion Gap 8 mmol/L (4-12); Aspartate Amino Transferase 41 U/L (14-36); Bilirubin,Total 0.6 mg/dL (0.2-1.3); Blood Urea Nitrogen 55 mg/dL (7-17); Calcium 8.9 mg/dL (8.4-10.2); Carbon Dioxide 33 mmol/L (22-30); Chloride 100 mmol/L (98-107); Estimated CRCL calculation 27 ml/min; Estimated Glomerular Filt Rate 41; Glucose 172 mg/dL (65-110); Magnesium 2.4 mg/dL (1.6-2.3); Potassium 4.4 mmol/L (3.4-5.0); Sodium 141 mmol/L (137-145); Total Protein 5.3 g/dL (6.3-8.2)
[2025-03-07] MEDS: LACTATED RINGERS 1,000 ML 130 ML IV CONT (09:46)
[2025-03-07] MEDS: PANTOPRAZOLE SODIUM IV 40 MG VIAL IV PUSH (09:47)
[2025-03-07] MEDS: LIDOCAINE 5% PATCH 1 PATCH TRANSDERM (09:47)
[2025-03-07 09:59] VITALS: O2SAT 92
--- NOTE | 2025-03-07 12:07 | WPDPN ---
Progress Note: A&P Assessment and Plan (1) SBO (small bowel obstruction): Code(s): K56.609 - Unspecified intestinal obstruction, unspecified as to partial versus complete obstruction Status: Acute Assessment and Plan: Small-bowel obstruction resolved after exploratory laparotomy adhesiolysis. All the small bowel was viable. She will have a prolonged small-bowel postoperative ileus due to the bowel obstruction and surgery. Continue with NG tube decompression for now. Will have PT and OT start getting her up out of bed to chair at bedside. Continue supportive management. (2) Malnutrition: Code(s): E46 - Unspecified protein-calorie malnutrition Status: Acute Assessment and Plan: Patient really is not had any p.o. intake for about a week. Her albumin is 2.7. Will have a PICC line placed tomorrow start TPN. (3) JAMEL (acute kidney injury): Code(s): N17.9 - Acute kidney failure, unspecified Status: Acute Assessment and Plan: Creatinine has increase in BUN remains high. Likely due to some degree of a under resuscitation. We will go and give her a 500 cc bolus of normal saline today and change her IV fluids to normal saline [id number]. Leave the Bell in for now to closely monitor urine output. If her creatinine increases further tomorrow then may need to get a Nephrology consult. Subjective Date/time seen: 03/07/25 12:07 Interval history: Postop day 1 after exploratory laparotomy with abdominal he has had lysis for closed loop small bowel obstruction due to adhesions. She also incidental open appendectomy at the time. None of the bowel was ischemic and was all viable. She has been doing better today. Her crampy abdominal pain has resolved. She only has pain at the incision. Bell catheter remains in place as her urine output has been on the low side. Creatinine has increased to 1.2 from 0.7. BUN is still high suggestive of possible dehydration on top of acute kidney injury. Exam GI: Other: Abdomen is soft and mildly distended. Bowel sounds are quiet. Midline incision intact without redness or drainage. Objective Data Vital Signs Vital Signs: Vital Signs - 24 hr 03/06/25 12:25 03/06/25 16:17 03/06/25 16:30 Temperature 37.3 C 36.9 C Pulse Rate 103 H 107 H 109 H Respiratory Rate 22 H 18 25 H Blood Pressure 122/64 95/63 L 131/57 L Pulse Oximetry 92 98 98 Oxygen Delivery Room Air Simple Face Mask Simple Face Mask Oxygen Flow Rate 10 10 03/06/25 16:45 03/06/25 17:00 03/06/25 17:15 Temperature Pulse Rate 109 H 114 H 115 H Respiratory Rate 20 24 H 18 Blood Pressure 145/55 H 141/65 H 142/65 H Pulse Oximetry 96 91 95 Oxygen Delivery Simple Face Mask Room Air Nasal Cannula Oxygen Flow Rate 10 2 03/06/25 17:30 03/06/25 17:54 03/06/25 21:07 Temperature 36.6 C Pulse Rate 117 H 120 H Respiratory Rate 20 18 Blood Pressure 137/64 144/71 H Pulse Oximetry 94 98 93 Oxygen Delivery Nasal Cannula Nasal Cannula Oxygen Flow Rate 2 1 03/06/25 21:40 03/06/25 22:39 03/07/25 00:33 Temperature 36.2 C L 36.2 C L Pulse Rate 107 H 107 H 103 H Respiratory Rate 24 H 24 H 20 Blood Pressure 130/73 137/74 Pulse Oximetry 93 93 92 Oxygen Delivery Nasal Cannula Oxygen Flow Rate 1 03/07/25 06:00 03/07/25 08:00 03/07/25 09:59 Temperature 36.4 C Pulse Rate 102 H Respiratory Rate 28 H Blood Pressure 128/56 L Pulse Oximetry 92 92 Oxygen Delivery Room Air Room Air Oxygen Flow Rate Intake/Output Intake/Output: Intake & Output 03/04/25 03/05/25 03/06/25 03/07/25 23:59 23:59 23:59 23:59 Intake Total 503.3 3746.7 1370 Output Total 900 1470 200 Balance -396.7 2276.7 1170 Meds/Results Medications: Active Medications Generic Name Dose Route Start Last Admin Trade Name Freq PRN Reason Stop Dose Admin Acetaminophen 650 mg 03/05/25 17:30 Acetaminophen 650 Mg Suppository RECTAL Q6H PRN Mild Pain (1-3) or Fever Al Hydrox/Mg Hydrox/Simethicone 30 ml 03/05/25 21:00 03/07/25 05:08 Mag Hydrox/Al Hydrox/Simeth 30 Ml Udc PO 30 ml Q8H ANSELMO Administration Dextrose 12.5 gm 03/05/25 17:30 Dextrose 50% 25 Gm/50 Ml Syringe IV PUSH PRN PRN Hypoglycemia Protocol Diazepam 5 mg 03/07/25 09:00 Diazepam Inj (*Crx) 10 Mg/2 Ml Syringe IV PUSH QAM ANSELMO Diazepam 5 mg 03/06/25 22:50 Diazepam Inj (*Crx) 10 Mg/2 Ml Syringe IV PUSH DAILY PRN Anxiety Glucagon 1 mg 03/05/25 17:30 Glucagon For Inj 1 Mg Vial IM PRN PRN Hypoglycemia Protocol Glucose 15 gm 03/05/25 17:30 Glucose Oral Gel 15 Gm Of Glucse In 37.5 Gm Tube PO PRN PRN Hypoglycemia Protocol Hydromorphone HCl 0.5 mg 03/05/25 20:53 Hydromorphone Hcl Inj (*Crx) 2 Mg/Ml Vial IV PUSH Q3H PRN Pain Rated 4-6 Hydromorphone HCl 1 mg 03/05/25 20:53 03/06/25 05:02 Hydromorphone Hcl Inj (*Crx) 2 Mg/Ml Vial IV PUSH 1 mg Q4H PRN Administration Pain Rated 7-10 Dextrose 1,000 mls @ 100 mls/hr 03/05/25 17:30 Dextrose 5% 1,000 Ml IVPB PRN PRN Hypoglycemia Protocol Piperacillin Sod/Tazobactam Sod 2.25 gm in 50 mls @ 100 mls/hr 03/06/25 04:00 03/07/25 09:53 Zosyn 2.25 Gm/Ns 50 Ml IVPB 100 mls/hr Q6H ANSELMO Administration Ibuprofen 800 mg in 200 mls @ 400 mls/hr 03/06/25 18:00 03/07/25 10:32 Caldolor 800 Mg/200 Ml IVPB 400 mls/hr Q8H ANSELMO Administration Sodium Chloride 1,000 mls @ 125 mls/hr 03/07/25 12:00 Normal Saline Iv IV CONT .Q8H ANSELMO Sodium Chloride 500 mls @ 500 mls/hr 03/07/25 11:59 Normal Saline Iv IV CONT 03/07/25 12:58 .Q1H ONE Insulin Aspart 2 - 5 units 03/05/25 18:00 03/07/25 06:51 Insulin Aspart (*Bkc) 100 Units/Ml SUB-Q Not Given Q6HR ANSELMO Protocol Lidocaine 1 patch 03/07/25 09:00 03/07/25 09:47 Lidocaine 5% Patch TRANSDERM 1 patch DAILY ANSELMO Administration Metoclopramide HCl 10 mg 03/06/25 18:00 03/07/25 09:47 Metoclopramide Hcl Inj 10 Mg/2 Ml Vial IV PUSH 10 mg Q8H ANSELMO Administration Naloxone HCl 0.1 mg 03/05/25 17:30 Naloxone Hcl 0.4 Mg/Ml Vial IV PUSH Q5MIN PRN Sedation Pantoprazole Sodium 40 mg 03/06/25 09:00 03/07/25 09:47 Pantoprazole Sodium Iv 40 Mg Vial IV PUSH 40 mg QAM ANSELMO Administration Labs Labs: Laboratory Results - last 24 hr 03/06/25 03/06/25 03/06/25 13:19 16:30 18:11 WBC RBC Hgb Hct MCV MCH MCHC RDW Plt Count MPV Sodium Potassium Chloride Carbon Dioxide Anion Gap BUN Creatinine Estim Creat Clear Calc Estimated GFR Glucose POC Capillary Glucose 135 H 137 H 175 H Calcium Phosphorus Magnesium Total Bilirubin AST ALT Alkaline Phosphatase Total Protein Albumin 03/06/25 03/07/25 03/07/25 18:30 00:03 06:00 WBC RBC Hgb Hct MCV MCH MCHC RDW Plt Count MPV Sodium 139 141 Potassium 3.5 4.4 Chloride 102 100 Carbon Dioxide 28 33 H Anion Gap 9 8 BUN 42 H D 55 H D Creatinine 0.71 1.28 H Estim Creat Clear Calc 47 27 Estimated GFR > 60 41 L Glucose 167 H 172 H POC Capillary Glucose 163 H Calcium 8.9 8.9 Phosphorus 4.1 4.7 H Magnesium 2.4 H Total Bilirubin 0.9 0.6 AST 36 41 H ALT 20 21 Alkaline Phosphatase 47 51 Total Protein 5.1 L 5.3 L Albumin 2.6 L 2.7 L 03/07/25 03/07/25 03/07/25 06:01 06:08 07:55 WBC 6.3 RBC 4.99 Hgb 16.8 H Hct 52.6 H MCV 105.4 H MCH 33.7 MCHC 31.9 L RDW 13.6 Plt Count 161 MPV 12.2 H Sodium Potassium Chloride Carbon Dioxide Anion Gap BUN Creatinine Estim Creat Clear Calc Estimated GFR Glucose POC Capillary Glucose 159 H 186 H Calcium Phosphorus Magnesium Total Bilirubin AST ALT Alkaline Phosphatase Total Protein Albumin 03/07/25 11:52 WBC RBC Hgb Hct MCV MCH MCHC RDW Plt Count MPV Sodium Potassium Chloride Carbon Dioxide Anion Gap BUN Creatinine Estim Creat Clear Calc Estimated GFR Glucose POC Capillary Glucose 172 H Calcium Phosphorus Magnesium Total Bilirubin AST ALT Alkaline Phosphatase Total Protein Albumin
[2025-03-07] MEDS: SODIUM CHLORIDE 0.9% IV 500 ML IV CONT (12:18)
[2025-03-07] MEDS: diazePAM INJ (*CRX) 10 MG/2 ML SYRINGE 2.5 MG IV PUSH (12:21)
[2025-03-07] MEDS: SODIUM CHLORIDE 0.9% IV 1,000 ML 125 ML IV CONT (13:54)
[2025-03-07 14:00] VITALS: BP 132/76; PULSE 98; RESP 18; TEMP 36.8; O2SAT 94
[2025-03-07 14:16] LABS: Hematocrit 46.9 % (37.0-47.0); Hemoglobin 15.1 g/dL (12.0-15.0); Mean Corpuscular HGB Conc 32.2 g/dl (32-36); Mean Corpuscular Hemoglobin 33.4 pg (26-34); Mean Corpuscular Volume 103.8 fl (80-100); Platelet Count Result 138 k/mm3 (150-375); Red Blood Count 4.52 M/mm3 (4.2-5.4); White Blood Count 7.8 K/mm3 (4.5-10.0)
[2025-03-07 14:36] LABS: Alanine Aminotransferase 18 U/L (6-35); Albumin Level 2.4 g/dL (3.5-5.1); Alkaline Phosphatase 46 U/L (38-126); Anion Gap 8 mmol/L (4-12); Aspartate Amino Transferase 25 U/L (14-36); Bilirubin,Total 0.5 mg/dL (0.2-1.3); Blood Urea Nitrogen 58 mg/dL (7-17); Calcium 8.1 mg/dL (8.4-10.2); Carbon Dioxide 29 mmol/L (22-30); Chloride 102 mmol/L (98-107); Estimated CRCL calculation 25 ml/min; Estimated Glomerular Filt Rate 38; Glucose 142 mg/dL (65-110); Magnesium 2.2 mg/dL (1.6-2.3); Potassium 3.8 mmol/L (3.4-5.0); Sodium 139 mmol/L (137-145); Total Protein 4.8 g/dL (6.3-8.2)
[2025-03-07 14:40] LABS: Partial Thromboplastin Time 25.5 Seconds (22.3-36.8)
[2025-03-07 14:43] LABS: Transferrin 81 mg/dL (206-381)
--- NOTE | 2025-03-07 14:59 | PCNFU ---
Nutrition Follow-Up Complete: Inadequate energy intake related to NPO status as evidenced by current diet order Goal:Meet estimated needs pt not meeting goal Pt current nutrition is NPO. Nutrition recommendation: initiate nutrition support, either PPN or TPN Last recorded weight is 60.1 kg. Bowel Motility: No recent BMs recorded, last one is 02/28 Labs Reviewed: Hgb:15.1, alb:2.4, BUN:58, Cr:1.4, Glu:142 Meds Noted: lactated ringers Skin: WNL Additional Notes: Pt remains NPO, new orders this afternoon for TPN to start for nutrition support. Clinimix E 01/16 @ 40ml/hr to provide 1182kcals, 48g protein. Agree with orders, sufficient to meet estimated needs. Monitor plan of care, diet orders, TPN, wt, labs. Follow up every Monday and Monday
--- NOTE | 2025-03-07 15:02 | P.PNIM_ITS ---
Progress Note: A&P Assessment and Plan (1) Complete small bowel obstruction: Code(s): K56.601 - Complete intestinal obstruction, unspecified as to cause Status: Inactive Assessment and Plan: - CT abdomen/pelvis: 1. Closed loop small bowel obstruction the right lower quadrant without evidence secondary ischemia. 2. Fat and small amount of ascites within a moderate-sized left lower quadrant ventral hernia. 3. Small fat-containing left inguinal hernia. - general surgery consulted, Mao DANIELSON has history of prior hysterectomy raising concerns for adhesions causing bowel obstruction, process likely been ongoing for the past several days and will likely need exploratory laparotomy possibly tomorrow on 03/06 variant upon their exam no acute surgical abdomen and patient is hemodynamically stable with lactate levels only mildly elevated - NPO except ice chips - analgesics and antiemetics p.r.n. - monitor electrolytes and renal function - monitor I&Os - IV fluids: 1.5L -> 100 mL/hr - history of diabetes, glucose checks q.6 with sliding scale q.6 - NG placed at [facility] on 03/05, confirmed via abdominal XR.? Placed on low intermittent suction. (2) Type 2 diabetes mellitus: Qualifiers: Diabetes mellitus intermediate insulin use: without intermediate use Diabetes mellitus complication status: without complication Qualified Code(s): E11.9 - Type 2 diabetes mellitus without complications Code(s): E11.9 - Type 2 diabetes mellitus without complications Status: Acute Assessment and Plan: - hypoglycemia protocol - POC blood glucose Q6H - hold home medications: Jardiance, home sliding scale - correct regimen ordered - low dose Q6H while NPO - A1C 5.2% on 03/03/2025 (3) Autoimmune hepatitis: Code(s): K75.4 - Autoimmune hepatitis Status: Acute Assessment and Plan: - continue home medication(s) Prednisone and Azathioprine once no longer NPO (4) HTN (hypertension): Qualifiers: Hypertension type: primary hypertension Qualified Code(s): I10 - Essential (primary) hypertension Code(s): I10 - Essential (primary) hypertension Status: Acute Assessment and Plan: - chronic, currently 146/79 - currently NPO, will hold home medications including amlodipine - monitor Plan patient with abdominal pain, nausea and no BM for a week presented to outside hospital and is found to have SBO, was seen by general surgery service, and had exploratory laparotomy adhesiolysis on 03/06 POD #1, patient is not passing any gas and no BM, patient is placed on NG tube to decompressed. patient is clinically stable, will continue to monitor, seen by surgery service, patient is present in the room. Diet: NPO except ice chips GI Prophylaxis: pantoprazole DVT Prophylaxis: SCDs IV fluids: LR 130 mL/hour Lines/Tubes: peripheral IV, NG tube Code Status: full code Subjective Date/time seen: 03/07/25 15:02 Interval history: Abdominal Pain, Constipation H&P-Narrative: 75 y/o F with PMH of diabetes, hypertension, hyperlipidemia, and autoimmune hepatitis presents here with abdominal pain and constipation. The patient presented to [facility] on 03/05 from home for further evaluation of constipation and abdominal pain.? She reports her last bowel movement was 1 week ago.? It is accompanied by severe/diffuse abdominal pain and nausea without vomiting.? She further describes the abdominal pain as dull to sharp, achy/cramping, radiation into her back, constant, (duration), no modifying factors.? She denies accompanying fever, chills, or body aches. ?She was evaluated by her order worker on 03/03 where she reported mild nausea and constipation.? She was instructed to stop her Ozempic as she believes this may be the cause of her constipation abdominal pain.? Her next dose of Ozempic was due today, 03/05. Initial VS at presentation: ?98.3? F, HR 124, RR 16, 118/93, and 97% on RA. ED workup showed: ?No leukocytosis, hemoglobin 18.5 (16.0 on 02/04), INR 1.2, sodium 133, creatinine 1.07 and GFR 50 (0.85 and GFR >60 on 03/03), glucose 270, osmolality 305, lactic 2.7, initial troponin 0.024 and lipase within normal limits.? Abdominal XR showed a high-grade small bowel obstruction.? CT of the abdomen/pelvis showed a closed loop SBO in the right lower quadrant without evidence of secondary ischemia, fat and small amount of ascites within a moderate sized left lower quadrant ventral hernia, small fat containing left inguinal hernia. patient with abdominal pain, nausea and no BM for a week presented to outside hospital and is found to have SBO, was seen by general surgery service, and had exploratory laparotomy adhesiolysis on 03/06 POD #1, patient is not passing any gas and no BM, patient is placed on NG tube to decompressed. patient is clinically stable, will continue to monitor, seen by surgery service, patient is present in the room. Review of Systems Review of Systems: All systems reviewed & are unremarkable except as noted in HPI and below Exam Narrative: Appears chronically ill elderly frail Patient is comfortable, NAD HEENT: eyes are clear and none icteric, NG Tube in place. LUNGS:CTA HEART: RR S1S2 ABD: BS+, Soft and nontender Lower extremities: no edema SKIN: nonjaundiced Neuro: grossly intact. Objective Data Vital Signs Vital Signs: Vital Signs - 24 hr 03/06/25 16:17 03/06/25 16:30 03/06/25 16:45 Temperature 36.9 C Pulse Rate 107 H 109 H 109 H Respiratory Rate 18 25 H 20 Blood Pressure 95/63 L 131/57 L 145/55 H Pulse Oximetry 98 98 96 Oxygen Delivery Simple Face Mask Simple Face Mask Simple Face Mask Oxygen Flow Rate 10 10 10 03/06/25 17:00 03/06/25 17:15 03/06/25 17:30 Temperature Pulse Rate 114 H 115 H 117 H Respiratory Rate 24 H 18 20 Blood Pressure 141/65 H 142/65 H 137/64 Pulse Oximetry 91 95 94 Oxygen Delivery Room Air Nasal Cannula Nasal Cannula Oxygen Flow Rate 2 2 03/06/25 17:54 03/06/25 21:07 03/06/25 21:40 Temperature 36.6 C 36.2 C L Pulse Rate 120 H 107 H Respiratory Rate 18 24 H Blood Pressure 144/71 H 130/73 Pulse Oximetry 98 93 93 Oxygen Delivery Nasal Cannula Oxygen Flow Rate 1 03/06/25 22:39 03/07/25 00:33 03/07/25 06:00 Temperature 36.2 C L 36.4 C Pulse Rate 107 H 103 H 102 H Respiratory Rate 24 H 20 28 H Blood Pressure 137/74 128/56 L Pulse Oximetry 93 92 92 Oxygen Delivery Nasal Cannula Oxygen Flow Rate 1 03/07/25 08:00 03/07/25 09:59 03/07/25 14:00 Temperature 36.8 C Pulse Rate 98 Respiratory Rate 18 Blood Pressure 132/76 Pulse Oximetry 92 94 Oxygen Delivery Room Air Room Air Oxygen Flow Rate Intake/Output Intake/Output: Intake & Output 03/04/25 03/05/25 03/06/25 03/07/25 23:59 23:59 23:59 23:59 Intake Total 503.3 3746.7 1620 Output Total 900 1470 200 Balance -396.7 2276.7 1420 Meds/Results Medications: Active Medications Generic Name Dose Route Start Last Admin Trade Name Freq PRN Reason Stop Dose Admin Acetaminophen 650 mg 03/05/25 17:30 Acetaminophen 650 Mg Suppository RECTAL Q6H PRN Mild Pain (1-3) or Fever Al Hydrox/Mg Hydrox/Simethicone 30 ml 03/05/25 21:00 03/07/25 12:18 Mag Hydrox/Al Hydrox/Simeth 30 Ml Udc PO 30 ml Q8H ANSELMO Administration Dextrose 12.5 gm 03/05/25 17:30 Dextrose 50% 25 Gm/50 Ml Syringe IV PUSH PRN PRN Hypoglycemia Protocol Diazepam 2.5 mg 03/07/25 12:15 03/07/25 12:21 Diazepam Inj (*Crx) 10 Mg/2 Ml Syringe IV PUSH 2.5 mg QAM ANSELMO Administration Glucagon 1 mg 03/05/25 17:30 Glucagon For Inj 1 Mg Vial IM PRN PRN Hypoglycemia Protocol Glucose 15 gm 03/05/25 17:30 Glucose Oral Gel 15 Gm Of Glucse In 37.5 Gm Tube PO PRN PRN Hypoglycemia Protocol Hydromorphone HCl 0.5 mg 03/05/25 20:53 Hydromorphone Hcl Inj (*Crx) 2 Mg/Ml Vial IV PUSH Q3H PRN Pain Rated 4-6 Hydromorphone HCl 1 mg 03/05/25 20:53 03/06/25 05:02 Hydromorphone Hcl Inj (*Crx) 2 Mg/Ml Vial IV PUSH 1 mg Q4H PRN Administration Pain Rated 7-10 Dextrose 1,000 mls @ 100 mls/hr 03/05/25 17:30 Dextrose 5% 1,000 Ml IVPB PRN PRN Hypoglycemia Protocol Piperacillin Sod/Tazobactam Sod 2.25 gm in 50 mls @ 100 mls/hr 03/06/25 04:00 03/07/25 10:23 Zosyn 2.25 Gm/Ns 50 Ml IVPB Infused Q6H ANSELMO Infusion Ibuprofen 800 mg in 200 mls @ 400 mls/hr 03/06/25 18:00 03/07/25 11:00 Caldolor 800 Mg/200 Ml IVPB Infused Q8H ANSELMO Infusion Sodium Chloride 1,000 mls @ 125 mls/hr 03/07/25 12:00 03/07/25 13:54 Normal Saline Iv IV CONT 125 mls/hr .Q8H ANSELMO Administration Dextrose 1,000 mls @ 50 mls/hr 03/07/25 13:28 Dextrose 10% IV CONT .Q20H PRN if PN is interrupted Multivitamins 1.25 ml/ 1,002.5 mls @ 40 mls/hr 03/07/25 15:00 Multivitamins 1.25 ml/ Amino IV CONT Acids/Electrolytes/Dextrose .Q24H [facility] Protocol Fat Emulsion Intravenous 250 mls @ 20.833 mls/hr 03/07/25 15:00 Lipids 20% IVPB Q24H ANSELMO Insulin Aspart 2 - 5 units 03/05/25 18:00 03/07/25 12:14 Insulin Aspart (*Bkc) 100 Units/Ml SUB-Q Not Given Q6HR [facility] Protocol Lidocaine 1 patch 03/07/25 09:00 03/07/25 09:47 Lidocaine 5% Patch TRANSDERM 1 patch DAILY ANSELMO Administration Metoclopramide HCl 10 mg 03/06/25 18:00 03/07/25 09:47 Metoclopramide Hcl Inj 10 Mg/2 Ml Vial IV PUSH 10 mg Q8H ANSELMO Administration Naloxone HCl 0.1 mg 03/05/25 17:30 Naloxone Hcl 0.4 Mg/Ml Vial IV PUSH Q5MIN PRN Sedation Pantoprazole Sodium 40 mg 03/06/25 09:00 03/07/25 09:47 Pantoprazole Sodium Iv 40 Mg Vial IV PUSH 40 mg QAM ANSELMO Administration Labs Labs: Laboratory Results - last 24 hr 03/06/25 03/06/25 03/06/25 16:30 18:11 18:30 WBC RBC Hgb Hct MCV MCH MCHC RDW Plt Count MPV Immature Gran % (Auto) Neut % (Auto) Lymph % (Auto) [place] % (Auto) Eos % (Auto) Baso % (Auto) Lymph # (Auto) [place] # (Auto) Eos # (Auto) Baso # (Auto) Abs Immat Gran (auto) Absolute Neuts (auto) Absolute Nucleated RBC Nucleated RBC % APTT Sodium 139 Potassium 3.5 Chloride 102 Carbon Dioxide 28 Anion Gap 9 BUN 42 H D Creatinine 0.71 Estim Creat Clear Calc 47 Estimated GFR > 60 Glucose 167 H POC Capillary Glucose 137 H 175 H Calcium 8.9 Phosphorus 4.1 Magnesium Transferrin Total Bilirubin 0.9 AST 36 ALT 20 Alkaline Phosphatase 47 Total Protein 5.1 L Albumin 2.6 L 03/07/25 03/07/25 03/07/25 00:03 06:00 06:01 WBC 6.3 RBC 4.99 Hgb 16.8 H Hct 52.6 H MCV 105.4 H MCH 33.7 MCHC 31.9 L RDW 13.6 Plt Count 161 MPV 12.2 H Immature Gran % (Auto) Neut % (Auto) Lymph % (Auto) [place] % (Auto) Eos % (Auto) Baso % (Auto) Lymph # (Auto) [place] # (Auto) Eos # (Auto) Baso # (Auto) Abs Immat Gran (auto) Absolute Neuts (auto) Absolute Nucleated RBC Nucleated RBC % APTT Sodium 141 Potassium 4.4 Chloride 100 Carbon Dioxide 33 H Anion Gap 8 BUN 55 H D Creatinine 1.28 H Estim Creat Clear Calc 27 Estimated GFR 41 L Glucose 172 H POC Capillary Glucose 163 H Calcium 8.9 Phosphorus 4.7 H Magnesium 2.4 H Transferrin Total Bilirubin 0.6 AST 41 H ALT 21 Alkaline Phosphatase 51 Total Protein 5.3 L Albumin 2.7 L 03/07/25 03/07/25 03/07/25 06:08 07:55 11:52 WBC RBC Hgb Hct MCV MCH MCHC RDW Plt Count MPV Immature Gran % (Auto) Neut % (Auto) Lymph % (Auto) [place] % (Auto) Eos % (Auto) Baso % (Auto) Lymph # (Auto) [place] # (Auto) Eos # (Auto) Baso # (Auto) Abs Immat Gran (auto) Absolute Neuts (auto) Absolute Nucleated RBC Nucleated RBC % APTT Sodium Potassium Chloride Carbon Dioxide Anion Gap BUN Creatinine Estim Creat Clear Calc Estimated GFR Glucose POC Capillary Glucose 159 H 186 H 172 H Calcium Phosphorus Magnesium Transferrin Total Bilirubin AST ALT Alkaline Phosphatase Total Protein Albumin 03/07/25 14:10 WBC 7.8 RBC 4.52 Hgb 15.1 H Hct 46.9 MCV 103.8 H MCH 33.4 MCHC 32.2 RDW 13.6 Plt Count 138 L MPV 12.0 H Immature Gran % (Auto) Not Reportable Neut % (Auto) Not Reportable Lymph % (Auto) Not Reportable [place] % (Auto) Not Reportable Eos % (Auto) Not Reportable Baso % (Auto) Not Reportable Lymph # (Auto) Not Reportable [place] # (Auto) Not Reportable Eos # (Auto) Not Reportable Baso # (Auto) Not Reportable Abs Immat Gran (auto) Not Reportable Absolute Neuts (auto) Not Reportable Absolute Nucleated RBC Not Reportable Nucleated RBC % Not Reportable APTT 25.5 Sodium 139 Potassium 3.8 Chloride 102 Carbon Dioxide 29 Anion Gap 8 BUN 58 H Creatinine 1.36 H Estim Creat Clear Calc 25 Estimated GFR 38 L Glucose 142 H POC Capillary Glucose Calcium 8.1 L Phosphorus Magnesium 2.2 Transferrin 81 L Total Bilirubin 0.5 AST 25 ALT 18 Alkaline Phosphatase 46 Total Protein 4.8 L Albumin 2.4 L Quality VTE Prophylaxis VTE prophylaxis: mechanical ordered
[2025-03-07 15:08] LABS: Band Neutrophils Percent 53 % (0-6); Lymphocytes Absolute Manual 0.39 K/mm3 (1.1-4.5); Lymphocytes Percent Manual 5.0 % (18-44); Monocytes Absolute Manual 0.46 K/mm3 (0.1-0.90); Monocytes Percent Manual 6 % (3-9); Neutrophils Absolute Manual 6.94 K/mm3 (1.3-6.7); Neutrophils Percent Manual 36 % (46-73); Schistocytes None Seen; Total Cells Counted 100
--- NOTE | 2025-03-07 15:12 | PC.NURSE ---
PICC line order clarified per Dr. Cavanaugh. PICC line to be placed on 03/08/2025 r/t no one else in the hospital requiring [facility] and can be placed with [facility] jackhammer splitter operator on 03/08/2025. toll collector supervisor notifed. software reliability engineer notified. [facility] notified of cancellation of order for PICC. This RN spoke with Heydi with [facility]. Pharmacy notified. Patient and spouse notified of change.
[2025-03-07] MEDS: HYDROmorphone HCL INJ (*CRX) 2 MG/ML VIAL 0.5 MG IV PUSH (15:46)
[2025-03-07 20:00] VITALS: PULSE 88; RESP 20; O2SAT 94
[2025-03-07 21:15] VITALS: BP 143/77; PULSE 88; RESP 20; TEMP 36.3; O2SAT 94
[2025-03-08] MEDS: SODIUM CHLORIDE 0.9% IV 1,000 ML 125 ML IV CONT (01:56)
[2025-03-08] MEDS: METOCLOPRAMIDE HCL INJ 10 MG/2 ML VIAL IV PUSH ×3 (01:56→17:09)
[2025-03-08] MEDS: IBUPROFEN IV 800 MG/200 ML 800 MG/200 ML BAG 400 MG IVPB ×2 (01:57→09:00)
[2025-03-08] MEDS: PIPERACILLIN/TAZ 2.25G/NS 50ML 2.25 GM/50 ML BAG IVPB ×4 (05:52→21:35)
[2025-03-08] MEDS: MAG HYDROX/AL HYDROX/SIMETH 30 ML UDC PO ×3 (05:55→21:35)
[2025-03-08 06:00] VITALS: BP 133/69; PULSE 93; RESP 20; TEMP 36.7; O2SAT 93
[2025-03-08 06:45] LABS: Alanine Aminotransferase 18 U/L (6-35); Albumin Level 2.7 g/dL (3.5-5.1); Alkaline Phosphatase 54 U/L (38-126); Anion Gap 8 mmol/L (4-12); Aspartate Amino Transferase 32 U/L (14-36); Bilirubin,Total 0.5 mg/dL (0.2-1.3); Blood Urea Nitrogen 54 mg/dL (7-17); Calcium 8.0 mg/dL (8.4-10.2); Carbon Dioxide 32 mmol/L (22-30); Chloride 101 mmol/L (98-107); Estimated CRCL calculation 25 ml/min; Estimated Glomerular Filt Rate 38; Glucose 99 mg/dL (65-110); Magnesium 2.7 mg/dL (1.6-2.3); Potassium 3.7 mmol/L (3.4-5.0); Sodium 141 mmol/L (137-145); Total Protein 5.3 g/dL (6.3-8.2)
[2025-03-08 06:47] LABS: Hematocrit 49.9 % (37.0-47.0); Hemoglobin 15.7 g/dL (12.0-15.0); Mean Corpuscular HGB Conc 31.5 g/dl (32-36); Mean Corpuscular Hemoglobin 33.2 pg (26-34); Mean Corpuscular Volume 105.5 fl (80-100); Platelet Count Result 134 k/mm3 (150-375); Red Blood Count 4.73 M/mm3 (4.2-5.4); White Blood Count 6.3 K/mm3 (4.5-10.0)
[2025-03-08] MEDS: HYDROmorphone HCL INJ (*CRX) 2 MG/ML VIAL 1 MG IV PUSH ×2 (07:32→21:35)
[2025-03-08 07:39] VITALS: O2SAT 92
[2025-03-08] MEDS: LIDOCAINE 1% PF INJ 5 ML VIAL INFILTRATE (07:45)
[2025-03-08] MEDS: LIDOCAINE 5% PATCH 1 PATCH TRANSDERM (08:28)
[2025-03-08] MEDS: PANTOPRAZOLE SODIUM IV 40 MG VIAL IV PUSH (08:28)
[2025-03-08] MEDS: diazePAM INJ (*CRX) 10 MG/2 ML SYRINGE 2.5 MG IV PUSH (08:29)
[2025-03-08 09:00] VITALS: BP 134/73; PULSE 90; RESP 20; O2SAT 94
[2025-03-08] MEDS: FAT EMULSIONS IV 20% 250 ML 20.83 ML IVPB (10:53)
[2025-03-08] MEDS: AMINO ACIDS 5%/D15W/E-LYTES/CA 1,000 ML with MULTIVITAMINS-12 INJ VIAL 1 1.25 ML, MULTI... 40 ML IV CONT (10:53)
[2025-03-08 12:58] LABS: Triglycerides 87 mg/dL (<150)
--- NOTE | 2025-03-08 13:17 | PM.IMPN ---
Progress Note: A&P Assessment and Plan (1) Complete small bowel obstruction: Code(s): K56.601 - Complete intestinal obstruction, unspecified as to cause Status: Inactive Assessment and Plan: - CT abdomen/pelvis: 1. Closed loop small bowel obstruction the right lower quadrant without evidence secondary ischemia. 2. Fat and small amount of ascites within a moderate-sized left lower quadrant ventral hernia. 3. Small fat-containing left inguinal hernia. - general surgery consulted, Mao DANIELSON has history of prior hysterectomy raising concerns for adhesions causing bowel obstruction, process likely been ongoing for the past several days and will likely need exploratory laparotomy possibly tomorrow on 03/06 variant upon their exam no acute surgical abdomen and patient is hemodynamically stable with lactate levels only mildly elevated - NPO except ice chips - analgesics and antiemetics p.r.n. - monitor electrolytes and renal function - monitor I&Os - IV fluids: 1.5L -> 100 mL/hr - history of diabetes, glucose checks q.6 with sliding scale q.6 - NG placed at [facility] on 03/05, confirmed via abdominal XR.? Placed on low intermittent suction. (2) Type 2 diabetes mellitus: Qualifiers: Diabetes mellitus nursing home insulin use: without nursing home use Diabetes mellitus complication status: without complication Qualified Code(s): E11.9 - Type 2 diabetes mellitus without complications Code(s): E11.9 - Type 2 diabetes mellitus without complications Status: Acute Assessment and Plan: - hypoglycemia protocol - POC blood glucose Q6H - hold home medications: Jardiance, home sliding scale - correct regimen ordered - low dose Q6H while NPO - A1C 5.2% on 03/03/2025 (3) Autoimmune hepatitis: Code(s): K75.4 - Autoimmune hepatitis Status: Acute Assessment and Plan: - continue home medication(s) Prednisone and Azathioprine once no longer NPO (4) HTN (hypertension): Qualifiers: Hypertension type: primary hypertension Qualified Code(s): I10 - Essential (primary) hypertension Code(s): I10 - Essential (primary) hypertension Status: Acute Assessment and Plan: - chronic, currently 146/79 - currently NPO, will hold home medications including amlodipine - monitor Plan patient with abdominal pain, nausea and no BM for a week presented to outside hospital and is found to have SBO, was seen by general surgery service, and had exploratory laparotomy adhesiolysis on 03/06 POD #2, patient is not passing any gas and no BM, patient is placed on NG tube to decompressed. surgery service has started the patient on TPN, patient is clinically stable, will continue to monitor, seen by surgery service. Diet: NPO except ice chips GI Prophylaxis: pantoprazole DVT Prophylaxis: SCDs IV fluids: LR 130 mL/hour Lines/Tubes: peripheral IV, NG tube Code Status: full code Subjective Date/time seen: 03/08/25 13:17 Interval history: Abdominal Pain, Constipation H&P-Narrative: 75 y/o F with PMH of diabetes, hypertension, hyperlipidemia, and autoimmune hepatitis presents here with abdominal pain and constipation. The patient presented to [facility] on 03/05 from home for further evaluation of constipation and abdominal pain.? She reports her last bowel movement was 1 week ago.? It is accompanied by severe/diffuse abdominal pain and nausea without vomiting.? She further describes the abdominal pain as dull to sharp, achy/cramping, radiation into her back, constant, (duration), no modifying factors.? She denies accompanying fever, chills, or body aches. ?She was evaluated by her soa integration developer on 03/03 where she reported mild nausea and constipation.? She was instructed to stop her Ozempic as she believes this may be the cause of her constipation abdominal pain.? Her next dose of Ozempic was due today, 03/05. Initial VS at presentation: ?98.3? F, HR 124, RR 16, 118/93, and 97% on RA. ED workup showed: ?No leukocytosis, hemoglobin 18.5 (16.0 on 02/04), INR 1.2, sodium 133, creatinine 1.07 and GFR 50 (0.85 and GFR >60 on 03/03), glucose 270, osmolality 305, lactic 2.7, initial troponin 0.024 and lipase within normal limits.? Abdominal XR showed a high-grade small bowel obstruction.? CT of the abdomen/pelvis showed a closed loop SBO in the right lower quadrant without evidence of secondary ischemia, fat and small amount of ascites within a moderate sized left lower quadrant ventral hernia, small fat containing left inguinal hernia. patient with abdominal pain, nausea and no BM for a week presented to outside hospital and is found to have SBO, was seen by general surgery service, and had exploratory laparotomy adhesiolysis on 03/06 POD #2, patient is not passing any gas and no BM, patient is placed on NG tube to decompressed. surgery service has started the patient on TPN, patient is clinically stable, will continue to monitor, seen by surgery service. Review of Systems Review of Systems: All systems reviewed & are unremarkable except as noted in HPI and below Exam Narrative: Appears chronically ill elderly frail Patient is comfortable, NAD HEENT: eyes are clear and none icteric, NG Tube in place. LUNGS:CTA HEART: RR S1S2 ABD: BS+, Soft and nontender Lower extremities: no edema SKIN: nonjaundiced Neuro: grossly intact. Objective Data Vital Signs Vital Signs: Vital Signs - 24 hr 03/07/25 14:00 03/07/25 20:00 03/07/25 21:15 Temperature 36.8 C 36.3 C L Pulse Rate 98 88 88 Respiratory Rate 18 20 20 Blood Pressure 132/76 143/77 H Pulse Oximetry 94 94 94 Oxygen Delivery Nasal Cannula Oxygen Flow Rate 2 03/08/25 06:00 03/08/25 07:39 03/08/25 09:00 Temperature 36.7 C Pulse Rate 93 90 Respiratory Rate 20 20 Blood Pressure 133/69 134/73 Pulse Oximetry 93 92 94 Oxygen Delivery Room Air Oxygen Flow Rate 03/08/25 09:00 Temperature Pulse Rate Respiratory Rate Blood Pressure Pulse Oximetry 94 Oxygen Delivery Nasal Cannula Oxygen Flow Rate 2 Intake/Output Intake/Output: Intake & Output 03/05/25 03/06/25 03/07/25 03/08/25 23:59 23:59 23:59 23:59 Intake Total 503.3 3746.7 2920 600 Output Total 900 1470 500 750 Balance -396.7 2276.7 2420 -150 Meds/Results Medications: Active Medications Generic Name Dose Route Start Last Admin Trade Name Freq PRN Reason Stop Dose Admin Acetaminophen 650 mg 03/05/25 17:30 Acetaminophen 650 Mg Suppository RECTAL Q6H PRN Mild Pain (1-3) or Fever Al Hydrox/Mg Hydrox/Simethicone 30 ml 03/05/25 21:00 03/08/25 05:55 Mag Hydrox/Al Hydrox/Simeth 30 Ml Udc PO 30 ml Q8H ANSELMO Administration Dextrose 12.5 gm 03/05/25 17:30 Dextrose 50% 25 Gm/50 Ml Syringe IV PUSH PRN PRN Hypoglycemia Protocol Diazepam 2.5 mg 03/07/25 12:15 03/08/25 08:29 Diazepam Inj (*Crx) 10 Mg/2 Ml Syringe IV PUSH 2.5 mg QAM ANSELMO Administration Glucagon 1 mg 03/05/25 17:30 Glucagon For Inj 1 Mg Vial IM PRN PRN Hypoglycemia Protocol Glucose 15 gm 03/05/25 17:30 Glucose Oral Gel 15 Gm Of Glucse In 37.5 Gm Tube PO PRN PRN Hypoglycemia Protocol Hydromorphone HCl 0.5 mg 03/05/25 20:53 03/07/25 15:46 Hydromorphone Hcl Inj (*Crx) 2 Mg/Ml Vial IV PUSH 0.5 mg Q3H PRN Administration Pain Rated 4-6 Hydromorphone HCl 1 mg 03/05/25 20:53 03/08/25 07:32 Hydromorphone Hcl Inj (*Crx) 2 Mg/Ml Vial IV PUSH 1 mg Q4H PRN Administration Pain Rated 7-10 Dextrose 1,000 mls @ 100 mls/hr 03/05/25 17:30 Dextrose 5% 1,000 Ml IVPB PRN PRN Hypoglycemia Protocol Piperacillin Sod/Tazobactam Sod 2.25 gm in 50 mls @ 100 mls/hr 03/06/25 04:00 03/08/25 09:35 Zosyn 2.25 Gm/Ns 50 Ml IVPB Infused Q6H ANSELMO Infusion Ibuprofen 800 mg in 200 mls @ 400 mls/hr 03/06/25 18:00 03/08/25 09:30 Caldolor 800 Mg/200 Ml IVPB Infused Q8H ANSELMO Infusion Sodium Chloride 1,000 mls @ 85 mls/hr 03/07/25 12:00 03/08/25 13:15 Normal Saline Iv IV CONT Not Given .[id number] ANSELMO Dextrose 1,000 mls @ 50 mls/hr 03/07/25 13:28 Dextrose 10% IV CONT .Q20H PRN if PN is interrupted Multivitamins 1.25 ml/ 1,002.5 mls @ 40 mls/hr 03/08/25 11:00 03/08/25 10:53 Multivitamins 1.25 ml/ Amino IV CONT 40 mls/hr Acids/Electrolytes/Dextrose .Q24H ANSELMO Administration Protocol Fat Emulsion Intravenous 250 mls @ 20.833 mls/hr 03/08/25 11:00 03/08/25 10:53 Lipids 20% IVPB 20.83 mls/hr Q24H ANSELMO Administration Insulin Aspart 2 - 5 units 03/05/25 18:00 03/08/25 13:14 Insulin Aspart (*Bkc) 100 Units/Ml SUB-Q Not Given Q6HR ANSELMO Protocol Lidocaine 1 patch 03/07/25 09:00 03/08/25 08:28 Lidocaine 5% Patch TRANSDERM 1 patch DAILY ANSELMO Administration Metoclopramide HCl 10 mg 03/06/25 18:00 03/08/25 08:58 Metoclopramide Hcl Inj 10 Mg/2 Ml Vial IV PUSH 10 mg Q8H ANSELMO Administration Naloxone HCl 0.1 mg 03/05/25 17:30 Naloxone Hcl 0.4 Mg/Ml Vial IV PUSH Q5MIN PRN Sedation Pantoprazole Sodium 40 mg 03/06/25 09:00 03/08/25 08:28 Pantoprazole Sodium Iv 40 Mg Vial IV PUSH 40 mg QAM ANSELMO Administration Sodium Chloride 10 ml 03/08/25 14:00 03/08/25 13:14 Central Line Flush IV PUSH Not Given Q8HR ANSELMO Sodium Chloride 10 ml 03/08/25 08:45 Central Line Flush IV PUSH PRN PRN with TPN bag changes Sodium Chloride 20 ml 03/08/25 08:45 Central Line Flush IV PUSH PRN PRN after blood draws Radiology Results: ITS Impressions Chest X-Ray 03/08/25 08:29 IMPRESSION: Small left-sided pleural effusion without focal infiltrate. PICC line in good position and ready for immediate use. Labs Labs: Laboratory Results - last 24 hr 03/07/25 03/07/25 03/07/25 14:10 17:22 20:11 WBC 7.8 RBC 4.52 Hgb 15.1 H Hct 46.9 MCV 103.8 H MCH 33.4 MCHC 32.2 RDW 13.6 Plt Count 138 L MPV 12.0 H Immature Gran % (Auto) Not Reportable Neut % (Auto) Not Reportable Lymph % (Auto) Not Reportable [place] % (Auto) Not Reportable Eos % (Auto) Not Reportable Baso % (Auto) Not Reportable Lymph # (Auto) Not Reportable [place] # (Auto) Not Reportable Eos # (Auto) Not Reportable Baso # (Auto) Not Reportable Abs Immat Gran (auto) Not Reportable Absolute Neuts (auto) Not Reportable Absolute Nucleated RBC Not Reportable Total Counted 100 Neutrophils % (Manual) 36 L Band Neutrophils % 53 H Lymphocytes % (Manual) 5.0 L Monocytes % (Manual) 6 Nucleated RBC % Not Reportable Abs Neuts (Manual) 6.94 H Abs Lymphs (Manual) 0.39 L Abs Monocytes (Manual) 0.46 Platelet Estimate Decreased Schistocytes None seen APTT 25.5 Sodium 139 Potassium 3.8 Chloride 102 Carbon Dioxide 29 Anion Gap 8 BUN 58 H Creatinine 1.36 H Estim Creat Clear Calc 25 Estimated GFR 38 L Glucose 142 H POC Capillary Glucose 129 H 128 H Calcium 8.1 L Phosphorus Magnesium 2.2 Transferrin 81 L Total Bilirubin 0.5 AST 25 ALT 18 Alkaline Phosphatase 46 Total Protein 4.8 L Albumin 2.4 L Triglycerides 03/07/25 03/08/25 03/08/25 23:57 05:57 11:58 WBC 6.3 RBC 4.73 Hgb 15.7 H Hct 49.9 H MCV 105.5 H MCH 33.2 MCHC 31.5 L RDW 13.5 Plt Count 134 L MPV 12.4 H Immature Gran % (Auto) Neut % (Auto) Lymph % (Auto) [place] % (Auto) Eos % (Auto) Baso % (Auto) Lymph # (Auto) [place] # (Auto) Eos # (Auto) Baso # (Auto) Abs Immat Gran (auto) Absolute Neuts (auto) Absolute Nucleated RBC Total Counted Neutrophils % (Manual) Band Neutrophils % Lymphocytes % (Manual) Monocytes % (Manual) Nucleated RBC % Abs Neuts (Manual) Abs Lymphs (Manual) Abs Monocytes (Manual) Platelet Estimate Schistocytes APTT Sodium 141 Potassium 3.7 Chloride 101 Carbon Dioxide 32 H Anion Gap 8 BUN 54 H Creatinine 1.36 H Estim Creat Clear Calc 25 Estimated GFR 38 L Glucose 99 POC Capillary Glucose 118 H 135 H Calcium 8.0 L Phosphorus 3.1 Magnesium 2.7 H Transferrin Total Bilirubin 0.5 AST 32 ALT 18 Alkaline Phosphatase 54 Total Protein 5.3 L Albumin 2.7 L Triglycerides 87 Quality VTE Prophylaxis VTE prophylaxis: mechanical ordered
--- NOTE | 2025-03-08 13:44 | PCOTNOTE ---
The patient initial occupational therapy evaluation was not able to be completed on 03/08 due to RN Kim noting patient is not alert enough for evaluation. Will plan to evaluate patient when medically appropriate.
[2025-03-08 13:51] VITALS: BP 116/88; PULSE 66; RESP 16; TEMP 36.3; O2SAT 90
[2025-03-08] MEDS: SODIUM CHLORIDE 0.9% IV 1,000 ML 85 ML IV CONT (14:58)
[2025-03-08] MEDS: IBUPROFEN IV 800 MG/200 ML 800 MG/200 ML BAG 200 MG IVPB (18:26)
[2025-03-08 20:00] VITALS: PULSE 18; RESP 18; O2SAT 93
--- NOTE | 2025-03-08 21:25 | WPDPN ---
Progress Note: A&P Assessment and Plan (1) SBO (small bowel obstruction): Code(s): K56.609 - Unspecified intestinal obstruction, unspecified as to partial versus complete obstruction Status: Acute Assessment and Plan: Resolved after exploratory laparotomy and abdominal adhesiolysis. Postop day number 2. She still has a postoperative ileus which is expected. Continue nasogastric tube decompression and NPO status. We will continue IV antibiotics today and likely discontinue tomorrow. Continue to get up with physical therapy and occupational therapy. We will keep the catheter in her bladder for 1 more day to make sure her urine output continues to be adequate. Likely remove the Bell catheter tomorrow and get a bedside commode. Continue supportive management. (2) JAMEL (acute kidney injury): Code(s): N17.9 - Acute kidney failure, unspecified Status: Acute Assessment and Plan: Acute renal injury is better. Creatinine has leveled off at about 1.3. It is stable today. BUN is lower. Urine output is better. Continue Bell catheter for today. Likely remove Bell tomorrow (3) Malnutrition: Code(s): E46 - Unspecified protein-calorie malnutrition Status: Acute Assessment and Plan: patient remains NPO and has had poor p.o. intake for several days prior to her surgery. Albumin is below 3.0. TPN has been started after placement of PICC line. Continue to supplement nutrition with the TPN for now until her bowel function returns. Subjective Date/time seen: 03/08/25 21:25 Interval history: Patient is sitting up in the chair this morning when I saw her. She got up with physical therapy. Has taken a few doses of IV pain medication but otherwise is pretty comfortable. Denies having any flatus or bowel movements yet. White blood cell count appears normal. No fever tachycardia. Her creatinine level has stabilized and is leveled off at 1.3. Urine output is better today. Exam GI: Other: Abdomen is soft and still moderately distended. Midline incision is healing well without any redness or drainage. Expected mild tenderness to palpation diffusely. Quiet bowel sounds. Objective Data Vital Signs Vital Signs: Vital Signs - 24 hr 03/08/25 06:00 03/08/25 07:39 03/08/25 09:00 Temperature 36.7 C Pulse Rate 93 90 Respiratory Rate 20 20 Blood Pressure 133/69 134/73 Pulse Oximetry 93 92 94 Oxygen Delivery Room Air Oxygen Flow Rate 03/08/25 09:00 03/08/25 11:12 03/08/25 13:51 Temperature 36.3 C L Pulse Rate 66 Respiratory Rate 16 Blood Pressure 116/88 Pulse Oximetry 94 90 Oxygen Delivery Nasal Cannula Nasal Cannula Oxygen Flow Rate 2 2 Intake/Output Intake/Output: Intake & Output 03/05/25 03/06/25 03/07/25 03/08/25 23:59 23:59 23:59 23:59 Intake Total 503.3 3746.7 2920 1850 Output Total 900 7641 400 7873 Balance -396.7 2276.7 2420 -200 Meds/Results Medications: Active Medications Generic Name Dose Route Start Last Admin Trade Name Freq PRN Reason Stop Dose Admin Acetaminophen 650 mg 03/05/25 17:30 Acetaminophen 650 Mg Suppository RECTAL Q6H PRN Mild Pain (1-3) or Fever Al Hydrox/Mg Hydrox/Simethicone 30 ml 03/05/25 21:00 03/08/25 13:21 Mag Hydrox/Al Hydrox/Simeth 30 Ml Udc PO 30 ml Q8H ANSELMO Administration Dextrose 12.5 gm 03/05/25 17:30 Dextrose 50% 25 Gm/50 Ml Syringe IV PUSH PRN PRN Hypoglycemia Protocol Diazepam 2.5 mg 03/07/25 12:15 03/08/25 08:29 Diazepam Inj (*Crx) 10 Mg/2 Ml Syringe IV PUSH 2.5 mg QAM ANSELMO Administration Glucagon 1 mg 03/05/25 17:30 Glucagon For Inj 1 Mg Vial IM PRN PRN Hypoglycemia Protocol Glucose 15 gm 03/05/25 17:30 Glucose Oral Gel 15 Gm Of Glucse In 37.5 Gm Tube PO PRN PRN Hypoglycemia Protocol Hydromorphone HCl 0.5 mg 03/05/25 20:53 03/07/25 15:46 Hydromorphone Hcl Inj (*Crx) 2 Mg/Ml Vial IV PUSH 0.5 mg Q3H PRN Administration Pain Rated 4-6 Hydromorphone HCl 1 mg 03/05/25 20:53 03/08/25 07:32 Hydromorphone Hcl Inj (*Crx) 2 Mg/Ml Vial IV PUSH 1 mg Q4H PRN Administration Pain Rated 7-10 Dextrose 1,000 mls @ 100 mls/hr 03/05/25 17:30 Dextrose 5% 1,000 Ml IVPB PRN PRN Hypoglycemia Protocol Piperacillin Sod/Tazobactam Sod 2.25 gm in 50 mls @ 100 mls/hr 03/06/25 04:00 03/08/25 17:33 Zosyn 2.25 Gm/Ns 50 Ml IVPB Infused Q6H ANSELMO Infusion Ibuprofen 800 mg in 200 mls @ 400 mls/hr 03/06/25 18:00 03/08/25 19:26 Caldolor 800 Mg/200 Ml IVPB Infused Q8H ANSELMO Infusion Sodium Chloride 1,000 mls @ 85 mls/hr 03/07/25 12:00 03/08/25 14:58 Normal Saline Iv IV CONT 85 mls/hr .[id number] ANSELMO Administration Dextrose 1,000 mls @ 50 mls/hr 03/07/25 13:28 Dextrose 10% IV CONT .Q20H PRN if PN is interrupted Multivitamins 1.25 ml/ 1,002.5 mls @ 40 mls/hr 03/08/25 11:00 03/08/25 10:53 Multivitamins 1.25 ml/ Amino IV CONT 40 mls/hr Acids/Electrolytes/Dextrose .Q24H ANSELMO Administration Protocol Fat Emulsion Intravenous 250 mls @ 20.833 mls/hr 03/08/25 11:00 03/08/25 10:53 Lipids 20% IVPB 20.83 mls/hr Q24H ANSELMO Administration Insulin Aspart 2 - 5 units 03/05/25 18:00 03/08/25 18:25 Insulin Aspart (*Bkc) 100 Units/Ml SUB-Q Not Given Q6HR ANSELMO Protocol Lidocaine 1 patch 03/07/25 09:00 03/08/25 08:28 Lidocaine 5% Patch TRANSDERM 1 patch DAILY ANSELMO Administration Metoclopramide HCl 10 mg 03/06/25 18:00 03/08/25 17:09 Metoclopramide Hcl Inj 10 Mg/2 Ml Vial IV PUSH 10 mg Q8H ANSELMO Administration Naloxone HCl 0.1 mg 03/05/25 17:30 Naloxone Hcl 0.4 Mg/Ml Vial IV PUSH Q5MIN PRN Sedation Pantoprazole Sodium 40 mg 03/06/25 09:00 03/08/25 08:28 Pantoprazole Sodium Iv 40 Mg Vial IV PUSH 40 mg QAM ANSELMO Administration Sodium Chloride 10 ml 03/08/25 14:00 03/08/25 13:14 Central Line Flush IV PUSH Not Given Q8HR ANSELMO Sodium Chloride 10 ml 03/08/25 08:45 Central Line Flush IV PUSH PRN PRN with TPN bag changes Sodium Chloride 20 ml 03/08/25 08:45 Central Line Flush IV PUSH PRN PRN after blood draws Radiology Results: ITS Impressions Chest X-Ray 03/08/25 08:29 IMPRESSION: Small left-sided pleural effusion without focal infiltrate. PICC line in good position and ready for immediate use. Labs Labs: Laboratory Results - last 24 hr 03/07/25 03/07/25 03/08/25 20:11 23:57 05:57 WBC 6.3 RBC 4.73 Hgb 15.7 H Hct 49.9 H MCV 105.5 H MCH 33.2 MCHC 31.5 L RDW 13.5 Plt Count 134 L MPV 12.4 H Sodium 141 Potassium 3.7 Chloride 101 Carbon Dioxide 32 H Anion Gap 8 BUN 54 H Creatinine 1.36 H Estim Creat Clear Calc 25 Estimated GFR 38 L Glucose 99 POC Capillary Glucose 128 H 118 H Calcium 8.0 L Phosphorus 3.1 Magnesium 2.7 H Total Bilirubin 0.5 AST 32 ALT 18 Alkaline Phosphatase 54 Total Protein 5.3 L Albumin 2.7 L Triglycerides 87 03/08/25 03/08/25 11:58 18:00 WBC RBC Hgb Hct MCV MCH MCHC RDW Plt Count MPV Sodium Potassium Chloride Carbon Dioxide Anion Gap BUN Creatinine Estim Creat Clear Calc Estimated GFR Glucose POC Capillary Glucose 135 H 155 H Calcium Phosphorus Magnesium Total Bilirubin AST ALT Alkaline Phosphatase Total Protein Albumin Triglycerides
[2025-03-08] MEDS: CENTRAL LINE FLUSH 10 ML IV PUSH (21:36)
[2025-03-08 21:59] VITALS: BP 137/75; PULSE 18; RESP 18; TEMP 36.2; O2SAT 93
[2025-03-09] MEDS: IBUPROFEN IV 800 MG/200 ML 800 MG/200 ML BAG 200 MG IVPB ×2 (01:39→10:20)
[2025-03-09] MEDS: METOCLOPRAMIDE HCL INJ 10 MG/2 ML VIAL IV PUSH ×3 (01:40→20:50)
[2025-03-09] MEDS: PIPERACILLIN/TAZ 2.25G/NS 50ML 2.25 GM/50 ML BAG IVPB (05:14)
[2025-03-09] MEDS: MAG HYDROX/AL HYDROX/SIMETH 30 ML UDC PO ×2 (05:14→12:03)
[2025-03-09] MEDS: CENTRAL LINE FLUSH 10 ML IV PUSH ×2 (05:16→22:14)
[2025-03-09] MEDS: CENTRAL LINE FLUSH 20 ML IV PUSH (05:17)
[2025-03-09 06:00] VITALS: BP 160/89; PULSE 66; RESP 18; TEMP 36.7; O2SAT 99
[2025-03-09 06:20] LABS: Hematocrit 45.4 % (37.0-47.0); Hemoglobin 14.4 g/dL (12.0-15.0); Mean Corpuscular HGB Conc 31.7 g/dl (32-36); Mean Corpuscular Hemoglobin 33.3 pg (26-34); Mean Corpuscular Volume 104.8 fl (80-100); Platelet Count Result 102 k/mm3 (150-375); Red Blood Count 4.33 M/mm3 (4.2-5.4); White Blood Count 6.2 K/mm3 (4.5-10.0)
[2025-03-09 06:31] LABS: Alanine Aminotransferase 17 U/L (6-35); Albumin Level 2.2 g/dL (3.5-5.1); Alkaline Phosphatase 48 U/L (38-126); Anion Gap 4 mmol/L (4-12); Aspartate Amino Transferase 32 U/L (14-36); Bilirubin,Total 0.2 mg/dL (0.2-1.3); Blood Urea Nitrogen 35 mg/dL (7-17); Calcium 7.7 mg/dL (8.4-10.2); Carbon Dioxide 33 mmol/L (22-30); Chloride 104 mmol/L (98-107); Estimated CRCL calculation 43 ml/min; Estimated Glomerular Filt Rate > 60; Glucose 146 mg/dL (65-110); Magnesium 2.8 mg/dL (1.6-2.3); Potassium 2.9 mmol/L (3.4-5.0); Sodium 141 mmol/L (137-145); Total Protein 4.6 g/dL (6.3-8.2)
[2025-03-09] MEDS: HYDROmorphone HCL INJ (*CRX) 2 MG/ML VIAL 1 MG IV PUSH (06:34)
[2025-03-09] MEDS: SODIUM CHLORIDE 0.9% IV 1,000 ML 85 ML IV CONT (06:36)
[2025-03-09 09:09] VITALS: O2SAT 97
[2025-03-09] MEDS: diazePAM INJ (*CRX) 10 MG/2 ML SYRINGE 2.5 MG IV PUSH (09:09)
[2025-03-09] MEDS: LIDOCAINE 5% PATCH 1 PATCH TRANSDERM (09:09)
[2025-03-09] MEDS: POTASSIUM CHLORIDE INJ 40 MEQ in SODIUM CHLORIDE 0.9% IV 500 ML 130 MEQ IVPB (09:09)
[2025-03-09] MEDS: PANTOPRAZOLE SODIUM IV 40 MG VIAL IV PUSH (09:09)
[2025-03-09] MEDS: FAT EMULSIONS IV 20% 250 ML 20.83 ML IVPB (11:54)
[2025-03-09] MEDS: AMINO ACIDS 5%/D15W/E-LYTES/CA 1,000 ML with MULTIVITAMINS-12 INJ VIAL 1 1.25 ML, MULTI... 40 ML IV CONT (11:54)
--- NOTE | 2025-03-09 12:33 | PM.IMPN ---
Progress Note: A&P Assessment and Plan (1) Complete small bowel obstruction: Code(s): K56.601 - Complete intestinal obstruction, unspecified as to cause Status: Inactive Assessment and Plan: - CT abdomen/pelvis: 1. Closed loop small bowel obstruction the right lower quadrant without evidence secondary ischemia. 2. Fat and small amount of ascites within a moderate-sized left lower quadrant ventral hernia. 3. Small fat-containing left inguinal hernia. - general surgery consulted, Mao DANIELSON has history of prior hysterectomy raising concerns for adhesions causing bowel obstruction, process likely been ongoing for the past several days and will likely need exploratory laparotomy possibly tomorrow on 03/06 variant upon their exam no acute surgical abdomen and patient is hemodynamically stable with lactate levels only mildly elevated - NPO except ice chips - analgesics and antiemetics p.r.n. - monitor electrolytes and renal function - monitor I&Os - IV fluids: 1.5L -> 100 mL/hr - history of diabetes, glucose checks q.6 with sliding scale q.6 - NG placed at [facility] on 03/05, confirmed via abdominal XR.? Placed on low intermittent suction. (2) Type 2 diabetes mellitus: Qualifiers: Diabetes mellitus custodial insulin use: without custodial use Diabetes mellitus complication status: without complication Qualified Code(s): E11.9 - Type 2 diabetes mellitus without complications Code(s): E11.9 - Type 2 diabetes mellitus without complications Status: Acute Assessment and Plan: - hypoglycemia protocol - POC blood glucose Q6H - hold home medications: Jardiance, home sliding scale - correct regimen ordered - low dose Q6H while NPO - A1C 5.2% on 03/03/2025 (3) Autoimmune hepatitis: Code(s): K75.4 - Autoimmune hepatitis Status: Acute Assessment and Plan: - continue home medication(s) Prednisone and Azathioprine once no longer NPO (4) HTN (hypertension): Qualifiers: Hypertension type: primary hypertension Qualified Code(s): I10 - Essential (primary) hypertension Code(s): I10 - Essential (primary) hypertension Status: Acute Assessment and Plan: - chronic, currently 146/79 - currently NPO, will hold home medications including amlodipine - monitor Plan patient with abdominal pain, nausea and no BM for a week presented to outside hospital and is found to have SBO, was seen by general surgery service, and had exploratory laparotomy adhesiolysis on 03/06 POD #3, patient did have one episode small gas this am, but no BM, patient is placed on NG tube to decompressed. surgery service has started the patient on TPN, today patient complaints of low back pain, will apply 2 Lidoderm patches patient is clinically stable, will continue to monitor, seen by surgery service. Diet: NPO except ice chips GI Prophylaxis: pantoprazole DVT Prophylaxis: SCDs IV fluids: LR 130 mL/hour Lines/Tubes: peripheral IV, NG tube Code Status: full code Subjective Date/time seen: 03/09/25 12:33 Interval history: Abdominal Pain, Constipation H&P-Narrative: 75 y/o F with PMH of diabetes, hypertension, hyperlipidemia, and autoimmune hepatitis presents here with abdominal pain and constipation. The patient presented to [place] [facility] on 03/05 from home for further evaluation of constipation and abdominal pain.? She reports her last bowel movement was 1 week ago.? It is accompanied by severe/diffuse abdominal pain and nausea without vomiting.? She further describes the abdominal pain as dull to sharp, achy/cramping, radiation into her back, constant, (duration), no modifying factors.? She denies accompanying fever, chills, or body aches. ?She was evaluated by her enrollment management vice president on 03/03 where she reported mild nausea and constipation.? She was instructed to stop her Ozempic as she believes this may be the cause of her constipation abdominal pain.? Her next dose of Ozempic was due today, 03/05. Initial VS at presentation: ?98.3? F, HR 124, RR 16, 118/93, and 97% on RA. ED workup showed: ?No leukocytosis, hemoglobin 18.5 (16.0 on 02/04), INR 1.2, sodium 133, creatinine 1.07 and GFR 50 (0.85 and GFR >60 on 03/03), glucose 270, osmolality 305, lactic 2.7, initial troponin 0.024 and lipase within normal limits.? Abdominal XR showed a high-grade small bowel obstruction.? CT of the abdomen/pelvis showed a closed loop SBO in the right lower quadrant without evidence of secondary ischemia, fat and small amount of ascites within a moderate sized left lower quadrant ventral hernia, small fat containing left inguinal hernia. patient with abdominal pain, nausea and no BM for a week presented to outside hospital and is found to have SBO, was seen by general surgery service, and had exploratory laparotomy adhesiolysis on 03/06 POD #3, patient did have one episode small gas this am, but no BM, patient is placed on NG tube to decompressed. surgery service has started the patient on TPN, today patient complaints of low back pain, will apply 2 Lidoderm patches patient is clinically stable, will continue to monitor, seen by surgery service. Review of Systems Review of Systems: All systems reviewed & are unremarkable except as noted in HPI and below Exam Narrative: Appears chronically ill elderly frail Patient is comfortable, NAD HEENT: eyes are clear and none icteric, NG Tube in place. LUNGS:CTA HEART: RR S1S2 ABD: BS+, Soft and nontender Lower extremities: no edema SKIN: nonjaundiced Neuro: grossly intact. Objective Data Vital Signs Vital Signs: Vital Signs - 24 hr 03/08/25 13:51 03/08/25 20:00 03/08/25 21:59 Temperature 36.3 C L 36.2 C L Pulse Rate 66 18 L 18 L Respiratory Rate 16 18 18 Blood Pressure 116/88 137/75 Pulse Oximetry 90 93 93 Oxygen Delivery Nasal Cannula Oxygen Flow Rate 2 03/09/25 06:00 03/09/25 08:05 Temperature 36.7 C Pulse Rate 66 Respiratory Rate 18 Blood Pressure 160/89 H Pulse Oximetry 99 Oxygen Delivery Nasal Cannula Oxygen Flow Rate 2 Intake/Output Intake/Output: Intake & Output 03/06/25 03/07/25 03/08/25 03/09/25 23:59 23:59 23:59 23:59 Intake Total 3746.7 2920 2150 2768.9 Output Total 3014 789 1702 Balance 2276.7 2420 100 2768.9 Meds/Results Medications: Active Medications Generic Name Dose Route Start Last Admin Trade Name Freq PRN Reason Stop Dose Admin Acetaminophen 650 mg 03/05/25 17:30 Acetaminophen 650 Mg Suppository RECTAL Q6H PRN Mild Pain (1-3) or Fever Al Hydrox/Mg Hydrox/Simethicone 30 ml 03/05/25 21:00 03/09/25 12:03 Mag Hydrox/Al Hydrox/Simeth 30 Ml Udc PO 30 ml Q8H ANSELMO Administration Dextrose 12.5 gm 03/05/25 17:30 Dextrose 50% 25 Gm/50 Ml Syringe IV PUSH PRN PRN Hypoglycemia Protocol Diazepam 2.5 mg 03/07/25 12:15 03/09/25 09:09 Diazepam Inj (*Crx) 10 Mg/2 Ml Syringe IV PUSH 2.5 mg QAM ANSELMO Administration Glucagon 1 mg 03/05/25 17:30 Glucagon For Inj 1 Mg Vial IM PRN PRN Hypoglycemia Protocol Glucose 15 gm 03/05/25 17:30 Glucose Oral Gel 15 Gm Of Glucse In 37.5 Gm Tube PO PRN PRN Hypoglycemia Protocol Hydromorphone HCl 0.5 mg 03/05/25 20:53 03/07/25 15:46 Hydromorphone Hcl Inj (*Crx) 2 Mg/Ml Vial IV PUSH 0.5 mg Q3H PRN Administration Pain Rated 4-6 Hydromorphone HCl 1 mg 03/05/25 20:53 03/09/25 06:34 Hydromorphone Hcl Inj (*Crx) 2 Mg/Ml Vial IV PUSH 1 mg Q4H PRN Administration Pain Rated 7-10 Dextrose 1,000 mls @ 100 mls/hr 03/05/25 17:30 Dextrose 5% 1,000 Ml IVPB PRN PRN Hypoglycemia Protocol Ibuprofen 800 mg in 200 mls @ 400 mls/hr 03/06/25 18:00 03/09/25 11:20 Caldolor 800 Mg/200 Ml IVPB Infused Q8H ANSELMO Infusion Sodium Chloride 1,000 mls @ 50 mls/hr 03/07/25 12:00 03/09/25 11:55 Normal Saline Iv IV CONT Not Given .Q20H ANSELMO Dextrose 1,000 mls @ 50 mls/hr 03/07/25 13:28 Dextrose 10% IV CONT .Q20H PRN if PN is interrupted Multivitamins 1.25 ml/ 1,002.5 mls @ 40 mls/hr 03/08/25 11:00 03/09/25 11:54 Multivitamins 1.25 ml/ Amino IV CONT 40 mls/hr Acids/Electrolytes/Dextrose .Q24H ANSELMO Administration Protocol Fat Emulsion Intravenous 250 mls @ 20.833 mls/hr 03/08/25 11:00 03/09/25 11:54 Lipids 20% IVPB 20.83 mls/hr Q24H ANSELMO Administration Potassium Phosphate 15 mmol/ 255 mls @ 63.75 mls/hr 03/09/25 09:09 Sodium Chloride IVPB 03/09/25 13:08 ONCE ONE Insulin Aspart 2 - 5 units 03/05/25 18:00 03/09/25 12:13 Insulin Aspart (*Bkc) 100 Units/Ml SUB-Q Not Given Q6HR ANSELMO Protocol Lidocaine 1 patch 03/07/25 09:00 03/09/25 09:09 Lidocaine 5% Patch TRANSDERM 1 patch DAILY ANSELMO Administration Lidocaine 2 patch 03/09/25 12:20 Lidocaine 5% Patch TRANSDERM DAILY ANSELMO Metoclopramide HCl 10 mg 03/06/25 18:00 03/09/25 10:18 Metoclopramide Hcl Inj 10 Mg/2 Ml Vial IV PUSH 10 mg Q8H ANSELMO Administration Naloxone HCl 0.1 mg 03/05/25 17:30 Naloxone Hcl 0.4 Mg/Ml Vial IV PUSH Q5MIN PRN Sedation Pantoprazole Sodium 40 mg 03/06/25 09:00 03/09/25 09:09 Pantoprazole Sodium Iv 40 Mg Vial IV PUSH 40 mg QAM ANSELMO Administration Sodium Chloride 10 ml 03/08/25 14:00 03/09/25 12:18 Central Line Flush IV PUSH Not Given Q8HR ANSELMO Sodium Chloride 10 ml 03/08/25 08:45 Central Line Flush IV PUSH PRN PRN with TPN bag changes Sodium Chloride 20 ml 03/08/25 08:45 03/09/25 05:17 Central Line Flush IV PUSH 20 ml PRN PRN Administration after blood draws Radiology Results: ITS Impressions Chest X-Ray 03/08/25 08:29 IMPRESSION: Small left-sided pleural effusion without focal infiltrate. PICC line in good position and ready for immediate use. Labs Labs: Laboratory Results - last 24 hr 03/08/25 03/08/25 03/09/25 05:57 18:00 00:00 WBC RBC Hgb Hct MCV MCH MCHC RDW Plt Count MPV Sodium Potassium Chloride Carbon Dioxide Anion Gap BUN Creatinine Estim Creat Clear Calc Estimated GFR Glucose POC Capillary Glucose 155 H 162 H Calcium Phosphorus Magnesium Total Bilirubin AST ALT Alkaline Phosphatase Total Protein Albumin Triglycerides 87 03/09/25 03/09/25 03/09/25 05:04 05:15 11:49 WBC 6.2 RBC 4.33 Hgb 14.4 Hct 45.4 MCV 104.8 H MCH 33.3 MCHC 31.7 L RDW 13.2 Plt Count 102 L MPV 12.4 H Sodium 141 Potassium 2.9 L Chloride 104 Carbon Dioxide 33 H Anion Gap 4 BUN 35 H D Creatinine 0.77 Estim Creat Clear Calc 43 Estimated GFR > 60 Glucose 146 H POC Capillary Glucose 167 H 153 H Calcium 7.7 L Phosphorus 2.1 L Magnesium 2.8 H Total Bilirubin 0.2 AST 32 ALT 17 Alkaline Phosphatase 48 Total Protein 4.6 L Albumin 2.2 L Triglycerides Quality VTE Prophylaxis VTE prophylaxis: mechanical ordered
--- NOTE | 2025-03-09 13:15 | WPDPN ---
Progress Note: A&P Assessment and Plan (1) Malnutrition: Code(s): E46 - Unspecified protein-calorie malnutrition Status: Acute Assessment and Plan: Continue TPN for today. (2) SBO (small bowel obstruction): Code(s): K56.609 - Unspecified intestinal obstruction, unspecified as to partial versus complete obstruction Status: Acute Assessment and Plan: Resolved after exploratory laparotomy and abdominal adhesiolysis. Continue nasogastric tube decompression for now. She did pass some flatus but is not ready to have the NG tube removed yet. Will go ahead and put her on Lovenox subcutaneous the for prophylaxis of DVT. Also get her incentive spirometer for pulmonary toilet. Discussed with the patient and her at the bedside today that more than likely she will need some transition before in going home in terms of therapy for strengthening. She would likely need to go to nursing home or acute rehab. (3) JAMEL (acute kidney injury): Code(s): N17.9 - Acute kidney failure, unspecified Status: Acute Assessment and Plan: Resolved. Creatinine is back down to 0.7. Urine output is very good now. We will go ahead and removed the Bell catheter and get a bedside commode. When no longer needs to have strict measurement of her urine output. Subjective Date/time seen: 03/09/25 13:15 Interval history: Patient seems to be slowly improving. Up in chair today with therapy. Still is a 2 person assist to get up to chair. The past a little bit of flatus today but no bowel movement. Potassium is low at 2.9 and she has recent bleeding boluses for replacement. Phosphorus is also low and so that is being replaced as well. TPN continues. White blood cell count is normal. Tachycardia or increased oxygen needs. Exam GI: Other: Abdomen is soft and minimally distended. Hypoactive bowel sounds. Midline incision is intact without redness or drainage. Objective Data Vital Signs Vital Signs: Vital Signs - 24 hr 03/08/25 13:51 03/08/25 20:00 03/08/25 21:59 Temperature 36.3 C L 36.2 C L Pulse Rate 66 18 L 18 L Respiratory Rate 16 18 18 Blood Pressure 116/88 137/75 Pulse Oximetry 90 93 93 Oxygen Delivery Nasal Cannula Oxygen Flow Rate 2 03/09/25 06:00 03/09/25 08:05 Temperature 36.7 C Pulse Rate 66 Respiratory Rate 18 Blood Pressure 160/89 H Pulse Oximetry 99 Oxygen Delivery Nasal Cannula Oxygen Flow Rate 2 Intake/Output Intake/Output: Intake & Output 03/06/25 03/07/25 03/08/25 03/09/25 23:59 23:59 23:59 23:59 Intake Total 3746.7 2920 2150 2768.9 Output Total 9079 305 5378 Balance 2276.7 2420 100 2768.9 Meds/Results Medications: Active Medications Generic Name Dose Route Start Last Admin Trade Name Freq PRN Reason Stop Dose Admin Acetaminophen 650 mg 03/05/25 17:30 Acetaminophen 650 Mg Suppository RECTAL Q6H PRN Mild Pain (1-3) or Fever Al Hydrox/Mg Hydrox/Simethicone 30 ml 03/05/25 21:00 03/09/25 12:03 Mag Hydrox/Al Hydrox/Simeth 30 Ml Udc PO 30 ml Q8H ANSELMO Administration Dextrose 12.5 gm 03/05/25 17:30 Dextrose 50% 25 Gm/50 Ml Syringe IV PUSH PRN PRN Hypoglycemia Protocol Enoxaparin Sodium 40 mg 03/10/25 09:00 Enoxaparin 40 Mg/0.4 Ml Syringe SUB-Q DAILY ANSELMO Glucagon 1 mg 03/05/25 17:30 Glucagon For Inj 1 Mg Vial IM PRN PRN Hypoglycemia Protocol Glucose 15 gm 03/05/25 17:30 Glucose Oral Gel 15 Gm Of Glucse In 37.5 Gm Tube PO PRN PRN Hypoglycemia Protocol Hydromorphone HCl 0.5 mg 03/05/25 20:53 03/07/25 15:46 Hydromorphone Hcl Inj (*Crx) 2 Mg/Ml Vial IV PUSH 0.5 mg Q3H PRN Administration Pain Rated 4-6 Hydromorphone HCl 1 mg 03/05/25 20:53 03/09/25 06:34 Hydromorphone Hcl Inj (*Crx) 2 Mg/Ml Vial IV PUSH 1 mg Q4H PRN Administration Pain Rated 7-10 Dextrose 1,000 mls @ 100 mls/hr 03/05/25 17:30 Dextrose 5% 1,000 Ml IVPB PRN PRN Hypoglycemia Protocol Ibuprofen 800 mg in 200 mls @ 400 mls/hr 03/06/25 18:00 03/09/25 11:20 Caldolor 800 Mg/200 Ml IVPB Infused Q8H ANSELMO Infusion Sodium Chloride 1,000 mls @ 50 mls/hr 03/07/25 12:00 03/09/25 11:55 Normal Saline Iv IV CONT Not Given .Q20H ANSELMO Dextrose 1,000 mls @ 50 mls/hr 03/07/25 13:28 Dextrose 10% IV CONT .Q20H PRN if PN is interrupted Multivitamins 1.25 ml/ 1,002.5 mls @ 40 mls/hr 03/08/25 11:00 03/09/25 11:54 Multivitamins 1.25 ml/ Amino IV CONT 40 mls/hr Acids/Electrolytes/Dextrose .Q24H ANSELMO Administration Protocol Fat Emulsion Intravenous 250 mls @ 20.833 mls/hr 03/08/25 11:00 03/09/25 11:54 Lipids 20% IVPB 20.83 mls/hr Q24H ANSELMO Administration Insulin Aspart 2 - 5 units 03/05/25 18:00 03/09/25 12:13 Insulin Aspart (*Bkc) 100 Units/Ml SUB-Q Not Given Q6HR ANSELMO Protocol Lidocaine 1 patch 03/07/25 09:00 03/09/25 09:09 Lidocaine 5% Patch TRANSDERM 1 patch DAILY ANSELMO Administration Lidocaine 2 patch 03/09/25 12:20 Lidocaine 5% Patch TRANSDERM DAILY ANSELMO Metoclopramide HCl 10 mg 03/06/25 18:00 03/09/25 10:18 Metoclopramide Hcl Inj 10 Mg/2 Ml Vial IV PUSH 10 mg Q8H ANSELMO Administration Naloxone HCl 0.1 mg 03/05/25 17:30 Naloxone Hcl 0.4 Mg/Ml Vial IV PUSH Q5MIN PRN Sedation Pantoprazole Sodium 40 mg 03/06/25 09:00 03/09/25 09:09 Pantoprazole Sodium Iv 40 Mg Vial IV PUSH 40 mg QAM ANSELMO Administration Sodium Chloride 10 ml 03/08/25 14:00 03/09/25 12:18 Central Line Flush IV PUSH Not Given Q8HR ANSELMO Sodium Chloride 10 ml 03/08/25 08:45 Central Line Flush IV PUSH PRN PRN with TPN bag changes Sodium Chloride 20 ml 03/08/25 08:45 03/09/25 05:17 Central Line Flush IV PUSH 20 ml PRN PRN Administration after blood draws Radiology Results: ITS Impressions Chest X-Ray 03/08/25 08:29 IMPRESSION: Small left-sided pleural effusion without focal infiltrate. PICC line in good position and ready for immediate use. Labs Labs: Laboratory Results - last 24 hr 03/08/25 03/09/25 03/09/25 18:00 00:00 05:04 WBC 6.2 RBC 4.33 Hgb 14.4 Hct 45.4 MCV 104.8 H MCH 33.3 MCHC 31.7 L RDW 13.2 Plt Count 102 L MPV 12.4 H Sodium 141 Potassium 2.9 L Chloride 104 Carbon Dioxide 33 H Anion Gap 4 BUN 35 H D Creatinine 0.77 Estim Creat Clear Calc 43 Estimated GFR > 60 Glucose 146 H POC Capillary Glucose 155 H 162 H Calcium 7.7 L Phosphorus 2.1 L Magnesium 2.8 H Total Bilirubin 0.2 AST 32 ALT 17 Alkaline Phosphatase 48 Total Protein 4.6 L Albumin 2.2 L 03/09/25 03/09/25 05:15 11:49 WBC RBC Hgb Hct MCV MCH MCHC RDW Plt Count MPV Sodium Potassium Chloride Carbon Dioxide Anion Gap BUN Creatinine Estim Creat Clear Calc Estimated GFR Glucose POC Capillary Glucose 167 H 153 H Calcium Phosphorus Magnesium Total Bilirubin AST ALT Alkaline Phosphatase Total Protein Albumin
[2025-03-09 14:00] VITALS: BP 139/62; PULSE 82; RESP 18; TEMP 36; O2SAT 97
[2025-03-09] MEDS: HYDROmorphone HCL INJ (*CRX) 2 MG/ML VIAL 0.5 MG IV PUSH (14:16)
[2025-03-09] MEDS: LIDOCAINE 5% PATCH 2 PATCH TRANSDERM (14:16)
[2025-03-09] MEDS: POTASSIUM PHOS,M-BASIC-D-BASIC 15 MMOL in SODIUM CHLORIDE 0.9% IV 250 ML 63.75 MMOL IVPB (16:13)
[2025-03-09 20:00] VITALS: PULSE 88; RESP 18; O2SAT 94
[2025-03-09] MEDS: IBUPROFEN IV 800 MG/200 ML 800 MG/200 ML BAG 400 MG IVPB (20:50)
[2025-03-09 22:00] VITALS: BP 157/80; PULSE 88; RESP 18; TEMP 36.2; O2SAT 94
[2025-03-09] MEDS: MAG HYDROX/AL HYDROX/SIMETH 30 ML UDC FEED TUBE (22:14)
[2025-03-10] MEDS: IBUPROFEN IV 800 MG/200 ML 800 MG/200 ML BAG 400 MG IVPB ×3 (01:36→18:42)
[2025-03-10] MEDS: METOCLOPRAMIDE HCL INJ 10 MG/2 ML VIAL IV PUSH ×3 (01:36→18:42)
[2025-03-10] MEDS: MAG HYDROX/AL HYDROX/SIMETH 30 ML UDC FEED TUBE ×3 (05:44→20:29)
[2025-03-10] MEDS: SODIUM CHLORIDE 0.9% IV 1,000 ML 50 ML IV CONT (05:44)
[2025-03-10] MEDS: CENTRAL LINE FLUSH 20 ML IV PUSH (05:44)
[2025-03-10] MEDS: CENTRAL LINE FLUSH 10 ML IV PUSH ×3 (05:44→20:43)
[2025-03-10 06:00] VITALS: BP 151/78; PULSE 84; RESP 18; TEMP 36; O2SAT 96
[2025-03-10 06:21] LABS: Hematocrit 43.9 % (37.0-47.0); Hemoglobin 14.1 g/dL (12.0-15.0); Immature Platelet Fraction Pct 5.5 % (0.9-11.2); Mean Corpuscular HGB Conc 32.1 g/dl (32-36); Mean Corpuscular Hemoglobin 33.8 pg (26-34); Mean Corpuscular Volume 105.3 fl (80-100); Platelet Count Result 86 k/mm3 (150-375); Red Blood Count 4.17 M/mm3 (4.2-5.4); White Blood Count 8.0 K/mm3 (4.5-10.0)
[2025-03-10 06:30] LABS: INR 1.1; Partial Thromboplastin Time 27.2 Seconds (22.3-36.8); Prothrombin Time 14.7 Seconds (11.1-14.7)
[2025-03-10 06:31] LABS: Alanine Aminotransferase 17 U/L (6-35); Albumin Level 2.2 g/dL (3.5-5.1); Alkaline Phosphatase 55 U/L (38-126); Anion Gap 3 mmol/L (4-12); Aspartate Amino Transferase 32 U/L (14-36); Bilirubin,Total 0.3 mg/dL (0.2-1.3); Blood Urea Nitrogen 20 mg/dL (7-17); Calcium 7.8 mg/dL (8.4-10.2); Carbon Dioxide 32 mmol/L (22-30); Chloride 105 mmol/L (98-107); Estimated CRCL calculation 68 ml/min; Estimated Glomerular Filt Rate > 60; Glucose 125 mg/dL (65-110); Magnesium 2.4 mg/dL (1.6-2.3); Potassium 2.9 mmol/L (3.4-5.0); Sodium 140 mmol/L (137-145); Total Protein 4.8 g/dL (6.3-8.2)
[2025-03-10 06:38] LABS: Transferrin 81 mg/dL (206-381)
[2025-03-10 07:13] LABS: Band Neutrophils Percent 27 % (0-6); Basophils Absolute Manual 0.08 K/mm3 (0.0-0.1); Basophils Percent Manual 1 % (0-1); Eosinophils Absolute Manual 0.08 K/mm3 (0.02-0.50); Eosinophils Percent Manual 1 % (0-4); Lymphocytes Absolute Manual 0.72 K/mm3 (1.1-4.5); Lymphocytes Percent Manual 9 % (18-44); Macrocytosis 1+ (NORMAL); Monocytes Absolute Manual 0.32 K/mm3 (0.1-0.90); Monocytes Percent Manual 4 % (3-9); Neutrophils Absolute Manual 6.80 K/mm3 (1.3-6.7); Neutrophils Percent Manual 58 % (46-73); Total Cells Counted 100
[2025-03-10 07:14] LABS: Schistocytes None Seen
[2025-03-10] MEDS: LIDOCAINE 5% PATCH 2 PATCH TRANSDERM (08:45)
[2025-03-10] MEDS: PANTOPRAZOLE SODIUM IV 40 MG VIAL IV PUSH (08:46)
[2025-03-10] MEDS: LIDOCAINE 5% PATCH 1 PATCH TRANSDERM (08:46)
[2025-03-10 09:00] VITALS: O2SAT 92
--- NOTE | 2025-03-10 10:09 | PM.PNGS ---
Progress Note: A&P Assessment and Plan (1) SBO (small bowel obstruction): Code(s): K56.609 - Unspecified intestinal obstruction, unspecified as to partial versus complete obstruction Status: Acute Assessment and Plan: Resolved after exploratory laparotomy and abdominal adhesiolysis. Awaiting return of bowel function. Continue NG tube decompression, bowel rest, and TPN. Continue Reglan. Potassium and phosphorus is low again today. Will replace with KCL and K phos again today. Labs will be repeated in am. Encouraged IS use and nursing is going to try and wean patient off of oxygen today. Continue increasing activity, PT/OT following. Plan to get up to chair today. Therapy recommending penitentiary or acute rehab on discharge. CC following to help with discharge planning. (2) Malnutrition: Code(s): E46 - Unspecified protein-calorie malnutrition Status: Acute Assessment and Plan: Continue TPN at 40 mL/hr. (3) JAMEL (acute kidney injury): Code(s): N17.9 - Acute kidney failure, unspecified Status: Acute Assessment and Plan: Resolved. Creatinine normal and BUN continues to trend down to 20 this am. Voiding well since Bell was removed. Continue to trend labs. Plan I have discussed the patient's case and plan of care with Dr. Cavanaugh. Subjective Subjective Date/Time Seen: 03/10/25 10:09 Post Op day: 4 (Ex lap, adhesiolysis) Patient reports: voiding w/o difficulty (catheter removed and voiding well, 6xs overnight), flatus and no bowel movement Interval history: Patient seen this morning. Reports flatus, but still no BM since surgery. She feels hungry. She reports some intermittent nausea, which seems to have some relief with the Reglan IV. She is not feeling nauseous right now. Per nursing, she is not moving much. She required maxi assist and PT/OT is working with patient. Plan to get her up to the chair today with therapy. Not much out of the NG tube. She had 250 cc total out yesterday and per nursing, no significant output overnight. There is 100 cc output in the canister this morning. Patient's main complaint is the discomfort of the NG tube. Not currently having any abdominal pain. She reports mild right-sided abd pain at times and incisional pain with movement. Potassium low again today at 2.9 and there is an order from the Hospitalist for 40 meq KCL IVPB this am. Nursing also held Lovenox this morning as her platelets were under 100k. Patient has been refusing her SCDs, but is agreeable to wearing them this morning. I educated her on the use of SCDs and VTE prophylaxis. Exam Const: General: comfortable and no acute distress Orientation/consciousness: patient oriented x3 GI: Inspection: incision (dry and glue intact, no erythema) and other (mildly distended) GI Palp: Yes Soft to palpation, Yes Tenderness to palpation present (GI) (mild right-sided and incisional tenderness), No Hernia present and No Rebound tenderness present Auscultation: absent bowel sounds Skin: General skin exam: normal color Extrem: General: no calf tenderness and no edema Objective Data Vital Signs Vital Signs: Vital Signs - 24 hr 03/09/25 14:00 03/09/25 20:00 03/09/25 22:00 Temperature 96.8 F L 97.1 F L Pulse Rate 82 88 88 Respiratory Rate 18 18 18 Blood Pressure 139/62 157/80 H Pulse Oximetry 97 94 94 Oxygen Delivery Nasal Cannula Oxygen Flow Rate 2 03/10/25 06:00 03/10/25 09:00 Temperature 96.8 F L Pulse Rate 84 Respiratory Rate 18 Blood Pressure 151/78 H Pulse Oximetry 96 92 Oxygen Delivery Nasal Cannula Oxygen Flow Rate 2 Intake/Output Intake/Output: Intake & Output 03/07/25 03/08/25 03/09/25 03/10/25 23:59 23:59 23:59 23:59 Intake Total 2920 2150 3473.9 1281.8 Output Total 650 2300 1450 Balance 2270 -150 2023.9 1281.8 Meds/Results Medications: Active Medications Generic Name Dose Route Start Last Admin Trade Name Freq PRN Reason Stop Dose Admin Acetaminophen 650 mg 03/05/25 17:30 Acetaminophen 650 Mg Suppository RECTAL Q6H PRN Mild Pain (1-3) or Fever Al Hydrox/Mg Hydrox/Simethicone 30 ml 03/09/25 13:40 03/10/25 05:44 Mag Hydrox/Al Hydrox/Simeth 30 Ml Udc FEED TUBE 30 ml Q8H ANSELMO Administration Dextrose 12.5 gm 03/05/25 17:30 Dextrose 50% 25 Gm/50 Ml Syringe IV PUSH PRN PRN Hypoglycemia Protocol Enoxaparin Sodium 40 mg 03/10/25 09:00 03/10/25 08:42 Enoxaparin 40 Mg/0.4 Ml Syringe SUB-Q Not Given DAILY ANSELMO Glucagon 1 mg 03/05/25 17:30 Glucagon For Inj 1 Mg Vial IM PRN PRN Hypoglycemia Protocol Glucose 15 gm 03/05/25 17:30 Glucose Oral Gel 15 Gm Of Glucse In 37.5 Gm Tube PO PRN PRN Hypoglycemia Protocol Hydromorphone HCl 0.5 mg 03/05/25 20:53 03/09/25 14:16 Hydromorphone Hcl Inj (*Crx) 2 Mg/Ml Vial IV PUSH 0.5 mg Q3H PRN Administration Pain Rated 4-6 Hydromorphone HCl 1 mg 03/05/25 20:53 03/09/25 06:34 Hydromorphone Hcl Inj (*Crx) 2 Mg/Ml Vial IV PUSH 1 mg Q4H PRN Administration Pain Rated 7-10 Dextrose 1,000 mls @ 100 mls/hr 03/05/25 17:30 Dextrose 5% 1,000 Ml IVPB PRN PRN Hypoglycemia Protocol Ibuprofen 800 mg in 200 mls @ 400 mls/hr 03/06/25 18:00 03/10/25 09:22 Caldolor 800 Mg/200 Ml IVPB Infused Q8H ANSELMO Infusion Sodium Chloride 1,000 mls @ 50 mls/hr 03/07/25 12:00 03/10/25 05:44 Normal Saline Iv IV CONT 50 mls/hr .Q20H ANSELMO Administration Dextrose 1,000 mls @ 50 mls/hr 03/07/25 13:28 Dextrose 10% IV CONT .Q20H PRN if PN is interrupted Multivitamins 1.25 ml/ 1,002.5 mls @ 40 mls/hr 03/08/25 11:00 03/09/25 11:54 Multivitamins 1.25 ml/ Amino IV CONT 40 mls/hr Acids/Electrolytes/Dextrose .Q24H ANSELMO Administration Protocol Fat Emulsion Intravenous 250 mls @ 20.833 mls/hr 03/08/25 11:00 03/09/25 23:55 Lipids 20% IVPB Infused Q24H ANSELMO Infusion Potassium Chloride 100 mls @ 25 mls/hr 03/10/25 09:30 Kcl 40 Meq/Water 100 Ml IVPB 03/10/25 13:29 ONCE ONE Insulin Aspart 2 - 5 units 03/05/25 18:00 03/10/25 06:46 Insulin Aspart (*Bkc) 100 Units/Ml SUB-Q Not Given Q6HR [facility] Protocol Lidocaine 1 patch 03/07/25 09:00 03/10/25 08:46 Lidocaine 5% Patch TRANSDERM 1 patch DAILY ANSELMO Administration Lidocaine 2 patch 03/09/25 12:20 03/10/25 08:45 Lidocaine 5% Patch TRANSDERM 2 patch DAILY ANSELMO Administration Metoclopramide HCl 10 mg 03/06/25 18:00 03/10/25 08:52 Metoclopramide Hcl Inj 10 Mg/2 Ml Vial IV PUSH 10 mg Q8H ANSELMO Administration Miscellaneous Information 1 each 03/10/25 00:01 Clinimix Needs To Be Renewed Or It Will Automatically Discontinue. XX 04/09/25 00:00 CLARIFY ANSELMO Naloxone HCl 0.1 mg 03/05/25 17:30 Naloxone Hcl 0.4 Mg/Ml Vial IV PUSH Q5MIN PRN Sedation Pantoprazole Sodium 40 mg 03/06/25 09:00 03/10/25 08:46 Pantoprazole Sodium Iv 40 Mg Vial IV PUSH 40 mg QAM ANSELMO Administration Sodium Chloride 10 ml 03/08/25 14:00 03/10/25 05:44 Central Line Flush IV PUSH 10 ml Q8HR ANSELMO Administration Sodium Chloride 10 ml 03/08/25 08:45 Central Line Flush IV PUSH PRN PRN with TPN bag changes Sodium Chloride 20 ml 03/08/25 08:45 03/10/25 05:44 Central Line Flush IV PUSH 20 ml PRN PRN Administration after blood draws Radiology Results: ITS Impressions Chest X-Ray 03/08/25 08:29 IMPRESSION: Small left-sided pleural effusion without focal infiltrate. PICC line in good position and ready for immediate use. Labs Labs: Laboratory Results - last 24 hr 03/09/25 03/09/25 03/10/25 11:49 18:03 00:59 WBC RBC Hgb Hct MCV MCH MCHC RDW Plt Count MPV Immature Gran % (Auto) Neut % (Auto) Lymph % (Auto) [place] % (Auto) Eos % (Auto) Baso % (Auto) Lymph # (Auto) [place] # (Auto) Eos # (Auto) Baso # (Auto) Abs Immat Gran (auto) Absolute Neuts (auto) Absolute Nucleated RBC Total Counted Neutrophils % (Manual) Band Neutrophils % Lymphocytes % (Manual) Monocytes % (Manual) Eosinophils % (Manual) Basophils % (Manual) Nucleated RBC % Abs Neuts (Manual) Abs Lymphs (Manual) Abs Monocytes (Manual) Absolute Eos (Manual) Abs Basophils (Manual) Atypical Lymphocytes Platelet Estimate % Immature Plt Fraction Macrocytosis Schistocytes PT INR APTT Sodium Potassium Chloride Carbon Dioxide Anion Gap BUN Creatinine Estim Creat Clear Calc Estimated GFR Glucose POC Capillary Glucose 153 H 143 H 152 H Calcium Phosphorus Magnesium Transferrin Total Bilirubin AST ALT Alkaline Phosphatase Total Protein Albumin 03/10/25 03/10/25 05:52 06:10 WBC 8.0 RBC 4.17 L Hgb 14.1 Hct 43.9 MCV 105.3 H MCH 33.8 MCHC 32.1 RDW 13.0 Plt Count 86 L MPV 12.2 H Immature Gran % (Auto) Not Reportable Neut % (Auto) Not Reportable Lymph % (Auto) Not Reportable [place] % (Auto) Not Reportable Eos % (Auto) Not Reportable Baso % (Auto) Not Reportable Lymph # (Auto) Not Reportable [place] # (Auto) Not Reportable Eos # (Auto) Not Reportable Baso # (Auto) Not Reportable Abs Immat Gran (auto) Not Reportable Absolute Neuts (auto) Not Reportable Absolute Nucleated RBC Not Reportable Total Counted 100 Neutrophils % (Manual) 58 Band Neutrophils % 27 H Lymphocytes % (Manual) 9 L Monocytes % (Manual) 4 Eosinophils % (Manual) 1 Basophils % (Manual) 1 Nucleated RBC % Not Reportable Abs Neuts (Manual) 6.80 H Abs Lymphs (Manual) 0.72 L Abs Monocytes (Manual) 0.32 Absolute Eos (Manual) 0.08 Abs Basophils (Manual) 0.08 Atypical Lymphocytes Present Platelet Estimate Decreased % Immature Plt Fraction 5.5 Macrocytosis 1+ Schistocytes None seen PT 14.7 INR 1.1 APTT 27.2 Sodium 140 Potassium 2.9 L Chloride 105 Carbon Dioxide 32 H Anion Gap 3 L BUN 20 H D Creatinine 0.56 L Estim Creat Clear Calc 68 Estimated GFR > 60 Glucose 125 H POC Capillary Glucose 136 H Calcium 7.8 L Phosphorus 2.1 L Magnesium 2.4 H Transferrin 81 L Total Bilirubin 0.3 AST 32 ALT 17 Alkaline Phosphatase 55 Total Protein 4.8 L Albumin 2.2 L
[2025-03-10] MEDS: KCL 40 MEQ/WATER 100 ML 100 ML 25 ML IVPB (10:22)
[2025-03-10] MEDS: AMINO ACIDS 5%/D15W/E-LYTES/CA 1,000 ML with MULTIVITAMINS-12 INJ VIAL 1 1.25 ML, MULTI... 40 ML IV CONT (11:02)
[2025-03-10] MEDS: FAT EMULSIONS IV 20% 250 ML 20.83 ML IVPB (11:13)
[2025-03-10 11:15] VITALS: BMI 10.0
[2025-03-10] MEDS: HYDROmorphone HCL INJ (*CRX) 2 MG/ML VIAL 1 MG IV PUSH ×2 (11:15→20:29)
[2025-03-10 14:00] VITALS: BP 165/75; PULSE 74; RESP 16; TEMP 36.7; O2SAT 100
[2025-03-10] MEDS: KCL 20MEQ/0.9% SOD CHL 1,000 ML 50 ML IV CONT (14:03)
[2025-03-10] MEDS: POTASSIUM PHOS,M-BASIC-D-BASIC 20 MMOL in SODIUM CHLORIDE 0.9% IV 250 ML 64.1 MMOL IVPB (14:22)
[2025-03-10 14:52] VITALS: O2SAT 93
--- NOTE | 2025-03-10 15:51 | PM.IMPN ---
Progress Note: A&P Assessment and Plan (1) Complete small bowel obstruction: Code(s): K56.601 - Complete intestinal obstruction, unspecified as to cause Status: Inactive Assessment and Plan: - CT abdomen/pelvis: 1. Closed loop small bowel obstruction the right lower quadrant without evidence secondary ischemia. 2. Fat and small amount of ascites within a moderate-sized left lower quadrant ventral hernia. 3. Small fat-containing left inguinal hernia. - general surgery consulted, Mao DANIELSON has history of prior hysterectomy raising concerns for adhesions causing bowel obstruction, process likely been ongoing for the past several days and will likely need exploratory laparotomy possibly tomorrow on 03/06 variant upon their exam no acute surgical abdomen and patient is hemodynamically stable with lactate levels only mildly elevated - NPO except ice chips - analgesics and antiemetics p.r.n. - monitor electrolytes and renal function - monitor I&Os - IV fluids: 1.5L -> 100 mL/hr - history of diabetes, glucose checks q.6 with sliding scale q.6 - NG placed at [facility] on 03/05, confirmed via abdominal XR.? Placed on low intermittent suction. (2) Type 2 diabetes mellitus: Qualifiers: Diabetes mellitus alf insulin use: without alf use Diabetes mellitus complication status: without complication Qualified Code(s): E11.9 - Type 2 diabetes mellitus without complications Code(s): E11.9 - Type 2 diabetes mellitus without complications Status: Acute Assessment and Plan: - hypoglycemia protocol - POC blood glucose Q6H - hold home medications: Jardiance, home sliding scale - correct regimen ordered - low dose Q6H while NPO - A1C 5.2% on 03/03/2025 (3) Autoimmune hepatitis: Code(s): K75.4 - Autoimmune hepatitis Status: Acute Assessment and Plan: - continue home medication(s) Prednisone and Azathioprine once no longer NPO (4) HTN (hypertension): Qualifiers: Hypertension type: primary hypertension Qualified Code(s): I10 - Essential (primary) hypertension Code(s): I10 - Essential (primary) hypertension Status: Acute Assessment and Plan: - chronic, currently 146/79 - currently NPO, will hold home medications including amlodipine - monitor Plan patient with abdominal pain, nausea and no BM for a week presented to outside hospital and is found to have SBO, was seen by general surgery service, and had exploratory laparotomy adhesiolysis on 03/06 POD #4, today patient did have 4 episodes small gas, but no BM, awaiting return of bowl function, patient is placed on NG tube to decompressed. surgery service has started the patient on TPN, patient has hypokalemia and hypophosphatemia will replace on TPN, and patient complaints of low back pain, will apply 2 Lidoderm patches, patient blood smear peripheral blood specimen showed abnormalities concerning for possible myelodysplasia versus severe reactive atypia, platelets are trending down and prophylactic Lovenox was held this morning. Will consult Hematology for their recommendations. patient is clinically stable, patient is on SCD, will continue to monitor, seen by surgery service. Diet: NPO except ice chips GI Prophylaxis: pantoprazole DVT Prophylaxis: SCDs IV fluids: LR 130 mL/hour Lines/Tubes: peripheral IV, NG tube Code Status: full code Subjective Date/time seen: 03/10/25 15:51 Interval history: Abdominal Pain, Constipation H&P-Narrative: 75 y/o F with PMH of diabetes, hypertension, hyperlipidemia, and autoimmune hepatitis presents here with abdominal pain and constipation. The patient presented to [facility] on 03/05 from home for further evaluation of constipation and abdominal pain.? She reports her last bowel movement was 1 week ago.? It is accompanied by severe/diffuse abdominal pain and nausea without vomiting.? She further describes the abdominal pain as dull to sharp, achy/cramping, radiation into her back, constant, (duration), no modifying factors.? She denies accompanying fever, chills, or body aches. ?She was evaluated by her building rigger on 03/03 where she reported mild nausea and constipation.? She was instructed to stop her Ozempic as she believes this may be the cause of her constipation abdominal pain.? Her next dose of Ozempic was due today, 03/05. Initial VS at presentation: ?98.3? F, HR 124, RR 16, 118/93, and 97% on RA. ED workup showed: ?No leukocytosis, hemoglobin 18.5 (16.0 on 02/04), INR 1.2, sodium 133, creatinine 1.07 and GFR 50 (0.85 and GFR >60 on 03/03), glucose 270, osmolality 305, lactic 2.7, initial troponin 0.024 and lipase within normal limits.? Abdominal XR showed a high-grade small bowel obstruction.? CT of the abdomen/pelvis showed a closed loop SBO in the right lower quadrant without evidence of secondary ischemia, fat and small amount of ascites within a moderate sized left lower quadrant ventral hernia, small fat containing left inguinal hernia. patient with abdominal pain, nausea and no BM for a week presented to outside hospital and is found to have SBO, was seen by general surgery service, and had exploratory laparotomy adhesiolysis on 03/06 POD #4, today patient did have 4 episodes small gas, but no BM, awaiting return of bowl function, patient is placed on NG tube to decompressed. surgery service has started the patient on TPN, patient has hypokalemia and hypophosphatemia will replace on TPN, and patient complaints of low back pain, will apply 2 Lidoderm patches, patient blood smear peripheral blood specimen showed abnormalities concerning for possible myelodysplasia versus severe reactive atypia, platelets are trending down and prophylactic Lovenox was held this morning. Will consult Hematology for their recommendations. patient is clinically stable, patient is on SCD, will continue to monitor, seen by surgery service. Review of Systems Review of Systems: All systems reviewed & are unremarkable except as noted in HPI and below Exam Narrative: Appears chronically ill elderly frail Patient is comfortable, NAD HEENT: eyes are clear and none icteric, NG Tube in place. LUNGS:CTA HEART: RR S1S2 ABD: BS+, Soft and nontender Lower extremities: no edema SKIN: nonjaundiced Neuro: grossly intact. Objective Data Vital Signs Vital Signs: Vital Signs - 24 hr 03/09/25 20:00 03/09/25 22:00 03/10/25 06:00 Temperature 36.2 C L 36.0 C L Pulse Rate 88 88 84 Respiratory Rate 18 18 18 Blood Pressure 157/80 H 151/78 H Pulse Oximetry 94 94 96 Oxygen Delivery Nasal Cannula Oxygen Flow Rate 2 03/10/25 09:00 03/10/25 14:00 03/10/25 14:52 Temperature 36.7 C Pulse Rate 74 Respiratory Rate 16 Blood Pressure 165/75 H Pulse Oximetry 92 100 93 Oxygen Delivery Nasal Cannula Nasal Cannula Oxygen Flow Rate 2 2 Intake/Output Intake/Output: Intake & Output 03/07/25 03/08/25 03/09/25 03/10/25 23:59 23:59 23:59 23:59 Intake Total 2920 2150 3473.9 2207.1 Output Total 650 2300 1450 Balance 2270 -150 2023.9 2207.1 Meds/Results Medications: Active Medications Generic Name Dose Route Start Last Admin Trade Name Freq PRN Reason Stop Dose Admin Acetaminophen 650 mg 03/05/25 17:30 Acetaminophen 650 Mg Suppository RECTAL Q6H PRN Mild Pain (1-3) or Fever Al Hydrox/Mg Hydrox/Simethicone 30 ml 03/09/25 13:40 03/10/25 14:03 Mag Hydrox/Al Hydrox/Simeth 30 Ml Udc FEED TUBE 30 ml Q8H ANSELMO Administration Dextrose 12.5 gm 03/05/25 17:30 Dextrose 50% 25 Gm/50 Ml Syringe IV PUSH PRN PRN Hypoglycemia Protocol Enoxaparin Sodium 40 mg 03/10/25 09:00 03/10/25 08:42 Enoxaparin 40 Mg/0.4 Ml Syringe SUB-Q Not Given DAILY ANSELMO Glucagon 1 mg 03/05/25 17:30 Glucagon For Inj 1 Mg Vial IM PRN PRN Hypoglycemia Protocol Glucose 15 gm 03/05/25 17:30 Glucose Oral Gel 15 Gm Of Glucse In 37.5 Gm Tube PO PRN PRN Hypoglycemia Protocol Hydromorphone HCl 0.5 mg 03/05/25 20:53 03/09/25 14:16 Hydromorphone Hcl Inj (*Crx) 2 Mg/Ml Vial IV PUSH 0.5 mg Q3H PRN Administration Pain Rated 4-6 Hydromorphone HCl 1 mg 03/05/25 20:53 03/10/25 11:15 Hydromorphone Hcl Inj (*Crx) 2 Mg/Ml Vial IV PUSH 1 mg Q4H PRN Administration Pain Rated 7-10 Dextrose 1,000 mls @ 100 mls/hr 03/05/25 17:30 Dextrose 5% 1,000 Ml IVPB PRN PRN Hypoglycemia Protocol Ibuprofen 800 mg in 200 mls @ 400 mls/hr 03/06/25 18:00 03/10/25 09:22 Caldolor 800 Mg/200 Ml IVPB Infused Q8H ANSELMO Infusion Dextrose 1,000 mls @ 50 mls/hr 03/07/25 13:28 Dextrose 10% IV CONT .Q20H PRN if PN is interrupted Multivitamins 1.25 ml/ 1,002.5 mls @ 40 mls/hr 03/08/25 11:00 03/10/25 11:02 Multivitamins 1.25 ml/ Amino IV CONT 40 mls/hr Acids/Electrolytes/Dextrose .Q24H ANSELMO Administration Protocol Fat Emulsion Intravenous 250 mls @ 20.833 mls/hr 03/08/25 11:00 03/10/25 11:13 Lipids 20% IVPB 20.83 mls/hr Q24H ANSELMO Administration Potassium Chloride/Sodium Chloride 1,000 mls @ 50 mls/hr 03/10/25 12:55 03/10/25 14:03 Kcl 20 Meq/Ns IV CONT 50 mls/hr .Q20H ANSELMO Administration Insulin Aspart 2 - 5 units 03/05/25 18:00 03/10/25 13:48 Insulin Aspart (*Bkc) 100 Units/Ml SUB-Q Not Given Q6HR ANSELMO Protocol Lidocaine 1 patch 03/07/25 09:00 03/10/25 08:46 Lidocaine 5% Patch TRANSDERM 1 patch DAILY ANSELMO Administration Lidocaine 2 patch 03/09/25 12:20 03/10/25 08:45 Lidocaine 5% Patch TRANSDERM 2 patch DAILY ANSELMO Administration Metoclopramide HCl 10 mg 03/06/25 18:00 03/10/25 08:52 Metoclopramide Hcl Inj 10 Mg/2 Ml Vial IV PUSH 10 mg Q8H ANSELMO Administration Miscellaneous Information 1 each 03/10/25 00:01 Clinimix Needs To Be Renewed Or It Will Automatically Discontinue. XX 04/09/25 00:00 CLARIFY ANSELMO Naloxone HCl 0.1 mg 03/05/25 17:30 Naloxone Hcl 0.4 Mg/Ml Vial IV PUSH Q5MIN PRN Sedation Pantoprazole Sodium 40 mg 03/06/25 09:00 03/10/25 08:46 Pantoprazole Sodium Iv 40 Mg Vial IV PUSH 40 mg QAM ANSELMO Administration Sodium Chloride 10 ml 03/08/25 14:00 03/10/25 14:03 Central Line Flush IV PUSH 10 ml Q8HR ANSELMO Administration Sodium Chloride 10 ml 03/08/25 08:45 Central Line Flush IV PUSH PRN PRN with TPN bag changes Sodium Chloride 20 ml 03/08/25 08:45 03/10/25 05:44 Central Line Flush IV PUSH 20 ml PRN PRN Administration after blood draws Radiology Results: ITS Impressions Chest X-Ray 03/08/25 08:29 IMPRESSION: Small left-sided pleural effusion without focal infiltrate. PICC line in good position and ready for immediate use. Labs Labs: Laboratory Results - last 24 hr 03/09/25 03/10/25 03/10/25 18:03 00:59 05:52 WBC 8.0 RBC 4.17 L Hgb 14.1 Hct 43.9 MCV 105.3 H MCH 33.8 MCHC 32.1 RDW 13.0 Plt Count 86 L MPV 12.2 H Immature Gran % (Auto) Not Reportable Neut % (Auto) Not Reportable Lymph % (Auto) Not Reportable [place] % (Auto) Not Reportable Eos % (Auto) Not Reportable Baso % (Auto) Not Reportable Lymph # (Auto) Not Reportable [place] # (Auto) Not Reportable Eos # (Auto) Not Reportable Baso # (Auto) Not Reportable Abs Immat Gran (auto) Not Reportable Absolute Neuts (auto) Not Reportable Absolute Nucleated RBC Not Reportable Total Counted 100 Neutrophils % (Manual) 58 Band Neutrophils % 27 H Lymphocytes % (Manual) 9 L Monocytes % (Manual) 4 Eosinophils % (Manual) 1 Basophils % (Manual) 1 Nucleated RBC % Not Reportable Abs Neuts (Manual) 6.80 H Abs Lymphs (Manual) 0.72 L Abs Monocytes (Manual) 0.32 Absolute Eos (Manual) 0.08 Abs Basophils (Manual) 0.08 Atypical Lymphocytes Present Platelet Estimate Decreased % Immature Plt Fraction 5.5 Macrocytosis 1+ Schistocytes None seen PT 14.7 INR 1.1 APTT 27.2 Sodium 140 Potassium 2.9 L Chloride 105 Carbon Dioxide 32 H Anion Gap 3 L BUN 20 H D Creatinine 0.56 L Estim Creat Clear Calc 68 Estimated GFR > 60 Glucose 125 H POC Capillary Glucose 143 H 152 H Calcium 7.8 L Phosphorus 2.1 L Magnesium 2.4 H Transferrin 81 L Total Bilirubin 0.3 AST 32 ALT 17 Alkaline Phosphatase 55 Total Protein 4.8 L Albumin 2.2 L 03/10/25 03/10/25 06:10 12:23 WBC RBC Hgb Hct MCV MCH MCHC RDW Plt Count MPV Immature Gran % (Auto) Neut % (Auto) Lymph % (Auto) [place] % (Auto) Eos % (Auto) Baso % (Auto) Lymph # (Auto) [place] # (Auto) Eos # (Auto) Baso # (Auto) Abs Immat Gran (auto) Absolute Neuts (auto) Absolute Nucleated RBC Total Counted Neutrophils % (Manual) Band Neutrophils % Lymphocytes % (Manual) Monocytes % (Manual) Eosinophils % (Manual) Basophils % (Manual) Nucleated RBC % Abs Neuts (Manual) Abs Lymphs (Manual) Abs Monocytes (Manual) Absolute Eos (Manual) Abs Basophils (Manual) Atypical Lymphocytes Platelet Estimate % Immature Plt Fraction Macrocytosis Schistocytes PT INR APTT Sodium Potassium Chloride Carbon Dioxide Anion Gap BUN Creatinine Estim Creat Clear Calc Estimated GFR Glucose POC Capillary Glucose 136 H 144 H Calcium Phosphorus Magnesium Transferrin Total Bilirubin AST ALT Alkaline Phosphatase Total Protein Albumin Quality VTE Prophylaxis VTE prophylaxis: mechanical ordered
[2025-03-10] MEDS: HYDROmorphone HCL INJ (*CRX) 2 MG/ML VIAL 0.5 MG IV PUSH (16:21)
--- NOTE | 2025-03-10 19:16 | WPDONCCN ---
Assessment and Plan Assessment and plan (1) Thrombocytopenia: Code(s): D69.6 - Thrombocytopenia, unspecified Status: Acute Plan This is a 75-year-old female with multiple comorbidities including hypertension, hyperlipidemia, autoimmune hepatitis and diabetes admitted to the hospital with constipation and abdominal pain. CT scan showed closed loop small bowel obstruction in the right lower quadrant without evidence of secondary ischemia. She underwent exploratory laparotomy with adhesion lysis and incidental appendectomy on March 06. Platelet count was normal on admission now has declined to 86,000. CT scan showed 1.6 cm cyst in the left hepatic lobe with normal spleen. I have discussed the differential diagnosis of thrombocytopenia that includes ITP, heparin induced thrombocytopenia, drug-induced thrombocytopenia, secondary to autoimmune hepatitis, low-grade DIC and left likely bone marrow disorder as initial platelet count was normal. I will check platelet antibodies and hit antibodies. I will check iron panel and vitamin B12 level. Mean platelet volume is elevated suggesting peripheral destruction of the platelet rather than bone marrow disorders. I do not see need for bone marrow biopsy testing at this time. I would recommend regular monitoring of platelet count. No need for platelet transfusion. I have provided her my office information for follow-up as well. I have answered all the questions to patient's satisfaction. HPI Data of Consult Date/Time: 03/10/25 19:16 Requesting Physician: Shira Cloud MD Primary Care Provider: Henry Woodson DO Consult Narrative Narrative: Flory Khoury is a 75 year old female with history of type 2 diabetes, hypertension, hyperlipidemia and autoimmune hepatitis admitted to the hospital with constipation and abdominal pain on March 05, 2025. CT abdomen and pelvis showed closed loop small bowel obstruction in the right lower quadrant without evidence of secondary ischemia. Labs showed platelet count of under pretty 2000 on admission now dropped to 86,000. She denies any bleeding but does have some bruising. She denies any previous history of bone marrow disorders. Other labs showed normal WBC count of 8.0 and hemoglobin of 14.1. Mean platelet volume was elevated at 12.2. Differential showed normal neutrophil percentage but elevated monocyte of 19.9%. PT and PTT was normal. Patient had exploratory laparotomy and adhesiolysis and incidental open appendectomy done on the March 06. She is complaining of some abdominal discomfort but no bleeding. CT scan also showed no evidence of hepatosplenomegaly. Review of Systems Review of Systems: Twelve point review of system was reviewed [facility] Past Medical History Medical History Hypertension Type 2 diabetes mellitus Overactive bladder Hyperlipidemia Surgical History Surgical History History of total abdominal hysterectomy History of laparoscopic cholecystectomy (05/31/22) Family History Family History Father Heart disease Other Brain cancer Mother No problems noted. Social History Social History Social History: Surrogate medical decision maker: Joce Khoury, spouse. Code status: Full code. Smoking status: Never smoker Alcohol intake: never Drinks per week: 1 Alcohol use details: Social alcohol use in moderation. Substance use: never Substance use type: does not use Do You Feel Safe in your Home?: Yes Lack of Transportation: No Lack of Food: Never True Current Housing: I Have Housing Concerned About Future Housing: No Difficulty Paying Gas/Electric Bills: No Difficulty Paying for Meds: No Currently Unemployed: No Education: High School Diploma/GED Difficulty w/ Childcare or Family Care: No Living arrangements: with family Additional living arrangements comments: The patient lives with her in [place]. Occupation/Education: retired Additional occupation/education comments: Retired. She is very involved in local charities including the [employer]. Spiritual care concerns: No Meds Home Medications and Allergies Home Medications ?Medication ?Instructions ?Recorded ?Confirmed ?Type biotin 10,000 mcg capsule 10,000 mcg PO DAILY 07/19/24 03/05/25 History oxybutynin chloride 15 mg 15 mg PO DAILY #90 tabs 07/19/24 03/05/25 Rx tablet,extended release 24 hr senna leaf extract 8.7 mg chewable 8.7 mg PO DAILY PRN Constipation 07/19/24 03/05/25 History tablet (Senokot) blood-glucose meter (DayjetTouch #1 ea 07/24/24 03/05/25 Rx Verio Flex Start kit) lancets 33 gauge (OneTouch Delica #100 ea 07/24/24 03/05/25 Rx Plus Lancet) amlodipine 10 mg tablet 10 mg PO DAILY #90 tabs 11/28/24 03/05/25 Rx empagliflozin 10 mg tablet 10 mg PO QAM #90 tabs 11/28/24 03/05/25 Rx (Jardiance) rosuvastatin 20 mg tablet 20 mg PO DAILY #90 tabs 11/28/24 03/05/25 Rx prednisone 5 mg tablet See Rx Instructions .Route 12/17/24 03/05/25 Rx .COMPLEX #60 tabs azathioprine 50 mg tablet See Rx Instructions .Route 01/13/25 03/05/25 Rx .COMPLEX #30 tabs blood-glucose sensor (FreeStyle #6 ea 03/03/25 03/05/25 Rx Romain 3 Plus Sensor device) insulin aspart U-100 100 unit/mL See Rx Instructions subcut TID 3 03/03/25 03/05/25 Rx (3 mL) subcutaneous pen (Novolog months #15 mL FlexPen U-100 Insulin aspart) pen needle, diabetic 32 gauge x #300 ea 03/03/25 03/05/25 Rx /32 ondansetron 4 mg disintegrating 4 mg PO Q8H PRN nausea and 03/04/25 03/05/25 Rx tablet vomiting #30 tabs famotidine 20 mg tablet (Acid 20 mg PO DAILY 03/05/25 03/05/25 History Controller) Allergies Allergy/AdvReac Type Severity Reaction Status Date / Time No Known Allergies Allergy Verified 03/05/25 08:47 Vital Signs Vital Signs - 24 hr 03/09/25 20:00 03/09/25 22:00 03/10/25 06:00 Temperature 36.2 C L 36.0 C L Pulse Rate 88 88 84 Respiratory Rate 18 18 18 Blood Pressure 157/80 H 151/78 H Pulse Oximetry 94 94 96 Oxygen Delivery Nasal Cannula Oxygen Flow Rate 2 03/10/25 09:00 03/10/25 14:00 03/10/25 14:52 Temperature 36.7 C Pulse Rate 74 Respiratory Rate 16 Blood Pressure 165/75 H Pulse Oximetry 92 100 93 Oxygen Delivery Nasal Cannula Nasal Cannula Oxygen Flow Rate 2 2 Exam Narrative: Lungs clear to auscultation bilaterally Cardiovascular regular rate rhythm no murmurs Abdomen nondistended slightly tender in the upper quadrant with reduced bowel sounds Extremities no edema Results Labs 03/10/25 05:52 03/10/25 05:52 Labs: Short CBC 03/10/25 Range/Units 05:52 WBC 8.0 (4.5-10.0) K/mm3 Hgb 14.1 (12.0-15.0) g/dL Hct 43.9 (37.0-47.0) % Plt Count 86 L (150-375) k/mm3 BMP 03/10/25 05:52 Sodium 140 Potassium 2.9 L Chloride 105 Carbon Dioxide 32 H BUN 20 H D Creatinine 0.56 L Glucose 125 H Calcium 7.8 L Liver Function 03/10/25 Range/Units 05:52 Total Bilirubin 0.3 (0.2-1.3) mg/dL AST 32 (14-36) U/L ALT 17 (6-35) U/L Alkaline Phosphatase 55 (38-126) U/L Albumin 2.2 L (3.5-5.1) g/dL
[2025-03-10 20:00] VITALS: PULSE 76; RESP 20; O2SAT 95
[2025-03-10 21:17] VITALS: BP 156/70; PULSE 76; RESP 20; TEMP 36.6; O2SAT 95
[2025-03-11 00:28] LABS: Iron 60 ug/dL (37-170)
[2025-03-11 00:40] LABS: Percent Iron Saturation 34 % (20-50)
[2025-03-11] MEDS: HYDROmorphone HCL INJ (*CRX) 2 MG/ML VIAL 1 MG IV PUSH ×4 (00:42→21:16)
[2025-03-11 01:05] LABS: Ferritin 584.00 ng/mL (11.1-264)
[2025-03-11] MEDS: METOCLOPRAMIDE HCL INJ 10 MG/2 ML VIAL IV PUSH ×3 (01:16→17:11)
[2025-03-11] MEDS: IBUPROFEN IV 800 MG/200 ML 800 MG/200 ML BAG 400 MG IVPB ×3 (01:16→17:12)
[2025-03-11 01:48] LABS: Vitamin B12 > 1000.0 pg/mL (239-931)
[2025-03-11 06:00] VITALS: BP 159/95; PULSE 72; RESP 20; TEMP 36; O2SAT 92
[2025-03-11] MEDS: MAG HYDROX/AL HYDROX/SIMETH 30 ML UDC FEED TUBE ×3 (06:06→21:31)
[2025-03-11] MEDS: CENTRAL LINE FLUSH 10 ML IV PUSH ×3 (06:06→21:18)
[2025-03-11 06:10] LABS: Hematocrit 44.6 % (37.0-47.0); Hemoglobin 14.3 g/dL (12.0-15.0); Immature Platelet Fraction Pct 6.4 % (0.9-11.2); Mean Corpuscular HGB Conc 32.1 g/dl (32-36); Mean Corpuscular Hemoglobin 33.3 pg (26-34); Mean Corpuscular Volume 104.0 fl (80-100); Platelet Count Result 84 k/mm3 (150-375); Red Blood Count 4.29 M/mm3 (4.2-5.4); White Blood Count 7.3 K/mm3 (4.5-10.0)
[2025-03-11 06:24] LABS: Alanine Aminotransferase 17 U/L (6-35); Albumin Level 2.4 g/dL (3.5-5.1); Alkaline Phosphatase 56 U/L (38-126); Anion Gap 3 mmol/L (4-12); Aspartate Amino Transferase 34 U/L (14-36); Bilirubin,Total 0.4 mg/dL (0.2-1.3); Blood Urea Nitrogen 14 mg/dL (7-17); Calcium 7.9 mg/dL (8.4-10.2); Carbon Dioxide 33 mmol/L (22-30); Chloride 102 mmol/L (98-107); Estimated CRCL calculation 91 ml/min; Estimated Glomerular Filt Rate > 60; Glucose 116 mg/dL (65-110); Magnesium 2.2 mg/dL (1.6-2.3); Potassium 3.1 mmol/L (3.4-5.0); Sodium 138 mmol/L (137-145); Total Protein 5.0 g/dL (6.3-8.2)
[2025-03-11] MEDS: POTASSIUM CHLORIDE INJ 40 MEQ in SODIUM CHLORIDE 0.9% IV 500 ML 130 MEQ IVPB (08:58)
[2025-03-11 08:59] VITALS: O2SAT 98
[2025-03-11] MEDS: LIDOCAINE 5% PATCH 1 PATCH TRANSDERM (08:59)
[2025-03-11] MEDS: LIDOCAINE 5% PATCH 2 PATCH TRANSDERM (09:00)
[2025-03-11] MEDS: PANTOPRAZOLE SODIUM IV 40 MG VIAL IV PUSH (09:00)
[2025-03-11] MEDS: HYDROmorphone HCL INJ (*CRX) 2 MG/ML VIAL 0.5 MG IV PUSH ×2 (09:58→15:46)
--- NOTE | 2025-03-11 11:16 | PCNFU ---
Nutrition Follow-Up Complete: Inadequate energy intake related to NPO status as evidenced by current diet order Goal:Meet estimated needs Pt meeting goal via TPN Pt current nutrition is NPO, TPN Clinimix / running at 40ml/hr = 1182kcals, 48g protein. This is meeting 90% estimated energy needs, 100% estimated protein needs. Nutrition recommendation: Continue with current plan of care Last recorded weight is 70.9 kg. Bowel Motility: +BM 03/08 Labs Reviewed: Alb:2.4, K:3.1, Cr:0.4, Glu:116 Meds Noted: Novolog, protonix, KCL Skin: WNL Additional Notes: Pt continues on TPN for nutrition support. Plan is to continue on TPN at this time. GI following. Agree with orders Monitor plan of care, TPN, diet orders, intake and tolerance, wt, labs. Follow up every Monday and Monday.
--- NOTE | 2025-03-11 11:50 | PM.IMPN ---
Progress Note: A&P Assessment and Plan (1) Complete small bowel obstruction: Code(s): K56.601 - Complete intestinal obstruction, unspecified as to cause Status: Inactive Assessment and Plan: - CT abdomen/pelvis: 1. Closed loop small bowel obstruction the right lower quadrant without evidence secondary ischemia. 2. Fat and small amount of ascites within a moderate-sized left lower quadrant ventral hernia. 3. Small fat-containing left inguinal hernia. - general surgery consulted, Mao DANIELSON has history of prior hysterectomy raising concerns for adhesions causing bowel obstruction, process likely been ongoing for the past several days and will likely need exploratory laparotomy possibly tomorrow on 03/06 variant upon their exam no acute surgical abdomen and patient is hemodynamically stable with lactate levels only mildly elevated - NPO except ice chips - analgesics and antiemetics p.r.n. - monitor electrolytes and renal function - monitor I&Os - IV fluids: 1.5L -> 100 mL/hr - history of diabetes, glucose checks q.6 with sliding scale q.6 - NG placed at [facility] on 03/05, confirmed via abdominal XR.? Placed on low intermittent suction. (2) Type 2 diabetes mellitus: Qualifiers: Diabetes mellitus senior living insulin use: without senior living use Diabetes mellitus complication status: without complication Qualified Code(s): E11.9 - Type 2 diabetes mellitus without complications Code(s): E11.9 - Type 2 diabetes mellitus without complications Status: Acute Assessment and Plan: - hypoglycemia protocol - POC blood glucose Q6H - hold home medications: Jardiance, home sliding scale - correct regimen ordered - low dose Q6H while NPO - A1C 5.2% on 03/03/2025 (3) Autoimmune hepatitis: Code(s): K75.4 - Autoimmune hepatitis Status: Acute Assessment and Plan: - continue home medication(s) Prednisone and Azathioprine once no longer NPO (4) HTN (hypertension): Qualifiers: Hypertension type: primary hypertension Qualified Code(s): I10 - Essential (primary) hypertension Code(s): I10 - Essential (primary) hypertension Status: Acute Assessment and Plan: - chronic, currently 146/79 - currently NPO, will hold home medications including amlodipine - monitor Plan patient with abdominal pain, nausea and no BM for a week presented to outside hospital and is found to have SBO, was seen by general surgery service, and had exploratory laparotomy adhesiolysis on 03/06 POD #5, today patient did have several episodes gas, and feels will have a BM today, awaiting return of bowl function, patient is placed on NG tube to decompressed. surgery service has started the patient on TPN, patient has hypokalemia and hypophosphatemia will replace on TPN, and patient complaints of low back pain, applied 2 Lidoderm patches, patient blood smear peripheral specimen showed abnormalities concerning for possible myelodysplasia versus severe reactive atypia, platelets are trending down and prophylactic Lovenox was held this morning. patient was seen by footwear machinery instructor does not suspect bone marrow issue however further work up is in progress. Diet: NPO except ice chips GI Prophylaxis: pantoprazole DVT Prophylaxis: SCDs IV fluids: LR 130 mL/hour Lines/Tubes: peripheral IV, NG tube Code Status: full code Subjective Date/time seen: 03/11/25 11:50 Interval history: Abdominal Pain, Constipation H&P-Narrative: 75 y/o F with PMH of diabetes, hypertension, hyperlipidemia, and autoimmune hepatitis presents here with abdominal pain and constipation. The patient presented to [facility] on 03/05 from home for further evaluation of constipation and abdominal pain.? She reports her last bowel movement was 1 week ago.? It is accompanied by severe/diffuse abdominal pain and nausea without vomiting.? She further describes the abdominal pain as dull to sharp, achy/cramping, radiation into her back, constant, (duration), no modifying factors.? She denies accompanying fever, chills, or body aches. ?She was evaluated by her brazing machine setter on 03/03 where she reported mild nausea and constipation.? She was instructed to stop her Ozempic as she believes this may be the cause of her constipation abdominal pain.? Her next dose of Ozempic was due today, 03/05. Initial VS at presentation: ?98.3? F, HR 124, RR 16, 118/93, and 97% on RA. ED workup showed: ?No leukocytosis, hemoglobin 18.5 (16.0 on 02/04), INR 1.2, sodium 133, creatinine 1.07 and GFR 50 (0.85 and GFR >60 on 03/03), glucose 270, osmolality 305, lactic 2.7, initial troponin 0.024 and lipase within normal limits.? Abdominal XR showed a high-grade small bowel obstruction.? CT of the abdomen/pelvis showed a closed loop SBO in the right lower quadrant without evidence of secondary ischemia, fat and small amount of ascites within a moderate sized left lower quadrant ventral hernia, small fat containing left inguinal hernia. patient with abdominal pain, nausea and no BM for a week presented to outside hospital and is found to have SBO, was seen by general surgery service, and had exploratory laparotomy adhesiolysis on 03/06 POD #5, today patient did have several episodes gas, and feels will have a BM today, awaiting return of bowl function, patient is placed on NG tube to decompressed. surgery service has started the patient on TPN, patient has hypokalemia and hypophosphatemia will replace on TPN, and patient complaints of low back pain, applied 2 Lidoderm patches, patient blood smear peripheral specimen showed abnormalities concerning for possible myelodysplasia versus severe reactive atypia, platelets are trending down and prophylactic Lovenox was held this morning. patient was seen by footwear machinery instructor does not suspect bone marrow issue however further work up is in progress. Review of Systems Review of Systems: All systems reviewed & are unremarkable except as noted in HPI and below Exam Narrative: Appears chronically ill elderly frail Patient is comfortable, NAD HEENT: eyes are clear and none icteric, NG Tube in place. LUNGS:CTA HEART: RR S1S2 ABD: BS+, Soft and nontender Lower extremities: no edema SKIN: nonjaundiced Neuro: grossly intact. Objective Data Vital Signs Vital Signs: Vital Signs - 24 hr 03/10/25 14:00 03/10/25 14:52 03/10/25 20:00 Temperature 36.7 C Pulse Rate 74 76 Respiratory Rate 16 20 Blood Pressure 165/75 H Pulse Oximetry 100 93 95 Oxygen Delivery Nasal Cannula Nasal Cannula Oxygen Flow Rate 2 2 03/10/25 21:17 03/11/25 06:00 Temperature 36.6 C 36.0 C L Pulse Rate 76 72 Respiratory Rate 20 20 Blood Pressure 156/70 H 159/95 H Pulse Oximetry 95 92 Oxygen Delivery Oxygen Flow Rate Intake/Output Intake/Output: Intake & Output 03/08/25 03/09/25 03/10/25 03/11/25 23:59 23:59 23:59 23:59 Intake Total 2150 3473.9 2409.1 400 Output Total 2300 1450 150 Balance -150 2023.9 2259.1 400 Meds/Results Medications: Active Medications Generic Name Dose Route Start Last Admin Trade Name Freq PRN Reason Stop Dose Admin Acetaminophen 650 mg 03/05/25 17:30 Acetaminophen 650 Mg Suppository RECTAL Q6H PRN Mild Pain (1-3) or Fever Al Hydrox/Mg Hydrox/Simethicone 30 ml 03/09/25 13:40 03/11/25 06:06 Mag Hydrox/Al Hydrox/Simeth 30 Ml Udc FEED TUBE 30 ml Q8H ANSELMO Administration Dextrose 12.5 gm 03/05/25 17:30 Dextrose 50% 25 Gm/50 Ml Syringe IV PUSH PRN PRN Hypoglycemia Protocol Enoxaparin Sodium 40 mg 03/10/25 09:00 03/11/25 10:17 Enoxaparin 40 Mg/0.4 Ml Syringe SUB-Q Not Given DAILY ANSELMO Glucagon 1 mg 03/05/25 17:30 Glucagon For Inj 1 Mg Vial IM PRN PRN Hypoglycemia Protocol Glucose 15 gm 03/05/25 17:30 Glucose Oral Gel 15 Gm Of Glucse In 37.5 Gm Tube PO PRN PRN Hypoglycemia Protocol Hydromorphone HCl 0.5 mg 03/05/25 20:53 03/11/25 09:58 Hydromorphone Hcl Inj (*Crx) 2 Mg/Ml Vial IV PUSH 0.5 mg Q3H PRN Administration Pain Rated 4-6 Hydromorphone HCl 1 mg 03/05/25 20:53 03/11/25 06:06 Hydromorphone Hcl Inj (*Crx) 2 Mg/Ml Vial IV PUSH 1 mg Q4H PRN Administration Pain Rated 7-10 Dextrose 1,000 mls @ 100 mls/hr 03/05/25 17:30 Dextrose 5% 1,000 Ml IVPB PRN PRN Hypoglycemia Protocol Ibuprofen 800 mg in 200 mls @ 400 mls/hr 03/06/25 18:00 03/11/25 09:30 Caldolor 800 Mg/200 Ml IVPB Infused Q8H ANSELMO Infusion Dextrose 1,000 mls @ 50 mls/hr 03/07/25 13:28 Dextrose 10% IV CONT .Q20H PRN if PN is interrupted Multivitamins 1.25 ml/ 1,002.5 mls @ 40 mls/hr 03/08/25 11:00 03/10/25 11:02 Multivitamins 1.25 ml/ Amino IV CONT 40 mls/hr Acids/Electrolytes/Dextrose .Q24H ANSELMO Administration Protocol Fat Emulsion Intravenous 250 mls @ 20.833 mls/hr 03/08/25 11:00 03/10/25 11:13 Lipids 20% IVPB 20.83 mls/hr Q24H ANSELMO Administration Potassium Chloride/Sodium Chloride 1,000 mls @ 50 mls/hr 03/10/25 12:55 03/11/25 10:18 Kcl 20 Meq/Ns IV CONT Not Given .Q20H ANSELMO Insulin Aspart 2 - 5 units 03/05/25 18:00 03/11/25 06:05 Insulin Aspart (*Bkc) 100 Units/Ml SUB-Q Not Given Q6HR ANSELMO Protocol Lidocaine 1 patch 03/07/25 09:00 03/11/25 08:59 Lidocaine 5% Patch TRANSDERM 1 patch DAILY ANSELMO Administration Lidocaine 2 patch 03/09/25 12:20 03/11/25 09:00 Lidocaine 5% Patch TRANSDERM 2 patch DAILY ANSELMO Administration Metoclopramide HCl 10 mg 03/06/25 18:00 03/11/25 09:07 Metoclopramide Hcl Inj 10 Mg/2 Ml Vial IV PUSH 10 mg Q8H ANSELMO Administration Miscellaneous Information 1 each 03/10/25 00:01 Clinimix Needs To Be Renewed Or It Will Automatically Discontinue. XX 04/09/25 00:00 CLARIFY ANSELMO Naloxone HCl 0.1 mg 03/05/25 17:30 Naloxone Hcl 0.4 Mg/Ml Vial IV PUSH Q5MIN PRN Sedation Pantoprazole Sodium 40 mg 03/06/25 09:00 03/11/25 09:00 Pantoprazole Sodium Iv 40 Mg Vial IV PUSH 40 mg QAM ANSELMO Administration Sodium Chloride 10 ml 03/08/25 14:00 03/11/25 06:06 Central Line Flush IV PUSH 10 ml Q8HR ANSELMO Administration Sodium Chloride 10 ml 03/08/25 08:45 Central Line Flush IV PUSH PRN PRN with TPN bag changes Sodium Chloride 20 ml 03/08/25 08:45 03/10/25 05:44 Central Line Flush IV PUSH 20 ml PRN PRN Administration after blood draws Radiology Results: ITS Impressions Chest X-Ray 03/08/25 08:29 IMPRESSION: Small left-sided pleural effusion without focal infiltrate. PICC line in good position and ready for immediate use. Labs Labs: Laboratory Results - last 24 hr 03/10/25 03/10/25 03/10/25 12:23 18:47 21:55 WBC RBC Hgb Hct MCV MCH MCHC RDW Plt Count MPV % Immature Plt Fraction Sodium Potassium Chloride Carbon Dioxide Anion Gap BUN Creatinine Estim Creat Clear Calc Estimated GFR Glucose POC Capillary Glucose 144 H 122 H Calcium Phosphorus Magnesium Iron TIBC % Saturation Ferritin Total Bilirubin AST ALT Alkaline Phosphatase Lactate Dehydrogenase Total Protein Albumin Vitamin B12 Folate Heparin-induced Plt Ab Cancelled Hep-Induced Plt Ab Cmmt Cancelled 03/10/25 03/11/25 03/11/25 23:42 00:19 05:59 WBC 7.3 RBC 4.29 Hgb 14.3 Hct 44.6 MCV 104.0 H MCH 33.3 MCHC 32.1 RDW 12.7 Plt Count 84 L MPV 11.8 H % Immature Plt Fraction 6.4 Sodium 138 Potassium 3.1 L Chloride 102 Carbon Dioxide 33 H Anion Gap 3 L BUN 14 D Creatinine 0.40 L Estim Creat Clear Calc 91 Estimated GFR > 60 Glucose 116 H POC Capillary Glucose 128 H Calcium 7.9 L Phosphorus 3.1 Magnesium 2.2 Iron 60 TIBC 174 L % Saturation 34 Ferritin 584.00 H Total Bilirubin 0.4 AST 34 ALT 17 Alkaline Phosphatase 56 Lactate Dehydrogenase 229 Total Protein 5.0 L Albumin 2.4 L Vitamin B12 > 1000.0 H Folate 5.3 Heparin-induced Plt Ab Hep-Induced Plt Ab Cmmt Quality VTE Prophylaxis VTE prophylaxis: mechanical ordered
[2025-03-11] MEDS: FAT EMULSIONS IV 20% 250 ML 20.83 ML IVPB (12:02)
[2025-03-11] MEDS: AMINO ACIDS 5%/D15W/E-LYTES/CA 1,000 ML with MULTIVITAMINS-12 INJ VIAL 1 1.25 ML, MULTI... 40 ML IV CONT (12:02)
--- NOTE | 2025-03-11 12:52 | P.PNGS_ITS ---
Progress Note: A&P Assessment and Plan (1) SBO (small bowel obstruction): Code(s): K56.609 - Unspecified intestinal obstruction, unspecified as to partial versus complete obstruction Status: Acute Assessment and Plan: * Resolved after exploratory laparotomy and abdominal adhesiolysis. Awaiting return of bowel function. She is still passing flatus but no BM yet. * Continue NG tube decompression, bowel rest, and TPN. Continue Reglan. * Potassium being replaced again this morning. Labs will be repeated in am. * Encouraged IS use. Still requiring 2 liters of O2. * Continue increasing activity and working on strength, PT/OT following. She will need correction or acute rehab on discharge. CC following to help with discharge planning and family is wanting her to go to a facility closer to [place]. (2) Malnutrition: Code(s): E46 - Unspecified protein-calorie malnutrition Status: Acute Assessment and Plan: * Continue TPN at 40 mL/hr. Plan I have discussed the patient's case and plan of care with Dr. Cavanaugh. Subjective Subjective Date/Time Seen: 03/11/25 12:52 Patient reports: voiding w/o difficulty, flatus, no bowel movement and afebrile Interval history: Patient doing well today. Denies any abdominal pain at this time. Passing flatus but still no BM. Minimal out of NG tube. She was unable to bear weight with therapy yesterday and had to use the chair lift to get back to bed. She is feeling weak. No other complaints at this time. Review of Systems Review of Systems: All systems reviewed & are unremarkable except as noted in HPI and below Exam GI: Inspection: incision (dry and glue intact, no erythema) and other (mildly distended) GI Palp: Yes Soft to palpation, Yes Tenderness to palpation present (GI) (mild incisional tenderness) and No Guarding due to palpation present (GI) Auscultation: Hypoactive bowel sounds present Extrem: General: no calf tenderness and no edema Objective Data Vital Signs Vital Signs: Vital Signs - 24 hr 03/10/25 14:00 03/10/25 14:52 03/10/25 20:00 Temperature 98.1 F Pulse Rate 74 76 Respiratory Rate 16 20 Blood Pressure 165/75 H Pulse Oximetry 100 93 95 Oxygen Delivery Nasal Cannula Nasal Cannula Oxygen Flow Rate 2 2 03/10/25 21:17 03/11/25 06:00 Temperature 98 F 96.8 F L Pulse Rate 76 72 Respiratory Rate 20 20 Blood Pressure 156/70 H 159/95 H Pulse Oximetry 95 92 Oxygen Delivery Oxygen Flow Rate Intake/Output Intake/Output: Intake & Output 03/08/25 03/09/25 03/10/25 03/11/25 23:59 23:59 23:59 23:59 Intake Total 2150 3473.9 2659.1 1400 Output Total 2300 1450 150 Balance -150 2023.9 2509.1 1400 Meds/Results Medications: Active Medications Generic Name Dose Route Start Last Admin Trade Name Freq PRN Reason Stop Dose Admin Acetaminophen 650 mg 03/05/25 17:30 Acetaminophen 650 Mg Suppository RECTAL Q6H PRN Mild Pain (1-3) or Fever Al Hydrox/Mg Hydrox/Simethicone 30 ml 03/09/25 13:40 03/11/25 06:06 Mag Hydrox/Al Hydrox/Simeth 30 Ml Udc FEED TUBE 30 ml Q8H ANSELMO Administration Dextrose 12.5 gm 03/05/25 17:30 Dextrose 50% 25 Gm/50 Ml Syringe IV PUSH PRN PRN Hypoglycemia Protocol Enoxaparin Sodium 40 mg 03/10/25 09:00 03/11/25 10:17 Enoxaparin 40 Mg/0.4 Ml Syringe SUB-Q Not Given DAILY ANSELMO Glucagon 1 mg 03/05/25 17:30 Glucagon For Inj 1 Mg Vial IM PRN PRN Hypoglycemia Protocol Glucose 15 gm 03/05/25 17:30 Glucose Oral Gel 15 Gm Of Glucse In 37.5 Gm Tube PO PRN PRN Hypoglycemia Protocol Hydromorphone HCl 0.5 mg 03/05/25 20:53 03/11/25 09:58 Hydromorphone Hcl Inj (*Crx) 2 Mg/Ml Vial IV PUSH 0.5 mg Q3H PRN Administration Pain Rated 4-6 Hydromorphone HCl 1 mg 03/05/25 20:53 03/11/25 12:14 Hydromorphone Hcl Inj (*Crx) 2 Mg/Ml Vial IV PUSH 1 mg Q4H PRN Administration Pain Rated 7-10 Dextrose 1,000 mls @ 100 mls/hr 03/05/25 17:30 Dextrose 5% 1,000 Ml IVPB PRN PRN Hypoglycemia Protocol Ibuprofen 800 mg in 200 mls @ 400 mls/hr 03/06/25 18:00 03/11/25 09:30 Caldolor 800 Mg/200 Ml IVPB Infused Q8H ANSELMO Infusion Dextrose 1,000 mls @ 50 mls/hr 03/07/25 13:28 Dextrose 10% IV CONT .Q20H PRN if PN is interrupted Multivitamins 1.25 ml/ 1,002.5 mls @ 40 mls/hr 03/08/25 11:00 03/11/25 12:02 Multivitamins 1.25 ml/ Amino IV CONT 40 mls/hr Acids/Electrolytes/Dextrose .Q24H ANSELMO Administration Protocol Fat Emulsion Intravenous 250 mls @ 20.833 mls/hr 03/08/25 11:00 03/11/25 12:02 Lipids 20% IVPB 20.83 mls/hr Q24H ANSELMO Administration Potassium Chloride/Sodium Chloride 1,000 mls @ 50 mls/hr 03/10/25 12:55 03/11/25 10:18 Kcl 20 Meq/Ns IV CONT Not Given .Q20H ANSELMO Insulin Aspart 2 - 5 units 03/05/25 18:00 03/11/25 12:03 Insulin Aspart (*Bkc) 100 Units/Ml SUB-Q Not Given Q6HR ANSELMO Protocol Lidocaine 1 patch 03/07/25 09:00 03/11/25 08:59 Lidocaine 5% Patch TRANSDERM 1 patch DAILY ANSELMO Administration Lidocaine 2 patch 03/09/25 12:20 03/11/25 09:00 Lidocaine 5% Patch TRANSDERM 2 patch DAILY ANSELMO Administration Metoclopramide HCl 10 mg 03/06/25 18:00 03/11/25 09:07 Metoclopramide Hcl Inj 10 Mg/2 Ml Vial IV PUSH 10 mg Q8H ANSELMO Administration Miscellaneous Information 1 each 03/10/25 00:01 Clinimix Needs To Be Renewed Or It Will Automatically Discontinue. XX 04/09/25 00:00 CLARIFY ANSELMO Naloxone HCl 0.1 mg 03/05/25 17:30 Naloxone Hcl 0.4 Mg/Ml Vial IV PUSH Q5MIN PRN Sedation Pantoprazole Sodium 40 mg 03/06/25 09:00 03/11/25 09:00 Pantoprazole Sodium Iv 40 Mg Vial IV PUSH 40 mg QAM ANSELMO Administration Sodium Chloride 10 ml 03/08/25 14:00 03/11/25 06:06 Central Line Flush IV PUSH 10 ml Q8HR ANSELMO Administration Sodium Chloride 10 ml 03/08/25 08:45 Central Line Flush IV PUSH PRN PRN with TPN bag changes Sodium Chloride 20 ml 03/08/25 08:45 03/10/25 05:44 Central Line Flush IV PUSH 20 ml PRN PRN Administration after blood draws Radiology Results: ITS Impressions Chest X-Ray 03/08/25 08:29 IMPRESSION: Small left-sided pleural effusion without focal infiltrate. PICC line in good position and ready for immediate use. Labs Labs: Laboratory Results - last 24 hr 03/10/25 03/10/25 03/10/25 12:23 18:47 21:55 WBC RBC Hgb Hct MCV MCH MCHC RDW Plt Count MPV % Immature Plt Fraction Sodium Potassium Chloride Carbon Dioxide Anion Gap BUN Creatinine Estim Creat Clear Calc Estimated GFR Glucose POC Capillary Glucose 144 H 122 H Calcium Phosphorus Magnesium Iron TIBC % Saturation Ferritin Total Bilirubin AST ALT Alkaline Phosphatase Lactate Dehydrogenase Total Protein Albumin Vitamin B12 Folate Heparin-induced Plt Ab Cancelled Hep-Induced Plt Ab Cmmt Cancelled 03/10/25 03/11/25 03/11/25 23:42 00:19 05:59 WBC 7.3 RBC 4.29 Hgb 14.3 Hct 44.6 MCV 104.0 H MCH 33.3 MCHC 32.1 RDW 12.7 Plt Count 84 L MPV 11.8 H % Immature Plt Fraction 6.4 Sodium 138 Potassium 3.1 L Chloride 102 Carbon Dioxide 33 H Anion Gap 3 L BUN 14 D Creatinine 0.40 L Estim Creat Clear Calc 91 Estimated GFR > 60 Glucose 116 H POC Capillary Glucose 128 H Calcium 7.9 L Phosphorus 3.1 Magnesium 2.2 Iron 60 TIBC 174 L % Saturation 34 Ferritin 584.00 H Total Bilirubin 0.4 AST 34 ALT 17 Alkaline Phosphatase 56 Lactate Dehydrogenase 229 Total Protein 5.0 L Albumin 2.4 L Vitamin B12 > 1000.0 H Folate 5.3 Heparin-induced Plt Ab Hep-Induced Plt Ab Cmmt 03/11/25 12:27 WBC RBC Hgb Hct MCV MCH MCHC RDW Plt Count MPV % Immature Plt Fraction Sodium Potassium Chloride Carbon Dioxide Anion Gap BUN Creatinine Estim Creat Clear Calc Estimated GFR Glucose POC Capillary Glucose 129 H Calcium Phosphorus Magnesium Iron TIBC % Saturation Ferritin Total Bilirubin AST ALT Alkaline Phosphatase Lactate Dehydrogenase Total Protein Albumin Vitamin B12 Folate Heparin-induced Plt Ab Hep-Induced Plt Ab Cmmt
[2025-03-11 14:00] VITALS: BP 182/84; PULSE 72; RESP 16; TEMP 36.5; O2SAT 97
[2025-03-11 21:16] VITALS: O2SAT 96
[2025-03-11 21:25] VITALS: BP 166/81; PULSE 69; RESP 18; TEMP 36.6; O2SAT 96
[2025-03-12] VITALS (8 sets, daily range): BP systolic 155–174; BP diastolic 71–76; PULSE 67–77; RESP 16–20; TEMP 36.1–36.6; O2SAT 91–97
[2025-03-12] MEDS: HYDROmorphone HCL INJ (*CRX) 2 MG/ML VIAL 1 MG IV PUSH ×3 (00:57→21:37)
[2025-03-12] MEDS: IBUPROFEN IV 800 MG/200 ML 800 MG/200 ML BAG 400 MG IVPB ×3 (00:59→17:41)
[2025-03-12] MEDS: METOCLOPRAMIDE HCL INJ 10 MG/2 ML VIAL IV PUSH ×3 (00:59→17:41)
[2025-03-12] MEDS: MAG HYDROX/AL HYDROX/SIMETH 30 ML UDC FEED TUBE ×3 (05:35→21:39)
[2025-03-12] MEDS: CENTRAL LINE FLUSH 10 ML IV PUSH ×2 (05:35→14:16)
[2025-03-12] MEDS: CENTRAL LINE FLUSH 20 ML IV PUSH (05:35)
[2025-03-12 06:11] LABS: Hematocrit 41.8 % (37.0-47.0); Hemoglobin 13.6 g/dL (12.0-15.0); Immature Platelet Fraction Pct 6.3 % (0.9-11.2); Mean Corpuscular HGB Conc 32.5 g/dl (32-36); Mean Corpuscular Hemoglobin 33.7 pg (26-34); Mean Corpuscular Volume 103.7 fl (80-100); Platelet Count Result 87 k/mm3 (150-375); Red Blood Count 4.03 M/mm3 (4.2-5.4); White Blood Count 7.3 K/mm3 (4.5-10.0)
[2025-03-12 06:18] LABS: Alanine Aminotransferase 15 U/L (6-35); Albumin Level 2.3 g/dL (3.5-5.1); Alkaline Phosphatase 49 U/L (38-126); Anion Gap 1 mmol/L (4-12); Aspartate Amino Transferase 31 U/L (14-36); Bilirubin,Total 0.2 mg/dL (0.2-1.3); Blood Urea Nitrogen 13 mg/dL (7-17); Calcium 7.9 mg/dL (8.4-10.2); Carbon Dioxide 32 mmol/L (22-30); Chloride 103 mmol/L (98-107); Estimated CRCL calculation 97 ml/min; Estimated Glomerular Filt Rate > 60; Glucose 115 mg/dL (65-110); Magnesium 2.0 mg/dL (1.6-2.3); Potassium 3.4 mmol/L (3.4-5.0); Sodium 136 mmol/L (137-145); Total Protein 5.0 g/dL (6.3-8.2)
[2025-03-12] MEDS: PANTOPRAZOLE SODIUM IV 40 MG VIAL IV PUSH (09:59)
[2025-03-12] MEDS: LIDOCAINE 5% PATCH 2 PATCH TRANSDERM (09:59)
[2025-03-12] MEDS: LIDOCAINE 5% PATCH 1 PATCH TRANSDERM (09:59)
[2025-03-12] MEDS: POTASSIUM CHLORIDE INJ 40 MEQ in SODIUM CHLORIDE 0.9% IV 500 ML 130 MEQ IVPB (10:06)
[2025-03-12] MEDS: HYDROmorphone HCL INJ (*CRX) 2 MG/ML VIAL 0.5 MG IV PUSH ×3 (10:18→18:03)
[2025-03-12] MEDS: FAT EMULSIONS IV 20% 250 ML 20.83 ML IVPB (11:34)
[2025-03-12] MEDS: AMINO ACIDS 5%/D15W/E-LYTES/CA 1,000 ML with MULTIVITAMINS-12 INJ VIAL 1 1.25 ML, MULTI... 40 ML IV CONT (11:34)
--- NOTE | 2025-03-12 12:13 | P.PNGS_ITS ---
Progress Note: A&P Assessment and Plan (1) SBO (small bowel obstruction): Code(s): K56.609 - Unspecified intestinal obstruction, unspecified as to partial versus complete obstruction Status: Acute Assessment and Plan: * Resolved after exploratory laparotomy and abdominal adhesiolysis. Awaiting return of bowel function. She is still passing flatus but no BM yet. Will give dulcolax suppository. * Continue NG tube decompression, bowel rest, and TPN. Continue Reglan. * Potassium up to 3.4, and is being replaced again this morning. Labs will be repeated in am. * Encouraged IS use. Still requiring 2 liters of O2. * Continue increasing activity and working on strength, PT/OT following. She will need senior care or acute rehab on discharge. CC following to help with discharge planning and family is wanting her to go to a facility closer to [place]. (2) Malnutrition: Code(s): E46 - Unspecified protein-calorie malnutrition Status: Acute Assessment and Plan: * Continue TPN at 40 mL/hr. Plan I have discussed the patient's case and plan of care with Dr. Cavanaugh. Subjective Subjective Date/Time Seen: 03/12/25 12:14 Post Op day: 6 (Exploratory laparotomy with abdominal adhesiolysis and incidental open appendectomy) Patient reports: voiding w/o difficulty, flatus, no bowel movement and afebrile Interval history: No acute changes overnight. Passing flatus, still no BM. No complaints of pain at this time. She was able to stand with therapy today and was in the chair. She felt stronger today. Exam Const: General: comfortable and no acute distress GI: Inspection: incision (dry and glue intact, no erythema) and other (mildly distended) GI Palp: Yes Soft to palpation, Yes Tenderness to palpation present (GI) (mild incisional tenderness), No Guarding due to palpation present (GI) and No Rebound tenderness present Auscultation: Hypoactive bowel sounds present Objective Data Vital Signs Vital Signs: Vital Signs - 24 hr 03/11/25 14:00 03/11/25 21:16 03/11/25 21:25 Temperature 97.7 F 97.9 F Pulse Rate 72 69 Respiratory Rate 16 18 Blood Pressure 182/84 H 166/81 H Pulse Oximetry 97 96 96 Oxygen Delivery Nasal Cannula Oxygen Flow Rate 2 03/12/25 06:00 03/12/25 08:00 03/12/25 10:40 Temperature 97.8 F Pulse Rate 67 Respiratory Rate 18 Blood Pressure 163/76 H Pulse Oximetry 97 96 94 Oxygen Delivery Nasal Cannula Nasal Cannula Oxygen Flow Rate 2 2 Intake/Output Intake/Output: Intake & Output 03/09/25 03/10/25 03/11/25 03/12/25 23:59 23:59 23:59 23:59 Intake Total 3473.9 2659.1 1600 2491.3 Output Total 1450 150 600 950 Balance 2023.9 2509.1 1000 1541.3 Meds/Results Medications: Active Medications Generic Name Dose Route Start Last Admin Trade Name Freq PRN Reason Stop Dose Admin Acetaminophen 650 mg 03/05/25 17:30 Acetaminophen 650 Mg Suppository RECTAL Q6H PRN Mild Pain (1-3) or Fever Al Hydrox/Mg Hydrox/Simethicone 30 ml 03/09/25 13:40 03/12/25 05:35 Mag Hydrox/Al Hydrox/Simeth 30 Ml Udc FEED TUBE 30 ml Q8H ANSELMO Administration Dextrose 12.5 gm 03/05/25 17:30 Dextrose 50% 25 Gm/50 Ml Syringe IV PUSH PRN PRN Hypoglycemia Protocol Enoxaparin Sodium 40 mg 03/10/25 09:00 03/11/25 10:17 Enoxaparin 40 Mg/0.4 Ml Syringe SUB-Q Not Given DAILY ANSELMO Glucagon 1 mg 03/05/25 17:30 Glucagon For Inj 1 Mg Vial IM PRN PRN Hypoglycemia Protocol Glucose 15 gm 03/05/25 17:30 Glucose Oral Gel 15 Gm Of Glucse In 37.5 Gm Tube PO PRN PRN Hypoglycemia Protocol Hydromorphone HCl 0.5 mg 03/05/25 20:53 03/12/25 10:18 Hydromorphone Hcl Inj (*Crx) 2 Mg/Ml Vial IV PUSH 0.5 mg Q3H PRN Administration Pain Rated 4-6 Hydromorphone HCl 1 mg 03/05/25 20:53 03/12/25 05:35 Hydromorphone Hcl Inj (*Crx) 2 Mg/Ml Vial IV PUSH 1 mg Q4H PRN Administration Pain Rated 7-10 Dextrose 1,000 mls @ 100 mls/hr 03/05/25 17:30 Dextrose 5% 1,000 Ml IVPB PRN PRN Hypoglycemia Protocol Ibuprofen 800 mg in 200 mls @ 400 mls/hr 03/06/25 18:00 03/12/25 10:04 Caldolor 800 Mg/200 Ml IVPB 400 mls/hr Q8H ANSELMO Administration Dextrose 1,000 mls @ 50 mls/hr 03/07/25 13:28 Dextrose 10% IV CONT .Q20H PRN if PN is interrupted Multivitamins 1.25 ml/ 1,002.5 mls @ 40 mls/hr 03/08/25 11:00 03/12/25 11:34 Multivitamins 1.25 ml/ Amino IV CONT 40 mls/hr Acids/Electrolytes/Dextrose .Q24H ANSELMO Administration Protocol Fat Emulsion Intravenous 250 mls @ 20.833 mls/hr 03/08/25 11:00 03/12/25 11:34 Lipids 20% IVPB 20.83 mls/hr Q24H ANSELMO Administration Potassium Chloride/Sodium Chloride 1,000 mls @ 50 mls/hr 03/10/25 12:55 03/11/25 10:18 Kcl 20 Meq/Ns IV CONT Not Given .Q20H ANSELMO Potassium Chloride 40 meq/ 520 mls @ 130 mls/hr 03/12/25 08:42 03/12/25 10:06 Sodium Chloride IVPB 03/12/25 12:41 130 mls/hr ONCE ONE Administration Insulin Aspart 2 - 5 units 03/05/25 18:00 03/12/25 07:11 Insulin Aspart (*Bkc) 100 Units/Ml SUB-Q Not Given Q6HR ANSELMO Protocol Lidocaine 1 patch 03/07/25 09:00 03/12/25 09:59 Lidocaine 5% Patch TRANSDERM 1 patch DAILY ANSELMO Administration Lidocaine 2 patch 03/09/25 12:20 03/12/25 09:59 Lidocaine 5% Patch TRANSDERM 2 patch DAILY ANSELMO Administration Metoclopramide HCl 10 mg 03/06/25 18:00 03/12/25 10:10 Metoclopramide Hcl Inj 10 Mg/2 Ml Vial IV PUSH 10 mg Q8H ANSELMO Administration Naloxone HCl 0.1 mg 03/05/25 17:30 Naloxone Hcl 0.4 Mg/Ml Vial IV PUSH Q5MIN PRN Sedation Pantoprazole Sodium 40 mg 03/06/25 09:00 03/12/25 09:59 Pantoprazole Sodium Iv 40 Mg Vial IV PUSH 40 mg QAM ANSELMO Administration Sodium Chloride 10 ml 03/08/25 14:00 03/12/25 05:35 Central Line Flush IV PUSH 10 ml Q8HR ANSELMO Administration Sodium Chloride 10 ml 03/08/25 08:45 Central Line Flush IV PUSH PRN PRN with TPN bag changes Sodium Chloride 20 ml 03/08/25 08:45 03/12/25 05:35 Central Line Flush IV PUSH 20 ml PRN PRN Administration after blood draws Radiology Results: ITS Impressions Chest X-Ray 03/08/25 08:29 IMPRESSION: Small left-sided pleural effusion without focal infiltrate. PICC line in good position and ready for immediate use. Labs Labs: Laboratory Results - last 24 hr 03/11/25 03/11/25 03/12/25 12:27 18:00 00:37 WBC RBC Hgb Hct MCV MCH MCHC RDW Plt Count MPV % Immature Plt Fraction Sodium Potassium Chloride Carbon Dioxide Anion Gap BUN Creatinine Estim Creat Clear Calc Estimated GFR Glucose POC Capillary Glucose 129 H 136 H 137 H Calcium Phosphorus Magnesium Total Bilirubin AST ALT Alkaline Phosphatase Total Protein Albumin 03/12/25 03/12/25 03/12/25 05:33 05:55 11:27 WBC 7.3 RBC 4.03 L Hgb 13.6 Hct 41.8 MCV 103.7 H MCH 33.7 MCHC 32.5 RDW 12.5 Plt Count 87 L MPV 12.2 H % Immature Plt Fraction 6.3 Sodium 136 L Potassium 3.4 Chloride 103 Carbon Dioxide 32 H Anion Gap 1 L BUN 13 Creatinine 0.37 L Estim Creat Clear Calc 97 Estimated GFR > 60 Glucose 115 H POC Capillary Glucose 128 H 129 H Calcium 7.9 L Phosphorus 3.0 Magnesium 2.0 Total Bilirubin 0.2 AST 31 ALT 15 Alkaline Phosphatase 49 Total Protein 5.0 L Albumin 2.3 L
[2025-03-12] MEDS: BISACODYL 10 MG SUPPOSITORY RECTAL (14:15)
[2025-03-12 14:18] LABS: Triglycerides 147 mg/dL (<150)
--- NOTE | 2025-03-12 14:27 | PM.IMPN ---
Progress Note: A&P Assessment and Plan (1) Complete small bowel obstruction: Code(s): K56.601 - Complete intestinal obstruction, unspecified as to cause Status: Inactive Assessment and Plan: - CT abdomen/pelvis: 1. Closed loop small bowel obstruction the right lower quadrant without evidence secondary ischemia. 2. Fat and small amount of ascites within a moderate-sized left lower quadrant ventral hernia. 3. Small fat-containing left inguinal hernia. - general surgery consulted, Mao DANIELSON has history of prior hysterectomy raising concerns for adhesions causing bowel obstruction, process likely been ongoing for the past several days and will likely need exploratory laparotomy possibly tomorrow on 03/06 variant upon their exam no acute surgical abdomen and patient is hemodynamically stable with lactate levels only mildly elevated - NPO except ice chips - analgesics and antiemetics p.r.n. - monitor electrolytes and renal function - monitor I&Os - IV fluids: 1.5L -> 100 mL/hr - history of diabetes, glucose checks q.6 with sliding scale q.6 - NG placed at [facility] on 03/05, confirmed via abdominal XR.? Placed on low intermittent suction. (2) Type 2 diabetes mellitus: Qualifiers: Diabetes mellitus halfway insulin use: without halfway use Diabetes mellitus complication status: without complication Qualified Code(s): E11.9 - Type 2 diabetes mellitus without complications Code(s): E11.9 - Type 2 diabetes mellitus without complications Status: Acute Assessment and Plan: - hypoglycemia protocol - POC blood glucose Q6H - hold home medications: Jardiance, home sliding scale - correct regimen ordered - low dose Q6H while NPO - A1C 5.2% on 03/03/2025 (3) Autoimmune hepatitis: Code(s): K75.4 - Autoimmune hepatitis Status: Acute Assessment and Plan: - continue home medication(s) Prednisone and Azathioprine once no longer NPO (4) HTN (hypertension): Qualifiers: Hypertension type: primary hypertension Qualified Code(s): I10 - Essential (primary) hypertension Code(s): I10 - Essential (primary) hypertension Status: Acute Assessment and Plan: - chronic, currently 146/79 - currently NPO, will hold home medications including amlodipine - monitor Plan patient with abdominal pain, nausea and no BM for a week presented to outside hospital and is found to have SBO, was seen by general surgery service, and had exploratory laparotomy adhesiolysis on 03/06 POD #6, today again patient did have several episodes gas, and feels will have a BM today, but still no BM, awaiting return of bowl function, patient is placed on NG tube to decompressed. surgery service has started the patient on TPN, patient has hypokalemia and hypophosphatemia will replace on TPN, and patient complaints of low back pain, applied 2 Lidoderm patches, patient blood smear peripheral specimen showed abnormalities concerning for possible myelodysplasia versus severe reactive atypia, platelets are trending down but stable, and prophylactic Lovenox was held this morning. patient was seen by lead portfolio manager does not suspect bone marrow issue however further work up is in progress. Diet: NPO except ice chips GI Prophylaxis: pantoprazole DVT Prophylaxis: SCDs IV fluids: LR 130 mL/hour Lines/Tubes: peripheral IV, NG tube Code Status: full code Subjective Date/time seen: 03/12/25 14:27 Interval history: Abdominal Pain, Constipation H&P-Narrative: 75 y/o F with PMH of diabetes, hypertension, hyperlipidemia, and autoimmune hepatitis presents here with abdominal pain and constipation. The patient presented to [facility] on 03/05 from home for further evaluation of constipation and abdominal pain.? She reports her last bowel movement was 1 week ago.? It is accompanied by severe/diffuse abdominal pain and nausea without vomiting.? She further describes the abdominal pain as dull to sharp, achy/cramping, radiation into her back, constant, (duration), no modifying factors.? She denies accompanying fever, chills, or body aches. ?She was evaluated by her government sales manager on 03/03 where she reported mild nausea and constipation.? She was instructed to stop her Ozempic as she believes this may be the cause of her constipation abdominal pain.? Her next dose of Ozempic was due today, 03/05. Initial VS at presentation: ?98.3? F, HR 124, RR 16, 118/93, and 97% on RA. ED workup showed: ?No leukocytosis, hemoglobin 18.5 (16.0 on 02/04), INR 1.2, sodium 133, creatinine 1.07 and GFR 50 (0.85 and GFR >60 on 03/03), glucose 270, osmolality 305, lactic 2.7, initial troponin 0.024 and lipase within normal limits.? Abdominal XR showed a high-grade small bowel obstruction.? CT of the abdomen/pelvis showed a closed loop SBO in the right lower quadrant without evidence of secondary ischemia, fat and small amount of ascites within a moderate sized left lower quadrant ventral hernia, small fat containing left inguinal hernia. patient with abdominal pain, nausea and no BM for a week presented to outside hospital and is found to have SBO, was seen by general surgery service, and had exploratory laparotomy adhesiolysis on 03/06 POD #6, today again patient did have several episodes gas, and feels will have a BM today, but still no BM, awaiting return of bowl function, patient is placed on NG tube to decompressed. surgery service has started the patient on TPN, patient has hypokalemia and hypophosphatemia will replace on TPN, and patient complaints of low back pain, applied 2 Lidoderm patches, patient blood smear peripheral specimen showed abnormalities concerning for possible myelodysplasia versus severe reactive atypia, platelets are trending down but stable, and prophylactic Lovenox was held this morning. patient was seen by lead portfolio manager does not suspect bone marrow issue however further work up is in progress. Review of Systems Review of Systems: All systems reviewed & are unremarkable except as noted in HPI and below Exam Narrative: Appears chronically ill elderly frail Patient is comfortable, NAD HEENT: eyes are clear and none icteric, NG Tube in place. LUNGS:CTA HEART: RR S1S2 ABD: BS+, Soft and nontender Lower extremities: no edema SKIN: nonjaundiced Neuro: grossly intact. Objective Data Vital Signs Vital Signs: Vital Signs - 24 hr 03/11/25 21:16 03/11/25 21:25 03/12/25 06:00 Temperature 36.6 C 36.6 C Pulse Rate 69 67 Respiratory Rate 18 18 Blood Pressure 166/81 H 163/76 H Pulse Oximetry 96 96 97 Oxygen Delivery Nasal Cannula Oxygen Flow Rate 2 03/12/25 08:00 03/12/25 10:40 03/12/25 13:47 Temperature 36.2 C L Pulse Rate 69 Respiratory Rate 16 Blood Pressure 155/71 H Pulse Oximetry 96 94 97 Oxygen Delivery Nasal Cannula Nasal Cannula Oxygen Flow Rate 2 2 Intake/Output Intake/Output: Intake & Output 03/09/25 03/10/25 03/11/25 03/12/25 23:59 23:59 23:59 23:59 Intake Total 3473.9 2659.1 1600 2491.3 Output Total 1450 150 600 950 Balance 2023.9 2509.1 1000 1541.3 Meds/Results Medications: Active Medications Generic Name Dose Route Start Last Admin Trade Name Freq PRN Reason Stop Dose Admin Acetaminophen 650 mg 03/05/25 17:30 Acetaminophen 650 Mg Suppository RECTAL Q6H PRN Mild Pain (1-3) or Fever Al Hydrox/Mg Hydrox/Simethicone 30 ml 03/09/25 13:40 03/12/25 05:35 Mag Hydrox/Al Hydrox/Simeth 30 Ml Udc FEED TUBE 30 ml Q8H ANSELMO Administration Dextrose 12.5 gm 03/05/25 17:30 Dextrose 50% 25 Gm/50 Ml Syringe IV PUSH PRN PRN Hypoglycemia Protocol Enoxaparin Sodium 40 mg 03/10/25 09:00 03/11/25 10:17 Enoxaparin 40 Mg/0.4 Ml Syringe SUB-Q Not Given DAILY ANSELMO Glucagon 1 mg 03/05/25 17:30 Glucagon For Inj 1 Mg Vial IM PRN PRN Hypoglycemia Protocol Glucose 15 gm 03/05/25 17:30 Glucose Oral Gel 15 Gm Of Glucse In 37.5 Gm Tube PO PRN PRN Hypoglycemia Protocol Hydromorphone HCl 0.5 mg 03/05/25 20:53 03/12/25 14:17 Hydromorphone Hcl Inj (*Crx) 2 Mg/Ml Vial IV PUSH 0.5 mg Q3H PRN Administration Pain Rated 4-6 Hydromorphone HCl 1 mg 03/05/25 20:53 03/12/25 05:35 Hydromorphone Hcl Inj (*Crx) 2 Mg/Ml Vial IV PUSH 1 mg Q4H PRN Administration Pain Rated 7-10 Dextrose 1,000 mls @ 100 mls/hr 03/05/25 17:30 Dextrose 5% 1,000 Ml IVPB PRN PRN Hypoglycemia Protocol Ibuprofen 800 mg in 200 mls @ 400 mls/hr 03/06/25 18:00 03/12/25 10:04 Caldolor 800 Mg/200 Ml IVPB 400 mls/hr Q8H ANSELMO Administration Dextrose 1,000 mls @ 50 mls/hr 03/07/25 13:28 Dextrose 10% IV CONT .Q20H PRN if PN is interrupted Multivitamins 1.25 ml/ 1,002.5 mls @ 40 mls/hr 03/08/25 11:00 03/12/25 11:34 Multivitamins 1.25 ml/ Amino IV CONT 40 mls/hr Acids/Electrolytes/Dextrose .Q24H ANSELMO Administration Protocol Fat Emulsion Intravenous 250 mls @ 20.833 mls/hr 03/08/25 11:00 03/12/25 11:34 Lipids 20% IVPB 20.83 mls/hr Q24H ANSELMO Administration Potassium Chloride/Sodium Chloride 1,000 mls @ 50 mls/hr 03/10/25 12:55 03/11/25 10:18 Kcl 20 Meq/Ns IV CONT Not Given .Q20H ANSELMO Insulin Aspart 2 - 5 units 03/05/25 18:00 03/12/25 12:51 Insulin Aspart (*Bkc) 100 Units/Ml SUB-Q Not Given Q6HR [facility] Protocol Lidocaine 1 patch 03/07/25 09:00 03/12/25 09:59 Lidocaine 5% Patch TRANSDERM 1 patch DAILY ANSELMO Administration Lidocaine 2 patch 03/09/25 12:20 03/12/25 09:59 Lidocaine 5% Patch TRANSDERM 2 patch DAILY ANSELMO Administration Metoclopramide HCl 10 mg 03/06/25 18:00 03/12/25 10:10 Metoclopramide Hcl Inj 10 Mg/2 Ml Vial IV PUSH 10 mg Q8H ANSELMO Administration Naloxone HCl 0.1 mg 03/05/25 17:30 Naloxone Hcl 0.4 Mg/Ml Vial IV PUSH Q5MIN PRN Sedation Pantoprazole Sodium 40 mg 03/06/25 09:00 03/12/25 09:59 Pantoprazole Sodium Iv 40 Mg Vial IV PUSH 40 mg QAM ANSELMO Administration Sodium Chloride 10 ml 03/08/25 14:00 03/12/25 14:16 Central Line Flush IV PUSH 10 ml Q8HR ANSELMO Administration Sodium Chloride 10 ml 03/08/25 08:45 Central Line Flush IV PUSH PRN PRN with TPN bag changes Sodium Chloride 20 ml 03/08/25 08:45 03/12/25 05:35 Central Line Flush IV PUSH 20 ml PRN PRN Administration after blood draws Radiology Results: ITS Impressions Chest X-Ray 03/08/25 08:29 IMPRESSION: Small left-sided pleural effusion without focal infiltrate. PICC line in good position and ready for immediate use. Labs Labs: Laboratory Results - last 24 hr 03/11/25 03/12/25 03/12/25 18:00 00:37 05:33 WBC 7.3 RBC 4.03 L Hgb 13.6 Hct 41.8 MCV 103.7 H MCH 33.7 MCHC 32.5 RDW 12.5 Plt Count 87 L MPV 12.2 H % Immature Plt Fraction 6.3 Sodium 136 L Potassium 3.4 Chloride 103 Carbon Dioxide 32 H Anion Gap 1 L BUN 13 Creatinine 0.37 L Estim Creat Clear Calc 97 Estimated GFR > 60 Glucose 115 H POC Capillary Glucose 136 H 137 H Calcium 7.9 L Phosphorus 3.0 Magnesium 2.0 Total Bilirubin 0.2 AST 31 ALT 15 Alkaline Phosphatase 49 Total Protein 5.0 L Albumin 2.3 L Triglycerides 147 03/12/25 03/12/25 05:55 11:27 WBC RBC Hgb Hct MCV MCH MCHC RDW Plt Count MPV % Immature Plt Fraction Sodium Potassium Chloride Carbon Dioxide Anion Gap BUN Creatinine Estim Creat Clear Calc Estimated GFR Glucose POC Capillary Glucose 128 H 129 H Calcium Phosphorus Magnesium Total Bilirubin AST ALT Alkaline Phosphatase Total Protein Albumin Triglycerides Quality VTE Prophylaxis VTE prophylaxis: mechanical ordered
[2025-03-12] MEDS: KCL 20MEQ/0.9% SOD CHL 1,000 ML 50 ML IV CONT (22:26)
--- NOTE | 2025-03-12 22:51 | PC.NURSE ---
Patient requesting NG tube removal and stated she was informed once she have a bowel movement tube can be removed. MD Mao Kyle made aware of BM and patient's statement and he stated that the NG TUBE will not be pulled tonight and will see patient in the morning for further evaluation and recommendations. Will make patient aware and continue to monitor.
[2025-03-13 01:00] VITALS: BP 159/81; PULSE 75; RESP 18
[2025-03-13] MEDS: METOCLOPRAMIDE HCL INJ 10 MG/2 ML VIAL IV PUSH ×3 (02:03→18:27)
[2025-03-13] MEDS: IBUPROFEN IV 800 MG/200 ML 800 MG/200 ML BAG 400 MG IVPB (02:03)
[2025-03-13 05:28] LABS: Hematocrit 41.0 % (37.0-47.0); Hemoglobin 13.3 g/dL (12.0-15.0); Immature Platelet Fraction Pct 6.4 % (0.9-11.2); Mean Corpuscular HGB Conc 32.4 g/dl (32-36); Mean Corpuscular Hemoglobin 33.3 pg (26-34); Mean Corpuscular Volume 102.5 fl (80-100); Platelet Count Result 92 k/mm3 (150-375); Red Blood Count 4.00 M/mm3 (4.2-5.4); White Blood Count 11.1 K/mm3 (4.5-10.0)
[2025-03-13 05:34] LABS: Alanine Aminotransferase 16 U/L (6-35); Albumin Level 2.4 g/dL (3.5-5.1); Alkaline Phosphatase 49 U/L (38-126); Anion Gap 2 mmol/L (4-12); Aspartate Amino Transferase 34 U/L (14-36); Bilirubin,Total 0.4 mg/dL (0.2-1.3); Blood Urea Nitrogen 14 mg/dL (7-17); Calcium 8.0 mg/dL (8.4-10.2); Carbon Dioxide 31 mmol/L (22-30); Chloride 102 mmol/L (98-107); Estimated CRCL calculation 102 ml/min; Estimated Glomerular Filt Rate > 60; Glucose 127 mg/dL (65-110); Magnesium 1.9 mg/dL (1.6-2.3); Potassium 3.3 mmol/L (3.4-5.0); Sodium 135 mmol/L (137-145); Total Protein 5.1 g/dL (6.3-8.2)
[2025-03-13 06:00] VITALS: BP 141/91; PULSE 73; RESP 20; TEMP 36.2; O2SAT 93
[2025-03-13 06:01] LABS: Band Neutrophils Percent 11 % (0-6); Lymphocytes Absolute Manual 1.66 K/mm3 (1.1-4.5); Lymphocytes Percent Manual 15.0 % (18-44); Neutrophils Absolute Manual 9.43 K/mm3 (1.3-6.7); Neutrophils Percent Manual 74 % (46-73); Total Cells Counted 100
[2025-03-13 06:02] LABS: Schistocytes None Seen
[2025-03-13 08:11] VITALS: BMI 10.0
[2025-03-13] MEDS: HYDROmorphone HCL INJ (*CRX) 2 MG/ML VIAL 0.5 MG IV PUSH ×3 (08:30→18:26)
[2025-03-13] MEDS: LIDOCAINE 5% PATCH 1 PATCH TRANSDERM (08:31)
[2025-03-13] MEDS: PANTOPRAZOLE SODIUM IV 40 MG VIAL IV PUSH (08:31)
[2025-03-13] MEDS: LIDOCAINE 5% PATCH 2 PATCH TRANSDERM (08:31)
[2025-03-13] MEDS: KCL 40 MEQ/WATER 100 ML 100 ML 25 ML IVPB (08:57)
[2025-03-13 09:26] LABS: Add Urine Microscopic? NO; Appearance Urine Clear (Clear); Glucose Urine UA 3+ mg/dL (Negative); Leukocyte Esterase Ur Negative LEU/UL (Negative); Nitrate Urine Negative (Negative); Specific Grav Ur 1.015 (1.001-1.035)
--- NOTE | 2025-03-13 11:02 | PM.PNGS ---
Progress Note: A&P Assessment and Plan (1) SBO (small bowel obstruction): Code(s): K56.609 - Unspecified intestinal obstruction, unspecified as to partial versus complete obstruction Status: Acute Assessment and Plan: Resolved after exploratory laparotomy and abdominal adhesiolysis. Bowel function returned. NG tube removed. Swallow eval ordered, ST planning to come this morning. Okay to start a clear liquid diet if cleared by speech. Continue TPN for today. Continue Reglan Potassium 3.3, and is being replaced again this morning. Other electrolytes okay. Labs will be repeated in am. WBC count went up to 11 this morning. She is afebrile. Incision is healing well without any signs of infection. Her abdominal exam is benign. UA ordered. She does report a nonproductive cough. Will order CXR. Encouraged IS, which is at the bedside. Continue PT/OT. She will need senior care or acute rehab on discharge. CC following to help with discharge planning and family is wanting her to go to a facility closer to [place]. (2) Malnutrition: Code(s): E46 - Unspecified protein-calorie malnutrition Status: Acute Assessment and Plan: Continue TPN at 40 mL/hr. Plan I have discussed the patient's case and plan of care with Dr. Cavanaugh. Subjective Subjective Date/Time Seen: 03/13/25 11:02 Patient reports: no new complaints, flatus and bowel movement (Large bowel movement overnight) Interval history: Patient feeling well today. Reports only mild incisional discomfort when working with therapy this morning. Otherwise no abdominal pain, nausea, or vomiting. Her NG tube is out. She is NPO and waiting for a swallow study. Patient feeling stronger and was able to bear weight and transfer to the chair with therapy and a walker today. She does report a nonproductive cough over the past few days. She has been on 2 L of oxygen, which was weaned off yesterday afternoon. Review of Systems Review of Systems: All systems reviewed & are unremarkable except as noted in HPI and below Exam Const: General: comfortable and no acute distress Resp: Effort & Inspection: normal respiratory effort Auscultation: clear to auscultation bilaterally Cardio: Rate: regular rate Rhythm: regular rhythm GI: Inspection: non-distended and incision (Dry and glue intact, no erythema or drainage) GI Palp: Yes Soft to palpation, Yes Tenderness to palpation present (GI) (Very mild incisional tenderness), No Guarding due to palpation present (GI), No Hernia present and No Rebound tenderness present Auscultation: normal bowel sounds Extrem: General: no calf tenderness and no edema Objective Data Vital Signs Vital Signs: Vital Signs - 24 hr 03/12/25 13:47 03/12/25 20:00 03/12/25 21:18 Temperature 97.2 F L Pulse Rate 69 75 77 Respiratory Rate 16 18 18 Blood Pressure 155/71 H 174/76 H Pulse Oximetry 97 91 96 Oxygen Delivery Room Air 03/12/25 21:36 03/12/25 22:32 03/13/25 01:00 Temperature 97 F L Pulse Rate 73 75 Respiratory Rate 20 18 Blood Pressure 164/75 H 164/74 H 159/81 H Pulse Oximetry 91 Oxygen Delivery 03/13/25 06:00 03/13/25 09:05 Temperature 97.2 F L Pulse Rate 73 Respiratory Rate 20 Blood Pressure 141/91 H Pulse Oximetry 93 Oxygen Delivery Room Air Intake/Output Intake/Output: Intake & Output 03/10/25 03/11/25 03/12/25 03/13/25 23:59 23:59 23:59 23:59 Intake Total 2659.1 3120 3141.3 200 Output Total 977 038 7515 750 Balance 2509.1 2520 641.3 -550 Meds/Results Medications: Active Medications Generic Name Dose Route Start Last Admin Trade Name Freq PRN Reason Stop Dose Admin Acetaminophen 650 mg 03/05/25 17:30 Acetaminophen 650 Mg Suppository RECTAL Q6H PRN Mild Pain (1-3) or Fever Dextrose 12.5 gm 03/05/25 17:30 Dextrose 50% 25 Gm/50 Ml Syringe IV PUSH PRN PRN Hypoglycemia Protocol Enoxaparin Sodium 40 mg 03/10/25 09:00 03/11/25 10:17 Enoxaparin 40 Mg/0.4 Ml Syringe SUB-Q Not Given DAILY ANSELMO Glucagon 1 mg 03/05/25 17:30 Glucagon For Inj 1 Mg Vial IM PRN PRN Hypoglycemia Protocol Glucose 15 gm 03/05/25 17:30 Glucose Oral Gel 15 Gm Of Glucse In 37.5 Gm Tube PO PRN PRN Hypoglycemia Protocol Hydromorphone HCl 0.5 mg 03/05/25 20:53 03/13/25 08:30 Hydromorphone Hcl Inj (*Crx) 2 Mg/Ml Vial IV PUSH 0.5 mg Q3H PRN Administration Pain Rated 4-6 Hydromorphone HCl 1 mg 03/05/25 20:53 03/12/25 21:37 Hydromorphone Hcl Inj (*Crx) 2 Mg/Ml Vial IV PUSH 1 mg Q4H PRN Administration Pain Rated 7-10 Dextrose 1,000 mls @ 100 mls/hr 03/05/25 17:30 Dextrose 5% 1,000 Ml IVPB PRN PRN Hypoglycemia Protocol Ibuprofen 800 mg in 200 mls @ 400 mls/hr 03/06/25 18:00 03/13/25 02:33 Caldolor 800 Mg/200 Ml IVPB Infused Q8H ANSELMO Infusion Dextrose 1,000 mls @ 50 mls/hr 03/07/25 13:28 Dextrose 10% IV CONT .Q20H PRN if PN is interrupted Multivitamins 1.25 ml/ 1,002.5 mls @ 40 mls/hr 03/08/25 11:00 03/12/25 11:34 Multivitamins 1.25 ml/ Amino IV CONT 40 mls/hr Acids/Electrolytes/Dextrose .Q24H ANSELMO Administration Protocol Fat Emulsion Intravenous 250 mls @ 20.833 mls/hr 03/08/25 11:00 03/12/25 23:35 Lipids 20% IVPB Infused Q24H ANSELMO Infusion Potassium Chloride/Sodium Chloride 1,000 mls @ 50 mls/hr 03/10/25 12:55 03/12/25 22:26 Kcl 20 Meq/Ns IV CONT 50 mls/hr .Q20H ANSELMO Administration Potassium Chloride 100 mls @ 25 mls/hr 03/13/25 08:17 03/13/25 08:57 Kcl 40 Meq/Water 100 Ml IVPB 03/13/25 12:16 25 mls/hr ONCE ONE Administration Insulin Aspart 2 - 5 units 03/05/25 18:00 03/13/25 06:11 Insulin Aspart (*Bkc) 100 Units/Ml SUB-Q Not Given Q6HR ANSELMO Protocol Lidocaine 1 patch 03/07/25 09:00 03/13/25 08:31 Lidocaine 5% Patch TRANSDERM 1 patch DAILY ANSELMO Administration Lidocaine 2 patch 03/09/25 12:20 03/13/25 08:31 Lidocaine 5% Patch TRANSDERM 2 patch DAILY ANSELMO Administration Metoclopramide HCl 10 mg 03/06/25 18:00 03/13/25 02:03 Metoclopramide Hcl Inj 10 Mg/2 Ml Vial IV PUSH 10 mg Q8H ANSELMO Administration Naloxone HCl 0.1 mg 03/05/25 17:30 Naloxone Hcl 0.4 Mg/Ml Vial IV PUSH Q5MIN PRN Sedation Pantoprazole Sodium 40 mg 03/06/25 09:00 03/13/25 08:31 Pantoprazole Sodium Iv 40 Mg Vial IV PUSH 40 mg QAM ANSELMO Administration Sodium Chloride 10 ml 03/08/25 14:00 03/13/25 06:10 Central Line Flush IV PUSH Not Given Q8HR ANSELMO Sodium Chloride 10 ml 03/08/25 08:45 Central Line Flush IV PUSH PRN PRN with TPN bag changes Sodium Chloride 20 ml 03/08/25 08:45 03/12/25 05:35 Central Line Flush IV PUSH 20 ml PRN PRN Administration after blood draws Radiology Results: ITS Impressions Chest X-Ray 03/08/25 08:29 IMPRESSION: Small left-sided pleural effusion without focal infiltrate. PICC line in good position and ready for immediate use. Labs Labs: Laboratory Results - last 24 hr 03/12/25 03/12/25 03/12/25 05:33 11:27 17:51 WBC RBC Hgb Hct MCV MCH MCHC RDW Plt Count MPV Immature Gran % (Auto) Neut % (Auto) Lymph % (Auto) [place] % (Auto) Eos % (Auto) Baso % (Auto) Lymph # (Auto) [place] # (Auto) Eos # (Auto) Baso # (Auto) Abs Immat Gran (auto) Absolute Neuts (auto) Absolute Nucleated RBC Total Counted Neutrophils % (Manual) Band Neutrophils % Lymphocytes % (Manual) Nucleated RBC % Abs Neuts (Manual) Abs Lymphs (Manual) Platelet Estimate % Immature Plt Fraction Schistocytes Sodium Potassium Chloride Carbon Dioxide Anion Gap BUN Creatinine Estim Creat Clear Calc Estimated GFR Glucose POC Capillary Glucose 129 H 121 H Calcium Phosphorus Magnesium Total Bilirubin AST ALT Alkaline Phosphatase Total Protein Albumin Triglycerides 147 Urine Color Urine Appearance Urine pH Ur Specific [place] Urine Protein Urine Glucose (UA) Urine Ketones Ur Blood (Man) Urine Nitrate Urine Bilirubin Urine Urobilinogen Leukocyte Esterase Rfl 03/13/25 03/13/25 03/13/25 00:00 04:33 05:15 WBC 11.1 H RBC 4.00 L Hgb 13.3 Hct 41.0 MCV 102.5 H MCH 33.3 MCHC 32.4 RDW 12.3 Plt Count 92 L MPV 12.0 H Immature Gran % (Auto) Not Reportable Neut % (Auto) Not Reportable Lymph % (Auto) Not Reportable [place] % (Auto) Not Reportable Eos % (Auto) Not Reportable Baso % (Auto) Not Reportable Lymph # (Auto) Not Reportable [place] # (Auto) Not Reportable Eos # (Auto) Not Reportable Baso # (Auto) Not Reportable Abs Immat Gran (auto) Not Reportable Absolute Neuts (auto) Not Reportable Absolute Nucleated RBC Not Reportable Total Counted 100 Neutrophils % (Manual) 74 H Band Neutrophils % 11 H Lymphocytes % (Manual) 15.0 L Nucleated RBC % Not Reportable Abs Neuts (Manual) 9.43 H Abs Lymphs (Manual) 1.66 Platelet Estimate Decreased % Immature Plt Fraction 6.4 Schistocytes None seen Sodium 135 L Potassium 3.3 L Chloride 102 Carbon Dioxide 31 H Anion Gap 2 L BUN 14 Creatinine 0.35 L Estim Creat Clear Calc 102 Estimated GFR > 60 Glucose 127 H POC Capillary Glucose 145 H 139 H Calcium 8.0 L Phosphorus 3.1 Magnesium 1.9 Total Bilirubin 0.4 AST 34 ALT 16 Alkaline Phosphatase 49 Total Protein 5.1 L Albumin 2.4 L Triglycerides Urine Color Urine Appearance Urine pH Ur Specific [place] Urine Protein Urine Glucose (UA) Urine Ketones Ur Blood (Man) Urine Nitrate Urine Bilirubin Urine Urobilinogen Leukocyte Esterase [facility] 03/13/25 09:05 WBC RBC Hgb Hct MCV MCH MCHC RDW Plt Count MPV Immature Gran % (Auto) Neut % (Auto) Lymph % (Auto) [place] % (Auto) Eos % (Auto) Baso % (Auto) Lymph # (Auto) [place] # (Auto) Eos # (Auto) Baso # (Auto) Abs Immat Gran (auto) Absolute Neuts (auto) Absolute Nucleated RBC Total Counted Neutrophils % (Manual) Band Neutrophils % Lymphocytes % (Manual) Nucleated RBC % Abs Neuts (Manual) Abs Lymphs (Manual) Platelet Estimate % Immature Plt Fraction Schistocytes Sodium Potassium Chloride Carbon Dioxide Anion Gap BUN Creatinine Estim Creat Clear Calc Estimated GFR Glucose POC Capillary Glucose Calcium Phosphorus Magnesium Total Bilirubin AST ALT Alkaline Phosphatase Total Protein Albumin Triglycerides Urine Color Yellow Urine Appearance Clear Urine pH 8.5 Ur Specific [place] 1.015 Urine Protein Negative Urine Glucose (UA) 3+ H Urine Ketones Negative Ur Blood (Man) Negative Urine Nitrate Negative Urine Bilirubin Negative Urine Urobilinogen 0.2 Leukocyte Esterase Rfl Negative
[2025-03-13] MEDS: ALBUMIN HUMAN 25% 25 GM/100 ML 100 ML IVPB (11:14)
--- NOTE | 2025-03-13 11:55 | PCSTNOTE ---
Please refer to the Bedside Swallow Evaluation in the EMR. Please note, silent aspiration cannot be ruled out at bedside.
[2025-03-13] MEDS: CENTRAL LINE FLUSH 10 ML IV PUSH ×2 (13:08→22:00)
[2025-03-13] MEDS: AMINO ACIDS 5%/D15W/E-LYTES/CA 1,000 ML with MULTIVITAMINS-12 INJ VIAL 1 1.25 ML, MULTI... 40 ML IV CONT (13:14)
[2025-03-13] MEDS: FAT EMULSIONS IV 20% 250 ML 20.83 ML IVPB (13:14)
[2025-03-13 14:00] VITALS: BP 164/80; PULSE 75; RESP 18; TEMP 36.6; O2SAT 93
--- NOTE | 2025-03-13 14:02 | PM.IMPN ---
Progress Note: A&P Assessment and Plan (1) Complete small bowel obstruction: Code(s): K56.601 - Complete intestinal obstruction, unspecified as to cause Status: Inactive Assessment and Plan: - CT abdomen/pelvis: 1. Closed loop small bowel obstruction the right lower quadrant without evidence secondary ischemia. 2. Fat and small amount of ascites within a moderate-sized left lower quadrant ventral hernia. 3. Small fat-containing left inguinal hernia. 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: without [place] [facility] use Diabetes mellitus complication status: without complication Qualified Code(s): E11.9 - Type 2 diabetes mellitus without complications Code(s): E11.9 - Type 2 diabetes mellitus without complications Status: Acute Assessment and Plan: - hypoglycemia protocol - POC blood glucose Q6H - hold home medications: Jardiance, home sliding scale - correct regimen ordered - low dose Q6H while NPO - A1C 5.2% on 03/03/2025 (3) Autoimmune hepatitis: Code(s): K75.4 - Autoimmune hepatitis Status: Acute Assessment and Plan: - continue home medication(s) Prednisone and Azathioprine once no longer NPO (4) HTN (hypertension): Qualifiers: Hypertension type: primary hypertension Qualified Code(s): I10 - Essential (primary) hypertension Code(s): I10 - Essential (primary) hypertension Status: Acute Assessment and Plan: - chronic, currently 146/79 - currently NPO, will hold home medications including amlodipine - monitor Plan patient with abdominal pain, nausea and no BM for a week presented to outside hospital and is found to have SBO, was seen by general surgery service, and had exploratory laparotomy adhesiolysis on 03/06 POD #6, today again patient did have several episodes gas, and feels will have a BM today, but still no BM, awaiting return of bowl function, patient is placed on NG tube to decompressed. surgery service has started the patient on TPN, patient has hypokalemia and hypophosphatemia will replace on TPN, and patient complaints of low back pain, applied 2 Lidoderm patches, patient blood smear peripheral specimen showed abnormalities concerning for possible myelodysplasia versus severe reactive atypia, platelets are trending down but stable, and prophylactic Lovenox was held this morning. 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 Diet: NPO except ice chips DVT Prophylaxis: Sq Lovenox Code Status: full code Subjective Date/time seen: 03/13/25 14:02 Interval history: Comfortable at bedside Review of Systems Review of Systems: All systems reviewed & are unremarkable except as noted in HPI and below Exam Narrative: Appears chronically ill elderly frail Patient is comfortable, NAD HEENT: eyes are clear and none icteric, NG Tube in place. LUNGS:CTA HEART: RR S1S2 ABD: BS+, Soft and nontender Lower extremities: no edema SKIN: nonjaundiced Neuro: grossly intact. Const: General: comfortable and no acute distress Other: , female, nontoxic appearance, elderly HENMT: Face/Nose/Sinus: Normal nares present Mouth: Yes moist mucous membranes Other: NG in place, on low intermittent suction Eyes: General: appearance normal, both eyes and all related structures Sclera: sclerae normal Pupils: Equal, round and reactive pupils present EOM: EOMs intact bilaterally Resp: Effort & Inspection: normal respiratory effort Auscultation: clear to auscultation bilaterally Cardio: Rate: regular rate Rhythm: regular rhythm Other: S1-S2 present without murmur, rub, ectopy GI: Other: bowel sounds quiet and very hypoactive in all quadrants. Mild /diffuse tenderness in all quadrants. Nondistended , soft. Skin: General skin exam: normal color and no rashes or lesions noted Wounds: no wounds Neuro: Cranial nerves: Yes Equal, round and reactive pupils present Speech: normal speech Motor exam (neuro): 5/5 motor strength present throughout Sensory Exam: normal sensation Other: A&O x4, mild somnolence but awakens easily to voice. Extrem: General: normal to inspection Psych: Mental Status: mental status grossly normal Affect: normal affect Other: Good insight and judgment, pleasant Objective Data Vital Signs Vital Signs: Vital Signs - 24 hr 03/12/25 20:00 03/12/25 21:18 03/12/25 21:36 Temperature 97 F L Pulse Rate 75 77 73 Respiratory Rate 18 18 20 Blood Pressure 174/76 H 164/75 H Pulse Oximetry 91 96 91 Oxygen Delivery Room Air 03/12/25 22:32 03/13/25 01:00 03/13/25 06:00 Temperature 97.2 F L Pulse Rate 75 73 Respiratory Rate 18 20 Blood Pressure 164/74 H 159/81 H 141/91 H Pulse Oximetry 93 Oxygen Delivery 03/13/25 09:05 Temperature Pulse Rate Respiratory Rate Blood Pressure Pulse Oximetry Oxygen Delivery Room Air Intake/Output Intake/Output: Intake & Output 03/10/25 03/11/25 03/12/25 03/13/25 23:59 23:59 23:59 23:59 Intake Total 2659.1 3120 3141.3 1342.5 Output Total 299 839 1723 750 Balance 2509.1 2520 641.3 592.5 Meds/Results Medications: Active Medications Generic Name Dose Route Start Last Admin Trade Name Freq PRN Reason Stop Dose Admin Acetaminophen 650 mg 03/05/25 17:30 Acetaminophen 650 Mg Suppository RECTAL Q6H PRN Mild Pain (1-3) or Fever Dextrose 12.5 gm 03/05/25 17:30 Dextrose 50% 25 Gm/50 Ml Syringe IV PUSH PRN PRN Hypoglycemia Protocol Enoxaparin Sodium 40 mg 03/10/25 09:00 03/11/25 10:17 Enoxaparin 40 Mg/0.4 Ml Syringe SUB-Q Not Given DAILY ANSELMO Glucagon 1 mg 03/05/25 17:30 Glucagon For Inj 1 Mg Vial IM PRN PRN Hypoglycemia Protocol Glucose 15 gm 03/05/25 17:30 Glucose Oral Gel 15 Gm Of Glucse In 37.5 Gm Tube PO PRN PRN Hypoglycemia Protocol Hydromorphone HCl 0.5 mg 03/05/25 20:53 03/13/25 13:14 Hydromorphone Hcl Inj (*Crx) 2 Mg/Ml Vial IV PUSH 0.5 mg Q3H PRN Administration Pain Rated 4-6 Hydromorphone HCl 1 mg 03/05/25 20:53 03/12/25 21:37 Hydromorphone Hcl Inj (*Crx) 2 Mg/Ml Vial IV PUSH 1 mg Q4H PRN Administration Pain Rated 7-10 Dextrose 1,000 mls @ 100 mls/hr 03/05/25 17:30 Dextrose 5% 1,000 Ml IVPB PRN PRN Hypoglycemia Protocol Dextrose 1,000 mls @ 50 mls/hr 03/07/25 13:28 Dextrose 10% IV CONT .Q20H PRN if PN is interrupted Multivitamins 1.25 ml/ 1,002.5 mls @ 40 mls/hr 03/08/25 11:00 03/13/25 13:14 Multivitamins 1.25 ml/ Amino IV CONT 40 mls/hr Acids/Electrolytes/Dextrose .Q24H ANSELMO Administration Protocol Fat Emulsion Intravenous 250 mls @ 20.833 mls/hr 03/08/25 11:00 03/13/25 13:14 Lipids 20% IVPB 20.83 mls/hr Q24H ANSELMO Administration Potassium Chloride/Sodium Chloride 1,000 mls @ 50 mls/hr 03/10/25 12:55 03/12/25 22:26 Kcl 20 Meq/Ns IV CONT 50 mls/hr .Q20H ANSELMO Administration Ibuprofen 800 mg in 200 mls @ 400 mls/hr 03/13/25 11:36 Caldolor 800 Mg/200 Ml IVPB Q8H PRN PAIN 1-3 Insulin Aspart 2 - 5 units 03/05/25 18:00 03/13/25 13:02 Insulin Aspart (*Bkc) 100 Units/Ml SUB-Q Not Given Q6HR ANSELMO Protocol Lidocaine 1 patch 03/07/25 09:00 03/13/25 08:31 Lidocaine 5% Patch TRANSDERM 1 patch DAILY ANSELMO Administration Lidocaine 2 patch 03/09/25 12:20 03/13/25 08:31 Lidocaine 5% Patch TRANSDERM 2 patch DAILY ANSELMO Administration Metoclopramide HCl 10 mg 03/06/25 18:00 03/13/25 11:14 Metoclopramide Hcl Inj 10 Mg/2 Ml Vial IV PUSH 10 mg Q8H ANSELMO Administration Naloxone HCl 0.1 mg 03/05/25 17:30 Naloxone Hcl 0.4 Mg/Ml Vial IV PUSH Q5MIN PRN Sedation Pantoprazole Sodium 40 mg 03/06/25 09:00 03/13/25 08:31 Pantoprazole Sodium Iv 40 Mg Vial IV PUSH 40 mg QAM ANSELMO Administration Sodium Chloride 10 ml 03/08/25 14:00 03/13/25 13:08 Central Line Flush IV PUSH 10 ml Q8HR ANSELMO Administration Sodium Chloride 10 ml 03/08/25 08:45 Central Line Flush IV PUSH PRN PRN with TPN bag changes Sodium Chloride 20 ml 03/08/25 08:45 03/12/25 05:35 Central Line Flush IV PUSH 20 ml PRN PRN Administration after blood draws Labs Labs: Laboratory Results - last 24 hr 03/12/25 03/12/25 03/13/25 05:33 17:51 00:00 WBC RBC Hgb Hct MCV MCH MCHC RDW Plt Count MPV Immature Gran % (Auto) Neut % (Auto) Lymph % (Auto) [place] % (Auto) Eos % (Auto) Baso % (Auto) Lymph # (Auto) [place] # (Auto) Eos # (Auto) Baso # (Auto) Abs Immat Gran (auto) Absolute Neuts (auto) Absolute Nucleated RBC Total Counted Neutrophils % (Manual) Band Neutrophils % Lymphocytes % (Manual) Nucleated RBC % Abs Neuts (Manual) Abs Lymphs (Manual) Platelet Estimate % Immature Plt Fraction Schistocytes Sodium Potassium Chloride Carbon Dioxide Anion Gap BUN Creatinine Estim Creat Clear Calc Estimated GFR Glucose POC Capillary Glucose 121 H 145 H Calcium Phosphorus Magnesium Total Bilirubin AST ALT Alkaline Phosphatase Total Protein Albumin Triglycerides 147 Urine Color Urine Appearance Urine pH Ur Specific [place] Urine Protein Urine Glucose (UA) Urine Ketones Ur Blood (Man) Urine Nitrate Urine Bilirubin Urine Urobilinogen Leukocyte Esterase Rfl 03/13/25 03/13/25 03/13/25 04:33 05:15 09:05 WBC 11.1 H RBC 4.00 L Hgb 13.3 Hct 41.0 MCV 102.5 H MCH 33.3 MCHC 32.4 RDW 12.3 Plt Count 92 L MPV 12.0 H Immature Gran % (Auto) Not Reportable Neut % (Auto) Not Reportable Lymph % (Auto) Not Reportable [place] % (Auto) Not Reportable Eos % (Auto) Not Reportable Baso % (Auto) Not Reportable Lymph # (Auto) Not Reportable [place] # (Auto) Not Reportable Eos # (Auto) Not Reportable Baso # (Auto) Not Reportable Abs Immat Gran (auto) Not Reportable Absolute Neuts (auto) Not Reportable Absolute Nucleated RBC Not Reportable Total Counted 100 Neutrophils % (Manual) 74 H Band Neutrophils % 11 H Lymphocytes % (Manual) 15.0 L Nucleated RBC % Not Reportable Abs Neuts (Manual) 9.43 H Abs Lymphs (Manual) 1.66 Platelet Estimate Decreased % Immature Plt Fraction 6.4 Schistocytes None seen Sodium 135 L Potassium 3.3 L Chloride 102 Carbon Dioxide 31 H Anion Gap 2 L BUN 14 Creatinine 0.35 L Estim Creat Clear Calc 102 Estimated GFR > 60 Glucose 127 H POC Capillary Glucose 139 H Calcium 8.0 L Phosphorus 3.1 Magnesium 1.9 Total Bilirubin 0.4 AST 34 ALT 16 Alkaline Phosphatase 49 Total Protein 5.1 L Albumin 2.4 L Triglycerides Urine Color Yellow Urine Appearance Clear Urine pH 8.5 Ur Specific [place] 1.015 Urine Protein Negative Urine Glucose (UA) 3+ H Urine Ketones Negative Ur Blood (Man) Negative Urine Nitrate Negative Urine Bilirubin Negative Urine Urobilinogen 0.2 Leukocyte Esterase Rfl Negative 03/13/25 12:03 WBC RBC Hgb Hct MCV MCH MCHC RDW Plt Count MPV Immature Gran % (Auto) Neut % (Auto) Lymph % (Auto) [place] % (Auto) Eos % (Auto) Baso % (Auto) Lymph # (Auto) [place] # (Auto) Eos # (Auto) Baso # (Auto) Abs Immat Gran (auto) Absolute Neuts (auto) Absolute Nucleated RBC Total Counted Neutrophils % (Manual) Band Neutrophils % Lymphocytes % (Manual) Nucleated RBC % Abs Neuts (Manual) Abs Lymphs (Manual) Platelet Estimate % Immature Plt Fraction Schistocytes Sodium Potassium Chloride Carbon Dioxide Anion Gap BUN Creatinine Estim Creat Clear Calc Estimated GFR Glucose POC Capillary Glucose 109 H Calcium Phosphorus Magnesium Total Bilirubin AST ALT Alkaline Phosphatase Total Protein Albumin Triglycerides Urine Color Urine Appearance Urine pH Ur Specific [place] Urine Protein Urine Glucose (UA) Urine Ketones Ur Blood (Man) Urine Nitrate Urine Bilirubin Urine Urobilinogen Leukocyte Esterase Rfl Quality VTE Prophylaxis VTE prophylaxis: mechanical ordered
[2025-03-13] MEDS: POTASSIUM CHLORIDE 20 MEQ ER TABLET 40 MEQ PO (18:27)
[2025-03-13 21:05] VITALS: BP 171/74; PULSE 80; RESP 16; TEMP 36.4; O2SAT 95
[2025-03-13] MEDS: HYDROmorphone HCL INJ (*CRX) 2 MG/ML VIAL 1 MG IV PUSH (21:42)
[2025-03-13 23:43] VITALS: BP 165/82
[2025-03-14] MEDS: METOCLOPRAMIDE HCL INJ 10 MG/2 ML VIAL IV PUSH ×2 (01:09→09:14)
[2025-03-14] MEDS: HYDROmorphone HCL INJ (*CRX) 2 MG/ML VIAL 1 MG IV PUSH ×3 (04:32→16:47)
[2025-03-14 04:59] LABS: Alanine Aminotransferase 17 U/L (6-35); Albumin Level 2.6 g/dL (3.5-5.1); Alkaline Phosphatase 45 U/L (38-126); Anion Gap 3 mmol/L (4-12); Aspartate Amino Transferase 31 U/L (14-36); Bilirubin,Total 0.4 mg/dL (0.2-1.3); Blood Urea Nitrogen 12 mg/dL (7-17); Calcium 8.3 mg/dL (8.4-10.2); Carbon Dioxide 29 mmol/L (22-30); Chloride 103 mmol/L (98-107); Estimated CRCL calculation 97 ml/min; Estimated Glomerular Filt Rate > 60; Glucose 125 mg/dL (65-110); Magnesium 1.9 mg/dL (1.6-2.3); Potassium 3.1 mmol/L (3.4-5.0); Sodium 135 mmol/L (137-145); Total Protein 5.5 g/dL (6.3-8.2)
[2025-03-14 05:00] VITALS: BP 186/92
[2025-03-14 05:31] LABS: Hematocrit 39.8 % (37.0-47.0); Hemoglobin 13.3 g/dL (12.0-15.0); Immature Granulocyte Percent A 1.7 % (0-0.5); Lymphocytes Absolute Auto 1.02 K/mm3 (0.9-3.2); Mean Corpuscular HGB Conc 33.4 g/dl (32-36); Mean Corpuscular Hemoglobin 33.6 pg (26-34); Mean Corpuscular Volume 100.5 fl (80-100); Nucleated Red Blood Cells Absolute Auto 0.000 K/mm3 (0.0-0.012); Nucleated Red Blood Cells Perc 0.0 % (0.0-0.2); Platelet Count Result 103 k/mm3 (150-375); Red Blood Count 3.96 M/mm3 (4.2-5.4); White Blood Count 10.0 K/mm3 (4.5-10.0)
[2025-03-14] MEDS: CENTRAL LINE FLUSH 10 ML IV PUSH ×3 (05:59→23:28)
[2025-03-14 06:00] VITALS: PULSE 72; RESP 20; TEMP 36.1; O2SAT 95
[2025-03-14 08:00] VITALS: BP 156/59; PULSE 68; O2SAT 95
[2025-03-14] MEDS: LIDOCAINE 5% PATCH 1 PATCH TRANSDERM (08:55)
[2025-03-14] MEDS: LIDOCAINE 5% PATCH 2 PATCH TRANSDERM (08:55)
[2025-03-14] MEDS: PANTOPRAZOLE SODIUM IV 40 MG VIAL IV PUSH (08:56)
[2025-03-14] MEDS: ONDANSETRON INJ 4 MG/2 ML VIAL IV PUSH (10:28)
[2025-03-14] MEDS: METOCLOPRAMIDE HCL 10 MG TABLET PO ×2 (11:48→17:33)
--- NOTE | 2025-03-14 12:13 | PM.PNGS ---
Progress Note: A&P Assessment and Plan (1) SBO (small bowel obstruction): Code(s): K56.609 - Unspecified intestinal obstruction, unspecified as to partial versus complete obstruction Status: Acute Assessment and Plan: Resolved after exploratory laparotomy and abdominal adhesiolysis. Bowel function returned. Patient cleared by speech for clear liquid diet. She was tolerating it well up until she had an episode of emesis this morning. Reglan Q6 ordered. Plan to continue clear liquids for today. Advance diet as tolerated over the weekend. Potassium 3.1, and is being replaced again. Other electrolytes okay. Labs will be repeated in am. WBC count back down to 10.0 this morning. She is afebrile. Incision is healing well without any signs of infection. Her abdominal exam is benign. UA insignificant. CXR demonstrated left basilar atelectasis vs pneumonia. Prominent markings bilaterally which may indicate pneumonitis. Continue PT/OT. She will need retirement or acute rehab on discharge. CC following to help with discharge planning and family is wanting her to go to a facility closer to [place]. Likely swing bed at [facility]. (2) Malnutrition: Code(s): E46 - Unspecified protein-calorie malnutrition Status: Acute Assessment and Plan: TPN half-rated. Nursing instructed to let bag run out or discontinue when due for bag change. Plan I have discussed the patient's case and plan of care with Dr. Cavanaugh. Subjective Subjective Date/Time Seen: 03/14/25 12:13 Patient reports: vomiting Interval history: Patient was doing well upon visit today. Tolerating clear liquids. Two bowel movements last night. WBC 10.0. However, shortly after leaving the room patient had an episode of emesis. She stated that this was the first time she had experienced any nausea. Exam GI: Inspection: non-distended, incision (Dry and glue intact, no erythema or drainage) and other (mildly distended) Auscultation: normal bowel sounds, absent bowel sounds and Hypoactive bowel sounds present Other: Abdomen is soft and minimally distended. Midline incision is intact without redness or drainage. No dehiscence or other signs of infection. Objective Data Vital Signs Vital Signs: Vital Signs - 24 hr 03/13/25 14:00 03/13/25 20:00 03/13/25 21:05 Temperature 98 F 97.5 F L Pulse Rate 75 80 Respiratory Rate 18 16 Blood Pressure 164/80 H 171/74 H Pulse Oximetry 93 95 Oxygen Delivery Room Air 03/13/25 23:43 03/14/25 05:00 03/14/25 06:00 Temperature 96.9 F L Pulse Rate 72 Respiratory Rate 20 Blood Pressure 165/82 H 186/92 H Pulse Oximetry 95 Oxygen Delivery 03/14/25 08:00 Temperature Pulse Rate 68 Respiratory Rate Blood Pressure 156/59 H Pulse Oximetry 95 Oxygen Delivery Intake/Output Intake/Output: Intake & Output 03/11/25 03/12/25 03/13/25 03/14/25 23:59 23:59 23:59 23:59 Intake Total 3120 3141.3 1582.5 1380.7 Output Total 600 2500 750 806 Balance 2520 641.3 832.5 574.7 Meds/Results Medications: Active Medications Generic Name Dose Route Start Last Admin Trade Name Freq PRN Reason Stop Dose Admin Acetaminophen 650 mg 03/05/25 17:30 Acetaminophen 650 Mg Suppository RECTAL Q6H PRN Mild Pain (1-3) or Fever Amlodipine Besylate 10 mg 03/14/25 09:00 03/14/25 06:56 Amlodipine Besylate 10 Mg Tablet PO 10 mg DAILY ANSELMO Administration Dextrose 12.5 gm 03/05/25 17:30 Dextrose 50% 25 Gm/50 Ml Syringe IV PUSH PRN PRN Hypoglycemia Protocol Enoxaparin Sodium 40 mg 03/10/25 09:00 03/11/25 10:17 Enoxaparin 40 Mg/0.4 Ml Syringe SUB-Q Not Given DAILY ANSELMO Glucagon 1 mg 03/05/25 17:30 Glucagon For Inj 1 Mg Vial IM PRN PRN Hypoglycemia Protocol Glucose 15 gm 03/05/25 17:30 Glucose Oral Gel 15 Gm Of Glucse In 37.5 Gm Tube PO PRN PRN Hypoglycemia Protocol Hydromorphone HCl 0.5 mg 03/05/25 20:53 03/13/25 18:26 Hydromorphone Hcl Inj (*Crx) 2 Mg/Ml Vial IV PUSH 0.5 mg Q3H PRN Administration Pain Rated 4-6 Hydromorphone HCl 1 mg 03/05/25 20:53 03/14/25 09:00 Hydromorphone Hcl Inj (*Crx) 2 Mg/Ml Vial IV PUSH 1 mg Q4H PRN Administration Pain Rated 7-10 Dextrose 1,000 mls @ 100 mls/hr 03/05/25 17:30 Dextrose 5% 1,000 Ml IVPB PRN PRN Hypoglycemia Protocol Dextrose 1,000 mls @ 50 mls/hr 03/07/25 13:28 Dextrose 10% IV CONT .Q20H PRN if PN is interrupted Multivitamins 1.25 ml/ 1,002.5 mls @ 40 mls/hr 03/08/25 11:00 03/14/25 11:48 Multivitamins 1.25 ml/ Amino IV CONT 20 mls/hr Acids/Electrolytes/Dextrose .Q24H ANSELMO Infusion Protocol Fat Emulsion Intravenous 250 mls @ 20.833 mls/hr 03/08/25 11:00 03/13/25 13:14 Lipids 20% IVPB 20.83 mls/hr Q24H ANSELMO Administration Ibuprofen 800 mg in 200 mls @ 400 mls/hr 03/13/25 11:36 Caldolor 800 Mg/200 Ml IVPB Q8H PRN PAIN 1-3 Insulin Aspart 2 - 5 units 03/05/25 18:00 03/14/25 11:49 Insulin Aspart (*Bkc) 100 Units/Ml SUB-Q Not Given Q6HR ANSELMO Protocol Lidocaine 1 patch 03/07/25 09:00 03/14/25 08:55 Lidocaine 5% Patch TRANSDERM 1 patch DAILY ANSELMO Administration Lidocaine 2 patch 03/09/25 12:20 03/14/25 08:55 Lidocaine 5% Patch TRANSDERM 2 patch DAILY ANSELMO Administration Metoclopramide HCl 10 mg 03/06/25 18:00 03/14/25 09:14 Metoclopramide Hcl Inj 10 Mg/2 Ml Vial IV PUSH 10 mg Q8H ANSELMO Administration Metoclopramide HCl 10 mg 03/14/25 11:10 03/14/25 11:48 Metoclopramide Hcl 10 Mg Tablet PO 10 mg Q6HR ANSELMO Administration Naloxone HCl 0.1 mg 03/05/25 17:30 Naloxone Hcl 0.4 Mg/Ml Vial IV PUSH Q5MIN PRN Sedation Ondansetron HCl 4 mg 03/14/25 10:18 03/14/25 10:28 Ondansetron Inj 4 Mg/2 Ml Vial IV PUSH 4 mg Q4H PRN Administration Nausea And Vomiting Pantoprazole Sodium 40 mg 03/06/25 09:00 03/14/25 08:56 Pantoprazole Sodium Iv 40 Mg Vial IV PUSH 40 mg QAM ANSELMO Administration Sodium Chloride 10 ml 03/08/25 14:00 03/14/25 05:59 Central Line Flush IV PUSH 10 ml Q8HR ANSELMO Administration Sodium Chloride 10 ml 03/08/25 08:45 Central Line Flush IV PUSH PRN PRN with TPN bag changes Sodium Chloride 20 ml 03/08/25 08:45 03/12/25 05:35 Central Line Flush IV PUSH 20 ml PRN PRN Administration after blood draws Radiology Results: ITS Impressions Chest X-Ray 03/13/25 15:52 IMPRESSION: Left basilar atelectasis versus pneumonia. Prominent markings bilaterally which may indicate pneumonitis. Labs Labs: Laboratory Results - last 24 hr 03/10/25 03/13/25 03/13/25 23:42 18:31 23:34 WBC RBC Hgb Hct MCV MCH MCHC RDW Plt Count MPV Immature Gran % (Auto) Neut % (Auto) Lymph % (Auto) [place] % (Auto) Eos % (Auto) Baso % (Auto) Lymph # (Auto) [place] # (Auto) Eos # (Auto) Baso # (Auto) Abs Immat Gran (auto) Absolute Neuts (auto) Absolute Nucleated RBC Nucleated RBC % Sodium Potassium Chloride Carbon Dioxide Anion Gap BUN Creatinine Estim Creat Clear Calc Estimated GFR Glucose POC Capillary Glucose 117 H 154 H Calcium Phosphorus Magnesium Total Bilirubin AST ALT Alkaline Phosphatase Total Protein Albumin Heparin-induced Plt Ab 0.081 03/14/25 03/14/25 04:30 11:44 WBC 10.0 RBC 3.96 L Hgb 13.3 Hct 39.8 MCV 100.5 H MCH 33.6 MCHC 33.4 RDW 12.4 Plt Count 103 L MPV 12.1 H Immature Gran % (Auto) 1.7 H Neut % (Auto) 81.1 H Lymph % (Auto) 10.2 L [place] % (Auto) 5.8 Eos % (Auto) 0.8 Baso % (Auto) 0.4 Lymph # (Auto) 1.02 [place] # (Auto) 0.6 Eos # (Auto) 0.1 Baso # (Auto) 0.0 Abs Immat Gran (auto) 0.17 H Absolute Neuts (auto) 8.2 H Absolute Nucleated RBC 0.000 Nucleated RBC % 0.0 Sodium 135 L Potassium 3.1 L Chloride 103 Carbon Dioxide 29 Anion Gap 3 L BUN 12 Creatinine 0.37 L Estim Creat Clear Calc 97 Estimated GFR > 60 Glucose 125 H POC Capillary Glucose 139 H Calcium 8.3 L Phosphorus 3.2 Magnesium 1.9 Total Bilirubin 0.4 AST 31 ALT 17 Alkaline Phosphatase 45 Total Protein 5.5 L Albumin 2.6 L Heparin-induced Plt Ab
--- NOTE | 2025-03-14 12:58 | PCNFU ---
Nutrition Follow-Up Complete: Inadequate energy intake related to NPO status as evidenced by current diet order Meet estimated needs - Progressing with diet increase and TPN continues Goal: Pt current nutrition is Clear liquid diet. TPN Clinmix E 01/16 with lipids @ 40 ml/h: 1182 kcal, 48 g protein, 1210 ml total volume. Nutrition recommendation: Last recorded weight is 64.6 kg. Bowel Motility: +2 BMs 03/13 Labs Reviewed: Alb 2.6, Na 135, K+ 3.1, Cre 0.37, Glu 125 Meds Noted: Novolog, protonix Skin: No skin issues Additional Notes: Plan from surgery is to continue on TPN through today and advance diet tomorrow. Supplements are ordered for when diet increases (Glucerna BID ,220 kcal, 10 g protein each) Monitor plan of care, diet orders, intake and tolerance, wt, labs. Follow up in 1 day
[2025-03-14 14:05] VITALS: BP 139/74; PULSE 75; RESP 16; TEMP 36.2; O2SAT 93
--- NOTE | 2025-03-14 14:14 | P.PNIM_ITS ---
Progress Note: A&P Assessment and Plan (1) Complete small bowel obstruction: Code(s): K56.601 - Complete intestinal obstruction, unspecified as to cause Status: Inactive Assessment and Plan: - CT abdomen/pelvis: 1. Closed loop small bowel obstruction the right lower quadrant without evidence secondary ischemia. 2. Fat and small amount of ascites within a moderate-sized left lower quadrant ventral hernia. 3. Small fat-containing left inguinal hernia. - general surgery consulted, Mao DANIELSON has history of prior hysterectomy raising concerns for adhesions causing bowel obstruction, process likely been ongoing for the past several days and will likely need exploratory laparotomy possibly tomorrow on 03/06 variant upon their exam no acute surgical abdomen and patient is hemodynamically stable with lactate levels only mildly elevated Bowel sounds present and patient noted that she had bowel movement last night Continue po advancement per Gen surgery Gen surgery following, continue TPN wean per Gen surgery (2) Type 2 diabetes mellitus: Qualifiers: Diabetes mellitus long-term insulin use: without long-term use Diabetes mellitus complication status: without complication Qualified Code(s): E11.9 - Type 2 diabetes mellitus without complications Code(s): E11.9 - Type 2 diabetes mellitus without complications Status: Acute Assessment and Plan: - hypoglycemia protocol - POC blood glucose Q6H, SSI with accucheks - hold home medications: Jardiance, home sliding scale - A1C 5.2% on 03/03/2025 (3) Autoimmune hepatitis: Code(s): K75.4 - Autoimmune hepatitis Status: Acute Assessment and Plan: - continue home medication(s) Prednisone and Azathioprine once no longer NPO (4) HTN (hypertension): Qualifiers: Hypertension type: primary hypertension Qualified Code(s): I10 - Essential (primary) hypertension Code(s): I10 - Essential (primary) hypertension Status: Acute Assessment and Plan: - chronic, currently 146/79 - currently NPO, will hold home medications including amlodipine - monitor Plan Thrombocytopenia Plts 103, improving monitor patient with abdominal pain, nausea and no BM for a week presented to outside hospital and is found to have SBO, was seen by general surgery service, and had exploratory laparotomy adhesiolysis on 03/06 POD #6, today again patient did have several episodes gas, and feels will have a BM today, but still no BM, awaiting return of bowl function, patient is placed on NG tube to decompressed. surgery service has started the patient on TPN, patient has hypokalemia and hypophosphatemia will replace on TPN, and patient complaints of low back pain, applied 2 Lidoderm patches, patient blood smear peripheral specimen showed abnormalities concerning for possible myelodysplasia versus severe reactive atypia, platelets are trending down but stable, patient was seen by bus aide does not suspect bone marrow issue however further work up is in progress. Diet: Advance diet per Gen surgery DVT Prophylaxis: Sq Lovenox Code Status: full code Subjective Date/time seen: 03/14/25 14:14 Interval history: Comfortable at bedside Review of Systems Review of Systems: All systems reviewed & are unremarkable except as noted in HPI and below Exam Narrative: Appears chronically ill elderly frail Patient is comfortable, NAD HEENT: eyes are clear and none icteric, NG Tube in place. LUNGS:CTA HEART: RR S1S2 ABD: BS+, Soft and nontender Lower extremities: no edema SKIN: nonjaundiced Neuro: grossly intact. Const: General: comfortable and no acute distress Other: , female, nontoxic appearance, elderly HENMT: Face/Nose/Sinus: Normal nares present Mouth: Yes moist mucous membranes Other: NG in place, on low intermittent suction Eyes: General: appearance normal, both eyes and all related structures Sclera: sclerae normal Pupils: Equal, round and reactive pupils present EOM: EOMs intact bilaterally Resp: Effort & Inspection: normal respiratory effort Auscultation: clear to auscultation bilaterally Cardio: Rate: regular rate Rhythm: regular rhythm Other: S1-S2 present without murmur, rub, ectopy GI: Other: bowel sounds quiet and very hypoactive in all quadrants. Mild /diffuse tenderness in all quadrants. Nondistended , soft. Skin: General skin exam: normal color and no rashes or lesions noted Wounds: no wounds Neuro: Cranial nerves: Yes Equal, round and reactive pupils present Speech: normal speech Motor exam (neuro): 5/5 motor strength present throughout Sensory Exam: normal sensation Other: A&O x4, mild somnolence but awakens easily to voice. Extrem: General: normal to inspection Psych: Mental Status: mental status grossly normal Affect: normal affect Other: Good insight and judgment, pleasant Objective Data Vital Signs Vital Signs: Vital Signs - 24 hr 03/13/25 20:00 03/13/25 21:05 03/13/25 23:43 Temperature 97.5 F L Pulse Rate 80 Respiratory Rate 16 Blood Pressure 171/74 H 165/82 H Pulse Oximetry 95 Oxygen Delivery Room Air 03/14/25 05:00 03/14/25 06:00 03/14/25 08:00 Temperature 96.9 F L Pulse Rate 72 68 Respiratory Rate 20 Blood Pressure 186/92 H 156/59 H Pulse Oximetry 95 95 Oxygen Delivery Intake/Output Intake/Output: Intake & Output 03/11/25 03/12/25 03/13/25 03/14/25 23:59 23:59 23:59 23:59 Intake Total 3120 3141.3 1582.5 1380.7 Output Total 600 2500 750 806 Balance 2520 641.3 832.5 574.7 Meds/Results Medications: Active Medications Generic Name Dose Route Start Last Admin Trade Name Freq PRN Reason Stop Dose Admin Acetaminophen 650 mg 03/05/25 17:30 Acetaminophen 650 Mg Suppository RECTAL Q6H PRN Mild Pain (1-3) or Fever Amlodipine Besylate 10 mg 03/14/25 09:00 03/14/25 06:56 Amlodipine Besylate 10 Mg Tablet PO 10 mg DAILY ANSELMO Administration Dextrose 12.5 gm 03/05/25 17:30 Dextrose 50% 25 Gm/50 Ml Syringe IV PUSH PRN PRN Hypoglycemia Protocol Enoxaparin Sodium 40 mg 03/10/25 09:00 03/11/25 10:17 Enoxaparin 40 Mg/0.4 Ml Syringe SUB-Q Not Given DAILY ANSELMO Glucagon 1 mg 03/05/25 17:30 Glucagon For Inj 1 Mg Vial IM PRN PRN Hypoglycemia Protocol Glucose 15 gm 03/05/25 17:30 Glucose Oral Gel 15 Gm Of Glucse In 37.5 Gm Tube PO PRN PRN Hypoglycemia Protocol Hydromorphone HCl 0.5 mg 03/05/25 20:53 03/13/25 18:26 Hydromorphone Hcl Inj (*Crx) 2 Mg/Ml Vial IV PUSH 0.5 mg Q3H PRN Administration Pain Rated 4-6 Hydromorphone HCl 1 mg 03/05/25 20:53 03/14/25 09:00 Hydromorphone Hcl Inj (*Crx) 2 Mg/Ml Vial IV PUSH 1 mg Q4H PRN Administration Pain Rated 7-10 Dextrose 1,000 mls @ 100 mls/hr 03/05/25 17:30 Dextrose 5% 1,000 Ml IVPB PRN PRN Hypoglycemia Protocol Dextrose 1,000 mls @ 50 mls/hr 03/07/25 13:28 Dextrose 10% IV CONT .Q20H PRN if PN is interrupted Multivitamins 1.25 ml/ 1,002.5 mls @ 40 mls/hr 03/08/25 11:00 03/14/25 13:40 Multivitamins 1.25 ml/ Amino IV CONT Not Given Acids/Electrolytes/Dextrose .Q24H ANSELMO Protocol Fat Emulsion Intravenous 250 mls @ 20.833 mls/hr 03/08/25 11:00 03/14/25 13:41 Lipids 20% IVPB Not Given Q24H ANSELMO Ibuprofen 800 mg in 200 mls @ 400 mls/hr 03/13/25 11:36 Caldolor 800 Mg/200 Ml IVPB Q8H PRN PAIN 1-3 Insulin Aspart 2 - 5 units 03/05/25 18:00 03/14/25 11:49 Insulin Aspart (*Bkc) 100 Units/Ml SUB-Q Not Given Q6HR ANSELMO Protocol Lidocaine 1 patch 03/07/25 09:00 03/14/25 08:55 Lidocaine 5% Patch TRANSDERM 1 patch DAILY ANSELMO Administration Lidocaine 2 patch 03/09/25 12:20 03/14/25 08:55 Lidocaine 5% Patch TRANSDERM 2 patch DAILY ANSELMO Administration Metoclopramide HCl 10 mg 03/06/25 18:00 03/14/25 09:14 Metoclopramide Hcl Inj 10 Mg/2 Ml Vial IV PUSH 10 mg Q8H ANSELMO Administration Metoclopramide HCl 10 mg 03/14/25 11:10 03/14/25 11:48 Metoclopramide Hcl 10 Mg Tablet PO 10 mg Q6HR ANSELMO Administration Naloxone HCl 0.1 mg 03/05/25 17:30 Naloxone Hcl 0.4 Mg/Ml Vial IV PUSH Q5MIN PRN Sedation Ondansetron HCl 4 mg 03/14/25 10:18 03/14/25 10:28 Ondansetron Inj 4 Mg/2 Ml Vial IV PUSH 4 mg Q4H PRN Administration Nausea And Vomiting Pantoprazole Sodium 40 mg 03/06/25 09:00 03/14/25 08:56 Pantoprazole Sodium Iv 40 Mg Vial IV PUSH 40 mg QAM ANSELMO Administration Sodium Chloride 10 ml 03/08/25 14:00 03/14/25 05:59 Central Line Flush IV PUSH 10 ml Q8HR ANSELMO Administration Sodium Chloride 10 ml 03/08/25 08:45 Central Line Flush IV PUSH PRN PRN with TPN bag changes Sodium Chloride 20 ml 03/08/25 08:45 03/12/25 05:35 Central Line Flush IV PUSH 20 ml PRN PRN Administration after blood draws Radiology Results: ITS Impressions Chest X-Ray 03/13/25 15:52 IMPRESSION: Left basilar atelectasis versus pneumonia. Prominent markings bilaterally which may indicate pneumonitis. Labs Labs: Laboratory Results - last 24 hr 03/10/25 03/13/25 03/13/25 23:42 18:31 23:34 WBC RBC Hgb Hct MCV MCH MCHC RDW Plt Count MPV Immature Gran % (Auto) Neut % (Auto) Lymph % (Auto) [place] % (Auto) Eos % (Auto) Baso % (Auto) Lymph # (Auto) [place] # (Auto) Eos # (Auto) Baso # (Auto) Abs Immat Gran (auto) Absolute Neuts (auto) Absolute Nucleated RBC Nucleated RBC % Sodium Potassium Chloride Carbon Dioxide Anion Gap BUN Creatinine Estim Creat Clear Calc Estimated GFR Glucose POC Capillary Glucose 117 H 154 H Calcium Phosphorus Magnesium Total Bilirubin AST ALT Alkaline Phosphatase Total Protein Albumin Heparin-induced Plt Ab 0.081 03/14/25 03/14/25 04:30 11:44 WBC 10.0 RBC 3.96 L Hgb 13.3 Hct 39.8 MCV 100.5 H MCH 33.6 MCHC 33.4 RDW 12.4 Plt Count 103 L MPV 12.1 H Immature Gran % (Auto) 1.7 H Neut % (Auto) 81.1 H Lymph % (Auto) 10.2 L [place] % (Auto) 5.8 Eos % (Auto) 0.8 Baso % (Auto) 0.4 Lymph # (Auto) 1.02 [place] # (Auto) 0.6 Eos # (Auto) 0.1 Baso # (Auto) 0.0 Abs Immat Gran (auto) 0.17 H Absolute Neuts (auto) 8.2 H Absolute Nucleated RBC 0.000 Nucleated RBC % 0.0 Sodium 135 L Potassium 3.1 L Chloride 103 Carbon Dioxide 29 Anion Gap 3 L BUN 12 Creatinine 0.37 L Estim Creat Clear Calc 97 Estimated GFR > 60 Glucose 125 H POC Capillary Glucose 139 H Calcium 8.3 L Phosphorus 3.2 Magnesium 1.9 Total Bilirubin 0.4 AST 31 ALT 17 Alkaline Phosphatase 45 Total Protein 5.5 L Albumin 2.6 L Heparin-induced Plt Ab Quality VTE Prophylaxis VTE prophylaxis: mechanical ordered
[2025-03-14] MEDS: KCL 40 MEQ/WATER 100 ML 100 ML 25 ML IVPB (16:44)
[2025-03-14 17:27] LABS: Triglycerides 164 mg/dL (<150)
[2025-03-14 17:58] LABS: Platelet Antibody, Direct IgG NEGATIVE (NEGATIVE)
[2025-03-14 21:00] VITALS: BP 140/70; PULSE 78; RESP 16; TEMP 36.4; O2SAT 92
[2025-03-14] MEDS: HYDROmorphone HCL INJ (*CRX) 2 MG/ML VIAL 0.5 MG IV PUSH (21:45)
[2025-03-15] MEDS: METOCLOPRAMIDE HCL 10 MG TABLET PO ×4 (01:57→17:37)
[2025-03-15 05:25] VITALS: BP 148/70; PULSE 72; RESP 18; TEMP 36.3; O2SAT 94
[2025-03-15] MEDS: CENTRAL LINE FLUSH 10 ML IV PUSH ×3 (06:19→20:50)
[2025-03-15 06:21] LABS: Alanine Aminotransferase 19 U/L (6-35); Albumin Level 2.7 g/dL (3.5-5.1); Alkaline Phosphatase 60 U/L (38-126); Anion Gap 5 mmol/L (4-12); Aspartate Amino Transferase 35 U/L (14-36); Bilirubin,Total 0.9 mg/dL (0.2-1.3); Blood Urea Nitrogen 14 mg/dL (7-17); Calcium 8.5 mg/dL (8.4-10.2); Carbon Dioxide 29 mmol/L (22-30); Chloride 103 mmol/L (98-107); Estimated CRCL calculation 69 ml/min; Estimated Glomerular Filt Rate > 60; Glucose 108 mg/dL (65-110); Potassium 3.6 mmol/L (3.4-5.0); Sodium 137 mmol/L (137-145); Total Protein 5.7 g/dL (6.3-8.2)
--- NOTE | 2025-03-15 07:32 | PM.PNGS ---
Progress Note: A&P Assessment and Plan (1) SBO (small bowel obstruction): Code(s): K56.609 - Unspecified intestinal obstruction, unspecified as to partial versus complete obstruction Status: Acute Assessment and Plan: exam benign, +flatus, pedro FLD, will try solid foods today, encourage OOB/IS Subjective Subjective Date/Time Seen: 03/15/25 07:32 Interval history: feels much better, +flatus, pedro FLD Review of Systems Review of Systems: All systems reviewed & are unremarkable except as noted in HPI and below Exam Const: General: cooperative, comfortable and no acute distress Resp: Auscultation: clear to auscultation bilaterally Cardio: Rate: regular rate Rhythm: regular rhythm GI: Inspection: normal to inspection and incision GI Palp: Yes abdominal tenderness, Yes Soft to palpation, No Guarding due to palpation present (GI) and No Rigid due to palpation Objective Data Vital Signs Vital Signs: Vital Signs - 24 hr 03/14/25 08:00 03/14/25 08:46 03/14/25 14:05 Temperature 36.2 C L Pulse Rate 68 75 Respiratory Rate 16 Blood Pressure 156/59 H 139/74 Pulse Oximetry 95 93 Oxygen Delivery Room Air 03/14/25 20:00 03/14/25 21:00 03/15/25 05:25 Temperature 36.4 C 36.3 C L Pulse Rate 78 72 Respiratory Rate 16 18 Blood Pressure 140/70 148/70 H Pulse Oximetry 92 94 Oxygen Delivery Room Air Intake/Output Intake/Output: Intake & Output 03/12/25 03/13/25 03/14/25 03/15/25 23:59 23:59 23:59 23:59 Intake Total 3141.3 1582.5 2410.7 190 Output Total 2500 750 1706 750 Balance 641.3 832.5 704.7 -560 Meds/Results Medications: Active Medications Generic Name Dose Route Start Last Admin Trade Name Freq PRN Reason Stop Dose Admin Acetaminophen 650 mg 03/05/25 17:30 Acetaminophen 650 Mg Suppository RECTAL Q6H PRN Mild Pain (1-3) or Fever Amlodipine Besylate 10 mg 03/14/25 09:00 03/14/25 06:56 Amlodipine Besylate 10 Mg Tablet PO 10 mg DAILY ANSELMO Administration Dextrose 12.5 gm 03/05/25 17:30 Dextrose 50% 25 Gm/50 Ml Syringe IV PUSH PRN PRN Hypoglycemia Protocol Enoxaparin Sodium 40 mg 03/10/25 09:00 03/11/25 10:17 Enoxaparin 40 Mg/0.4 Ml Syringe SUB-Q Not Given DAILY ANSELMO Glucagon 1 mg 03/05/25 17:30 Glucagon For Inj 1 Mg Vial IM PRN PRN Hypoglycemia Protocol Glucose 15 gm 03/05/25 17:30 Glucose Oral Gel 15 Gm Of Glucse In 37.5 Gm Tube PO PRN PRN Hypoglycemia Protocol Hydromorphone HCl 0.5 mg 03/05/25 20:53 03/14/25 21:45 Hydromorphone Hcl Inj (*Crx) 2 Mg/Ml Vial IV PUSH 0.5 mg Q3H PRN Administration Pain Rated 4-6 Hydromorphone HCl 1 mg 03/05/25 20:53 03/14/25 16:47 Hydromorphone Hcl Inj (*Crx) 2 Mg/Ml Vial IV PUSH 1 mg Q4H PRN Administration Pain Rated 7-10 Dextrose 1,000 mls @ 100 mls/hr 03/05/25 17:30 Dextrose 5% 1,000 Ml IVPB PRN PRN Hypoglycemia Protocol Dextrose 1,000 mls @ 50 mls/hr 03/07/25 13:28 Dextrose 10% IV CONT .Q20H PRN if PN is interrupted Multivitamins 1.25 ml/ 1,002.5 mls @ 40 mls/hr 03/08/25 11:00 03/14/25 13:40 Multivitamins 1.25 ml/ Amino IV CONT Not Given Acids/Electrolytes/Dextrose .Q24H ANSELMO Protocol Fat Emulsion Intravenous 250 mls @ 20.833 mls/hr 03/08/25 11:00 03/14/25 13:41 Lipids 20% IVPB Not Given Q24H ANSELMO Ibuprofen 800 mg in 200 mls @ 400 mls/hr 03/13/25 11:36 Caldolor 800 Mg/200 Ml IVPB Q8H PRN PAIN 1-3 Insulin Aspart 2 - 5 units 03/05/25 18:00 03/15/25 06:25 Insulin Aspart (*Bkc) 100 Units/Ml SUB-Q Not Given Q6HR [facility] Protocol Lidocaine 1 patch 03/07/25 09:00 03/14/25 08:55 Lidocaine 5% Patch TRANSDERM 1 patch DAILY ANSELMO Administration Lidocaine 2 patch 03/09/25 12:20 03/14/25 08:55 Lidocaine 5% Patch TRANSDERM 2 patch DAILY ANSELMO Administration Metoclopramide HCl 10 mg 03/06/25 18:00 03/14/25 09:14 Metoclopramide Hcl Inj 10 Mg/2 Ml Vial IV PUSH 10 mg Q8H ANSELMO Administration Metoclopramide HCl 10 mg 03/14/25 11:10 03/15/25 05:54 Metoclopramide Hcl 10 Mg Tablet PO 10 mg Q6HR ANSELMO Administration Miscellaneous Information 1 each 03/15/25 00:01 Please Renew Both Hydromorphone Per [employer] Procedure It Will Discontinue If Not Renewed XX 04/14/25 00:00 CLARIFY ANSELMO Naloxone HCl 0.1 mg 03/05/25 17:30 Naloxone Hcl 0.4 Mg/Ml Vial IV PUSH Q5MIN PRN Sedation Ondansetron HCl 4 mg 03/14/25 10:18 03/14/25 10:28 Ondansetron Inj 4 Mg/2 Ml Vial IV PUSH 4 mg Q4H PRN Administration Nausea And Vomiting Pantoprazole Sodium 40 mg 03/06/25 09:00 03/14/25 08:56 Pantoprazole Sodium Iv 40 Mg Vial IV PUSH 40 mg QAM ANSELMO Administration Potassium Chloride 40 meq 03/15/25 09:00 Potassium Chloride 20 Meq Packet (For Liquid) PO DAILY ANSELMO Sodium Chloride 10 ml 03/08/25 14:00 03/15/25 06:19 Central Line Flush IV PUSH 10 ml Q8HR ANSELMO Administration Sodium Chloride 10 ml 03/08/25 08:45 Central Line Flush IV PUSH PRN PRN with TPN bag changes Sodium Chloride 20 ml 03/08/25 08:45 03/12/25 05:35 Central Line Flush IV PUSH 20 ml PRN PRN Administration after blood draws Radiology Results: ITS Impressions Chest X-Ray 03/13/25 15:52 IMPRESSION: Left basilar atelectasis versus pneumonia. Prominent markings bilaterally which may indicate pneumonitis. Labs Labs: Laboratory Results - last 24 hr 03/10/25 03/14/25 03/14/25 21:55 11:44 16:46 Sodium Potassium Chloride Carbon Dioxide Anion Gap BUN Creatinine Estim Creat Clear Calc Estimated GFR Glucose POC Capillary Glucose 139 H Calcium Phosphorus Total Bilirubin AST ALT Alkaline Phosphatase Total Protein Albumin Triglycerides 164 H Direct Plt-Bound IgG Ab Negative 03/14/25 03/14/25 03/15/25 16:54 23:24 05:52 Sodium 137 Potassium 3.6 Chloride 103 Carbon Dioxide 29 Anion Gap 5 BUN 14 Creatinine 0.46 L Estim Creat Clear Calc 69 Estimated GFR > 60 Glucose 108 POC Capillary Glucose 119 H 132 H Calcium 8.5 Phosphorus 3.7 Total Bilirubin 0.9 AST 35 ALT 19 Alkaline Phosphatase 60 Total Protein 5.7 L Albumin 2.7 L Triglycerides Direct Plt-Bound IgG Ab
--- NOTE | 2025-03-15 10:19 | PCPTNOTE ---
Patient refused therapy at this time due to having no energy from not eating yet today. Patient requested she wanted to eat and get pain medication before she attempted therapy.
[2025-03-15] MEDS: PANTOPRAZOLE SODIUM IV 40 MG VIAL IV PUSH (10:23)
[2025-03-15] MEDS: POTASSIUM CHLORIDE 20 MEQ PACKET (FOR LIQUID) 40 MEQ PO (10:24)
[2025-03-15] MEDS: HYDROmorphone HCL INJ (*CRX) 2 MG/ML VIAL 1 MG IV PUSH (10:25)
--- NOTE | 2025-03-15 11:42 | PM.IMPN ---
Progress Note: A&P Assessment and Plan (1) Complete small bowel obstruction: Code(s): K56.601 - Complete intestinal obstruction, unspecified as to cause Status: Inactive Assessment and Plan: - CT abdomen/pelvis: 1. Closed loop small bowel obstruction the right lower quadrant without evidence secondary ischemia. 2. Fat and small amount of ascites within a moderate-sized left lower quadrant ventral hernia. 3. Small fat-containing left inguinal hernia. - general surgery consulted, Mao DANIELSON has history of prior hysterectomy raising concerns for adhesions causing bowel obstruction, process likely been ongoing for the past several days and will likely need exploratory laparotomy possibly tomorrow on 03/06 variant upon their exam no acute surgical abdomen and patient is hemodynamically stable with lactate levels only mildly elevated Bowel sounds present and patient noted that she had bowel movement last night advance diet per Gen surgery Gen surgery following, continue TPN wean per Gen surgery (2) Type 2 diabetes mellitus: Qualifiers: Diabetes mellitus senior living insulin use: without senior living use Diabetes mellitus complication status: without complication Qualified Code(s): E11.9 - Type 2 diabetes mellitus without complications Code(s): E11.9 - Type 2 diabetes mellitus without complications Status: Acute Assessment and Plan: - hypoglycemia protocol - POC blood glucose Q6H, SSI with accucheks - hold home medications: Jardiance, home sliding scale - A1C 5.2% on 03/03/2025 (3) Autoimmune hepatitis: Code(s): K75.4 - Autoimmune hepatitis Status: Acute Assessment and Plan: - continue home medication(s) Prednisone and Azathioprine once no longer NPO (4) HTN (hypertension): Qualifiers: Hypertension type: primary hypertension Qualified Code(s): I10 - Essential (primary) hypertension Code(s): I10 - Essential (primary) hypertension Status: Acute Assessment and Plan: - chronic, currently 146/79 - restart home meds - monitor Plan Thrombocytopenia Plts 103, improving monitor patient with abdominal pain, nausea and no BM for a week presented to outside hospital and is found to have SBO, was seen by general surgery service, and had exploratory laparotomy adhesiolysis on 03/06 POD #6, today again patient did have several episodes gas, and feels will have a BM today, but still no BM, awaiting return of bowl function, patient is placed on NG tube to decompressed. surgery service has started the patient on TPN, patient has hypokalemia and hypophosphatemia will replace on TPN, and patient complaints of low back pain, applied 2 Lidoderm patches, patient blood smear peripheral specimen showed abnormalities concerning for possible myelodysplasia versus severe reactive atypia, platelets are trending down but stable, patient was seen by infection control manager does not suspect bone marrow issue however further work up is in progress. Diet: Advance diet per Gen surgery DVT Prophylaxis: Sq Lovenox Code Status: full code Subjective Date/time seen: 03/15/25 11:42 Interval history: Comfortable at bedside Review of Systems Review of Systems: All systems reviewed & are unremarkable except as noted in HPI and below Exam Narrative: Appears chronically ill elderly frail Patient is comfortable, NAD HEENT: eyes are clear and none icteric, NG Tube in place. LUNGS:CTA HEART: RR S1S2 ABD: BS+, Soft and nontender Lower extremities: no edema SKIN: nonjaundiced Neuro: grossly intact. Const: General: comfortable and no acute distress Other: , female, nontoxic appearance, elderly HENMT: Face/Nose/Sinus: Normal nares present Mouth: Yes moist mucous membranes Other: NG in place, on low intermittent suction Eyes: General: appearance normal, both eyes and all related structures Sclera: sclerae normal Pupils: Equal, round and reactive pupils present EOM: EOMs intact bilaterally Resp: Effort & Inspection: normal respiratory effort Auscultation: clear to auscultation bilaterally Cardio: Rate: regular rate Rhythm: regular rhythm Other: S1-S2 present without murmur, rub, ectopy GI: Other: bowel sounds quiet and very hypoactive in all quadrants. Mild /diffuse tenderness in all quadrants. Nondistended , soft. Skin: General skin exam: normal color and no rashes or lesions noted Wounds: no wounds Neuro: Cranial nerves: Yes Equal, round and reactive pupils present Speech: normal speech Motor exam (neuro): 5/5 motor strength present throughout Sensory Exam: normal sensation Other: A&O x4, mild somnolence but awakens easily to voice. Extrem: General: normal to inspection Psych: Mental Status: mental status grossly normal Affect: normal affect Other: Good insight and judgment, pleasant Objective Data Vital Signs Vital Signs: Vital Signs - 24 hr 03/14/25 14:05 03/14/25 20:00 03/14/25 21:00 Temperature 97.2 F L 97.6 F Pulse Rate 75 78 Respiratory Rate 16 16 Blood Pressure 139/74 140/70 Pulse Oximetry 93 92 Oxygen Delivery Room Air 03/15/25 05:25 Temperature 97.3 F L Pulse Rate 72 Respiratory Rate 18 Blood Pressure 148/70 H Pulse Oximetry 94 Oxygen Delivery Intake/Output Intake/Output: Intake & Output 03/12/25 03/13/25 03/14/25 03/15/25 23:59 23:59 23:59 23:59 Intake Total 3141.3 1582.5 2410.7 190 Output Total 2500 750 1706 750 Balance 641.3 832.5 704.7 -560 Meds/Results Medications: Active Medications Generic Name Dose Route Start Last Admin Trade Name Freq PRN Reason Stop Dose Admin Acetaminophen 650 mg 03/05/25 17:30 Acetaminophen 650 Mg Suppository RECTAL Q6H PRN Mild Pain (1-3) or Fever Amlodipine Besylate 10 mg 03/14/25 09:00 03/15/25 10:24 Amlodipine Besylate 10 Mg Tablet PO 10 mg DAILY ANSELMO Administration Dextrose 12.5 gm 03/05/25 17:30 Dextrose 50% 25 Gm/50 Ml Syringe IV PUSH PRN PRN Hypoglycemia Protocol Enoxaparin Sodium 40 mg 03/10/25 09:00 03/11/25 10:17 Enoxaparin 40 Mg/0.4 Ml Syringe SUB-Q Not Given DAILY ANSELMO Glucagon 1 mg 03/05/25 17:30 Glucagon For Inj 1 Mg Vial IM PRN PRN Hypoglycemia Protocol Glucose 15 gm 03/05/25 17:30 Glucose Oral Gel 15 Gm Of Glucse In 37.5 Gm Tube PO PRN PRN Hypoglycemia Protocol Hydromorphone HCl 0.5 mg 03/05/25 20:53 03/14/25 21:45 Hydromorphone Hcl Inj (*Crx) 2 Mg/Ml Vial IV PUSH 0.5 mg Q3H PRN Administration Pain Rated 4-6 Hydromorphone HCl 1 mg 03/05/25 20:53 03/15/25 10:25 Hydromorphone Hcl Inj (*Crx) 2 Mg/Ml Vial IV PUSH 1 mg Q4H PRN Administration Pain Rated 7-10 Dextrose 1,000 mls @ 100 mls/hr 03/05/25 17:30 Dextrose 5% 1,000 Ml IVPB PRN PRN Hypoglycemia Protocol Dextrose 1,000 mls @ 50 mls/hr 03/07/25 13:28 Dextrose 10% IV CONT .Q20H PRN if PN is interrupted Multivitamins 1.25 ml/ 1,002.5 mls @ 40 mls/hr 03/08/25 11:00 03/14/25 13:40 Multivitamins 1.25 ml/ Amino IV CONT Not Given Acids/Electrolytes/Dextrose .Q24H ANSELMO Protocol Fat Emulsion Intravenous 250 mls @ 20.833 mls/hr 03/08/25 11:00 03/14/25 13:41 Lipids 20% IVPB Not Given Q24H ANSELMO Ibuprofen 800 mg in 200 mls @ 400 mls/hr 03/13/25 11:36 Caldolor 800 Mg/200 Ml IVPB Q8H PRN PAIN 1-3 Insulin Aspart 2 - 5 units 03/05/25 18:00 03/15/25 06:25 Insulin Aspart (*Bkc) 100 Units/Ml SUB-Q Not Given Q6HR ANSELMO Protocol Lidocaine 1 patch 03/07/25 09:00 03/15/25 10:34 Lidocaine 5% Patch TRANSDERM 1 patch DAILY ANSELMO Administration Lidocaine 2 patch 03/09/25 12:20 03/15/25 10:34 Lidocaine 5% Patch TRANSDERM 2 patch DAILY ANSELMO Administration Metoclopramide HCl 10 mg 03/06/25 18:00 03/14/25 09:14 Metoclopramide Hcl Inj 10 Mg/2 Ml Vial IV PUSH 10 mg Q8H ANSELMO Administration Metoclopramide HCl 10 mg 03/14/25 11:10 03/15/25 05:54 Metoclopramide Hcl 10 Mg Tablet PO 10 mg Q6HR ANSELMO Administration Miscellaneous Information 1 each 03/15/25 00:01 Please Renew Both Hydromorphone Per [employer] Procedure It Will Discontinue If Not Renewed XX 04/14/25 00:00 CLARIFY ANSELMO Naloxone HCl 0.1 mg 03/05/25 17:30 Naloxone Hcl 0.4 Mg/Ml Vial IV PUSH Q5MIN PRN Sedation Ondansetron HCl 4 mg 03/14/25 10:18 03/14/25 10:28 Ondansetron Inj 4 Mg/2 Ml Vial IV PUSH 4 mg Q4H PRN Administration Nausea And Vomiting Pantoprazole Sodium 40 mg 03/06/25 09:00 03/15/25 10:23 Pantoprazole Sodium Iv 40 Mg Vial IV PUSH 40 mg QAM ANSELMO Administration Potassium Chloride 40 meq 03/15/25 09:00 03/15/25 10:24 Potassium Chloride 20 Meq Packet (For Liquid) PO 40 meq DAILY ANSELMO Administration Sodium Chloride 10 ml 03/08/25 14:00 03/15/25 06:19 Central Line Flush IV PUSH 10 ml Q8HR ANSELMO Administration Sodium Chloride 10 ml 03/08/25 08:45 Central Line Flush IV PUSH PRN PRN with TPN bag changes Sodium Chloride 20 ml 03/08/25 08:45 03/12/25 05:35 Central Line Flush IV PUSH 20 ml PRN PRN Administration after blood draws Radiology Results: ITS Impressions Chest X-Ray 03/13/25 15:52 IMPRESSION: Left basilar atelectasis versus pneumonia. Prominent markings bilaterally which may indicate pneumonitis. Labs Labs: Laboratory Results - last 24 hr 03/10/25 03/14/25 03/14/25 21:55 11:44 16:46 Sodium Potassium Chloride Carbon Dioxide Anion Gap BUN Creatinine Estim Creat Clear Calc Estimated GFR Glucose POC Capillary Glucose 139 H Calcium Phosphorus Total Bilirubin AST ALT Alkaline Phosphatase Total Protein Albumin Triglycerides 164 H Direct Plt-Bound IgG Ab Negative 03/14/25 03/14/25 03/15/25 16:54 23:24 05:52 Sodium 137 Potassium 3.6 Chloride 103 Carbon Dioxide 29 Anion Gap 5 BUN 14 Creatinine 0.46 L Estim Creat Clear Calc 69 Estimated GFR > 60 Glucose 108 POC Capillary Glucose 119 H 132 H Calcium 8.5 Phosphorus 3.7 Total Bilirubin 0.9 AST 35 ALT 19 Alkaline Phosphatase 60 Total Protein 5.7 L Albumin 2.7 L Triglycerides Direct Plt-Bound IgG Ab Quality VTE Prophylaxis VTE prophylaxis: mechanical ordered
[2025-03-15 14:00] VITALS: BP 145/67; PULSE 75; RESP 18; TEMP 35.8; O2SAT 98
[2025-03-15] MEDS: HYDROcodone/acetaminophen (*CRX) 5-325 MG TABLET 1 TAB PO (17:11)
[2025-03-15] MEDS: ONDANSETRON INJ 4 MG/2 ML VIAL IV PUSH (17:11)
[2025-03-15] MEDS: LIDOCAINE 5% PATCH 1 PATCH TRANSDERM (17:20)
[2025-03-15] MEDS: LIDOCAINE 5% PATCH 2 PATCH TRANSDERM (17:20)
[2025-03-15] MEDS: IBUPROFEN IV 800 MG/200 ML 800 MG/200 ML BAG 400 MG IVPB (20:49)
[2025-03-15 21:45] VITALS: BP 148/73; PULSE 79; RESP 16; TEMP 36.6; O2SAT 93
[2025-03-16] MEDS: METOCLOPRAMIDE HCL 10 MG TABLET PO ×5 (00:18→23:42)
[2025-03-16 05:12] VITALS: BP 134/75; PULSE 67; RESP 16; TEMP 36.1; O2SAT 95
[2025-03-16] MEDS: HYDROcodone/acetaminophen (*CRX) 5-325 MG TABLET 1 TAB PO ×2 (05:51→12:56)
[2025-03-16] MEDS: CENTRAL LINE FLUSH 10 ML IV PUSH ×3 (05:55→20:47)
[2025-03-16 06:09] LABS: Hematocrit 40.1 % (37.0-47.0); Hemoglobin 13.1 g/dL (12.0-15.0); Immature Granulocyte Percent A 2.6 % (0-0.5); Lymphocytes Absolute Auto 1.53 K/mm3 (0.9-3.2); Mean Corpuscular HGB Conc 32.7 g/dl (32-36); Mean Corpuscular Hemoglobin 33.0 pg (26-34); Mean Corpuscular Volume 101.0 fl (80-100); Nucleated Red Blood Cells Absolute Auto 0.000 K/mm3 (0.0-0.012); Nucleated Red Blood Cells Perc 0.0 % (0.0-0.2); Platelet Count Result 180 k/mm3 (150-375); Red Blood Count 3.97 M/mm3 (4.2-5.4); White Blood Count 7.8 K/mm3 (4.5-10.0)
[2025-03-16 06:29] LABS: Alanine Aminotransferase 20 U/L (6-35); Albumin Level 2.7 g/dL (3.5-5.1); Alkaline Phosphatase 63 U/L (38-126); Anion Gap 5 mmol/L (4-12); Aspartate Amino Transferase 34 U/L (14-36); Bilirubin,Total 0.9 mg/dL (0.2-1.3); Blood Urea Nitrogen 15 mg/dL (7-17); Calcium 8.6 mg/dL (8.4-10.2); Carbon Dioxide 28 mmol/L (22-30); Chloride 102 mmol/L (98-107); Estimated CRCL calculation 65 ml/min; Estimated Glomerular Filt Rate > 60; Glucose 107 mg/dL (65-110); Magnesium 1.9 mg/dL (1.6-2.3); Potassium 3.4 mmol/L (3.4-5.0); Sodium 135 mmol/L (137-145); Total Protein 5.7 g/dL (6.3-8.2)
--- NOTE | 2025-03-16 07:40 | P.PNGS_ITS ---
Progress Note: A&P Assessment and Plan (1) SBO (small bowel obstruction): Code(s): K56.609 - Unspecified intestinal obstruction, unspecified as to partial versus complete obstruction Status: Acute Assessment and Plan: doing well, tolerating diet, exam completely benign, okay to transfer to rehab once available Subjective Subjective Date/Time Seen: 03/16/25 07:40 Interval history: feels pretty good, tolerating diet, +bowel fxn Review of Systems Review of Systems: All systems reviewed & are unremarkable except as noted in HPI and below Exam Const: General: cooperative, comfortable and no acute distress Resp: Auscultation: clear to auscultation bilaterally Cardio: Rate: regular rate Rhythm: regular rhythm GI: Inspection: normal to inspection, non-distended and incision GI Palp: No abdominal tenderness and Yes Soft to palpation Objective Data Vital Signs Vital Signs: Vital Signs - 24 hr 03/15/25 10:24 03/15/25 14:00 03/15/25 20:00 Temperature 35.8 C L Pulse Rate 75 Respiratory Rate 18 Blood Pressure 145/67 H Pulse Oximetry 98 Oxygen Delivery Room Air Room Air 03/15/25 21:45 03/16/25 05:12 Temperature 36.6 C 36.1 C L Pulse Rate 79 67 Respiratory Rate 16 16 Blood Pressure 148/73 H 134/75 Pulse Oximetry 93 95 Oxygen Delivery Intake/Output Intake/Output: Intake & Output 03/13/25 03/14/25 03/15/25 03/16/25 23:59 23:59 23:59 23:59 Intake Total 1582.5 2410.7 910 250 Output Total 750 1706 2250 200 Balance 832.5 704.7 -1340 50 Meds/Results Medications: Active Medications Generic Name Dose Route Start Last Admin Trade Name Freq PRN Reason Stop Dose Admin Acetaminophen 650 mg 03/05/25 17:30 Acetaminophen 650 Mg Suppository RECTAL Q6H PRN Mild Pain (1-3) or Fever Hydrocodone Bitart/Acetaminophen 1 tab 03/15/25 16:20 03/16/25 05:51 Hydrocodone/Acetaminophen (*Crx) 5-325 Mg Tablet PO 1 tab Q6H PRN Administration Pain Rated 4-10 Amlodipine Besylate 10 mg 03/14/25 09:00 03/15/25 10:24 Amlodipine Besylate 10 Mg Tablet PO 10 mg DAILY ANSELMO Administration Dextrose 12.5 gm 03/05/25 17:30 Dextrose 50% 25 Gm/50 Ml Syringe IV PUSH PRN PRN Hypoglycemia Protocol Enoxaparin Sodium 40 mg 03/10/25 09:00 03/11/25 10:17 Enoxaparin 40 Mg/0.4 Ml Syringe SUB-Q Not Given DAILY ANSELMO Glucagon 1 mg 03/05/25 17:30 Glucagon For Inj 1 Mg Vial IM PRN PRN Hypoglycemia Protocol Glucose 15 gm 03/05/25 17:30 Glucose Oral Gel 15 Gm Of Glucse In 37.5 Gm Tube PO PRN PRN Hypoglycemia Protocol Dextrose 1,000 mls @ 100 mls/hr 03/05/25 17:30 Dextrose 5% 1,000 Ml IVPB PRN PRN Hypoglycemia Protocol Dextrose 1,000 mls @ 50 mls/hr 03/07/25 13:28 Dextrose 10% IV CONT .Q20H PRN if PN is interrupted Ibuprofen 800 mg in 200 mls @ 400 mls/hr 03/13/25 11:36 03/15/25 20:49 Caldolor 800 Mg/200 Ml IVPB 400 mls/hr Q8H PRN Administration PAIN 1-3 Insulin Aspart 2 - 5 units 03/05/25 18:00 03/16/25 05:56 Insulin Aspart (*Bkc) 100 Units/Ml SUB-Q Not Given Q6HR ANSELMO Protocol Lidocaine 1 patch 03/07/25 09:00 03/15/25 17:20 Lidocaine 5% Patch TRANSDERM 1 patch DAILY ANSELMO Administration Lidocaine 2 patch 03/09/25 12:20 03/15/25 17:20 Lidocaine 5% Patch TRANSDERM 2 patch DAILY ANSELMO Administration Metoclopramide HCl 10 mg 03/06/25 18:00 03/14/25 09:14 Metoclopramide Hcl Inj 10 Mg/2 Ml Vial IV PUSH 10 mg Q8H ANSELMO Administration Metoclopramide HCl 10 mg 03/14/25 11:10 03/16/25 05:51 Metoclopramide Hcl 10 Mg Tablet PO 10 mg Q6HR ANSELMO Administration Naloxone HCl 0.1 mg 03/05/25 17:30 Naloxone Hcl 0.4 Mg/Ml Vial IV PUSH Q5MIN PRN Sedation Ondansetron HCl 4 mg 03/14/25 10:18 03/15/25 17:11 Ondansetron Inj 4 Mg/2 Ml Vial IV PUSH 4 mg Q4H PRN Administration Nausea And Vomiting Pantoprazole Sodium 40 mg 03/06/25 09:00 03/15/25 10:23 Pantoprazole Sodium Iv 40 Mg Vial IV PUSH 40 mg QAM ANSELMO Administration Potassium Chloride 40 meq 03/15/25 09:00 03/15/25 10:24 Potassium Chloride 20 Meq Packet (For Liquid) PO 40 meq DAILY ANSELMO Administration Sodium Chloride 10 ml 03/08/25 14:00 03/16/25 05:55 Central Line Flush IV PUSH 10 ml Q8HR ANSELMO Administration Sodium Chloride 10 ml 03/08/25 08:45 Central Line Flush IV PUSH PRN PRN with TPN bag changes Sodium Chloride 20 ml 03/08/25 08:45 03/12/25 05:35 Central Line Flush IV PUSH 20 ml PRN PRN Administration after blood draws Radiology Results: ITS Impressions Chest X-Ray 03/13/25 15:52 IMPRESSION: Left basilar atelectasis versus pneumonia. Prominent markings bilaterally which may indicate pneumonitis. Labs Labs: Laboratory Results - last 24 hr 03/15/25 03/15/25 03/15/25 12:02 16:54 23:58 WBC RBC Hgb Hct MCV MCH MCHC RDW Plt Count MPV Immature Gran % (Auto) Neut % (Auto) Lymph % (Auto) [place] % (Auto) Eos % (Auto) Baso % (Auto) Lymph # (Auto) [place] # (Auto) Eos # (Auto) Baso # (Auto) Abs Immat Gran (auto) Absolute Neuts (auto) Absolute Nucleated RBC Nucleated RBC % Sodium Potassium Chloride Carbon Dioxide Anion Gap BUN Creatinine Estim Creat Clear Calc Estimated GFR Glucose POC Capillary Glucose 109 H 118 H 121 H Calcium Phosphorus Magnesium Total Bilirubin AST ALT Alkaline Phosphatase Total Protein Albumin 03/16/25 03/16/25 05:34 05:48 WBC 7.8 RBC 3.97 L Hgb 13.1 Hct 40.1 MCV 101.0 H MCH 33.0 MCHC 32.7 RDW 12.7 Plt Count 180 D MPV 11.4 H Immature Gran % (Auto) 2.6 H Neut % (Auto) 67.0 Lymph % (Auto) 19.6 [place] % (Auto) 8.9 H Eos % (Auto) 1.0 Baso % (Auto) 0.9 Lymph # (Auto) 1.53 [place] # (Auto) 0.7 H Eos # (Auto) 0.1 Baso # (Auto) 0.1 Abs Immat Gran (auto) 0.20 H Absolute Neuts (auto) 5.2 Absolute Nucleated RBC 0.000 Nucleated RBC % 0.0 Sodium 135 L Potassium 3.4 Chloride 102 Carbon Dioxide 28 Anion Gap 5 BUN 15 Creatinine 0.49 L Estim Creat Clear Calc 65 Estimated GFR > 60 Glucose 107 POC Capillary Glucose 113 H Calcium 8.6 Phosphorus 3.8 Magnesium 1.9 Total Bilirubin 0.9 AST 34 ALT 20 Alkaline Phosphatase 63 Total Protein 5.7 L Albumin 2.7 L
[2025-03-16] MEDS: LIDOCAINE 5% PATCH 2 PATCH TRANSDERM (09:30)
[2025-03-16] MEDS: POTASSIUM CHLORIDE 20 MEQ PACKET (FOR LIQUID) 40 MEQ PO (09:31)
[2025-03-16] MEDS: PANTOPRAZOLE SODIUM IV 40 MG VIAL IV PUSH (09:31)
[2025-03-16] MEDS: ONDANSETRON INJ 4 MG/2 ML VIAL IV PUSH ×2 (09:33→15:18)
[2025-03-16 11:56] LABS: Triglycerides 152 mg/dL (<150)
--- NOTE | 2025-03-16 13:48 | P.PNIM_ITS ---
Progress Note: A&P Assessment and Plan (1) Complete small bowel obstruction: Code(s): K56.601 - Complete intestinal obstruction, unspecified as to cause Status: Inactive Assessment and Plan: - CT abdomen/pelvis: 1. Closed loop small bowel obstruction the right lower quadrant without evidence secondary ischemia. 2. Fat and small amount of ascites within a moderate-sized left lower quadrant ventral hernia. 3. Small fat-containing left inguinal hernia. 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: without alf use Diabetes mellitus complication status: without complication Qualified Code(s): E11.9 - Type 2 diabetes mellitus without complications Code(s): E11.9 - Type 2 diabetes mellitus without complications Status: Acute Assessment and Plan: - hypoglycemia protocol - POC blood glucose Q6H, SSI with accucheks - hold home medications: Jardiance, home sliding scale - A1C 5.2% on 03/03/2025 (3) Autoimmune hepatitis: Code(s): K75.4 - Autoimmune hepatitis Status: Acute Assessment and Plan: - continue home medication(s) Prednisone and Azathioprine once no longer NPO (4) HTN (hypertension): Qualifiers: Hypertension type: primary hypertension Qualified Code(s): I10 - Essential (primary) hypertension Code(s): I10 - Essential (primary) hypertension Status: Acute Assessment and Plan: - chronic, currently 146/79 - restart home meds - monitor Plan Thrombocytopenia, resolved Plts 180, improving monitor F/u with oncology as instructed Diet: Advance diet per Gen surgery DVT Prophylaxis: Sq Lovenox Code Status: full code Subjective Date/time seen: 03/16/25 13:48 Interval history: Comfortable at bedside Review of Systems Review of Systems: All systems reviewed & are unremarkable except as noted in HPI and below Exam Narrative: Appears chronically ill elderly frail Patient is comfortable, NAD HEENT: eyes are clear and none icteric, NG Tube in place. LUNGS:CTA HEART: RR S1S2 ABD: BS+, Soft and nontender Lower extremities: no edema SKIN: nonjaundiced Neuro: grossly intact. Const: General: comfortable and no acute distress Other: , female, nontoxic appearance, elderly HENMT: Face/Nose/Sinus: Normal nares present Mouth: Yes moist mucous membranes Other: NG in place, on low intermittent suction Eyes: General: appearance normal, both eyes and all related structures Sclera: sclerae normal Pupils: Equal, round and reactive pupils present EOM: EOMs intact bilaterally Resp: Effort & Inspection: normal respiratory effort Auscultation: clear to auscultation bilaterally Cardio: Rate: regular rate Rhythm: regular rhythm Other: S1-S2 present without murmur, rub, ectopy GI: Other: bowel sounds quiet and very hypoactive in all quadrants. Mild /diffuse tenderness in all quadrants. Nondistended , soft. Skin: General skin exam: normal color and no rashes or lesions noted Wounds: no wounds Neuro: Cranial nerves: Yes Equal, round and reactive pupils present Speech: normal speech Motor exam (neuro): 5/5 motor strength present throughout Sensory Exam: normal sensation Other: A&O x4, mild somnolence but awakens easily to voice. Extrem: General: normal to inspection Psych: Mental Status: mental status grossly normal Affect: normal affect Other: Good insight and judgment, pleasant Objective Data Vital Signs Vital Signs: Vital Signs - 24 hr 03/15/25 14:00 03/15/25 20:00 03/15/25 21:45 Temperature 96.5 F L 97.9 F Pulse Rate 75 79 Respiratory Rate 18 16 Blood Pressure 145/67 H 148/73 H Pulse Oximetry 98 93 Oxygen Delivery Room Air 03/16/25 05:12 03/16/25 08:00 Temperature 97.0 F L Pulse Rate 67 Respiratory Rate 16 Blood Pressure 134/75 Pulse Oximetry 95 Oxygen Delivery Room Air Intake/Output Intake/Output: Intake & Output 03/13/25 03/14/25 03/15/25 03/16/25 23:59 23:59 23:59 23:59 Intake Total 1582.5 2410.7 910 490 Output Total 750 1706 2250 200 Balance 832.5 704.7 -1340 290 Meds/Results Medications: Active Medications Generic Name Dose Route Start Last Admin Trade Name Freq PRN Reason Stop Dose Admin Acetaminophen 650 mg 03/05/25 17:30 Acetaminophen 650 Mg Suppository RECTAL Q6H PRN Mild Pain (1-3) or Fever Hydrocodone Bitart/Acetaminophen 1 tab 03/15/25 16:20 03/16/25 12:56 Hydrocodone/Acetaminophen (*Crx) 5-325 Mg Tablet PO 1 tab Q6H PRN Administration Pain Rated 4-10 Amlodipine Besylate 10 mg 03/14/25 09:00 03/16/25 09:31 Amlodipine Besylate 10 Mg Tablet PO 10 mg DAILY ANSELMO Administration Dextrose 12.5 gm 03/05/25 17:30 Dextrose 50% 25 Gm/50 Ml Syringe IV PUSH PRN PRN Hypoglycemia Protocol Enoxaparin Sodium 40 mg 03/10/25 09:00 03/11/25 10:17 Enoxaparin 40 Mg/0.4 Ml Syringe SUB-Q Not Given DAILY ANSELMO Glucagon 1 mg 03/05/25 17:30 Glucagon For Inj 1 Mg Vial IM PRN PRN Hypoglycemia Protocol Glucose 15 gm 03/05/25 17:30 Glucose Oral Gel 15 Gm Of Glucse In 37.5 Gm Tube PO PRN PRN Hypoglycemia Protocol Dextrose 1,000 mls @ 100 mls/hr 03/05/25 17:30 Dextrose 5% 1,000 Ml IVPB PRN PRN Hypoglycemia Protocol Dextrose 1,000 mls @ 50 mls/hr 03/07/25 13:28 Dextrose 10% IV CONT .Q20H PRN if PN is interrupted Ibuprofen 800 mg in 200 mls @ 400 mls/hr 03/13/25 11:36 03/15/25 20:49 Caldolor 800 Mg/200 Ml IVPB 400 mls/hr Q8H PRN Administration PAIN 1-3 Insulin Aspart 2 - 5 units 03/16/25 12:05 03/16/25 12:49 Insulin Aspart (*Bkc) 100 Units/Ml SUB-Q Not Given TIDWM ANSELMO Protocol Lidocaine 1 patch 03/07/25 09:00 03/16/25 11:47 Lidocaine 5% Patch TRANSDERM Not Given DAILY ANSELMO Lidocaine 2 patch 03/09/25 12:20 03/16/25 09:30 Lidocaine 5% Patch TRANSDERM 2 patch DAILY ANSELMO Administration Metoclopramide HCl 10 mg 03/06/25 18:00 03/14/25 09:14 Metoclopramide Hcl Inj 10 Mg/2 Ml Vial IV PUSH 10 mg Q8H ANSELMO Administration Metoclopramide HCl 10 mg 03/14/25 11:10 03/16/25 12:49 Metoclopramide Hcl 10 Mg Tablet PO 10 mg Q6HR ANSELMO Administration Naloxone HCl 0.1 mg 03/05/25 17:30 Naloxone Hcl 0.4 Mg/Ml Vial IV PUSH Q5MIN PRN Sedation Ondansetron HCl 4 mg 03/14/25 10:18 03/16/25 09:33 Ondansetron Inj 4 Mg/2 Ml Vial IV PUSH 4 mg Q4H PRN Administration Nausea And Vomiting Pantoprazole Sodium 40 mg 03/06/25 09:00 03/16/25 09:31 Pantoprazole Sodium Iv 40 Mg Vial IV PUSH 40 mg QAM ANSELMO Administration Potassium Chloride 40 meq 03/15/25 09:00 03/16/25 09:31 Potassium Chloride 20 Meq Packet (For Liquid) PO 40 meq DAILY ANSELMO Administration Sodium Chloride 10 ml 03/08/25 14:00 03/16/25 05:55 Central Line Flush IV PUSH 10 ml Q8HR ANSELMO Administration Sodium Chloride 10 ml 03/08/25 08:45 Central Line Flush IV PUSH PRN PRN with TPN bag changes Sodium Chloride 20 ml 03/08/25 08:45 03/12/25 05:35 Central Line Flush IV PUSH 20 ml PRN PRN Administration after blood draws Radiology Results: ITS Impressions Chest X-Ray 03/13/25 15:52 IMPRESSION: Left basilar atelectasis versus pneumonia. Prominent markings bilaterally which may indicate pneumonitis. Labs Labs: Laboratory Results - last 24 hr 03/15/25 03/15/25 03/16/25 16:54 23:58 05:34 WBC RBC Hgb Hct MCV MCH MCHC RDW Plt Count MPV Immature Gran % (Auto) Neut % (Auto) Lymph % (Auto) [place] % (Auto) Eos % (Auto) Baso % (Auto) Lymph # (Auto) [place] # (Auto) Eos # (Auto) Baso # (Auto) Abs Immat Gran (auto) Absolute Neuts (auto) Absolute Nucleated RBC Nucleated RBC % Sodium Potassium Chloride Carbon Dioxide Anion Gap BUN Creatinine Estim Creat Clear Calc Estimated GFR Glucose POC Capillary Glucose 118 H 121 H 113 H Calcium Phosphorus Magnesium Total Bilirubin AST ALT Alkaline Phosphatase Total Protein Albumin Triglycerides 03/16/25 03/16/25 03/16/25 05:48 08:15 11:46 WBC 7.8 RBC 3.97 L Hgb 13.1 Hct 40.1 MCV 101.0 H MCH 33.0 MCHC 32.7 RDW 12.7 Plt Count 180 D MPV 11.4 H Immature Gran % (Auto) 2.6 H Neut % (Auto) 67.0 Lymph % (Auto) 19.6 [place] % (Auto) 8.9 H Eos % (Auto) 1.0 Baso % (Auto) 0.9 Lymph # (Auto) 1.53 [place] # (Auto) 0.7 H Eos # (Auto) 0.1 Baso # (Auto) 0.1 Abs Immat Gran (auto) 0.20 H Absolute Neuts (auto) 5.2 Absolute Nucleated RBC 0.000 Nucleated RBC % 0.0 Sodium 135 L Potassium 3.4 Chloride 102 Carbon Dioxide 28 Anion Gap 5 BUN 15 Creatinine 0.49 L Estim Creat Clear Calc 65 Estimated GFR > 60 Glucose 107 POC Capillary Glucose 115 H 118 H Calcium 8.6 Phosphorus 3.8 Magnesium 1.9 Total Bilirubin 0.9 AST 34 ALT 20 Alkaline Phosphatase 63 Total Protein 5.7 L Albumin 2.7 L Triglycerides 152 H Quality VTE Prophylaxis VTE prophylaxis: mechanical ordered
[2025-03-16 14:00] VITALS: BP 131/60; PULSE 70; RESP 18; TEMP 36.3; O2SAT 97
[2025-03-16 22:00] VITALS: BP 143/64; PULSE 79; RESP 18; TEMP 36.4; O2SAT 95
[2025-03-17] MEDS: CENTRAL LINE FLUSH 10 ML IV PUSH ×2 (05:26→14:27)
[2025-03-17] MEDS: METOCLOPRAMIDE HCL 10 MG TABLET PO ×3 (05:26→17:24)
[2025-03-17 05:58] LABS: Hematocrit 41.0 % (37.0-47.0); Hemoglobin 13.7 g/dL (12.0-15.0); Immature Granulocyte Percent A 1.3 % (0-0.5); Lymphocytes Absolute Auto 1.30 K/mm3 (0.9-3.2); Mean Corpuscular HGB Conc 33.4 g/dl (32-36); Mean Corpuscular Hemoglobin 33.6 pg (26-34); Mean Corpuscular Volume 100.5 fl (80-100); Nucleated Red Blood Cells Absolute Auto 0.000 K/mm3 (0.0-0.012); Nucleated Red Blood Cells Perc 0.0 % (0.0-0.2); Platelet Count Result 233 k/mm3 (150-375); Red Blood Count 4.08 M/mm3 (4.2-5.4); White Blood Count 8.0 K/mm3 (4.5-10.0)
[2025-03-17 06:00] VITALS: BP 141/75; PULSE 65; RESP 18; TEMP 36.3; O2SAT 97
[2025-03-17 06:11] LABS: INR 1.1; Partial Thromboplastin Time 30.0 Seconds (22.3-36.8); Prothrombin Time 13.9 Seconds (11.1-14.7)
[2025-03-17 06:17] LABS: Alanine Aminotransferase 21 U/L (6-35); Albumin Level 2.9 g/dL (3.5-5.1); Alkaline Phosphatase 62 U/L (38-126); Anion Gap 5 mmol/L (4-12); Aspartate Amino Transferase 36 U/L (14-36); Bilirubin,Total 1.0 mg/dL (0.2-1.3); Blood Urea Nitrogen 14 mg/dL (7-17); Calcium 8.6 mg/dL (8.4-10.2); Carbon Dioxide 28 mmol/L (22-30); Chloride 104 mmol/L (98-107); Estimated CRCL calculation 66 ml/min; Estimated Glomerular Filt Rate > 60; Glucose 117 mg/dL (65-110); Magnesium 1.9 mg/dL (1.6-2.3); Potassium 3.3 mmol/L (3.4-5.0); Sodium 137 mmol/L (137-145); Total Protein 5.9 g/dL (6.3-8.2)
[2025-03-17 06:25] LABS: Transferrin 138 mg/dL (206-381)
[2025-03-17 09:01] VITALS: BMI 10.0
[2025-03-17] MEDS: POTASSIUM CHLORIDE 20 MEQ PACKET (FOR LIQUID) 40 MEQ PO (09:27)
[2025-03-17] MEDS: LIDOCAINE 5% PATCH 2 PATCH TRANSDERM (09:28)
[2025-03-17] MEDS: PANTOPRAZOLE SODIUM IV 40 MG VIAL IV PUSH (09:32)
[2025-03-17] MEDS: LIDOCAINE 5% PATCH 1 PATCH TRANSDERM (09:32)
--- NOTE | 2025-03-17 09:51 | PCNFU ---
Nutrition Follow-Up Complete: Inadequate energy intake related to NPO status as evidenced by current diet order Meet estimated needs - Progressing with goal. Continue same goal Goal: Pt current nutrition is Diabetic consistent carb diet. Glucerna BID (220 kcal, 10 g protein). Nutrition recommendation: No new recommendations. Continue same nutrition care plan and orders. Agree with orders Last recorded weight is 64.6 kg. Bowel Motility: +1 BM 03/17 Labs Reviewed: Alb 2.9, K= 3.3, Cre 0.48, Glu 117 Meds Noted: novolog, protonix Skin: No pressure injuries Additional Notes: Progressing with intakes. Cleared by surgery for discharge. Tolerating diet. Continue to monitor Monitor plan of care, diet orders, intake and tolerance, wt, labs. Follow up in 1 day
--- NOTE | 2025-03-17 10:34 | P.PNGS_ITS ---
Progress Note: A&P Assessment and Plan (1) SBO (small bowel obstruction): Code(s): K56.609 - Unspecified intestinal obstruction, unspecified as to partial versus complete obstruction Status: Acute Assessment and Plan: * Resolved following ex lap with adhesiolysis. Bowels are moving and she is tolerating a solid diet. * Surgically stable for discharge to rehab. Follow-up with Dr. Cavanaugh in 2 weeks in our office. Plan I have discussed the patient's case and plan of care with Dr. Duran. Subjective Subjective Date/Time Seen: 03/17/25 10:34 Post Op day: 11 Patient reports: flatus, bowel movement (Multiple) and afebrile Interval history: No acute events overnight. Patient reports having some cramping abdominal pain that feels like gas pains through the night and this morning. She had a bowel movement last night and again today. No nausea or vomiting. Still does not have much of an appetite. No other complaints at this time. Exam Const: General: comfortable and no acute distress Orientation/consciousness: patient oriented x3 GI: Inspection: non-distended and incision (Dry and glue intact, no erythema or drainage) GI Palp: Yes Soft to palpation, No Tenderness to palpation present (GI), No Guarding due to palpation present (GI) and No Rebound tenderness present Auscultation: normal bowel sounds Objective Data Vital Signs Vital Signs: Vital Signs - 24 hr 03/16/25 14:00 03/16/25 22:00 03/17/25 06:00 Temperature 97.4 F L 97.5 F L 97.4 F L Pulse Rate 70 79 65 Respiratory Rate 18 18 18 Blood Pressure 131/60 143/64 H 141/75 H Pulse Oximetry 97 95 97 Intake/Output Intake/Output: Intake & Output 03/14/25 03/15/25 03/16/25 03/17/25 23:59 23:59 23:59 23:59 Intake Total 2410.7 910 930 Output Total 1706 2250 200 501 Balance 704.7 -1340 730 -501 Meds/Results Medications: Active Medications Generic Name Dose Route Start Last Admin Trade Name Freq PRN Reason Stop Dose Admin Acetaminophen 650 mg 03/05/25 17:30 Acetaminophen 650 Mg Suppository RECTAL Q6H PRN Mild Pain (1-3) or Fever Hydrocodone Bitart/Acetaminophen 1 tab 03/15/25 16:20 03/16/25 12:56 Hydrocodone/Acetaminophen (*Crx) 5-325 Mg Tablet PO 1 tab Q6H PRN Administration Pain Rated 4-10 Amlodipine Besylate 10 mg 03/14/25 09:00 03/17/25 09:27 Amlodipine Besylate 10 Mg Tablet PO 10 mg DAILY ANSELMO Administration Dextrose 12.5 gm 03/05/25 17:30 Dextrose 50% 25 Gm/50 Ml Syringe IV PUSH PRN PRN Hypoglycemia Protocol Enoxaparin Sodium 40 mg 03/10/25 09:00 03/11/25 10:17 Enoxaparin 40 Mg/0.4 Ml Syringe SUB-Q Not Given DAILY ANSELMO Glucagon 1 mg 03/05/25 17:30 Glucagon For Inj 1 Mg Vial IM PRN PRN Hypoglycemia Protocol Glucose 15 gm 03/05/25 17:30 Glucose Oral Gel 15 Gm Of Glucse In 37.5 Gm Tube PO PRN PRN Hypoglycemia Protocol Dextrose 1,000 mls @ 100 mls/hr 03/05/25 17:30 Dextrose 5% 1,000 Ml IVPB PRN PRN Hypoglycemia Protocol Dextrose 1,000 mls @ 50 mls/hr 03/07/25 13:28 Dextrose 10% IV CONT .Q20H PRN if PN is interrupted Ibuprofen 800 mg in 200 mls @ 400 mls/hr 03/13/25 11:36 03/16/25 19:59 Caldolor 800 Mg/200 Ml IVPB Infused Q8H PRN Infusion PAIN 1-3 Insulin Aspart 2 - 5 units 03/16/25 12:05 03/17/25 09:29 Insulin Aspart (*Bkc) 100 Units/Ml SUB-Q Not Given TIDWM [facility] Protocol Lidocaine 1 patch 03/07/25 09:00 03/17/25 09:32 Lidocaine 5% Patch TRANSDERM 1 patch DAILY ANSELMO Administration Lidocaine 2 patch 03/09/25 12:20 03/17/25 09:28 Lidocaine 5% Patch TRANSDERM 2 patch DAILY ANSELMO Administration Metoclopramide HCl 10 mg 03/06/25 18:00 03/14/25 09:14 Metoclopramide Hcl Inj 10 Mg/2 Ml Vial IV PUSH 10 mg Q8H ANSELMO Administration Metoclopramide HCl 10 mg 03/14/25 11:10 03/17/25 05:26 Metoclopramide Hcl 10 Mg Tablet PO 10 mg Q6HR ANSELMO Administration Naloxone HCl 0.1 mg 03/05/25 17:30 Naloxone Hcl 0.4 Mg/Ml Vial IV PUSH Q5MIN PRN Sedation Ondansetron HCl 4 mg 03/14/25 10:18 03/16/25 15:18 Ondansetron Inj 4 Mg/2 Ml Vial IV PUSH 4 mg Q4H PRN Administration Nausea And Vomiting Pantoprazole Sodium 40 mg 03/06/25 09:00 03/17/25 09:32 Pantoprazole Sodium Iv 40 Mg Vial IV PUSH 40 mg QAM ANSELMO Administration Potassium Chloride 40 meq 03/15/25 09:00 03/17/25 09:27 Potassium Chloride 20 Meq Packet (For Liquid) PO 40 meq DAILY ANSELMO Administration Sodium Chloride 10 ml 03/08/25 14:00 03/17/25 05:26 Central Line Flush IV PUSH 10 ml Q8HR ANSELMO Administration Sodium Chloride 10 ml 03/08/25 08:45 Central Line Flush IV PUSH PRN PRN with TPN bag changes Sodium Chloride 20 ml 03/08/25 08:45 03/12/25 05:35 Central Line Flush IV PUSH 20 ml PRN PRN Administration after blood draws Radiology Results: ITS Impressions Chest X-Ray 03/13/25 15:52 IMPRESSION: Left basilar atelectasis versus pneumonia. Prominent markings bilaterally which may indicate pneumonitis. Labs Labs: Laboratory Results - last 24 hr 03/16/25 03/16/25 03/16/25 05:48 11:46 18:07 WBC RBC Hgb Hct MCV MCH MCHC RDW Plt Count MPV Immature Gran % (Auto) Neut % (Auto) Lymph % (Auto) [place] % (Auto) Eos % (Auto) Baso % (Auto) Lymph # (Auto) [place] # (Auto) Eos # (Auto) Baso # (Auto) Abs Immat Gran (auto) Absolute Neuts (auto) Absolute Nucleated RBC Nucleated RBC % PT INR APTT Sodium Potassium Chloride Carbon Dioxide Anion Gap BUN Creatinine Estim Creat Clear Calc Estimated GFR Glucose POC Capillary Glucose 118 H 104 Calcium Phosphorus Magnesium Transferrin Total Bilirubin AST ALT Alkaline Phosphatase Total Protein Albumin Triglycerides 152 H 03/16/25 03/17/25 03/17/25 23:38 04:53 09:04 WBC 8.0 RBC 4.08 L Hgb 13.7 Hct 41.0 MCV 100.5 H MCH 33.6 MCHC 33.4 RDW 12.6 Plt Count 233 MPV 12.2 H Immature Gran % (Auto) 1.3 H Neut % (Auto) 72.6 Lymph % (Auto) 16.4 L [place] % (Auto) 8.2 Eos % (Auto) 0.4 Baso % (Auto) 1.1 Lymph # (Auto) 1.30 [place] # (Auto) 0.7 H Eos # (Auto) 0.0 Baso # (Auto) 0.1 Abs Immat Gran (auto) 0.10 H Absolute Neuts (auto) 5.8 Absolute Nucleated RBC 0.000 Nucleated RBC % 0.0 PT 13.9 INR 1.1 APTT 30.0 Sodium 137 Potassium 3.3 L Chloride 104 Carbon Dioxide 28 Anion Gap 5 BUN 14 Creatinine 0.48 L Estim Creat Clear Calc 66 Estimated GFR > 60 Glucose 117 H POC Capillary Glucose 91 110 H Calcium 8.6 Phosphorus 3.7 Magnesium 1.9 Transferrin 138 L Total Bilirubin 1.0 AST 36 ALT 21 Alkaline Phosphatase 62 Total Protein 5.9 L Albumin 2.9 L Triglycerides
[2025-03-17 14:00] VITALS: BP 132/65; PULSE 82; RESP 18; TEMP 36.6; O2SAT 96
--- NOTE | 2025-03-17 15:10 | PCOTNOTE ---
Patient refused to participate in OT services this afternoon. Patient states she is having constant bowel movements and abdominal cramping, Patient verbalized to come back tomorrow
--- NOTE | 2025-03-17 16:09 | PM.IMPN ---
Progress Note: A&P Assessment and Plan (1) Complete small bowel obstruction: Code(s): K56.601 - Complete intestinal obstruction, unspecified as to cause Status: Inactive Assessment and Plan: resolved - CT abdomen/pelvis: 1. Closed loop small bowel obstruction the right lower quadrant without evidence secondary ischemia. 2. Fat and small amount of ascites within a moderate-sized left lower quadrant ventral hernia. 3. Small fat-containing left inguinal hernia. - general surgery consulted, Mao DANIELSON s/p Ex lap on 03/06 s/p TPN now tolerating diet appreciate input from surgery (2) Type 2 diabetes mellitus: Qualifiers: Diabetes mellitus assistant terminal manager insulin use: without assistant terminal manager use Diabetes mellitus complication status: without complication Qualified Code(s): E11.9 - Type 2 diabetes mellitus without complications Code(s): E11.9 - Type 2 diabetes mellitus without complications Status: Acute Assessment and Plan: - hypoglycemia protocol - POC blood glucose Q6H, SSI with accucheks - hold home medications: Jardiance, home sliding scale - A1C 5.2% on 03/03/2025 (3) Autoimmune hepatitis: Code(s): K75.4 - Autoimmune hepatitis Status: Acute Assessment and Plan: - continue home medication(s) Prednisone and Azathioprine once no longer NPO (4) HTN (hypertension): Qualifiers: Hypertension type: primary hypertension Qualified Code(s): I10 - Essential (primary) hypertension Code(s): I10 - Essential (primary) hypertension Status: Acute Assessment and Plan: - chronic, currently 146/79 - restart home meds - monitor Plan Thrombocytopenia, resolved Plts 233 monitor F/u with oncology as instructed Diarrhea and abd cramps Patient having diarrhea today monitor one more day Diet: Advance diet per Gen surgery DVT Prophylaxis: Sq Lovenox Code Status: full code Patient was ready for discharge today but she started having diarrhea and complained of abd cramp will monitor one more day Subjective Date/time seen: 03/17/25 16:09 Interval history: Comfortable at bedside Coomplained of diarrhea and ab cramps today will monitor one more night s Review of Systems Review of Systems: All systems reviewed & are unremarkable except as noted in HPI and below Exam Narrative: Appears chronically ill elderly frail Patient is comfortable, NAD HEENT: eyes are clear and none icteric, NG Tube in place. LUNGS:CTA HEART: RR S1S2 ABD: BS+, Soft and nontender Lower extremities: no edema SKIN: nonjaundiced Neuro: grossly intact. Const: General: comfortable and no acute distress Other: , female, nontoxic appearance, elderly HENMT: Face/Nose/Sinus: Normal nares present Mouth: Yes moist mucous membranes Other: NG in place, on low intermittent suction Eyes: General: appearance normal, both eyes and all related structures Sclera: sclerae normal Pupils: Equal, round and reactive pupils present EOM: EOMs intact bilaterally Resp: Effort & Inspection: normal respiratory effort Auscultation: clear to auscultation bilaterally Cardio: Rate: regular rate Rhythm: regular rhythm Other: S1-S2 present without murmur, rub, ectopy GI: Other: bowel sounds quiet and very hypoactive in all quadrants. Mild /diffuse tenderness in all quadrants. Nondistended , soft. Skin: General skin exam: normal color and no rashes or lesions noted Wounds: no wounds Neuro: Cranial nerves: Yes Equal, round and reactive pupils present Speech: normal speech Motor exam (neuro): 5/5 motor strength present throughout Sensory Exam: normal sensation Other: A&O x4, mild somnolence but awakens easily to voice. Extrem: General: normal to inspection Psych: Mental Status: mental status grossly normal Affect: normal affect Other: Good insight and judgment, pleasant Objective Data Vital Signs Vital Signs: Vital Signs - 24 hr 03/16/25 22:00 03/17/25 06:00 03/17/25 09:30 Temperature 97.5 F L 97.4 F L Pulse Rate 79 65 Respiratory Rate 18 18 Blood Pressure 143/64 H 141/75 H Pulse Oximetry 95 97 Oxygen Delivery Room Air 03/17/25 14:00 Temperature 97.9 F Pulse Rate 82 Respiratory Rate 18 Blood Pressure 132/65 Pulse Oximetry 96 Oxygen Delivery Intake/Output Intake/Output: Intake & Output 03/14/25 03/15/25 03/16/25 03/17/25 23:59 23:59 23:59 23:59 Intake Total 2410.7 910 930 480 Output Total 1706 2250 200 501 Balance 704.7 -1340 730 -21 Meds/Results Medications: Active Medications Generic Name Dose Route Start Last Admin Trade Name Freq PRN Reason Stop Dose Admin Acetaminophen 650 mg 03/05/25 17:30 Acetaminophen 650 Mg Suppository RECTAL Q6H PRN Mild Pain (1-3) or Fever Hydrocodone Bitart/Acetaminophen 1 tab 03/15/25 16:20 03/16/25 12:56 Hydrocodone/Acetaminophen (*Crx) 5-325 Mg Tablet PO 1 tab Q6H PRN Administration Pain Rated 4-10 Amlodipine Besylate 10 mg 03/14/25 09:00 03/17/25 09:27 Amlodipine Besylate 10 Mg Tablet PO 10 mg DAILY ANSEMLO Administration Dextrose 12.5 gm 03/05/25 17:30 Dextrose 50% 25 Gm/50 Ml Syringe IV PUSH PRN PRN Hypoglycemia Protocol Enoxaparin Sodium 40 mg 03/10/25 09:00 03/11/25 10:17 Enoxaparin 40 Mg/0.4 Ml Syringe SUB-Q Not Given DAILY ANSELMO Glucagon 1 mg 03/05/25 17:30 Glucagon For Inj 1 Mg Vial IM PRN PRN Hypoglycemia Protocol Glucose 15 gm 03/05/25 17:30 Glucose Oral Gel 15 Gm Of Glucse In 37.5 Gm Tube PO PRN PRN Hypoglycemia Protocol Dextrose 1,000 mls @ 100 mls/hr 03/05/25 17:30 Dextrose 5% 1,000 Ml IVPB PRN PRN Hypoglycemia Protocol Dextrose 1,000 mls @ 50 mls/hr 03/07/25 13:28 Dextrose 10% IV CONT .Q20H PRN if PN is interrupted Ibuprofen 800 mg in 200 mls @ 400 mls/hr 03/13/25 11:36 03/16/25 19:59 Caldolor 800 Mg/200 Ml IVPB Infused Q8H PRN Infusion PAIN 1-3 Insulin Aspart 2 - 5 units 03/16/25 12:05 03/17/25 12:25 Insulin Aspart (*Bkc) 100 Units/Ml SUB-Q Not Given TIDWM ANSELMO Protocol Lidocaine 1 patch 03/07/25 09:00 03/17/25 09:32 Lidocaine 5% Patch TRANSDERM 1 patch DAILY ANSELMO Administration Lidocaine 2 patch 03/09/25 12:20 03/17/25 09:28 Lidocaine 5% Patch TRANSDERM 2 patch DAILY ANSELMO Administration Metoclopramide HCl 10 mg 03/06/25 18:00 03/14/25 09:14 Metoclopramide Hcl Inj 10 Mg/2 Ml Vial IV PUSH 10 mg Q8H ANSELMO Administration Metoclopramide HCl 10 mg 03/14/25 11:10 03/17/25 11:00 Metoclopramide Hcl 10 Mg Tablet PO 10 mg Q6HR ANSELMO Administration Naloxone HCl 0.1 mg 03/05/25 17:30 Naloxone Hcl 0.4 Mg/Ml Vial IV PUSH Q5MIN PRN Sedation Ondansetron HCl 4 mg 03/14/25 10:18 03/16/25 15:18 Ondansetron Inj 4 Mg/2 Ml Vial IV PUSH 4 mg Q4H PRN Administration Nausea And Vomiting Pantoprazole Sodium 40 mg 03/06/25 09:00 03/17/25 09:32 Pantoprazole Sodium Iv 40 Mg Vial IV PUSH 40 mg QAM ANSELMO Administration Potassium Chloride 40 meq 03/15/25 09:00 03/17/25 09:27 Potassium Chloride 20 Meq Packet (For Liquid) PO 40 meq DAILY ANSELMO Administration Potassium Chloride 40 meq 03/17/25 17:00 Potassium Chloride 20 Meq Er Tablet PO 03/17/25 17:01 ONCE ONE Sodium Chloride 10 ml 03/08/25 14:00 03/17/25 14:27 Central Line Flush IV PUSH 10 ml Q8HR ANSELMO Administration Sodium Chloride 10 ml 03/08/25 08:45 Central Line Flush IV PUSH PRN PRN with TPN bag changes Sodium Chloride 20 ml 03/08/25 08:45 03/12/25 05:35 Central Line Flush IV PUSH 20 ml PRN PRN Administration after blood draws Radiology Results: ITS Impressions Chest X-Ray 03/13/25 15:52 IMPRESSION: Left basilar atelectasis versus pneumonia. Prominent markings bilaterally which may indicate pneumonitis. Labs Labs: Laboratory Results - last 24 hr 03/16/25 03/16/25 03/17/25 18:07 23:38 04:53 WBC 8.0 RBC 4.08 L Hgb 13.7 Hct 41.0 MCV 100.5 H MCH 33.6 MCHC 33.4 RDW 12.6 Plt Count 233 MPV 12.2 H Immature Gran % (Auto) 1.3 H Neut % (Auto) 72.6 Lymph % (Auto) 16.4 L [place] % (Auto) 8.2 Eos % (Auto) 0.4 Baso % (Auto) 1.1 Lymph # (Auto) 1.30 [place] # (Auto) 0.7 H Eos # (Auto) 0.0 Baso # (Auto) 0.1 Abs Immat Gran (auto) 0.10 H Absolute Neuts (auto) 5.8 Absolute Nucleated RBC 0.000 Nucleated RBC % 0.0 PT 13.9 INR 1.1 APTT 30.0 Sodium 137 Potassium 3.3 L Chloride 104 Carbon Dioxide 28 Anion Gap 5 BUN 14 Creatinine 0.48 L Estim Creat Clear Calc 66 Estimated GFR > 60 Glucose 117 H POC Capillary Glucose 104 91 Calcium 8.6 Phosphorus 3.7 Magnesium 1.9 Transferrin 138 L Total Bilirubin 1.0 AST 36 ALT 21 Alkaline Phosphatase 62 Total Protein 5.9 L Albumin 2.9 L 03/17/25 03/17/25 09:04 11:52 WBC RBC Hgb Hct MCV MCH MCHC RDW Plt Count MPV Immature Gran % (Auto) Neut % (Auto) Lymph % (Auto) [place] % (Auto) Eos % (Auto) Baso % (Auto) Lymph # (Auto) [place] # (Auto) Eos # (Auto) Baso # (Auto) Abs Immat Gran (auto) Absolute Neuts (auto) Absolute Nucleated RBC Nucleated RBC % PT INR APTT Sodium Potassium Chloride Carbon Dioxide Anion Gap BUN Creatinine Estim Creat Clear Calc Estimated GFR Glucose POC Capillary Glucose 110 H 150 H Calcium Phosphorus Magnesium Transferrin Total Bilirubin AST ALT Alkaline Phosphatase Total Protein Albumin Quality VTE Prophylaxis VTE prophylaxis: mechanical ordered
[2025-03-17] MEDS: POTASSIUM CHLORIDE 20 MEQ ER TABLET 40 MEQ PO (16:28)
[2025-03-17 20:00] VITALS: PULSE 84; RESP 20; O2SAT 98
[2025-03-17 21:59] VITALS: BP 131/75; PULSE 84; RESP 20; TEMP 36.3; O2SAT 98
[2025-03-18] MEDS: CENTRAL LINE FLUSH 10 ML IV PUSH ×2 (01:05→06:18)
[2025-03-18] MEDS: METOCLOPRAMIDE HCL 10 MG TABLET PO ×3 (01:06→11:21)
[2025-03-18 06:00] VITALS: BP 135/74; PULSE 73; RESP 20; TEMP 36.3; O2SAT 98
[2025-03-18 06:36] LABS: Alanine Aminotransferase 24 U/L (6-35); Albumin Level 3.0 g/dL (3.5-5.1); Alkaline Phosphatase 61 U/L (38-126); Anion Gap 3 mmol/L (4-12); Aspartate Amino Transferase 39 U/L (14-36); Bilirubin,Total 0.6 mg/dL (0.2-1.3); Blood Urea Nitrogen 13 mg/dL (7-17); Calcium 8.9 mg/dL (8.4-10.2); Carbon Dioxide 28 mmol/L (22-30); Chloride 106 mmol/L (98-107); Estimated CRCL calculation 66 ml/min; Estimated Glomerular Filt Rate > 60; Glucose 110 mg/dL (65-110); Potassium 4.0 mmol/L (3.4-5.0); Sodium 137 mmol/L (137-145); Total Protein 6.1 g/dL (6.3-8.2)
[2025-03-18] MEDS: LIDOCAINE 5% PATCH 2 PATCH TRANSDERM (08:21)
[2025-03-18] MEDS: LIDOCAINE 5% PATCH 1 PATCH TRANSDERM (08:22)
[2025-03-18] MEDS: PANTOPRAZOLE SODIUM IV 40 MG VIAL IV PUSH (08:23)
--- NOTE | 2025-03-18 10:18 | P.PNGS_ITS ---
Progress Note: A&P Assessment and Plan (1) SBO (small bowel obstruction): Code(s): K56.609 - Unspecified intestinal obstruction, unspecified as to partial versus complete obstruction Status: Acute Assessment and Plan: * Resolved following ex lap with adhesiolysis. Bowels are moving and she is tolerating a solid diet. * Surgically stable for discharge to rehab. Hopefully she will be able to discharge today, pending insurance approval. Follow-up with Dr. Cavanaugh in 2 weeks in our office. Plan I have discussed the patient's case and plan of care with Dr. Duran. Subjective Subjective Date/Time Seen: 03/18/25 10:18 Patient reports: no new complaints, feels better, flatus, bowel movement and afebrile Interval history: Patient feeling better today. No longer having any abdominal cramping after passing large hard stools yesterday. No nausea or vomiting. She is much more hungry today and is tolerating a diet. Exam GI: Inspection: non-distended and incision (Dry and glue intact, no erythema or drainage) GI Palp: Yes Soft to palpation, No Tenderness to palpation present (GI), No Guarding due to palpation present (GI) and No Rebound tenderness present Auscultation: normal bowel sounds Extrem: General: no calf tenderness and no edema Objective Data Vital Signs Vital Signs: Vital Signs - 24 hr 03/17/25 14:00 03/17/25 20:00 03/17/25 21:59 Temperature 97.9 F 97.4 F L Pulse Rate 82 84 84 Respiratory Rate 18 20 20 Blood Pressure 132/65 131/75 Pulse Oximetry 96 98 98 Oxygen Delivery Room Air 03/18/25 06:00 Temperature 97.4 F L Pulse Rate 73 Respiratory Rate 20 Blood Pressure 135/74 Pulse Oximetry 98 Oxygen Delivery Intake/Output Intake/Output: Intake & Output 03/15/25 03/16/25 03/17/25 03/18/25 23:59 23:59 23:59 23:59 Intake Total 910 930 720 Output Total 2250 200 501 Balance -1340 730 219 Meds/Results Medications: Active Medications Generic Name Dose Route Start Last Admin Trade Name Freq PRN Reason Stop Dose Admin Acetaminophen 650 mg 03/05/25 17:30 Acetaminophen 650 Mg Suppository RECTAL Q6H PRN Mild Pain (1-3) or Fever Hydrocodone Bitart/Acetaminophen 1 tab 03/15/25 16:20 03/16/25 12:56 Hydrocodone/Acetaminophen (*Crx) 5-325 Mg Tablet PO 1 tab Q6H PRN Administration Pain Rated 4-10 Amlodipine Besylate 10 mg 03/14/25 09:00 03/18/25 08:22 Amlodipine Besylate 10 Mg Tablet PO 10 mg DAILY ANSELMO Administration Dextrose 12.5 gm 03/05/25 17:30 Dextrose 50% 25 Gm/50 Ml Syringe IV PUSH PRN PRN Hypoglycemia Protocol Enoxaparin Sodium 40 mg 03/10/25 09:00 03/11/25 10:17 Enoxaparin 40 Mg/0.4 Ml Syringe SUB-Q Not Given DAILY ANSELMO Glucagon 1 mg 03/05/25 17:30 Glucagon For Inj 1 Mg Vial IM PRN PRN Hypoglycemia Protocol Glucose 15 gm 03/05/25 17:30 Glucose Oral Gel 15 Gm Of Glucse In 37.5 Gm Tube PO PRN PRN Hypoglycemia Protocol Dextrose 1,000 mls @ 100 mls/hr 03/05/25 17:30 Dextrose 5% 1,000 Ml IVPB PRN PRN Hypoglycemia Protocol Dextrose 1,000 mls @ 50 mls/hr 03/07/25 13:28 Dextrose 10% IV CONT .Q20H PRN if PN is interrupted Ibuprofen 800 mg in 200 mls @ 400 mls/hr 03/13/25 11:36 03/16/25 19:59 Caldolor 800 Mg/200 Ml IVPB Infused Q8H PRN Infusion PAIN 1-3 Insulin Aspart 2 - 5 units 03/16/25 12:05 03/18/25 08:22 Insulin Aspart (*Bkc) 100 Units/Ml SUB-Q Not Given TIDWM [facility] Protocol Lidocaine 1 patch 03/07/25 09:00 03/18/25 08:22 Lidocaine 5% Patch TRANSDERM 1 patch DAILY ANSELMO Administration Lidocaine 2 patch 03/09/25 12:20 03/18/25 08:21 Lidocaine 5% Patch TRANSDERM 2 patch DAILY ANSELMO Administration Metoclopramide HCl 10 mg 03/06/25 18:00 03/14/25 09:14 Metoclopramide Hcl Inj 10 Mg/2 Ml Vial IV PUSH 10 mg Q8H ANSELMO Administration Metoclopramide HCl 10 mg 03/14/25 11:10 03/18/25 06:18 Metoclopramide Hcl 10 Mg Tablet PO 10 mg Q6HR ANSELMO Administration Naloxone HCl 0.1 mg 03/05/25 17:30 Naloxone Hcl 0.4 Mg/Ml Vial IV PUSH Q5MIN PRN Sedation Ondansetron HCl 4 mg 03/14/25 10:18 03/16/25 15:18 Ondansetron Inj 4 Mg/2 Ml Vial IV PUSH 4 mg Q4H PRN Administration Nausea And Vomiting Pantoprazole Sodium 40 mg 03/06/25 09:00 03/18/25 08:23 Pantoprazole Sodium Iv 40 Mg Vial IV PUSH 40 mg QAM ANSELMO Administration Potassium Chloride 40 meq 03/15/25 09:00 03/18/25 08:20 Potassium Chloride 20 Meq Packet (For Liquid) PO Not Given DAILY ANSELMO Sodium Chloride 10 ml 03/08/25 14:00 03/18/25 06:18 Central Line Flush IV PUSH 10 ml Q8HR ANSELMO Administration Sodium Chloride 10 ml 03/08/25 08:45 Central Line Flush IV PUSH PRN PRN with TPN bag changes Sodium Chloride 20 ml 03/08/25 08:45 03/12/25 05:35 Central Line Flush IV PUSH 20 ml PRN PRN Administration after blood draws Radiology Results: ITS Impressions Chest X-Ray 03/13/25 15:52 IMPRESSION: Left basilar atelectasis versus pneumonia. Prominent markings bilaterally which may indicate pneumonitis. Labs Labs: Laboratory Results - last 24 hr 03/17/25 03/17/25 03/17/25 11:52 16:42 21:02 Sodium Potassium Chloride Carbon Dioxide Anion Gap BUN Creatinine Estim Creat Clear Calc Estimated GFR Glucose POC Capillary Glucose 150 H 98 145 H Calcium Phosphorus Total Bilirubin AST ALT Alkaline Phosphatase Total Protein Albumin 03/18/25 03/18/25 03/18/25 05:24 06:10 08:17 Sodium 137 Potassium 4.0 Chloride 106 Carbon Dioxide 28 Anion Gap 3 L BUN 13 Creatinine 0.48 L Estim Creat Clear Calc 66 Estimated GFR > 60 Glucose 110 POC Capillary Glucose 131 H 107 H Calcium 8.9 Phosphorus 3.4 Total Bilirubin 0.6 AST 39 H ALT 24 Alkaline Phosphatase 61 Total Protein 6.1 L Albumin 3.0 L
--- NOTE | 2025-03-18 12:14 | PM.DS ---
DS: Admitting Diagnosis Discharge Date 03/18/25 Admitting Diagnosis SBO DS: Discharge Diagnosis Discharge Diagnosis (1) Complete small bowel obstruction: Code(s): K56.601 - Complete intestinal obstruction, unspecified as to cause Status: Inactive Assessment and Plan: resolved - CT abdomen/pelvis: 1. Closed loop small bowel obstruction the right lower quadrant without evidence secondary ischemia. 2. Fat and small amount of ascites within a moderate-sized left lower quadrant ventral hernia. 3. Small fat-containing left inguinal hernia. - general surgery consulted, Mao DANIELSON s/p Ex lap on 03/06 s/p TPN now tolerating diet (2) Type 2 diabetes mellitus: Qualifiers: Diabetes mellitus complication status: without complication Diabetes mellitus dedicated intermodal truck driver insulin use: without dedicated intermodal truck driver use Qualified Code(s): E11.9 - Type 2 diabetes mellitus without complications Code(s): E11.9 - Type 2 diabetes mellitus without complications Status: Acute Assessment and Plan: - hypoglycemia protocol - continue home medications: Jardiance, home sliding scale - A1C 5.2% on 03/03/2025 (3) Autoimmune hepatitis: Code(s): K75.4 - Autoimmune hepatitis Status: Acute Assessment and Plan: - continue home medication(s) Prednisone and Azathioprine (4) HTN (hypertension): Qualifiers: Hypertension type: primary hypertension Qualified Code(s): I10 - Essential (primary) hypertension Code(s): I10 - Essential (primary) hypertension Status: Acute Assessment and Plan: - chronic, currently 146/79 - restart home meds - monitor Plan Thrombocytopenia, resolved Plts 233 monitor Diarrhea and abd cramps improved monitor one more day DS: Summary Hospital Course Hospital Course: per previous notes: patient with abdominal pain, nausea and no BM for a week presented to outside hospital and is found to have SBO, was seen by general surgery service, and had exploratory laparotomy adhesiolysis on 03/06 POD #6, today again patient did have several episodes gas, and feels will have a BM today, but still no BM, awaiting return of bowl function, patient is placed on NG tube to decompressed. surgery service has started the patient on TPN, patient has hypokalemia and hypophosphatemia will replace on TPN, and patient complaints of low back pain, applied 2 Lidoderm patches, patient blood smear peripheral specimen showed abnormalities concerning for possible myelodysplasia versus severe reactive atypia, platelets are trending down but stable, and prophylactic Lovenox was held this morning. 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 03/18/25 Patient presents with bowel obstruction. Underwent exploratory lap on 03/06/2025. After that patient has been treated with TPN. Gradually improving. Patient had bowel movement yesterday. Tolerating diet. TPN has been discontinued. PT OT recommended rehab. Lab tests showed improvement in hemoglobin and platelet. Status at Discharge Overall status at discharge: patient is progressing back to baseline Time Spent with Patient Time attestation: Total time spent providing and/or coordinating discharge services: Time spent: Greater than 30 minutes Exam Narrative: Appears chronically ill elderly frail Patient is comfortable, NAD HEENT: eyes are clear and none icteric, NG Tube in place. LUNGS:CTA HEART: RR S1S2 ABD: BS+, Soft and nontender Lower extremities: no edema SKIN: nonjaundiced Neuro: grossly intact. Const: General: comfortable and no acute distress Other: , female, nontoxic appearance, elderly HENMT: Face/Nose/Sinus: Normal nares present Mouth: Yes moist mucous membranes Other: NG in place, on low intermittent suction Eyes: General: appearance normal, both eyes and all related structures Sclera: sclerae normal Pupils: Equal, round and reactive pupils present EOM: EOMs intact bilaterally Resp: Effort & Inspection: normal respiratory effort Auscultation: clear to auscultation bilaterally Cardio: Rate: regular rate Rhythm: regular rhythm Other: S1-S2 present without murmur, rub, ectopy GI: Other: bowel sounds WNL. Mild /diffuse tenderness in all quadrants. Nondistended , soft. Skin: General skin exam: normal color and no rashes or lesions noted Wounds: no wounds Neuro: Cranial nerves: Yes Equal, round and reactive pupils present Speech: normal speech Motor exam (neuro): 5/5 motor strength present throughout Sensory Exam: normal sensation Other: A&O x4, mild somnolence but awakens easily to voice. Extrem: General: normal to inspection Psych: Mental Status: mental status grossly normal Affect: normal affect Other: Good insight and judgment, pleasant DS: Data Data Completed and Pending Completed studies during hospitalization: Pending at discharge 03/06/25 14:40 Surgical [PTH] Routine Surgical [PTH] Routine Labs on day of discharge: Labs from last 24 hours 03/18/25 03/18/25 03/18/25 11:47 08:17 06:10 Sodium 137 Potassium 4.0 Chloride 106 Carbon Dioxide 28 Anion Gap 3 L BUN 13 Creatinine 0.48 L Estim Creat Clear Calc 66 Estimated GFR > 60 Glucose 110 POC Capillary Glucose 130 H 107 H Calcium 8.9 Phosphorus 3.4 Total Bilirubin 0.6 AST 39 H ALT 24 Alkaline Phosphatase 61 Total Protein 6.1 L Albumin 3.0 L 03/18/25 03/17/25 03/17/25 05:24 21:02 16:42 Sodium Potassium Chloride Carbon Dioxide Anion Gap BUN Creatinine Estim Creat Clear Calc Estimated GFR Glucose POC Capillary Glucose 131 H 145 H 98 Calcium Phosphorus Total Bilirubin AST ALT Alkaline Phosphatase Total Protein Albumin Discharge Plan Discharge Attending physician on discharge: Shira Cloud Consulting providers: Saroj Cavanaugh; Alex Walter; Shira Cloud Discharging Clinician: Shira Cloud Anticipated Discharge Date/Time: 03/18/25 12:18 Patient Disposition: Hospital Swing Bed Activity: may shower, no straining and other - see discharge instructions Diet: as tolerated and diabetic Wound Care Instructions: incision open to air Discharge Instructions: Call to schedule an appointment with Dr. Cavanaugh in the office in 2 weeks. ([phone]) If you are unable to get transportation from rehab, then call to schedule the appointment once out of rehab. No lifting more than 10-15 lb x 6 weeks postop Incision open air. Wash over incision daily with mild soap and water. Continue to work with therapy and walk at least 3 times daily. Stairs are okay. If you develop redness or drainage from your incision, fevers, or abdominal pain/vomiting, then call the surgeon return to the ED. Would recommend stopping the Senokot and start taking Miralax over the counter once daily. If your bowels start moving more than three times daily, then you could consider titrating down to every other day or less frequently. To prevent hard stools, you also need to take in plenty of water daily and increase daily fiber. You could also take an over the counter fiber supplement daily once you have recovered from surgery and if okay with your surgeon. Patient Instructions: Antibiotic Form, Bowel Obstruction (GEN) Patient Language: American Stand Alone Forms: General Discharge Information Follow-up/Referrals: Saroj Cavanaugh MD [Physician] - 2 Weeks Discharge Medications: Continued rosuvastatin 20 mg tablet 20 mg PO DAILY Qty: 90 3RF Jardiance 10 mg tablet 10 mg PO QAM Qty: 90 3RF amlodipine 10 mg tablet 10 mg PO DAILY Qty: 90 3RF insulin aspart U-100 [Novolog FlexPen U-100 Insulin] 100 unit/mL (3 mL) insulin pen See Rx Instructions subcut TID MDD 15 90 Days Qty: 15 2RF Rx Instructions: Novolog before breakfast, before lunch and before dinner as needed for high sugar blood sugar 150-200 take 1 units blood sugar [id number] 2 units blood sugar more than 250 take 3 units (DME) pen needle, diabetic 32 gauge x 5/32 needle See Rx Instructions .Route Qty: 300 2RF Rx Instructions: use three times daily (DME) FreeStyle Romain 3 Plus Sensor Device See Rx Instructions .Route Qty: 6 3RF Rx Instructions: As directed ondansetron 4 mg tablet,disintegrating 4 mg PO Q8H PRN (Reason: nausea and vomiting) Qty: 30 0RF oxybutynin chloride 15 mg tablet extended release 24hr 15 mg PO DAILY Qty: 90 2RF biotin 10,000 mcg capsule 10,000 mcg PO DAILY Senokot 8.7 mg tablet,chewable 8.7 mg PO DAILY PRN (Reason: Constipation) famotidine [Acid Controller] 20 mg tablet 20 mg PO DAILY (DME) blood-glucose meter [OneTouch Verio Flex Start] Kit See Rx Instructions .Route Qty: 1 0RF Rx Instructions: As directed (DME) lancets [OneTouch Delica Plus Lancet] 33 gauge misc See Rx Instructions .Route Qty: 100 0RF Rx Instructions: As directed prednisone 5 mg tablet See Rx Instructions .ROUTE .COMPLEX Qty: 60 4RF Dose Instruction: 15 mg (3 x 5 mg) orally daily; see taper instructions - take 3 tablets (all together) every morning for 2 weeks, then drop dose to 10 mg (2 tablets) once a day, and do not modify dose until next visit in 2 months Rx Instructions: 15 mg (3 x 5 mg) orally daily; see taper instructions - take 3 tablets (all together) every morning for 2 weeks, then drop dose to 10 mg (2 tablets) once a day, and do not modify dose until next visit in 2 months azathioprine 50 mg tablet See Rx Instructions .ROUTE .COMPLEX Qty: 30 3RF Dose Instruction: TAKE 1 TABLET BY MOUTH DAILY Rx Instructions: TAKE 1 TABLET BY MOUTH DAILY Date of admission: 03/05/25 18:05 Primary Care Provider: Henry Woodson Admitting Provider: Shira Cloud Attending physician on admission: Shira Cloud Condition: Stable Quality VTE Prophylaxis VTE prophylaxis: mechanical ordered
== END 2025-03-18 15:05 | disposition swing bed (61) | DRG 336 ==
PROVIDERS: Family Medicine; Internal Medicine; Internal Medicine Hematology & Oncology; Nurse Practitioner Family; Student in an Organized Health Care Education/Training Program; Surgery; Admitting Provider Internal Medicine; PCP Family Medicine; Visit Provider Internal Medicine
PROC: 0DNB0ZZ Release Ileum, Open Approach (ICD-10-PCS; CPT 49000; principal; 2025-03-06 13:30)
DX: K56.52 Intestinal adhesions [bands] with complete obstruction (principal); E46 Unspecified protein-calorie malnutrition; K43.0 Incisional hernia with obstruction, without gangrene; N17.9 Acute kidney failure, unspecified; K40.30 Unilateral inguinal hernia, with obstruction, without gangrene, not specified as recurrent; E11.9 Type 2 diabetes mellitus without complications; K75.4 Autoimmune hepatitis; E87.6 Hypokalemia; E83.39 Other disorders of phosphorus metabolism; D69.6 Thrombocytopenia, unspecified; E78.5 Hyperlipidemia, unspecified; N32.81 Overactive bladder; I10 Essential (primary) hypertension; Z90.49 Acquired absence of other specified parts of digestive tract; Z90.710 Acquired absence of both cervix and uterus
CPT/HCPCS: 36415; 36569; 71045; 80053; 81003; 82607; 82728; 82746; 82948; 83540; 83550; 83605; 83615; 83735; 84100; 84466; 84478; 85025; 85027; 85055; 85610; 85730; 86022; 86023; 86850; 86900; 86901; 88302; 88304; 92610; 96374; 96375; 97110; 97116; 97162; 97165; 97530; 97535; A9270; C1751; G0378; G0379; J1100; J1171; J1741; J2003; J2004; J2270; J2405; J2470; J2543; J2704; J2765; J3010; J3360; J3480; J7030; J7040; J7050; J7120; P9047

== ENCOUNTER 2025-03-18 15:59 | Inpatient (IN) | payer MEDICARE, SELFPAY ==
--- OUTSIDE RECORDS SUMMARY | 2025-03-18 16:04 | XMS_ITS | Clinical Summary ---
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
[2025-03-18 16:15] VITALS: BP 136/64; PULSE 76; RESP 18; TEMP 36.2; O2SAT 94
[2025-03-18 16:17] VITALS: BMI 22.8
--- NOTE | 2025-03-18 16:25 | ADMGEN ---
This patient, Flory Khoury, was admitted to 2nd Floor Room 208-1. Patient/family oriented to hospital policies and general routines including ID bracelet, bed and alarms, visiting hours, pain management, procedures, bathroom and other care routines, personal items, smoking policy, room service/diet, and visiting hours. Information on how to activate the Rapid Response Team has been discussed. Patient/Family are encouraged to report perceived risks to care and to ask questions if they do not understand what they are told or what they should do.
[2025-03-18 16:39] VITALS: PULSE 76; RESP 18; O2SAT 94
--- NOTE | 2025-03-18 17:19 | PC.NURSE ---
Patient wanted her Romain glucose monitor applied. Nurse assisted patient and patient's with application. Patient tolerated well. Device adhered well to patient's posterior R upper arm.
[2025-03-18] MEDS: ACETAMINOPHEN 325 MG TABLET 650 MG PO (19:33)
[2025-03-18 20:00] VITALS: PULSE 76; RESP 18; O2SAT 94
--- NOTE | 2025-03-18 21:00 | PC.NURSE ---
Patient has a romain glucometer attached, that gives BG readings on her phone. The Romain results were compared to the glucometer results here in the hospital, and were within 1 point of each other. Patient checked her blood glucose at 2100, and they were 122. She refused to have the finger stick requires to use our glucometer.
[2025-03-19] VITALS: BP 137/64; PULSE 71; RESP 16; TEMP 36.4; O2SAT 91
[2025-03-19 07:49] LABS: Hematocrit 40.0 % (35.0-42.0); Hemoglobin 13.3 g/dL (11.7-13.8); Mean Corpuscular HGB Conc 33.3 g/dL (32-36); Mean Corpuscular Hemoglobin 33.7 pg (27.0-31.0); Mean Corpuscular Volume 101.3 fL (78.0-102.0); Platelet Count Result 233 K/mm3 (150-420); Red Blood Count 3.95 M/mm3 (4.20-5.40); White Blood Count 5.6 K/mm3 (4.8-10.8)
[2025-03-19 08:00] VITALS: BP 131/73; PULSE 77; RESP 18; TEMP 36; O2SAT 95
[2025-03-19 08:01] LABS: Alanine Aminotransferase 21 U/L (6-35); Albumin Level 3.0 g/dL (3.5-5.1); Alkaline Phosphatase 70 U/L (38-126); Anion Gap 3 mmol/L (4-12); Aspartate Amino Transferase 32 U/L (14-36); Bilirubin,Total 0.7 mg/dL (0.2-1.3); Blood Urea Nitrogen 12 mg/dL (7-17); Calcium 8.8 mg/dL (8.4-10.2); Carbon Dioxide 28 mmol/L (22-30); Chloride 109 mmol/L (98-107); Estimated CRCL calculation 69 ml/min; Estimated Glomerular Filt Rate > 60; Glucose 101 mg/dL (65-110); Magnesium 1.7 mg/dL (1.6-2.3); Osmolality Calculated 289 mOsm/kg (285-295); Potassium 3.5 mmol/L (3.4-5.0); Sodium 140 mmol/L (137-145); Total Protein 6.0 g/dL (6.3-8.2)
[2025-03-19] MEDS: oxyBUTYnin CHLORIDE XL 5 MG TAB.ER.24 15 MG PO (08:59)
[2025-03-19] MEDS: FAMOTIDINE 20 MG TABLET PO (08:59)
[2025-03-19] MEDS: ROSUVASTATIN 10 MG TABLET 20 MG PO (09:00)
[2025-03-19] MEDS: EMPAGLIFLOZIN 10 MG TABLET PO (09:00)
--- NOTE | 2025-03-19 10:41 | P.HP_ITS ---
H&P: HPI History of Present Illness Date/Time: 03/19/25 10:41 Chief Complaint: Rehab/generalized weakness Narrative: 75 y/o F with PMH of diabetes, hypertension, hyperlipidemia, and autoimmune hepatitis who was a mission from [facility] to [facility] for continued rehab with physical and occupational therapy due to generalized weakness after hospitalization for a complete small-bowel obstruction. Patient underwent an exploratory laparotomy 03/06/2025 patient tolerated procedure well and her TPN was transitioned to an oral diet. Patient reports she still has some nausea intermittently but has no vomiting. patient at time of assessment with no acute distress or complaints denied any chest pain, shortness a breath, nausea, vomiting or abdominal pain. Patient continues to have BMs and is passing gas. Review of Systems Review of Systems: All systems reviewed & are unremarkable except as noted in HPI and below PMFSH Past Medical History Medical History SBO (small bowel obstruction) Autoimmune hepatitis Hypertension Type 2 diabetes mellitus Overactive bladder Hyperlipidemia Surgical History Surgical History History of total abdominal hysterectomy History of laparoscopic cholecystectomy (05/31/22) Family History Family History Father Heart disease Other Brain cancer Mother No problems noted. Social History Social History Social History: Surrogate medical decision maker: Joce Khoury, spouse. Code status: Full code. Smoking status: Never smoker Second hand tobacco smoke exposure: No Alcohol intake: never Drinks per week: 1 Alcohol use details: Social alcohol use in moderation. Substance use: never Substance use type: does not use Do You Feel Safe in your Home?: Yes Lack of Transportation: No Lack of Food: Never True Current Housing: I Have Housing Concerned About Future Housing: No Difficulty Paying Gas/Electric Bills: No Difficulty Paying for Meds: No Currently Unemployed: No Education: High School Diploma/GED Difficulty w/ Childcare or Family Care: No Living arrangements: with family Additional living arrangements comments: The patient lives with her in [place]. Occupation/Education: retired Additional occupation/education comments: Retired. She is very involved in local [employer] including the [employer]. Spiritual care concerns: No Meds Home Medications and Allergies Home Medications ?Medication ?Instructions ?Recorded ?Confirmed ?Type biotin 10,000 mcg capsule 10,000 mcg PO DAILY 07/19/24 03/18/25 History oxybutynin chloride 15 mg 15 mg PO DAILY #90 tabs 07/19/24 03/18/25 Rx tablet,extended release 24 hr senna leaf extract 8.7 mg chewable 8.7 mg PO DAILY PRN Constipation 07/19/24 03/18/25 History tablet (Senokot) blood-glucose meter (uSampTouch #1 ea 07/24/24 03/18/25 Rx Verio Flex Start kit) lancets 33 gauge (OneTouch Delica #100 ea 07/24/24 03/18/25 Rx Plus Lancet) amlodipine 10 mg tablet 10 mg PO DAILY #90 tabs 11/28/24 03/18/25 Rx empagliflozin 10 mg tablet 10 mg PO QAM #90 tabs 11/28/24 03/18/25 Rx (Jardiance) rosuvastatin 20 mg tablet 20 mg PO DAILY #90 tabs 11/28/24 03/18/25 Rx prednisone 5 mg tablet See Rx Instructions .Route 12/17/24 03/18/25 Rx .COMPLEX #60 tabs azathioprine 50 mg tablet See Rx Instructions .Route 01/13/25 03/18/25 Rx .COMPLEX #30 tabs blood-glucose sensor (FreeStyle #6 ea 03/03/25 03/18/25 Rx Romain 3 Plus Sensor device) insulin aspart U-100 100 unit/mL See Rx Instructions subcut TID 3 03/03/25 03/18/25 Rx (3 mL) subcutaneous pen (Novolog months #15 mL FlexPen U-100 Insulin aspart) pen needle, diabetic 32 gauge x #300 ea 03/03/25 03/18/25 Rx / ondansetron 4 mg disintegrating 4 mg PO Q8H PRN nausea and 03/04/25 03/18/25 Rx tablet vomiting #30 tabs famotidine 20 mg tablet (Acid 20 mg PO DAILY 03/05/25 03/18/25 History Controller) Allergies Allergy/AdvReac Type Severity Reaction Status Date / Time No Known Allergies Allergy Verified 03/05/25 08:47 Vital Signs Vital Signs - 24 hr 03/18/25 16:15 03/18/25 16:39 03/18/25 20:00 Temperature 97.2 F L Pulse Rate 76 76 76 Respiratory Rate 18 18 18 Blood Pressure 136/64 Pulse Oximetry 94 94 94 Oxygen Delivery Room Air Room Air Room Air 03/19/25 00:00 03/19/25 08:00 Temperature 97.6 F 96.8 F L Pulse Rate 71 77 Respiratory Rate 16 18 Blood Pressure 137/64 131/73 Pulse Oximetry 91 95 Oxygen Delivery Room Air Room Air Exam Const: General: comfortable and no acute distress Other: , female, nontoxic appearance, elderly HENMT: Face/Nose/Sinus: Normal nares present Mouth: Yes moist mucous membranes Eyes: General: appearance normal, both eyes and all related structures Sclera: sclerae normal Pupils: Equal, round and reactive pupils present EOM: EOMs intact bilaterally Neck: Neck: supple and no JVD Resp: Effort & Inspection: normal respiratory effort Auscultation: clear to auscultation bilaterally Cardio: Rate: regular rate Rhythm: regular rhythm Other: S1-S2 present without murmur, rub, ectopy GI: GI Palp: Yes Soft to palpation Auscultation: normal bowel sounds Skin: General skin exam: normal color and no rashes or lesions noted Wounds: no wounds Neuro: Speech: normal speech Motor exam (neuro): 5/5 motor strength present throughout Sensory Exam: normal sensation Other: A&O x4, mild somnolence but awakens easily to voice. Extrem: General: normal to inspection Psych: Mental Status: mental status grossly normal Affect: normal affect Other: H&P: Results Labs Labs: Short CBC 03/19/25 Range/Units 07:26 WBC 5.6 (4.8-10.8) K/mm3 Hgb 13.3 (11.7-13.8) g/dL Hct 40.0 (35.0-42.0) % Plt Count 233 (150-420) K/mm3 BMP 03/19/25 07:26 Sodium 140 Potassium 3.5 Chloride 109 H Carbon Dioxide 28 BUN 12 Creatinine 0.46 L Glucose 101 Calcium 8.8 Liver Function 03/19/25 Range/Units 07:26 Total Bilirubin 0.7 (0.2-1.3) mg/dL AST 32 (14-36) U/L ALT 21 (6-35) U/L Alkaline Phosphatase 70 (38-126) U/L Albumin 3.0 L (3.5-5.1) g/dL Assessment and Plan Assessment and plan (1) Complete small bowel obstruction: Code(s): K56.601 - Complete intestinal obstruction, unspecified as to cause Status: Inactive Assessment and Plan: patient presents to [facility] from [facility] at which time she underwent a exploratory laparotomy and abdominal adhesiolysis on 03/06/2025 * MiraLax daily * may continue to advance diet as tolerated * follow-up with Dr. Cavanaugh in 2 weeks * monitor incision * incision open to air may wash with soap and water (2) Weakness generalized: Code(s): R53.1 - Weakness Status: Acute Assessment and Plan: generalized weakness post extended hospitalization for SBO * PT/OT (3) Type 2 diabetes mellitus: Qualifiers: Diabetes mellitus termite control representative insulin use: without termite control representative use Diabetes mellitus complication status: without complication Qualified Code(s): E11.9 - Type 2 diabetes mellitus without complications Code(s): E11.9 - Type 2 diabetes mellitus without complications Status: Acute Assessment and Plan: patient with history diabetes originally on Ozempic has since been switch to Jardiance and sliding scale insulin is currently on prednisone due to autoimmune hepatitis so need to monitor closely * hypoglycemia protocol * Accuchecks ACHS * continue Jardiance * continued SSI * diabetic diet (4) Autoimmune hepatitis: Code(s): K75.4 - Autoimmune hepatitis Status: Acute Assessment and Plan: patient is being treated outpatient by Dr. Jyothi DE LA CRUZ follow-up in April * continued prednisone 10 mg daily and azathioprine (5) HTN (hypertension): Qualifiers: Hypertension type: primary hypertension Qualified Code(s): I10 - Essential (primary) hypertension Code(s): I10 - Essential (primary) hypertension Status: Acute Assessment and Plan: * resume patient's amlodipine * monitor BP per unit protocol Plan Code status: Full code per patient DVT prophylaxis: SCD's Stress ulcer prophylaxis: NA PT/OT notes: Swing bed Disposition: Patient admitted to [facility] for continued physical and occupational therapy to increase strength and endurance to return home with spouse. Quality VTE Prophylaxis VTE prophylaxis: mechanical ordered -Patient's previous records reviewed on admission -ER notes reviewed in detail on admission -discussed all findings and current treatment plan with patient/Family/POA -Consultations reviewed for recommendations -Patient's disposition for safe discharge discussed with patient case manager Dictation performed by [employer] direct speech recognition software, therefore integrated program teacher variants and typographical errors may occur. Hospitalist MIPS Advance Care Plan I have confirmed that the patient's Advanced Care Plan is present, code status is documented, or surrogate decision maker is listed in patient medical record.: Yes Medication Reconciliation I have utilized all available resources to obtain, update and review the patients current medications (includes all prescriptions, OTC, herbals, cannabis, and nutritional supplements).: Yes The patient is not eligible for med reconciliation; the patient is in a emergent medical situation where delaying treatment would jeopardize the patients health.: No
[2025-03-19] MEDS: ACETAMINOPHEN 325 MG TABLET 650 MG PO ×2 (12:38→20:14)
[2025-03-19 16:00] VITALS: BP 137/68; PULSE 81; RESP 18; TEMP 36.2; O2SAT 95
[2025-03-19] MEDS: HYDROCORTISONE 1% 30 GM CREAM 1 APPLIC TOPICAL (20:14)
[2025-03-19] MEDS: ONDANSETRON HCL ODT 4 MG TABLET PO (20:14)
--- NOTE | 2025-03-19 22:57 | PC.NURSE ---
Pt's bg level at 209903/19/2025 is 170 per pt's Romain.
[2025-03-20] VITALS: BP 143/72; PULSE 78; RESP 15; TEMP 36.4; O2SAT 94
[2025-03-20 08:00] VITALS: BP 138/71; PULSE 69; RESP 18; TEMP 36.1; O2SAT 96
--- NOTE | 2025-03-20 08:12 | PC.NURSE ---
Refuses finger stick Romain in use and glucose 107 at this time
[2025-03-20] MEDS: FAMOTIDINE 20 MG TABLET PO (09:00)
[2025-03-20] MEDS: ROSUVASTATIN 10 MG TABLET 20 MG PO (09:00)
[2025-03-20] MEDS: EMPAGLIFLOZIN 10 MG TABLET PO (09:01)
[2025-03-20] MEDS: oxyBUTYnin CHLORIDE XL 5 MG TAB.ER.24 15 MG PO (09:01)
[2025-03-20] MEDS: HYDROCORTISONE 1% 30 GM CREAM 1 APPLIC TOPICAL ×2 (09:03→21:14)
[2025-03-20] MEDS: LIDOCAINE 5% PATCH 2 PATCH TRANSDERM (09:03)
[2025-03-20] MEDS: LIDOCAINE 5% PATCH 1 PATCH TRANSDERM (09:03)
[2025-03-20] MEDS: ACETAMINOPHEN 325 MG TABLET 650 MG PO ×2 (11:41→18:04)
[2025-03-20 16:35] VITALS: BP 136/76; PULSE 80; RESP 16; TEMP 36.6; O2SAT 97
[2025-03-20 20:00] VITALS: PULSE 71; RESP 16; O2SAT 95
[2025-03-21] VITALS: BP 145/77; PULSE 71; RESP 16; TEMP 36.6; O2SAT 95
[2025-03-21 07:45] VITALS: BP 141/84; PULSE 79; RESP 16; TEMP 36.5; O2SAT 95
[2025-03-21 08:00] VITALS: PULSE 79; RESP 16; O2SAT 95
--- NOTE | 2025-03-21 08:00 | PC.NURSE ---
Patients blood sugar 101 per Romain monitor. Patient refused to have finger stick.
[2025-03-21] MEDS: ROSUVASTATIN 10 MG TABLET 20 MG PO (09:19)
[2025-03-21] MEDS: oxyBUTYnin CHLORIDE XL 5 MG TAB.ER.24 15 MG PO (09:19)
[2025-03-21] MEDS: LIDOCAINE 5% PATCH 1 PATCH TRANSDERM (09:19)
[2025-03-21] MEDS: LIDOCAINE 5% PATCH 2 PATCH TRANSDERM (09:19)
[2025-03-21] MEDS: FAMOTIDINE 20 MG TABLET PO (09:19)
[2025-03-21] MEDS: EMPAGLIFLOZIN 10 MG TABLET PO (09:19)
[2025-03-21] MEDS: HYDROCORTISONE 1% 30 GM CREAM 1 APPLIC TOPICAL ×2 (09:20→20:38)
--- NOTE | 2025-03-21 11:37 | PC.NURSE ---
Patient refused finger stick. Blood sugar 129 per patietns CGM Romain.
[2025-03-21] MEDS: ACETAMINOPHEN 325 MG TABLET 650 MG PO ×2 (12:02→20:38)
[2025-03-21 16:35] VITALS: BP 131/75; PULSE 82; RESP 16; TEMP 36.4; O2SAT 96
--- NOTE | 2025-03-21 17:00 | PC.NURSE ---
Patient refused finger stick. Blood sugar 151 per [facility].
--- NOTE | 2025-03-21 20:45 | PC.NURSE ---
Patient refused her HS accucheck. Her Romain reads 153.
[2025-03-22] VITALS: BP 136/78; PULSE 80; RESP 16; TEMP 36.3; O2SAT 95
[2025-03-22 08:00] VITALS: BP 127/75; PULSE 68; RESP 20; TEMP 37.3; O2SAT 97
[2025-03-22] MEDS: ROSUVASTATIN 10 MG TABLET 20 MG PO (08:29)
[2025-03-22] MEDS: oxyBUTYnin CHLORIDE XL 5 MG TAB.ER.24 15 MG PO (08:29)
[2025-03-22] MEDS: LIDOCAINE 5% PATCH 1 PATCH TRANSDERM (08:30)
[2025-03-22] MEDS: ACETAMINOPHEN 325 MG TABLET 650 MG PO ×2 (08:30→21:20)
[2025-03-22] MEDS: LIDOCAINE 5% PATCH 2 PATCH TRANSDERM (08:30)
[2025-03-22] MEDS: FAMOTIDINE 20 MG TABLET PO (08:30)
[2025-03-22] MEDS: HYDROCORTISONE 1% 30 GM CREAM 1 APPLIC TOPICAL (08:30)
[2025-03-22] MEDS: EMPAGLIFLOZIN 10 MG TABLET PO (08:30)
[2025-03-22 16:00] VITALS: BP 139/66; PULSE 78; RESP 16; TEMP 37.3; O2SAT 96
[2025-03-22 20:00] VITALS: PULSE 82; RESP 16; O2SAT 92
[2025-03-23] VITALS: BP 142/78; PULSE 82; RESP 16; TEMP 36.9; O2SAT 92
[2025-03-23 08:00] VITALS: BP 147/80; PULSE 69; RESP 18; TEMP 37; O2SAT 97
[2025-03-23] MEDS: LIDOCAINE 5% PATCH 1 PATCH TRANSDERM (09:32)
[2025-03-23] MEDS: LIDOCAINE 5% PATCH 2 PATCH TRANSDERM (09:32)
[2025-03-23] MEDS: FAMOTIDINE 20 MG TABLET PO (09:35)
[2025-03-23] MEDS: EMPAGLIFLOZIN 10 MG TABLET PO (09:35)
[2025-03-23] MEDS: ROSUVASTATIN 10 MG TABLET 20 MG PO (09:35)
[2025-03-23] MEDS: oxyBUTYnin CHLORIDE XL 5 MG TAB.ER.24 15 MG PO (09:35)
[2025-03-23] MEDS: ACETAMINOPHEN 325 MG TABLET 650 MG PO ×2 (15:24→21:26)
[2025-03-23 16:00] VITALS: BP 141/69; PULSE 77; RESP 18; TEMP 37.4; O2SAT 96
[2025-03-23 20:00] VITALS: PULSE 76; RESP 16; O2SAT 96
[2025-03-24] VITALS: BP 158/88; PULSE 76; RESP 16; TEMP 36.4; O2SAT 96
[2025-03-24] MEDS: ACETAMINOPHEN 325 MG TABLET 650 MG PO ×3 (04:43→20:46)
[2025-03-24 08:00] VITALS: BP 129/75; PULSE 70; RESP 20; TEMP 37.1; O2SAT 97
[2025-03-24] MEDS: FAMOTIDINE 20 MG TABLET PO (09:01)
[2025-03-24] MEDS: oxyBUTYnin CHLORIDE XL 5 MG TAB.ER.24 15 MG PO (09:01)
[2025-03-24] MEDS: EMPAGLIFLOZIN 10 MG TABLET PO (09:01)
[2025-03-24] MEDS: ROSUVASTATIN 10 MG TABLET 20 MG PO (09:01)
[2025-03-24] MEDS: LIDOCAINE 5% PATCH 1 PATCH TRANSDERM (09:02)
[2025-03-24] MEDS: LIDOCAINE 5% PATCH 2 PATCH TRANSDERM (09:02)
[2025-03-24] MEDS: CALCIUM CARBONATE (TUMS) 500 MG (200 MG ELEMENTAL) PO (11:18)
[2025-03-24 16:00] VITALS: BP 136/74; PULSE 77; RESP 18; TEMP 37; O2SAT 97
[2025-03-24 20:00] VITALS: PULSE 77; RESP 18; O2SAT 97
[2025-03-25] VITALS: BP 146/80; PULSE 79; RESP 17; TEMP 36.9; O2SAT 95
[2025-03-25 08:00] VITALS: BP 149/78; PULSE 72; RESP 18; TEMP 37.1; O2SAT 96
--- NOTE | 2025-03-25 08:06 | P.DS_ITS ---
DS: Admitting Diagnosis Discharge Date 03/25/2025 Admitting Diagnosis Rehab for generalized weakness after small-bowel obstruction DS: Discharge Diagnosis Discharge Diagnosis (1) Complete small bowel obstruction: Code(s): K56.601 - Complete intestinal obstruction, unspecified as to cause Status: Inactive (2) Weakness generalized: Code(s): R53.1 - Weakness Status: Acute (3) Type 2 diabetes mellitus: Qualifiers: Diabetes mellitus complication status: without complication Diabetes mellitus mcc insulin use: without mcc use Qualified Code(s): E11.9 - Type 2 diabetes mellitus without complications Code(s): E11.9 - Type 2 diabetes mellitus without complications Status: Acute (4) Autoimmune hepatitis: Code(s): K75.4 - Autoimmune hepatitis Status: Acute (5) HTN (hypertension): Qualifiers: Hypertension type: primary hypertension Qualified Code(s): I10 - Essential (primary) hypertension Code(s): I10 - Essential (primary) hypertension Status: Acute DS: Summary Hospital Course Reason for hospitalization: rehab after hospitalization for small-bowel obstruction due to generalized weakness Hospital Course: Admission: Patient was a 75 y/o F with PMH of diabetes, hypertension, hyperlipidemia, and autoimmune hepatitis who was a mission from [facility] to [facility] for continued rehab with physical and occupational therapy due to generalized weakness after hospitalization for a complete small-bowel obstruction. Patient underwent an exploratory laparotomy 03/06/2025 patient tolerated procedure well and her TPN was transitioned to an oral diet. Hospital course: Patient continued admission for acute rehab following a hospitalization for SBO and increased weakness due to extended hospitalization and surgical repair. Patient advanced with PT/OT as expected and increased her strength and endurance. Continued to have normal BM's and gas while admitted and tolerated an advanced diet. Patient was discharged to home with home health and follow-up with Dr Cavanaugh on 04/01. Status at Discharge Functional status at discharge: independent ambulation Overall status at discharge: patient is progressing back to baseline Time Spent with Patient Time attestation: Total time spent providing and/or coordinating discharge services: Time spent: Greater than 30 minutes Exam Const: General: comfortable and no acute distress Other: , female, nontoxic appearance, elderly HENMT: Face/Nose/Sinus: Normal nares present Mouth: Yes moist mucous membranes Eyes: General: appearance normal, both eyes and all related structures Sclera: sclerae normal Pupils: Equal, round and reactive pupils present EOM: EOMs intact bilaterally Neck: Neck: supple and no JVD Resp: Effort & Inspection: normal respiratory effort Auscultation: clear to auscultation bilaterally Cardio: Rate: regular rate Rhythm: regular rhythm Other: S1-S2 present without murmur, rub, ectopy GI: Auscultation: normal bowel sounds Skin: General skin exam: normal color and no rashes or lesions noted Wounds: no wounds Neuro: Cranial nerves: Yes Equal, round and reactive pupils present Speech: normal speech Motor exam (neuro): 5/5 motor strength present throughout Sensory Exam: normal sensation Other: A&O x4, mild somnolence but awakens easily to voice. Extrem: General: normal to inspection Psych: Mental Status: mental status grossly normal Affect: normal affect Other: Discharge Plan Discharge Attending physician on discharge: Yayo Brown Consulting providers: Kimmie Baum Discharging Clinician: Kimmie Baum Anticipated Discharge Date/Time: 03/25/25 08:01 Patient Disposition: Home Activity: may shower and other - see discharge instructions Diet: as tolerated Discharge Instructions: Discharge Instructions: * Call to schedule an appointment with Dr. Cavanaugh 04/01/2025 @ 9:45 * No lifting more than 10-15 lb x 6 weeks postop * Incision open air. Wash over incision daily with mild soap and water. * Stairs are okay. * If you develop redness or drainage from your incision, fevers, or abdominal pain/vomiting, then call the surgeon return to the ED. * Would recommend stopping the Senokot and start taking Miralax over the counter once daily. If your bowels start moving more than three times daily, then you could consider titrating down to every other day or less frequently. To prevent hard stools, you also need to take in plenty of water daily and increase daily fiber. You could also take an over the counter fiber supplement daily once you have recovered from surgery and if okay with your surgeon. How can you care for yourself at home? ? Keep track of any new symptoms or changes in your symptoms. ? Rest until you feel better. ? Be safe with medicines. Take your medicines exactly as prescribed. Call your doctor if you think you are having a problem with your medicine. ? Do not drive after taking a prescription pain medicine. ? Ensure to follow-up with primary care physician as indicated and provide updated medication list provided to you at discharge. When should you call for help? Call 911 anytime you think you may need emergency care. For example, call if: ? You passed out (lost consciousness). Call your doctor now or seek immediate medical care if: ? You have new symptoms like fever, difficulty breathing, Chest pain, vomiting, or rash. ? You have new or different pain. ? You are confused and are having trouble thinking clearly. ? Your symptoms are getting worse. Watch closely for changes in your health, and be sure to contact your doctor if: ? You do not get better as expected. Patient Instructions: Antibiotic Form, Prednisone (By mouth), Hydroxyzine (By mouth), Fall Prevention for Children (DC), Bowel Obstruction (DC) Patient Language: Malaysian Stand Alone Forms: General Discharge Information Follow-up/Referrals: Saroj Cavanaugh MD [Physician] - 04/01/25 9:45 am Discharge Medications: New polyethylene glycol 3350 [Miralax] 17 gram Powder In Packet 17 g PO QAM Qty: 1 0RF Rx Instructions: OTC lidocaine [Lidoderm] 5 % Adhesive Patch,Medicated 2 patch transdermal DAILY Qty: 60 0RF prednisone 10 mg Tablet 10 mg PO DAILY@0800 Qty: 30 0RF Rx Instructions: Take until follow-up with GI hydroxyzine HCl 25 mg Tablet 25 mg PO Q6H PRN (Reason: Itching) Qty: 60 0RF Continued rosuvastatin 20 mg tablet 20 mg PO DAILY Qty: 90 3RF Jardiance 10 mg tablet 10 mg PO QAM Qty: 90 3RF amlodipine 10 mg tablet 10 mg PO DAILY Qty: 90 3RF insulin aspart U-100 [Novolog FlexPen U-100 Insulin] 100 unit/mL (3 mL) insulin pen See Rx Instructions subcut TID MDD 15 90 Days Qty: 15 2RF Rx Instructions: Novolog before breakfast, before lunch and before dinner as needed for high sugar blood sugar 150-200 take 1 units blood sugar [id number] 2 units blood sugar more than 250 take 3 units (DME) pen needle, diabetic 32 gauge x 5/32 needle See Rx Instructions .Route Qty: 300 2RF Rx Instructions: use three times daily (DME) FreeStyle Romain 3 Plus Sensor Device See Rx Instructions .Route Qty: 6 3RF Rx Instructions: As directed ondansetron 4 mg tablet,disintegrating 4 mg PO Q8H PRN (Reason: nausea and vomiting) Qty: 30 0RF oxybutynin chloride 15 mg tablet extended release 24hr 15 mg PO DAILY Qty: 90 2RF biotin 10,000 mcg capsule 10,000 mcg PO DAILY Senokot 8.7 mg tablet,chewable 8.7 mg PO DAILY PRN (Reason: Constipation) famotidine [Acid Controller] 20 mg tablet 20 mg PO DAILY (DME) blood-glucose meter [OneTouch Verio Flex Start] Kit See Rx Instructions .Route Qty: 1 0RF Rx Instructions: As directed (DME) lancets [OneTouch Delica Plus Lancet] 33 gauge misc See Rx Instructions .Route Qty: 100 0RF Rx Instructions: As directed azathioprine 50 mg tablet See Rx Instructions .ROUTE .COMPLEX Qty: 30 3RF Dose Instruction: TAKE 1 TABLET BY MOUTH DAILY Rx Instructions: TAKE 1 TABLET BY MOUTH DAILY Discontinued prednisone 5 mg tablet See Rx Instructions .ROUTE .COMPLEX Qty: 60 4RF Dose Instruction: 15 mg (3 x 5 mg) orally daily; see taper instructions - take 3 tablets (all together) every morning for 2 weeks, then drop dose to 10 mg (2 tablets) once a day, and do not modify dose until next visit in 2 months Rx Instructions: 15 mg (3 x 5 mg) orally daily; see taper instructions - take 3 tablets (all together) every morning for 2 weeks, then drop dose to 10 mg (2 tablets) once a day, and do not modify dose until next visit in 2 months Date of admission: 03/18/25 15:59 Primary Care Provider: Henry Woodson Admitting Provider: Yayo Brown Attending physician on admission: Yayo Brown Condition: Stable Quality VTE Prophylaxis VTE prophylaxis: mechanical ordered -Patient's previous records reviewed on admission -ER notes reviewed in detail on admission -discussed all findings and current treatment plan with patient/Family/POA -Consultations reviewed for recommendations -Patient's disposition for safe discharge discussed with outpatient case manager Dictation performed by [employer] direct speech recognition software, therefore pilot instructor variants and typographical errors may occur. Hospitalist MIPS Heart Failure (Exclusion) Patient has history of Heart Transplant or Left Ventricular Assistive Device?: No IF YES, STOP HERE Heart Failure (Qualifier) Patient has current or prior documentation of LVEF less than or equal to 40%, or mod/servere depressed LVSF?: No IF NO, STOP HERE
[2025-03-25] MEDS: ACETAMINOPHEN 325 MG TABLET 650 MG PO (08:52)
[2025-03-25] MEDS: LIDOCAINE 5% PATCH 1 PATCH TRANSDERM (08:52)
[2025-03-25] MEDS: LIDOCAINE 5% PATCH 2 PATCH TRANSDERM (08:52)
[2025-03-25] MEDS: EMPAGLIFLOZIN 10 MG TABLET PO (08:53)
[2025-03-25] MEDS: FAMOTIDINE 20 MG TABLET PO (08:53)
[2025-03-25] MEDS: oxyBUTYnin CHLORIDE XL 5 MG TAB.ER.24 15 MG PO (08:53)
[2025-03-25] MEDS: ROSUVASTATIN 10 MG TABLET 20 MG PO (08:53)
--- NOTE | 2025-03-25 11:39 | PC.NURSE ---
Discharge instructions reviewed with patient and family. Verbalized understanding. Patient taken off floor per wheelchair.
--- NOTE | 2025-03-26 09:23 | PC.NURSE ---
Discharge call back made. Patient states, No, I have no concerns or questions, I appreciate the call, I just had breakfast and now I am going to take a nap she also informs she has the number to set up all appointments she needs and plans to do this after her nap.
== END 2025-03-25 11:25 | disposition home or self-care (01) | DRG 948 ==
PROVIDERS: Nurse Practitioner Family; Admitting Provider Internal Medicine; PCP Family Medicine; Visit Provider Internal Medicine
DX: R53.1 Weakness (principal); K56.601 Complete intestinal obstruction, unspecified as to cause; E11.9 Type 2 diabetes mellitus without complications; I10 Essential (primary) hypertension; E78.5 Hyperlipidemia, unspecified; K75.4 Autoimmune hepatitis; Z90.49 Acquired absence of other specified parts of digestive tract; Z79.84 Long term (current) use of oral hypoglycemic drugs; Z79.4 Long term (current) use of insulin
CPT/HCPCS: 36415; 80053; 82948; 83735; 85027; 97110; 97161; 97165; 97530; 97535; A9270; J7512

== ENCOUNTER 2025-05-26 10:33 | Outpatient (CLI) | payer MEDICARE, SELFPAY ==
[2025-05-26 11:11] LABS: INR 1.0; Prothrombin Time 10.9 Seconds (9.50-12.1)
[2025-05-26 11:14] LABS: Alanine Aminotransferase 24 U/L (6-35); Albumin Level 4.5 g/dL (3.5-5.1); Alkaline Phosphatase 54 U/L (38-126); Aspartate Amino Transferase 32 U/L (14-36); Bilirubin,Total 0.7 mg/dL (0.2-1.3); Total Protein 7.7 g/dL (6.3-8.2)
--- OUTSIDE RECORDS SUMMARY | 2025-05-26 11:42 | XMS_ITS | Clinical Summary ---
Author Organization [facility] Address [facility] [place] [address] Care Team Providers Care Loom Checker Name Role Phone FloHenry merino Primary Care Provider [phone] Active Problems Problem Noted Date Diagnosed Date Weakness 06/21/2022 Acute cholecystitis 06/21/2022 Encounters Date Type Department Care Team Description 05/15/2025 7:53 AM CDT - 05/15/2025 11:59 PM CDT Hospital Encounter [facility] [address] [place] [address] Gerardo Ayon PT Generalized Weakness Discharge Disposition: Home or Self Care (Routine Discharge) 05/15/2025 Travel 05/12/2025 7:40 AM CDT - 05/12/2025 11:59 PM CDT Hospital Encounter [facility] [address] [place] [address] Gerardo Ayon, PT Hallie Abernathy, FLOWER [employer]ESS OPERATOR Generalized Weakness Discharge Disposition: Home or Self Care (Routine Discharge) 05/12/2025 Travel 05/08/2025 9:46 AM CDT - 05/08/2025 11:59 PM CDT Hospital Encounter [facility] [address] [place] [address] Gerardo Ayon, PT Generalized Weakness Discharge Disposition: Home or Self Care (Routine Discharge) 05/08/2025 Travel 05/06/2025 3:45 PM CDT - 05/06/2025 11:59 PM CDT Hospital Encounter [facility] [address] [place] [id number] Gerardo Ayon, PT Hallie Abernathy, FLOWER 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 PRESS 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 Generalized Weakness Discharge Disposition: Home or Self Care (Routine Discharge) 05/06/2025 Travel 05/01/2025 7:53 AM CDT - 05/01/2025 11:59 PM CDT Hospital Encounter [facility] [address] [place] [id number] Gerardo Ayon, PT Generalized Weakness Discharge Disposition: Home or Self Care (Routine Discharge) 05/01/2025 Travel 04/29/2025 10:09 AM CDT - 04/29/2025 11:59 PM CDT Hospital Encounter [facility] [address] [place] [id number] Gerardo Ayon, PT Robbie Crain, FLOWER [employer] PRESS OPERATOR Generalized Weakness Discharge Disposition: Home or Self Care (Routine Discharge) 04/29/2025 Travel 04/24/2025 7:51 AM CDT - 04/24/2025 11:59 PM CDT Hospital Encounter [facility] [address] [place] [id number] Gerardo Ayon, PT Generalized Weakness Discharge Disposition: Home or Self Care (Routine Discharge) 04/24/2025 Travel 04/22/2025 7:52 AM CDT - 04/22/2025 11:59 PM CDT Hospital Encounter [facility] [address] [place] [id number] Gerardo Ayon, PT Halile Abernathy, FLOWER POT PRESS OPERATOR Generalized Weakness Discharge Disposition: Home or Self Care (Routine Discharge) 04/22/2025 Travel 04/17/2025 11:15 AM CDT - 04/17/2025 11:59 PM CDT Hospital Encounter [facility] [address] [place] [id number] Aretha Parsons, PT Weakness Discharge Disposition: Home or Self Care (Routine Discharge) 04/17/2025 Travel 04/14/2025 10:20 AM CDT - 04/14/2025 11:59 PM CDT Hospital Encounter [facility] [address] [place] [phone] Gerardo Ayon, PT Generalized Weakness Discharge Disposition: Home or Self Care (Routine Discharge) 04/14/2025 Travel from Last 3 Months Social History Tobacco Use Types Packs/Day Years Used Date Smoking Tobacco: Never Assessed Comments Unknown Sex and Gender Information Value Date Recorded Sex Assigned at Not on file Legal Sex Female [address] [employer] Gender Identity Not on file Sexual Orientation Not on file Plan of Treatment Health Maintenance Due Date Last Done Comments Colorectal Cancer Screening Colonoscopy (10 Years) 1950 Hepatitis C 01/12/1968 Zoster Vaccines (1 of 2) 01/12/2000 Annual Medicare Wellness Visit 2015 Dexa Scan (General) 2015 Pneumococcal Vaccine: 50+ Years (2 of 2 - PPSV23) 01/02/2020 01/01/2019 RSV Immunization or 60+ Years (1 - 1-dose 75+ series) 2025 COVID-19 Vaccine (4 - 2024-2 6 season) 2025 07/15/2021, 11/26/2020, 11/01/2020 DTaP, Tdap and Td Vaccines ( 3 - Td or Tdap) 01/01/2029 01/01/2019, 05/25/2010 Meningococcal B Vaccine Aged Out No l onger eligible based on patient's age to complete this topic Meningococcal Vaccine Aged Out No josh richy eligible based on patient's age to complete this topic RSV Immunizations Under 20 Months Aged Out No longer eligible b ased on patient's age to complete [place] [address] [facility] Care Teams Loom Checker Relationship Specialty Start Date End Date Henry Woodson DO [address] [place] [address] PCP - General FAMILY PRACTICE 06/14/22
== END 2025-05-26 10:34 | disposition home or self-care (01) ==
LOC: CHSLAB 10:35
PROVIDERS: PCP Family Medicine; Visit Provider Internal Medicine Gastroenterology
DX: K75.4 Autoimmune hepatitis (principal)
CPT/HCPCS: 36415; 80076; 85610

== ENCOUNTER 2025-07-28 12:22 | Outpatient (CLI) | payer MEDICARE, SELFPAY ==
--- NOTE | ~2025-07-28 | DEXA_ITS ---
Bone Density Report Name: RAKESH MANLEY Age: 75 Sex: Female Ethnicity: White Date of : 1950 Indication: postmenopausal; screening for osteoporosis; parental hip fracture; height loss; hysterectomy; Referring Provider: Kristin Ortiz Study: Bone densitometry was performed. Exam Date: July 28, 2025 Accession number: [id number] Bone Density: Region BMD T-score Z-score Classification AP Spine(L1-L4) 0.973 -0.7 1.8 Normal Femoral Neck (Left) 0.486 -3.3 -1.2 Osteoporosis Total Hip (Left) 0.670 -2.2 -0.4 Osteopenia Femoral Neck (Right) 0.496 -3.2 -1.1 Osteoporosis Total Hip (Right) 0.752 -1.6 0.2 Osteopenia Femoral Neck Mean 0.491 -3.2 -1.1 Osteoporosis Total Hip Mean 0.711 -1.9 -0.1 Osteopenia World Health Organization criteria for BMD impression classify patients as: Normal (T-score at or above -1.0), Osteopenia (T-score between -1.0 and -2.5), or Osteoporosis (T-score at or below -2.5). 10-year Fracture Risk: FRAX not reported because: Some T-score for Spine Total or Hip Total or Femoral Neck at or below -2.5 Clinical Information Provided by Patient: Parent has had a hip fracture Has used the following medications: HRT (i.e. estrogen/hormone therapy) Has the following medical conditions: Hysterectomy Patient maximum height was 63 Menopause Age: 35 No regular weight bearing exercise Onset of menses at age 13 Number of children 2 Impression: The patient has osteoporosis, based on the Left Femoral Neck T-score. The patient has risk factors, including: parental hip fracture. Discussion: INCREASED RISK OF FRACTURE. BONE DENSITY IS UNDESIRABLY LOW AT ONE OR MORE SKELETAL SITES, CONSISTENT WITH POSTMENOPAUSAL OSTEOPOROSIS. This patient's lowest T-score meets the World Health Organization's (WHO) criteria for osteoporosis at one or more sites (T-score -2.5 or below). In untreated patients, the risk of osteoporotic fracture increases approximately two-fold for each 1.0 SD decrease in T-score. Low bone density is not the only risk factor for fracture; also consider factors such as patient's age, frailty or poor health, risk of falling, risk of injury, previous osteoporotic fracture, family history of osteoporosis, cigarette smoking, low body weight, etc. Not everyone with low bone mineral density has osteoporosis; osteomalacia and other metabolic bone disorders should also be considered. Patients who have osteoporosis should be evaluated for specific diseases and conditions (secondary causes) that may cause or contribute to bone loss. The [place] Association of Clinical Endocrinologists (AACE) and National Osteoporosis Foundation (NOF) recommend pharmacologic intervention for all postmenopausal women whose T-score is in this range. The patient should follow a healthful lifestyle (good nutrition with adequate calcium and vitamin D, and appropriate weight-bearing exercise). Follow-Up: Consider a repeat BMD and Vertebral Fracture Assessment (VFA) exam in 2 years or sooner if medically necessary, to reassess this patient's status. Reported by: GUILLAUME on 07/28/2025 12:46:00 PM. Reviewed, dictated and finalized at location A.
== END 2025-07-28 12:23 | disposition home or self-care (01) ==
LOC: CHSIMG 12:23
PROVIDERS: PCP Family Medicine; Visit Provider Internal Medicine Endocrinology, Diabetes & Metabolism
DX: E78.2 Mixed hyperlipidemia (principal); Z78.0 Asymptomatic menopausal state; M85.89 Other specified disorders of bone density and structure, multiple sites; M81.0 Age-related osteoporosis without current pathological fracture
CPT/HCPCS: 77080

== ENCOUNTER 2025-08-06 09:59 | Outpatient (CLI) | payer MEDICARE, SELFPAY ==
[2025-08-06 11:11] LABS: Alanine Aminotransferase 23 U/L (6-35); Albumin Level 4.5 g/dL (3.5-5.1); Alkaline Phosphatase 55 U/L (38-126); Anion Gap 8 mmol/L (4-12); Aspartate Amino Transferase 29 U/L (14-36); Bilirubin,Total 0.6 mg/dL (0.2-1.3); Blood Urea Nitrogen 29 mg/dL (7-17); Calcium 9.9 mg/dL (8.4-10.2); Carbon Dioxide 29 mmol/L (22-30); Chloride 107 mmol/L (98-107); Estimated Glomerular Filt Rate > 60; Glucose 97 mg/dL (65-110); Osmolality Calculated 303 mOsm/kg (285-295); Potassium 3.9 mmol/L (3.4-5.0); Sodium 144 mmol/L (137-145); Total Protein 6.9 g/dL (6.3-8.2)
[2025-08-06 11:42] LABS: Thyroid Stimulating Hormone 2.250 uIU/mL (0.465-4.680)
== END 2025-08-06 10:00 | disposition home or self-care (01) ==
LOC: CHSLAB 10:00
PROVIDERS: PCP Family Medicine; Visit Provider Internal Medicine Endocrinology, Diabetes & Metabolism
DX: M81.0 Age-related osteoporosis without current pathological fracture (principal); E55.9 Vitamin D deficiency, unspecified; E78.2 Mixed hyperlipidemia
CPT/HCPCS: 36415; 80053; 82306; 83970; 84443

== ENCOUNTER 2025-08-08 12:28 | Outpatient (CLI) | payer MEDICARE, SELFPAY ==
[2025-08-08 13:14] LABS: Total Volume 24 Hour Urine 2310 ml
[2025-08-08 13:15] LABS: Creatinine 24 Hour Urine 0.80 g/24 hr (0.60-1.80)
[2025-08-09 10:08] LABS: Calcium, Urine 22.6 mg/dL (Not Estab.)
== END 2025-08-08 12:29 | disposition home or self-care (01) ==
LOC: CHSLAB 12:29
PROVIDERS: PCP Family Medicine; Visit Provider Internal Medicine Endocrinology, Diabetes & Metabolism
DX: E55.9 Vitamin D deficiency, unspecified (principal); M81.0 Age-related osteoporosis without current pathological fracture
CPT/HCPCS: 81050; 82340; 82570